=== PATIENT | female | born 1935 | race Caucasian/White ===

== ENCOUNTER → 2016-07-30 | Outpatient (CLI) | payer BC ==
[~2016-07-30] MED LIST: ASPI81TA21 PO; CHOL100027 PO; CHOLTAB12 PO; COEN100C15 PO; CYAN10005 PO; DYZ PO; FISHOIL PO; FURO-85 PO; GABA1CAP PO; GING1CAP2 PO; IMD/2 PO; LACT10CA3 PO; LACT3000 PO; MISCCAP80 PO; MULT-188 PO; OMEGCAP2 PO; PANT40TA PO; POTA1TAB97 PO; PRD/1 PO; PRED-301 PO; PROB1CAP93 PO; PSYL1POW PO; REDCAP2 PO; TURM500T PO; [UNRECOGNIZED DRUG - OTHER] PO
[2016-07-30 16:41] LABS: HEMATOCRIT 42.2 % (37-47); MEAN CELL VOLUME 91.5 fL (80-100); MEAN CORPUSCULAR HEMOGLOBIN 29.1 pg (25-34); MEAN CORPUSCULAR HGB CONC 31.8 g/dl (32-36); MEAN PLATELET VOLUME 11.1 fL (7.4-10.4); PLATELET COUNT 306 K/uL (130-400); RED BLOOD COUNT 4.61 M/uL (4.2-5.4); WHITE BLOOD COUNT 11.71 K/uL (4.8-10.8)
[2016-07-30 17:08] LABS: BLOOD UREA NITROGEN 24 mg/dl (7-18); BUN/CREATININE RATIO 18.3 (10-20); CALCIUM 9.1 mg/dl (8.5-10.1); CARBON DIOXIDE 32 mmol/L (21-32); CHLORIDE 106 mmol/L (98-107); GLUCOSE 91 mg/dl (70-99); PHOSPHORUS 3.1 mg/dl (2.5-4.9); POTASSIUM 3.7 mmol/L (3.5-5.1); SODIUM 145 mmol/L (136-145)
== END | disposition home or self-care (01) ==
LOC: C.LAB1850 15:15
PROVIDERS: ATTEND Internal Medicine Nephrology
DX: M31.6 Other giant cell arteritis (principal); N18.3 Chronic kidney disease, stage 3 (moderate)

== ENCOUNTER → 2016-09-15 | Outpatient (CLI) | payer BC | END | disposition home or self-care (01) | LOC: C.LAB1850 10:42 | PROVIDERS: ATTEND Internal Medicine Rheumatology | DX: M35.3 Polymyalgia rheumatica (principal); Z79.52 Long term (current) use of systemic steroids ==

== ENCOUNTER → 2016-09-22 | Outpatient (CLI) | payer BC ==
--- NOTE | 2016-09-22 13:15 | DIAGNOSTIC IMAGING REPORT ---
NECK ULTRASONOGRAPHY CLINICAL HISTORY: CERVICAL LYMPHADENOPATHY palpable mass COMPARISON STUDY: No previous studies for comparison. FINDINGS: Ultrasonographic evaluation of the neck was performed with attention to the palpable abnormality. The palpable abnormality within the left neck, corresponds to the left submandibular gland. No subacute gland masses are visualized. No pathologic adenopathy was demonstrated. IMPRESSION: The palpable abnormality described by the patient corresponds to the patient's left submandibular gland. No submandibular gland masses are visualized. Electronically signed by: Toni Islas M.D. 09/22/2016 1:13 PM Dictated Date/Time: 09/22/2016 1:11 PM
== END | disposition home or self-care (01) ==
LOC: C.ULTRBC 12:41
PROVIDERS: ATTEND Family Medicine
DX: R59.0 Localized enlarged lymph nodes (principal)

== ENCOUNTER → 2017-01-04 | Day surgery (SDC) | payer BC ==
[2016-12-24 13:42] VITALS: Ht 152.4 cm; Wt 59.5 kg
[~2017-01-04] VITALS: Ht 152.4 cm; Wt 59.5 kg
[~2017-01-04] MED LIST changes: -CHOL100027 PO; -DYZ PO; -LACT3000 PO; +LIDOCAINE HCL 2% 2 ML VIAL (20MG/ML) ONE; -MISCCAP80 PO; -MULT-188 PO; -PRED-301 PO; +PROPOFOL IV EMULSION 10 MG/ML 20 ML VIAL IV ONE; -REDCAP2 PO
--- NOTE | 2017-01-04 13:45 | Endo History and Physical ---
History & Physical Date of Service: Jan 04, 2017. Chief Complaint: history of polyps Referring Physician: Dr. Yessica Yan History of Present Illness For colonoscopy Past Surgical History Hx Cardiac Surgery: No Hx Internal Defibrillator: No Hx Pacemaker: No Hx Abdominal Surgery: Yes (APPY, D&C X3, YOU) Hx of Implantable Prosthesis: No Hx Post-Op Nausea and Vomiting: No Hx Cancer Surgery: Yes (BCC REMOVAL) Hx Thoracic Surgery: No Hx Orthopedic: No Hx Urinary Tract Surgery: No Family History None Social History Smoking Status: Former Smoker Hx Substance Use: No Hx Alcohol Use: Yes (1 GLASS WINE NIGHTLY) Allergies Coded Allergies: Latex1 -Allergic Contact Dermititis (Verified Allergy, Intermediate, HIVES AND ITCHING, 01/04/17) Methotrexate (Verified Allergy, Intermediate, SEVERE GI UPSET, 12/24/16) Statins (Verified Allergy, Intermediate, MUSCLE ACHES, 12/24/16) Lactose Intolerance (GI) (Verified Allergy, Unknown, GI UPSET, 12/24/16) Nickel (Verified Allergy, Unknown, RASH, 12/24/16) Sulfamethoxazole w/Trimethoprim (Verified Allergy, Unknown, HIVES, 12/24/16 ) Current Medications Reported Home Medications Medications Dose Route/Sig Max Daily Dose Days Date Category Imodium (Loperamide HCl) 2 Mg Cap 2 Mg PO QAM 12/24/16 Reported Metamucil Multihealth Fib (Psyllium) 58.12 % Pow 1 Tbs PO QAM 12/24/16 Reported Turmeric (Turmeric (Curcuma Longa)) 500 Mg Tab 1 Tab PO QPM 12/24/16 Reported Vitamin B-12 (Cyanocobalamin) 1,000 Mcg Tab 1,000 Mcg PO QPM 12/24/16 Reported Maren Root (Maren (Zingiber Officinalis)) 250 Mg Cap 1 Cap PO QPM 12/24/16 Reported Beverly Oil 1 Oil Oil 1 Cap PO QPM 12/24/16 Reported Culturelle (Lactobacillus-Inulin) 1 Cap Cap 1 Cap PO QAM 12/24/16 Reported Digestive Advantage (Probiotic Product) 1 Cap Cap 1 Cap PO QAM 12/24/16 Reported K-Tab (Potassium Chloride) 20 Meq Tab 1 Tab PO QAM 12/24/16 Reported Prednisone 1 Mg Tab 2 Mg PO QAM 12/24/16 Reported Protonix (Pantoprazole Sodium) 40 Mg Tab 40 Mg PO QAM 12/24/16 Reported Lasix (Furosemide) 20 Mg Tab 20 Mg PO QAM 12/24/16 Reported D-2000 Maximum Strength (Cholecalciferol) 2,000 Unit Tab 1 Tab PO QPM 12/24/16 Reported Co Q10 (Coenzyme Q10 (Ubidecarenone)) 100 Mg Cap 100 Mg PO QAM 05/24/12 Reported Neurontin (Gabapentin) 100 Mg Cap 100 Mg PO BID PRN 05/24/12 Reported [place]-3 (Fish Oil) Oil 1,000 Mg PO QAM 05/24/12 Reported Ecotrin Or Generic (Aspirin) 81 Mg Tab 81 Mg PO QPM 05/24/12 Reported Vital Signs Weight (Kilograms): 59.55 Height (Feet): 5 Height (Inches): 0 Date Time Temp Pulse Resp B/P (MAP) Pulse Ox O2 Delivery O2 Flow Rate FiO2 01/04/17 13:15 36.6 75 20 133/97 (109) 96 Room Air Physical Exam General Appearance: WD/WN Respiratory/Chest: Respiratory effort: no dyspnea Cardiovascular: Heart Auscultation: III/ LORA Abdomen: Inspection & Palpation: soft Assessment and Plan Hx of polyps for colonoscopy
--- NOTE | 2017-01-04 14:16 | Discharge Instructions ---
Endoscopy Patient Instructions Date / Procedure(s) Performed Jan 04, 2017. Colonoscopy Allergy Information Coded Allergies: Latex1 -Allergic Contact Dermititis (Verified Allergy, Intermediate, HIVES AND ITCHING, 01/04/17) Methotrexate (Verified Allergy, Intermediate, SEVERE GI UPSET, 12/24/16) Statins (Verified Allergy, Intermediate, MUSCLE ACHES, 12/24/16) Lactose Intolerance (GI) (Verified Allergy, Unknown, GI UPSET, 12/24/16) Nickel (Verified Allergy, Unknown, RASH, 12/24/16) Sulfamethoxazole w/Trimethoprim (Verified Allergy, Unknown, HIVES, 12/24/16 ) Discharge Date / Findings Jan 04, 2017. Diverticulosis, polyp Medication Instructions Stopped Medication(s): last dose ASA Wednesday Restart Stopped Medication(s): resume meds Reported Home Medications Medications Dose Route/Sig Max Daily Dose Days Date Category Imodium (Loperamide HCl) 2 Mg Cap 2 Mg PO QAM 12/24/16 Reported Metamucil Multihealth Fib (Psyllium) 58.12 % Pow 1 Tbs PO QAM 12/24/16 Reported Turmeric (Turmeric (Curcuma Longa)) 500 Mg Tab 1 Tab PO QPM 12/24/16 Reported Vitamin B-12 (Cyanocobalamin) 1,000 Mcg Tab 1,000 Mcg PO QPM 12/24/16 Reported Maren Root (Maren (Zingiber Officinalis)) 250 Mg Cap 1 Cap PO QPM 12/24/16 Reported Beverly Oil 1 Oil Oil 1 Cap PO QPM 12/24/16 Reported Culturelle (Lactobacillus-Inulin) 1 Cap Cap 1 Cap PO QAM 12/24/16 Reported Digestive Advantage (Probiotic Product) 1 Cap Cap 1 Cap PO QAM 12/24/16 Reported K-Tab (Potassium Chloride) 20 Meq Tab 1 Tab PO QAM 12/24/16 Reported Prednisone 1 Mg Tab 2 Mg PO QAM 12/24/16 Reported Protonix (Pantoprazole Sodium) 40 Mg Tab 40 Mg PO QAM 12/24/16 Reported Lasix (Furosemide) 20 Mg Tab 20 Mg PO QAM 12/24/16 Reported D-2000 Maximum Strength (Cholecalciferol) 2,000 Unit Tab 1 Tab PO QPM 12/24/16 Reported Co Q10 (Coenzyme Q10 (Ubidecarenone)) 100 Mg Cap 100 Mg PO QAM 05/24/12 Reported Neurontin (Gabapentin) 100 Mg Cap 100 Mg PO BID PRN 05/24/12 Reported [place]-3 (Fish Oil) Oil 1,000 Mg PO QAM 05/24/12 Reported Ecotrin Or Generic (Aspirin) 81 Mg Tab 81 Mg PO QPM 05/24/12 Reported Provider Instructions Activity Restrictions - No exercising or heavy lifting for 24 hours. - Do not drink alcohol the day of the procedure. - Do not drive a car or operate machinery until the day after the procedure. - Do not make any important decisions or sign important papers in 24 hours after the procedure. Following Day: - Return to full activity which may include returning to work/school. Diet Start your diet with liquids and light foods (jello, soup, juice, toast). Then eat your usual diet if not nauseated. Treatment For Common After Affects For mild abdominal pain, bloating, or excessive gas: - Rest - Eat lightly - Lie on right side Follow-Up Information Follow-up with Dr. Yessica Yan as scheduled Anesthesia Information What You Should Know You have had a procedure that required some medicine to reduce anxiety and discomfort. This treatment is called moderate sedation. After receiving the treatment, you may be sleepy, but you will be able to breathe on your own. The effects of the treatment may last for several hours. Follow these instructions along with Activity/Diet recommendations noted above: * Do NOT do anything where dizziness or clumsiness would be dangerous. * Rest quietly at home today, then you can be up and about tomorrow. * Have a responsible person stay with you the rest of today. * You may have had an I.V. today. If so, you may take the dressing off later today. Recommendations Call your doctor if: * Trouble breathing * Continuous vomiting for more than 24 hours * Temperature above 101 degrees * Severe abdominal pain or bloating * Pain not relieved by pain medicine ordered * There is increased drainage or redness from any incision * A large amount of rectal bleeding greater than 2-3 tablespoons. (If you had a polyp/s removed or have hemorrhoids, a small amount of blood - from the rectum is to be expected.) * You have any unanswered questions or concerns. IN THE EVENT OF A SERIOUS EMERGENCY, GO TO THE NEAREST EMERGENCY ROOM Your discharge instructions were prepared by provider Cole Bowden. Patient Instructions Signature Page Angy Thomas Patient (or Guardian) Signature/Date: I have read and understand the instructions given to me by my caregivers. Caregiver/RN/Doctor Signature/Date: The above-named patient and/or guardian has received patient instructions on this date. + Original Patient Signature Page (only) stays with chart. Please make copy for patient.
--- NOTE | 2017-01-04 14:18 | GI REPORT ---
Procedure Date: 01/04/2017 1:35 PM Procedure: Colonoscopy Indications: Personal history of colonic polyps Medicines: Propofol total dose 270 mg IV, Lidocaine 40 mg IV Complications: No immediate complications. Estimated Blood Loss: Estimated blood loss: none. Procedure: Pre-Anesthesia Assessment: - Prior to the procedure, a History and Physical was performed, and patient medications, allergies and sensitivities were reviewed. The patient's tolerance of previous anesthesia was reviewed. - The risks and benefits of the procedure and the sedation options and risks were discussed with the patient. All questions were answered and informed consent was obtained. After I obtained informed consent, the scope was passed under direct vision. Throughout the procedure, the patient's blood pressure, pulse, and oxygen saturations were monitored continuously. The Scope was introduced through the anus and advanced to the cecum, identified by appendiceal orifice and ileocecal valve. The colonoscopy was performed without difficulty. The patient tolerated the procedure well. The quality of the bowel preparation was good. Findings: A 5 mm polyp was found in the recto-sigmoid colon. The polyp was sessile. The polyp was removed with a hot snare. Resection and retrieval were complete. Estimated blood loss: none. A few diverticula were found in the sigmoid colon. Impression: - One 5 mm polyp at the recto-sigmoid colon, removed with a hot snare. Resected and retrieved. - Diverticulosis in the sigmoid colon. Recommendation: - Discharge patient to home (ambulatory). - Continue present medications. - Await pathology results. - Return to referring physician PRN. Cole Bowden M.D. Cole Bowden MD 01/04/2017 2:18:29 PM This report has been signed electronically. Note Initiated On: 01/04/2017 1:35 PM I attest to the content of the Intraoperative Record and orders documented therein, exceptions below
[2017-01-04 15:44] VITALS: BP 162/72; PULSE 62; O2SAT 99
--- NOTE | 2017-01-04 16:10 | Anesthesiology Progress Note ---
Anesthesia Post Op Note Date & Time Jan 04, 2017 at 16:01 Vital Signs Pain Intensity: 0 Vital Signs Past 12 Hours Date Time Temp Pulse Resp B/P (MAP) Pulse Ox O2 Delivery O2 Flow Rate FiO2 01/04/17 15:33 60 20 151/68 (95) 98 Room Air 01/04/17 15:17 55 20 190/82 (118) 98 Room Air 01/04/17 14:59 55 20 203/82 (122) 97 Room Air 01/04/17 14:41 56 20 202/101 (134) 96 Room Air 01/04/17 14:23 56 20 145/60 (88) 97 Room Air 01/04/17 13:15 36.6 75 20 133/97 (109) 96 Room Air Notes Mental Status: alert / awake / arousable, participated in evaluation Pt Amnestic to Procedure: Yes Nausea / Vomiting: adequately controlled Pain: adequately controlled Airway Patency, RR, SpO2: stable & adequate BP & HR: stable & adequate Hydration State: stable & adequate Anesthetic Complications: no major complications apparent The patient is a 81 y/o female with a h/o HTN, DLD, CAD, carotid stenosis and moderate s/p colonoscopy with Dr. Bowden. The patient's BP on arrival was 133/97 but solange to 180/80 when she reached the procedure room. She is only on Lasix for hypertension and she did take it this morning. Per the patient, her BP often fluctuates especially while at the doctor's office. During the procedure her BP improved to 140s/60s with propofol however it solange to 190s-200/80s-100 in recovery, HR 55. She was asymptomatic. The patient was given a total of Hydralazine 10mg IV which improved her BP to 150s-160s/60s prior to discharge. The patient was instructed to recheck her BP later today. She states that her daughter in law can recheck her BP at home. She was instructed to call her PCPs office if it is elevated. She was instructed to go to the ED if it is significantly elevated ( 190 or greater systolic and/or diastolic 100 or greater ). She was also instructed to go to the ED if she has any chest pain, shortness of breath, lightheaded or dizziness, severe headache, changes in vision or with any other concerns. She understands and agrees.
== END | disposition home or self-care (01) ==
LOC: C.GI 12:46
PROVIDERS: ATTEND Internal Medicine Gastroenterology
DX: Z12.11 Encounter for screening for malignant neoplasm of colon (principal); K62.1 Rectal polyp; K57.30 Diverticulosis of large intestine without perforation or abscess without bleeding; Z86.010 Personal history of colon polyps; Z90.89 Acquired absence of other organs; Z90.49 Acquired absence of other specified parts of digestive tract; Z85.820 Personal history of malignant melanoma of skin; Z87.891 Personal history of nicotine dependence; Z79.82 Long term (current) use of aspirin; I25.10 Atherosclerotic heart disease of native coronary artery without angina pectoris; N18.3 Chronic kidney disease, stage 3 (moderate); I12.9 Hypertensive chronic kidney disease with stage 1 through stage 4 chronic kidney disease, or unspecified chronic kidney disease; Z92.241 Personal history of systemic steroid therapy; R01.1 Cardiac murmur, unspecified; G47.33 Obstructive sleep apnea (adult) (pediatric)

== ENCOUNTER 2017-02-08 11:59 | Observation (INO) | payer BC ==
[~2017-02-08] VITALS: Ht 152.4 cm; Wt 61.1 kg
[~2017-02-08 11:59] MED LIST changes: -LIDOCAINE HCL 2% 2 ML VIAL (20MG/ML) ONE; -OMEGCAP2 PO; -PROPOFOL IV EMULSION 10 MG/ML 20 ML VIAL IV ONE
--- NOTE | 2017-02-08 12:26 | EMERGENCY ROOM VISIT NOTE ---
History Report prepared by Omari: Ana Laura Vasquez Under the Supervision of: Dr. Elmer Garcia M.D. First contact with patient: 12:09 Chief Complaint: CHEST PAIN Stated Complaint: CHEST PAIN History of Present Illness The patient is a 81 year old female who presents to the Emergency Room with complaints of intermittent central chest pain that began last night. She currently rates her discomfort as a 4/10 in severity. The patient states that last night when she went to bed she slightly noticed her chest discomfort, but additionally notes that she was tired. She states that this morning she woke and intermittently has experienced central chest pain that radiates to her right chest. The patient describes her pain as a dull, sore pain. She denies any recent fall or trauma, or any recent heavy lifting. The patient reports a history of pancreatitis five years ago, but denies her symptoms feeling similar to that. She denies any history of a previous [facility], but states that she follows with cardiology for her valve problems. The patient reports that she is scheduled for an echocardiogram on . She states that she took aspirin prior to arrival. The patient states that she has had previous stress tests, but denies any previous heart catheterization. She denies any recent fluid retention, noting that she is on Lasix. The patient states that she has been experiencing middle back pain. She states that she has been dizzy today. Source of History: patient Onset: last night Position: chest (central) Symptom Intensity: 4/10 Quality: dull, other (sore) Timing: intermittent Associated Symptoms: + back pain Note: Associated Symptoms: dizzy Review of Systems See HPI for pertinent positives & negatives. A total of 10 systems reviewed and were otherwise negative. Past Medical & Surgical Medical Problems: (1) Gall bladder disease (2) Heart disease (3) HTN (hypertension) (4) Kidney disease (5) Pneumonia (6) Shingles (7) Stomach problems Family History FH: HTN (hypertension) FH: cancer FH: gallbladder disease FH: heart disease Social History Smoking Status: Former Smoker Alcohol Use: occasionally Drug Use: none Marital Status: Housing Status: lives with significant other Occupation Status: retired Current/Historical Medications Scheduled Aspirin Enteric Coated (Ecotrin Or Generic), 81 MG PO QPM Cholecalciferol (D-2000 Maximum Strength), 1 TAB PO QPM Coenzyme Q10 (Ubidecarenone) (Co Q10), 100 MG PO QAM Cyanocobalamin (Vitamin B-12), 1,000 MCG PO QPM Furosemide (Lasix), 20 MG PO QAM Maren (Zingiber Officinalis) (Maren Root), 1 CAP PO QPM Lactobacillus-Inulin (Culturelle), 1 CAP PO QAM Loperamide Hcl (Imodium), 2 MG PO QAM [place]-3 Fatty Acids (Fish Oil), 1 CAP PO DAILY Pantoprazole (Protonix), 40 MG PO QAM Potassium Chloride (K-Tab), 1 TAB PO QAM Prednisone (Prednisone), 2 MG PO QAM Probiotic Product (Digestive Advantage), 1 CAP PO QAM Psyllium (Metamucil Multihealth Fib), 1 TBS PO QAM Beverly Oil (Beverly Oil), 1 CAP PO QPM Turmeric (Curcuma Longa) (Turmeric), 1 TAB PO QPM Scheduled PRN Gabapentin (Neurontin), 100 MG PO BID PRN for Pain Allergies Coded Allergies: Latex1 -Allergic Contact Dermititis (Verified Allergy, Intermediate, HIVES AND ITCHING, 02/08/17) Methotrexate (Verified Allergy, Intermediate, SEVERE GI UPSET, 02/08/17) Statins (Verified Allergy, Intermediate, MUSCLE ACHES, 02/08/17) Lactose Intolerance (GI) (Verified Allergy, Unknown, GI UPSET, 02/08/17) Nickel (Verified Allergy, Unknown, RASH, 02/08/17) Sulfamethoxazole w/Trimethoprim (Verified Allergy, Unknown, HIVES, 02/08/17) Physical Exam Vital Signs Date Time Temp Pulse Resp B/P (MAP) Pulse Ox O2 Delivery O2 Flow Rate FiO2 02/08/17 13:37 61 16 194/83 98 02/08/17 13:00 59 17 171/72 96 02/08/17 12:30 59 18 170/85 99 02/08/17 12:21 58 20 173/89 97 Room Air 02/08/17 12:20 97 Room Air 02/08/17 12:14 65 02/08/17 12:01 36.5 68 17 188/81 94 Room Air Physical Exam GENERAL: Patient is elderly appearing and in minimal distress. HEENT: No acute trauma, normocephalic atraumatic, mucous membranes moist, no nasal congestion, no scleral icterus. NECK: No stridor, no adenopathy, no meningismus, trachea is midline. LUNGS: No dyspnea. Clear to auscultation and equal bilaterally. No wheeze, no rhonchi. HEART: Systolic ejection murmur. Regular rate and rhythm. No rubs, gallops appreciated. ABDOMEN: Soft, nontender, bowel sounds positive, no masses appreciated, no peritonitis. BACK: No midline tenderness, no CVA tenderness EXTREMITIES: Normal motion all extremities, no cyanosis, no edema. NEUROLOGIC: Alert and oriented, no acute motor or sensory deficits, no focal weakness, cranial nerves grossly intact. SKIN: No rash, no jaundice, no diaphoresis. Medical Decision & Procedures ER Provider Diagnostic Interpretation: X ray results are stated below per my interpretation and the radiologist's interpretation. CHEST ONE VIEW PORTABLE HISTORY: 81 years-old Female Chest Pain acute atypical chest pain. Initial exam. COMPARISON: Chest radiograph 05/24/2012 TECHNIQUE: Portable upright AP view of the chest FINDINGS: Cardiomediastinal and hilar silhouettes are within normal limits. There is atherosclerosis of the aorta. No pneumothorax, pleural effusion or focal airspace consolidation. There is no overt pulmonary edema. The bones are grossly intact. IMPRESSION: No acute cardiopulmonary process. The above report was generated using voice recognition software. It may contain grammatical, syntax or spelling errors. Electronically signed by: Suhail Lambert M.D. 02/08/2017 1:21 PM Dictated Date/Time: 02/08/2017 1:18 PM Laboratory Results 02/08/17 12:21 Red Blood Count 4.68, Mean Corpuscular Volume 88.7, Mean Corpuscular Hemoglobin 28.4, Mean Corpuscular Hemoglobin Concent 32.0, Mean Platelet Volume 10.3, Neutrophils (%) (Auto) 68.9, Lymphocytes (%) (Auto) 19.5, Monocytes (%) (Auto) 8.6, Eosinophils (%) (Auto) 2.4, Basophils (%) (Auto) 0.2, Neutrophils # (Auto) 6.55, Lymphocytes # (Auto) 1.86, Monocytes # (Auto) 0.82, Eosinophils # (Auto) 0.23, Basophils # (Auto) 0.02 02/08/17 12:21 Test 02/08/17 12:21 White Blood Count 9.52 K/uL (4.8-10.8) Red Blood Count 4.68 M/uL (4.2-5.4) Hemoglobin 13.3 g/dL (12.0-16.0) Hematocrit 41.5 % (37-47) Mean Corpuscular Volume 88.7 fL (80-100) Mean Corpuscular Hemoglobin 28.4 pg (25-34) Mean Corpuscular Hemoglobin Concent 32.0 g/dl (32-36) Platelet Count 289 K/uL (130-400) Mean Platelet Volume 10.3 fL (7.4-10.4) Neutrophils (%) (Auto) 68.9 % Lymphocytes (%) (Auto) 19.5 % Monocytes (%) (Auto) 8.6 % Eosinophils (%) (Auto) 2.4 % Basophils (%) (Auto) 0.2 % Neutrophils # (Auto) 6.55 K/uL (1.4-6.5) Lymphocytes # (Auto) 1.86 K/uL (1.2-3.4) Monocytes # (Auto) 0.82 K/uL (0.11-0.59) Eosinophils # (Auto) 0.23 K/uL (0-0.5) Basophils # (Auto) 0.02 K/uL (0-0.2) RDW Standard Deviation 43.3 fL (36.4-46.3) RDW Coefficient of Variation 13.4 % (11.5-14.5) Immature Granulocyte % (Auto) 0.4 % Immature Granulocyte # (Auto) 0.04 K/uL (0.00-0.02) Anion Gap 5.0 mmol/L (3-11) Est Creatinine Clear Calc Drug Dose 37.6 ml/min Estimated GFR () 63.6 Estimated GFR (Non- 54.9 BUN/Creatinine Ratio 22.4 (10-20) Calcium Level 8.6 mg/dl (8.5-10.1) Total Bilirubin 0.4 mg/dl (0.2-1) Direct Bilirubin 0.1 mg/dl (0-0.2) Aspartate Amino Transf (AST/SGOT) 28 U/L (15-37) Alanine Aminotransferase (ALT/SGPT) 27 U/L (12-78) Alkaline Phosphatase 54 U/L (45-117) Total Creatine Kinase 120 U/L (26-192) Creatine Kinase MB 2.4 ng/ml (0.5-3.6) Creatine Kinase MB Ratio 2.0 (0-3.0) Troponin I < 0.015 ng/ml (0-0.045) Total Protein 7.6 gm/dl (6.4-8.2) Albumin 3.3 gm/dl (3.4-5.0) Lipase 294 U/L (73-393) Laboratory results as reviewed by me. ECG Indication: chest pain Rate (beats per minute): 62 Rhythm: normal sinus Findings: paced rhythm, no ectopy, other (flattened/slipped T waves laterally) Comparison ECG Date: 05/24/12 Change: When compared to EKG done on 05/24/12, the flipped/flattened T waves laterally are new. ED Course 1212: The patient was evaluated in room A3. A complete history and physical exam was performed. 1330: I reevaluated the patient she is resting comfortably. I discussed the exam findings with her and I discussed the treatment plan. She verbalized complete understanding and agreement. She will be evaluated for further treatment. 1340: I discussed the patients case with MIRNA Byrnes. He is going to evaluate the patient for further treatment. Medical Decision Differential: Cardiac Ischemia (STEMI, NSTEMI, Unstable Angina, etc), Aortic Dissection, Arrhythmia, Pulmonary Embolism, Pneumonia, Pneumothorax, MSK, Infectious, Pericarditis/Myocarditis, Esophageal Rupture, Gastrointestinal, amongst other pathologies entertained. 81 yr old female with several cardiac risk factors but denies previous CAD diagnosis arrives for evaluation of substernal chest pressure, resolved currently. Used ASA prior to arrival. EKG with flattened lateral t waves though no stemi. Trop initially negative. Systolic murmur known to patient. No evidence dissection nor PE by history/exam. She is stable and breathing comfortably. Given risks I felt that she will need cardiac rule out and thus hospitalist consulted. Medication Reconcilliation Current Medication List: was personally reviewed by me Blood Pressure Screening Patient's blood pressure: Elevated blood pressure The patient's blood pressure will be monitored by the hospitalist. Consults Time Called: 1332 Consulting Physician: MIRNA Byrnes Returned Call: 1330 I discussed the patients case with Dr. Gary [facility] [place]. He is going to evaluate the patient for further treatment. Impression Primary Impression: Substernal chest pain Additional Impressions: Hypertension Systolic murmur Scribe Attestation The scribe's documentation has been prepared under my direction and personally reviewed by me in its entirety. I confirm that the note above accurately reflects all work, treatment, procedures, and medical decision making performed by me. Departure Information Dispostion Being Evaluated By Hospitalist Referrals No Doctor, Assigned (PCP) Problem Qualifiers
[2017-02-08] MEDS ORDERED: OMEGCAP2 PO (12:35)
[2017-02-08 12:44] LABS: BASO % 0.2 %; BASO ABS # 0.02 K/uL (0-0.2); COMPLETE YES; EOS % 2.4 %; HEMATOCRIT 41.5 % (37-47); IG% 0.4 %; LYMPH % 19.5 %; LYMPH ABS # 1.86 K/uL (1.2-3.4); MEAN CELL VOLUME 88.7 fL (80-100); MEAN CORPUSCULAR HEMOGLOBIN 28.4 pg (25-34); MEAN PLATELET VOLUME 10.3 fL (7.4-10.4); MONO % 8.6 %; NEUT % 68.9 %; PLATELET COUNT 289 K/uL (130-400); RED BLOOD COUNT 4.68 M/uL (4.2-5.4); WHITE BLOOD COUNT 9.52 K/uL (4.8-10.8)
[2017-02-08 13:02] LABS: ALT/SGPT 27 U/L (12-78); AST/SGOT 28 U/L (15-37); BLOOD UREA NITROGEN 22 mg/dl (7-18); BUN/CREATININE RATIO 22.4 (10-20); CALCIUM 8.6 mg/dl (8.5-10.1); CARBON DIOXIDE 30 mmol/L (21-32); CHLORIDE 103 mmol/L (98-107); CREATININE 0.98 mg/dl (0.60-1.20); GLUCOSE 97 mg/dl (70-99); POTASSIUM 3.7 mmol/L (3.5-5.1); SODIUM 138 mmol/L (136-145)
[2017-02-08 13:08] LABS: ALKALINE PHOSPHATASE 54 U/L (45-117)
--- NOTE | 2017-02-08 13:22 | DIAGNOSTIC IMAGING REPORT ---
CHEST ONE VIEW PORTABLE HISTORY: 81 years-old Female Chest Pain acute atypical chest pain. Initial exam. COMPARISON: Chest radiograph 05/24/2012 TECHNIQUE: Portable upright AP view of the chest FINDINGS: Cardiomediastinal and hilar silhouettes are within normal limits. There is atherosclerosis of the aorta. No pneumothorax, pleural effusion or focal airspace consolidation. There is no overt pulmonary edema. The bones are grossly intact. IMPRESSION: No acute cardiopulmonary process. The above report was generated using voice recognition software. It may contain grammatical, syntax or spelling errors. Electronically signed by: Suhail Lambert M.D. 02/08/2017 1:21 PM Dictated Date/Time: 02/08/2017 1:18 PM
[2017-02-08 14:20] VITALS: O2SAT 98; Ht 152.4 cm; Wt 61.1 kg
[2017-02-08] MEDS ORDERED: NITROGLYCERIN 0.4 MG SL PER TAB CHARGE SL PRN (15:00)
[2017-02-08] MEDS ORDERED: ACETAMINOPHEN 325 MG TAB PO PRN (15:00)
[2017-02-08] MEDS ORDERED: ONDANSETRON INJ 2 MG/ML 2 ML VIAL IV PRN (15:00)
[2017-02-08] MEDS ORDERED: MAGNESIUM HYDROXIDE SUSP 30 ML UDC PO PRN (15:00)
[2017-02-08 15:29] LABS: PROTHROMBIN TIME (PATIENT) 10.4 SECONDS (9.0-12.0)
[2017-02-08] MEDS ORDERED: GABAPENTIN 100 MG CAP PO PRN (15:30)
[2017-02-08 16:00] LABS: MAGNESIUM 2.1 mg/dl (1.8-2.4); PHOSPHORUS 2.8 mg/dl (2.5-4.9)
[2017-02-08] MEDS ORDERED: IV FLUIDS COMPLETED PRN (16:00)
--- NOTE | 2017-02-08 16:05 | History and Physical ---
History & Physical Date & Time of Service: Feb 08, 2017 at 15:27 Chief Complaint: Chest Pain Primary Care Physician: Yessica Yan D.O. History of Present Illness Source: patient Patient is a 81 year old female with a past medical history of hypertension, hyperlipidemia, previous smoker, GERD, and moderate to severe as per echo in 07/24 that presents with intermittent chest pain since last night. The patient noticed that she was having some dull chest pain yesterday evening prior to sleeping, but that she attributed it to being fatigued and went to sleep. She woke up this morning with the pain once again that was 4/10, over the left side of the chest, dull, sore, and radiating to the jaw and back. The episodes appear to be intermittent and last approximately one minute, and occur every 15- 30 minutes. She has been evaluated before for vertigo like symptoms in the past , but she states that these episodes are different and more of a lightheadedness. She follows with [facility] Dr. Wan for Aortic stenosis and was last evaluated January 28, during which time she was complaining of heaviness in her thighs while walking uphill. Her last echo on July 2016 revealed moderate to severe aortic stenosis with a trileaflet valve, and mild to moderate aortic insufficiency. It also revealed a dilated aortic root measuring 4.4cm. She also recently has been followed by rheumatology for temporal arteritis for which she is currently on a daily dose of 2 mg prednisone. The patient states that she has unable to take statins due to her adverse history of muscle pain, and also unable to take austin inhibitors due to history of cough. For that reason in addition to her CKD she is currently on Lasix to treat her hypertension. The patient also has a history of cholecystectomy with some sequential pancreatitis but states that this pain is not similar to that previous history. The patient denies any history of NV. She does have a history of a stress test but no previous history of cardiac catheterization. The patient was scheduled to go for a cardiac echo this week. The patient currently exercises regularly and walks 2 miles every day, and states that she hasn't had increased pain with exercise. She denies any trauma or any inciting event that may have caused this chest pain. The patient also states that she has been having excessive amount of fatigue for the last few months, having to take daily naps and decreased exercise tolerance. She also states that she has lost 10-15 pounds over the last 3 months. Past Medical/Surgical History Medical Problems: (1) Gall bladder disease Status: Chronic (2) Heart disease Status: Chronic (3) HTN (hypertension) Status: Chronic (4) Kidney disease Status: Chronic (5) Pneumonia Status: Resolved (6) Shingles Status: Resolved (7) Stomach problems Status: Resolved Family History FH: HTN (hypertension) FH: cancer FH: gallbladder disease FH: heart disease Maternal grandfather NV, Mother COPD, Father lung cancer Social History Smoking Status: Former Smoker Smokeless Tobacco Use: No Drug Use: none Marital Status: Occupational Status: retired Immunizations History of Influenza Vaccine: Yes History of Tetanus Vaccine?: Unknown History of Pneumococcal: Yes History of Hepatitis B Vaccine: Unknown Multi-Drug Resistant Organisms History of MDRO: No Allergies Coded Allergies: Latex1 -Allergic Contact Dermititis (Verified Allergy, Intermediate, HIVES AND ITCHING, 02/08/17) Methotrexate (Verified Allergy, Intermediate, SEVERE GI UPSET, 02/08/17) Statins (Verified Allergy, Intermediate, MUSCLE ACHES, 02/08/17) Lactose Intolerance (GI) (Verified Allergy, Unknown, GI UPSET, 02/08/17) Nickel (Verified Allergy, Unknown, RASH, 02/08/17) Sulfamethoxazole w/Trimethoprim (Verified Allergy, Unknown, HIVES, 02/08/17) Home Medications Scheduled Aspirin Enteric Coated (Ecotrin Or Generic), 81 MG PO QPM Cholecalciferol (D-2000 Maximum Strength), 1 TAB PO QPM Coenzyme Q10 (Ubidecarenone) (Co Q10), 100 MG PO QAM Cyanocobalamin (Vitamin B-12), 1,000 MCG PO QPM Furosemide (Lasix), 20 MG PO QAM Maren (Zingiber Officinalis) (Maren Root), 1 CAP PO QPM Lactobacillus-Inulin (Culturelle), 1 CAP PO QAM Loperamide Hcl (Imodium), 2 MG PO QAM [place]-3 Fatty Acids (Fish Oil), 1 CAP PO DAILY Pantoprazole (Protonix), 40 MG PO QAM Potassium Chloride (K-Tab), 1 TAB PO QAM Prednisone (Prednisone), 2 MG PO QAM Probiotic Product (Digestive Advantage), 1 CAP PO QAM Psyllium (Metamucil Multihealth Fib), 1 TBS PO QAM Beverly Oil (Beverly Oil), 1 CAP PO QPM Turmeric (Curcuma Longa) (Turmeric), 1 TAB PO QPM Scheduled PRN Gabapentin (Neurontin), 100 MG PO BID PRN for Pain Review of Systems Constitutional: + fatigue, No fever, No chills, No weight loss Respiratory: No cough, No shortness of breath Cardiovascular: + chest pain, No edema, No palpitations Abdomen: + diarrhea, No pain, No nausea, No vomiting, No constipation Genitourinary - Female: No dysuria, No urinary frequency, No urinary urgency Physical Exam Vital Signs Date Time Temp Pulse Resp B/P (MAP) Pulse Ox O2 Delivery O2 Flow Rate FiO2 02/08/17 15:14 56 16 211/80 98 Room Air 180/100 02/08/17 14:20 98 Room Air 02/08/17 13:37 61 16 194/83 98 02/08/17 13:00 59 17 171/72 96 02/08/17 12:30 59 18 170/85 99 02/08/17 12:21 58 20 173/89 97 Room Air 02/08/17 12:20 97 Room Air 02/08/17 12:14 65 02/08/17 12:01 36.5 68 17 188/81 94 Room Air General Appearance: WD/WN, no apparent distress Head: normocephalic, atraumatic Eyes: normal inspection, sclerae normal Neck: supple, no carotid bruits Respiratory/Chest: chest non-tender, lungs clear, normal breath sounds, + pertinent finding (Tenderness to palpation over the left side of the chest) Cardiovascular: regular rate, rhythm, no gallop, + systolic murmur Abdomen/GI: normal bowel sounds, non tender, soft Extremities/Musculoskelatal: normal inspection, no calf tenderness, no pedal edema Neurologic/Psych: no motor/sensory deficits, alert, normal mood/affect, oriented x 3 Diagnostics Laboratory Results Results Past 24 Hours Test 02/08/17 12:21 Range/Units White Blood Count 9.52 4.8-10.8 K/uL Red Blood Count 4.68 4.2-5.4 M/uL Hemoglobin 13.3 12.0-16.0 g/dL Hematocrit 41.5 37-47 % Mean Corpuscular Volume 88.7 80-100 fL Mean Corpuscular Hemoglobin 28.4 25-34 pg Mean Corpuscular Hemoglobin Concent 32.0 32-36 g/dl Platelet Count 289 130-400 K/uL Mean Platelet Volume 10.3 7.4-10.4 fL Neutrophils (%) (Auto) 68.9 % Lymphocytes (%) (Auto) 19.5 % Monocytes (%) (Auto) 8.6 % Eosinophils (%) (Auto) 2.4 % Basophils (%) (Auto) 0.2 % Neutrophils # (Auto) 6.55 1.4-6.5 K/uL Lymphocytes # (Auto) 1.86 1.2-3.4 K/uL Monocytes # (Auto) 0.82 0.11-0.59 K/uL Eosinophils # (Auto) 0.23 0-0.5 K/uL Basophils # (Auto) 0.02 0-0.2 K/uL RDW Standard Deviation 43.3 36.4-46.3 fL RDW Coefficient of Variation 13.4 11.5-14.5 % Immature Granulocyte % (Auto) 0.4 % Immature Granulocyte # (Auto) 0.04 0.00-0.02 K/uL Sodium Level 138 136-145 mmol/L Potassium Level 3.7 3.5-5.1 mmol/L Chloride Level 103 98-107 mmol/L Carbon Dioxide Level 30 21-32 mmol/L Anion Gap 5.0 3-11 mmol/L Blood Urea Nitrogen 22 7-18 mg/dl Creatinine 0.98 0.60-1.20 mg/dl Est Creatinine Clear Calc Drug Dose 37.6 ml/min Estimated GFR () 63.6 Estimated GFR (Non- 54.9 BUN/Creatinine Ratio 22.4 10-20 Random Glucose 97 70-99 mg/dl Calcium Level 8.6 8.5-10.1 mg/dl Total Bilirubin 0.4 0.2-1 mg/dl Direct Bilirubin 0.1 0-0.2 mg/dl Aspartate Amino Transf (AST/SGOT) 28 15-37 U/L Alanine Aminotransferase (ALT/SGPT) 27 12-78 U/L Alkaline Phosphatase 54 45-117 U/L Total Creatine Kinase 120 26-192 U/L Creatine Kinase MB 2.4 0.5-3.6 ng/ml Creatine Kinase MB Ratio 2.0 0-3.0 Troponin I < 0.015 0-0.045 ng/ml Total Protein 7.6 6.4-8.2 gm/dl Albumin 3.3 3.4-5.0 gm/dl Lipase 294 73-393 U/L CXR normal Impression Assessment and Plan Patient is a 81 year old female with a past medical history of HTN, HLD, CKD, Aortic Stenosis, and previous smoker that presents with intermittent chest pain 1) Unstable Angina - Serial Cardiac Enzymes - Cardiac Rhythm Monitoring - Echocardiogram (Most recent ECHO on 07/24 - mod-severe , mild-mod Aortic Insufficiency) - Aspirin 81mg PO - Heparin Drip - 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 - Chest X-ray: No acute abnormalities - EKG: T was inversion in inferior leads (II, aVF) - DEISY score of 3: 5-13% = Intermediate Risk - Cardiology Consult - Fasting lipid for tomorrow AM labs - Magnesium - Phosphate - Coags 2) HTN - Continue home Lasix - Unable to take ACEi due to history of cough 3) GERD - Continue home Pantoprazole 40mg PO qAM 4) Temporal Arteritis - Continue Prednisone 2mg PO Daily 5) CKD Stage 3 - Creatinine 0.98 - Daily BMP - Limit renal toxic medications 6) DVT - Heparin 7) Code Status - Full Resuscitation Resident Physician Supervision Note: I interviewed and examined the patient. Discussed with Dr. Dsouza and agree with findings and plan as documented in the note. Any exceptions or clarifications are listed here: None Documented By: Joaquín Bouhcer upper chest pain radiating to back off and on all other ROS otherwise negative except for as above vitals noted nad breathing unlabored ribs tender to palp and inhaled on L although doesn't reproduce pain directly chest pain - likely rib related - but w risks and nonspecific EKG changes - r/o ACS. as above. aortic stenosis - nature of chest pain (nonexertional, no SOB, no syncope) makes it unlikely that relates. continue to follow. Level of Care Telemetry Advanced Directives Existing Living Will: Yes Existing Power of Ancillary Services Manager: Yes Resuscitation Status FULL RESUSCITATION VTE Prophylaxis VTE Risk Assessment Done? Y/N: Yes Risk Level: Moderate Given or contraindicated: Unfractionated heparin SQ Note Total Time: Critical Care 30 - 74 minutes Resident Tracking Resident Involvement: Resident Care Provided Care Provided: Adult [facility]
[2017-02-08] MEDS ORDERED: NITROGLYCERIN OINT 2% 1GM PACKET ONE (16:13)
[2017-02-08 16:45] VITALS: BP 198/76; PULSE 60; TEMP 36.4; O2SAT 96
[2017-02-08] MEDS: NITROGLYCERIN OINT 2% 1GM PACKET EXT SCH ×2 (17:56→23:54)
[2017-02-08 19:08] VITALS: BP 169/65; PULSE 60; TEMP 36.5; O2SAT 96
[2017-02-08 20:00] VITALS: O2SAT 96
[2017-02-08] MEDS ORDERED: ASPIRIN 81 MG ECTAB PO SCH (21:00)
[2017-02-08] MEDS ORDERED: CYANOCOBALAMIN 500 MCG TAB (VIT B-12) PO SCH (21:00)
[2017-02-08] MEDS: HEPARIN SOD 5000 UNIT/0.5 ML CARP SQ SCH (21:26)
[2017-02-08 21:57] LABS: CKMB/CK RATIO 1.6 (0-3.0)
[2017-02-08] MEDS ORDERED: HEPARIN SOD 5000 UNIT/0.5 ML CARP SQ SCH (22:00)
[2017-02-08 23:59] VITALS: O2SAT 96
[2017-02-09 00:15] VITALS: BP 185/76; PULSE 57; TEMP 36.8; O2SAT 95
[2017-02-09 04:00] VITALS: BP 181/69; PULSE 59; TEMP 36.7; O2SAT 96
[2017-02-09 04:02] VITALS: BP 160/80
[2017-02-09] MEDS ORDERED: NURSING VERBAL MED ORDER STA (04:17)
[2017-02-09] MEDS ORDERED: IBUPROFEN 600 MG TAB PO STA (04:20)
[2017-02-09] MEDS: NITROGLYCERIN OINT 2% 1GM PACKET EXT SCH ×2 (04:45→13:06)
[2017-02-09] MEDS: HEPARIN SOD 5000 UNIT/0.5 ML CARP SQ SCH (04:47)
[2017-02-09 05:24] LABS: CHOLESTEROL 195 mg/dl (0-200); CHOLESTEROL/HDL RATIO 5.1; CKMB/CK RATIO 1.4 (0-3.0); HDL CHOLESTEROL 38 mg/dl; LDL CHOLESTEROL CALCULATED 131 mg/dl; TRIGLYCERIDES 130 mg/dl (0-150); VERY LOW DENSITY LIPOPROT CALC 26 mg/dl
[2017-02-09 07:53] VITALS: BP 187/68; PULSE 72; TEMP 36.7; O2SAT 96
[2017-02-09] MEDS ORDERED: POTASSIUM CHLORIDE 20 MEQ TABCR PO SCH (09:00)
[2017-02-09] MEDS ORDERED: FUROSEMIDE 20 MG TAB PO SCH (09:00)
[2017-02-09] MEDS ORDERED: LOPERAMIDE HCL 2 MG CAP PO SCH (09:00)
[2017-02-09] MEDS ORDERED: PANTOprazole SOD 40 MG TAB PO SCH (09:00)
--- NOTE | 2017-02-09 09:37 | ECHOCARDIOGRAM REPORT ---
*NOTICE TO RECEIVING DEMOCRAT AGENCY This information is strictly Confidential and protected under [place] law. [place] law prohibits you from making any further disclosure of this information unless further disclosure is expressly permitted by the written consent of the person to whom it pertains or is authorized by law. A general authorization for the release of medical or other information is not sufficient for this purpose. Hospital accepts no responsibility if the information is made available to any other person, INCLUDING THE PATIENT. Interpretation Summary * Name: ARMANDO BOOGIE Study Date: 02/09/2017 07:35 AM BP: 160/80 mmHg * Patient Location: C.2T\S\S243\S\1 HR: 59 * : 1935 (M/d/yyyy) Gender: Female Height: 60 in * Age: 81 yrs Ethnicity: CA Weight: 131 lb * Ordering Physician: Tucker Dsouza * Referring Physician: UNKNOWN * Performed By: Amanda Fitzpatrick RCS * * Reason For Study: Chest Pain * BSA: 1.6 m2 * -- Conclusions -- * The left ventricle is normal in size. * There is mild concentric left ventricular hypertrophy. * Ejection Fraction = 55-60%. * Left ventricular systolic function is normal. * The left ventricular wall motion is normal. * The right ventricle is normal in size and function. * The right ventricular systolic function is normal as assessed by tricuspid annular plane systolic excursion (TAPSE) (normal >1.5 cm). * Moderate valvular aortic stenosis. * Mild to moderate aortic regurgitation. * Dimensionless Index 0.36; COLLIN 1.1 cm squared * There is moderate mitral annular calcification. * Right ventricular systolic pressure is normal. * Grade I diastolic dysfunction, (abnormal relaxation pattern). Procedure Details * A complete two-dimensional transthoracic echocardiogram was performed (2D, M-mode, Doppler and color flow Doppler). Left Ventricle * The left ventricle is normal in size. * There is mild concentric left ventricular hypertrophy. * Ejection Fraction = 55-60%. * Left ventricular systolic function is normal. * The left ventricular wall motion is normal. Right Ventricle * The right ventricle is normal in size and function. * The right ventricular systolic function is normal as assessed by tricuspid annular plane systolic excursion (TAPSE) (normal >1.5 cm). Atria * The left atrium is mildly dilated. * Right atrial size is normal. Mitral Valve * There is moderate mitral annular calcification. * There is mild mitral regurgitation. Tricuspid Valve * The tricuspid valve is not well visualized, but is grossly normal. * There is mild tricuspid regurgitation. * Right ventricular systolic pressure is normal. Aortic Valve * Moderate valvular aortic stenosis. * Dimensionless Index 0.36; COLLIN 1.1 cm squared * Mild to moderate aortic regurgitation. Pulmonic Valve * The pulmonic valve is not well seen, but is grossly normal. Great Vessels * The aortic root is normal size. Pericardium/Pleural * There is no pericardial effusion. Left Ventricular Diastolic Function * Grade I diastolic dysfunction, (abnormal relaxation pattern). MMode 2D Measurements and Calculations IVSd 1.1 cm IVSs 1.4 cm LVIDd 4.8 cm LVIDs 3.1 cm LVPWd 1.0 cm LVPWs 1.2 cm IVS/LVPW 1.1 FS 35.4 % EDV(Teich) 105.6 ml ESV(Teich) 37.3 ml EF(Teich) 64.7 % EDV(cubed) 108.1 ml ESV(cubed) 29.2 ml EF(cubed) 73.0 % % IVS thick 22.2 % % LVPW thick 17.2 % LV mass(C)d 188.9 grams LV mass(C)dI 121.2 grams/m\S\2 LV mass(C)s 129.4 grams LV mass(C)sI 83.0 grams/m\S\2 CO(Teich) 3.9 l/min CI(Teich) 2.5 l/min/m\S\2 SV(Teich) 68.3 ml SI(Teich) 43.8 ml/m\S\2 CO(cubed) 4.5 l/min CI(cubed) 2.9 l/min/m\S\2 SV(cubed) 78.9 ml SI(cubed) 50.6 ml/m\S\2 Ao root diam 3.1 cm Ao root area 7.4 cm\S\2 LA dimension 3.5 cm LA/Ao 1.1 LVOT diam 2.0 cm LVOT area 3.0 cm\S\2 LVAd ap4 35.7 cm\S\2 LVLd ap4 8.6 cm EDV(MOD-sp4) 121.0 ml LVAs ap4 21.7 cm\S\2 LVLs ap4 7.6 cm ESV(MOD-sp4) 51.0 ml EF(MOD-sp4) 57.9 % LVAd ap2 29.4 cm\S\2 LVLd ap2 7.9 cm EDV(MOD-sp2) 92.0 ml LVAs ap2 16.9 cm\S\2 LVLs ap2 6.6 cm ESV(MOD-sp2) 38.0 ml EF(MOD-sp2) 58.7 % CO(MOD-sp4) 4.0 l/min CI(MOD-sp4) 2.6 l/min/m\S\2 SV(MOD-sp4) 70.0 ml SI(MOD-sp4) 44.9 ml/m\S\2 CO(MOD-sp2) 3.1 l/min CI(MOD-sp2) 2.0 l/min/m\S\2 SV(MOD-sp2) 54.0 ml SI(MOD-sp2) 34.6 ml/m\S\2 Doppler Measurements and Calculations MV E max [place] 83.6 cm/sec MV A max [place] 111.1 cm/sec MV E/A 0.75 MV P1/2t max [place] 85.7 cm/sec MV P1/2t 156.1 msec MVA(P1/2t) 1.4 cm\S\2 MV dec slope 160.7 cm/sec\S\2 MV dec time 0.46 sec Ao V2 max 289.1 cm/sec Ao max PG 33.7 mmHg Ao max PG (full) 29.2 mmHg Ao V2 mean 210.9 cm/sec Ao mean PG 19.8 mmHg Ao mean PG (full) 17.5 mmHg Ao V2 VTI 74.4 cm COLLIN(I,A) 1.1 cm\S\2 COLLIN(I,D) 1.1 cm\S\2 COLLIN(V,A) 1.1 cm\S\2 COLLIN(V,D) 1.1 cm\S\2 AI end-d [place] 307.4 cm/sec AI max [place] 407.5 cm/sec AI max PG 66.5 mmHg AI dec slope 216.4 cm/sec\S\2 AI P1/2t 551.6 msec LV V1 max PG 4.5 mmHg LV V1 mean PG 2.3 mmHg LV V1 max 105.6 cm/sec LV V1 mean 71.3 cm/sec LV V1 VTI 28.1 cm SV(Ao) 554.5 ml SI(Ao) 355.6 ml/m\S\2 SV(LVOT) 84.4 ml SI(LVOT) 54.1 ml/m\S\2 PA V2 max 88.7 cm/sec PA max PG 3.1 mmHg PI max [place] 176.5 cm/sec PI max PG 12.5 mmHg PI dec slope 138.7 cm/sec\S\2 PI P1/2t 372.6 msec
[2017-02-09 12:27] VITALS: BP 173/74; PULSE 59; TEMP 36.7; O2SAT 96
--- NOTE | 2017-02-09 12:33 | Discharge Instructions ---
Discharge Instructions Date of Service Feb 09, 2017. Admission Reason for Admission: Chest Pain Discharge Discharge Diagnosis / Problem: Rib associated pain Discharge Goals Goal(s): Decrease discomfort, Therapeutic intervention Activity Recommendations Activity Limitations: per Instructions/Follow-up section Lifting Limitations: gradually increase as tolerated Exercise/Sports Limitations: gradually increase as tolerated Shower/Bathe: no limitations . Instructions / Follow-Up Instructions / Follow-Up You were seen in the hospital for chest pain. Your workup involved a Chest Xray , Heart Enzyme testing, Electrocardiogram (Heart Rhythm Monitor), Echocardiogram (Ultrasound of the heart), and basic lab work. There were no findings of a heart attack, and your ultrasound did not show acute worsening of your Aortic Stenosis. Your pain was most likely due to rib/muscle discomfort over your left side of your chest. Also during your visit your blood pressure was elevated so we would like you to have that followed up in one week Instructions - Resume your home medications - Our briefcase sewer is currently arranging a follow up visit with either Dr. Yan or Dr. Wan next week to follow up with your blood pressure. The office will contact you in the next 1-2 days but if you do not hear from them please call the office - Follow up with Dr. Esparza regarding your recent fatigue and Temporal Arteritis - Continue to perform chest exercises in addition to breathing exercises to help improve the pain in your chest - If you notice any concerning symptoms including lightheadedness, worsening chest pain, nausea, vomiting, back pain, pain radiating to your jaw or arm, or any other concerning symptoms please be evaluated by a physician or return to the emergency department for evaluation Current Hospital Diet Patient's current hospital diet: AHA Diet (Heart Healthy) Discharge Diet Recommended Diet: AHA Diet (Heart Healthy) Pending Studies Studies pending at discharge: no Laboratory Results Lipid Panel Test 02/09/17 04:40 Range/Units Triglycerides Level 130 0-150 mg/dl Cholesterol Level 195 0-200 mg/dl HDL Cholesterol 38 mg/dl Cholesterol/HDL Ratio 5.1 LDL Cholesterol, Calculated 131 mg/dl Medical Emergencies . Who to Call and When: Medical Emergencies: If at any time you feel your situation is an emergency, please call 911 immediately. . Non-Emergent Contact Non-Emergency issues call your: Primary Care Provider . . "Provider Documentation" section prepared by Tucker Dsouza. . VTE Core Measure Inpt VTE Proph given/why not?: Unfractionated heparin SQ
[2017-02-09 13:06] VITALS: BP 173/74; PULSE 59; TEMP 36.7; O2SAT 96
--- NOTE | 2017-02-09 16:15 | Discharge Summary ---
Discharge Summary Date of Service Feb 09, 2017. Discharge Summary Admission Date: Feb 08, 2017 at 15:03 Discharge Date: Feb 09, 2017 Discharge Disposition: Home Principal Diagnosis: rib related chest pain Immunizations: Have You Had Influenza Vaccine: Yes History of Tetanus Vaccine?: Unknown History of Pneumococcal: Yes History of Hepatitis B Vaccine: Unknown Procedures: Interpretation Summary * Name: ARMANDO BOOGIE Study Date: 02/09/2017 07:35 AM BP: 160/80 mmHg * Patient Location: [facility]\S\S243\S\1 HR: 59 * : 1935 (M/d/yyyy) Gender: Female Height: 60 in * Age: 81 yrs Ethnicity: [place] Weight: 131 lb * Ordering Physician: Tucker Dsouza * Referring Physician: UNKNOWN * Performed By: Amanda Fitzpatrick RCS * * Reason For Study: Chest Pain * BSA: 1.6 m2 * -- Conclusions -- * The left ventricle is normal in size. * There is mild concentric left ventricular hypertrophy. * Ejection Fraction = 55-60%. * Left ventricular systolic function is normal. * The left ventricular wall motion is normal. * The right ventricle is normal in size and function. * The right ventricular systolic function is normal as assessed by tricuspid annular plane systolic excursion (TAPSE) (normal >1.5 cm). * Moderate valvular aortic stenosis. * Mild to moderate aortic regurgitation. * Dimensionless Index 0.36; COLLIN 1.1 cm squared * There is moderate mitral annular calcification. * Right ventricular systolic pressure is normal. * Grade I diastolic dysfunction, (abnormal relaxation pattern). Procedure Details * A complete two-dimensional transthoracic echocardiogram was performed (2D, M-mode, Doppler and color flow Doppler). Left Ventricle * The left ventricle is normal in size. * There is mild concentric left ventricular hypertrophy. * Ejection Fraction = 55-60%. * Left ventricular systolic function is normal. * The left ventricular wall motion is normal. Right Ventricle * The right ventricle is normal in size and function. * The right ventricular systolic function is normal as assessed by tricuspid annular plane systolic excursion (TAPSE) (normal >1.5 cm). Atria * The left atrium is mildly dilated. * Right atrial size is normal. Mitral Valve * There is moderate mitral annular calcification. * There is mild mitral regurgitation. Tricuspid Valve * The tricuspid valve is not well visualized, but is grossly normal. * There is mild tricuspid regurgitation. * Right ventricular systolic pressure is normal. Aortic Valve * Moderate valvular aortic stenosis. * Dimensionless Index 0.36; COLLIN 1.1 cm squared * Mild to moderate aortic regurgitation. Pulmonic Valve * The pulmonic valve is not well seen, but is grossly normal. Great Vessels * The aortic root is normal size. Pericardium/Pleural * There is no pericardial effusion. Left Ventricular Diastolic Function * Grade I diastolic dysfunction, (abnormal relaxation pattern). Last 24 Hours Test 02/08/17 21:03 02/09/17 04:40 Total Creatine Kinase 95 U/L 92 U/L Creatine Kinase MB 1.5 ng/ml 1.3 ng/ml Creatine Kinase MB Ratio 1.6 1.4 Troponin I < 0.015 ng/ml < 0.015 ng/ml Triglycerides Level 130 mg/dl Cholesterol Level 195 mg/dl HDL Cholesterol 38 mg/dl LDL Cholesterol, Calculated 131 mg/dl VLDL Cholesterol, Calculated 26 mg/dl Cholesterol/HDL Ratio 5.1 Consultations: cardiology Medication Reconciliation Continued Medications: Aspirin Enteric Coated (Ecotrin Or Generic) 81 Mg Tab 81 MG PO QPM Cholecalciferol (D-2000 Maximum Strength) 2,000 Unit Tab 1 TAB PO QPM Coenzyme Q10 (Ubidecarenone) (Co Q10) 100 Mg Cap 100 MG PO QAM Cyanocobalamin (Vitamin B-12) 1,000 Mcg Tab 1000 MCG PO QPM Furosemide (Lasix) 20 Mg Tab 20 MG PO QAM Gabapentin (Neurontin) 100 Mg Cap 100 MG PO BID PRN for Pain Maren (Zingiber Officinalis) (Maren Root) 250 Mg Cap 1 CAP PO QPM Lactobacillus-Inulin (Culturelle) 1 Cap Cap 1 CAP PO QAM Loperamide Hcl (Imodium) 2 Mg Cap 2 MG PO QAM [place]-3 Fatty Acids (Fish Oil) 1 Cap Cap 1 CAP PO DAILY Pantoprazole (Protonix) 40 Mg Tab 40 MG PO QAM Potassium Chloride (K-Tab) 20 Meq Tab 1 TAB PO QAM Prednisone (Prednisone) 1 Mg Tab 2 MG PO QAM Probiotic Product (Digestive Advantage) 1 Cap Cap 1 CAP PO QAM Psyllium (Metamucil Multihealth Fib) 58.12 % Pow 1 TBS PO QAM Beverly Oil (Beverly Oil) 1 Oil Oil 1 CAP PO QPM Turmeric (Curcuma Longa) (Turmeric) 500 Mg Tab 1 TAB PO QPM Discharge Exam Physical Exam: General Appearance: no apparent distress Eyes: EOMI ENT: hearing grossly normal Neck: trachea midline Respiratory/Chest: no respiratory distress, no accessory muscle use Extremities: normal inspection Neurologic/Psychiatric: protocol manager II-XII nml as tested, alert, normal mood/affect Skin: normal color, warm/dry Hospital Course 1) chest pain - noncardiac - clinically appeared far more consistent w intercostal spasm. stretches taught, pain improved. stable for home - cardiac enzymes negative, echo unchanged, cardiology evaluation felt to be noncardiac as well 2) HTN - Continue home Lasix - Unable to take ACEi due to history of cough - BP much higher than as outpt per cardiology review of charts - all in agreement to have ongoing outpt f/u of BP (?white coat effect from being in hospital?) 3) GERD - Continue home Pantoprazole 40mg PO qAM 4) Temporal Arteritis - Continue Prednisone 2mg PO Daily for now, notes that she feels more fatigued now than she has before - and relates that to around when her prednisone dose was last lowered. outpt rheumatology and PCP f/u 5) CKD Stage 3 - stable. outpt f/u 6) DVT proph - Heparin utilized during her stay 7) Code Status - Full Resuscitation Total Time Spent: Less than 30 minutes This includes examination of the patient, discharge planning, medication reconciliation, and communication with other providers. Discharge Instructions Please refer to the electronic Patient Visit Report (Discharge Instructions) for additional information. Additional Copies To Yessica Yan D.O.; Yessenia Esparza MD
--- NOTE | 2017-02-09 17:31 | CARDIOLOGY CONSULTATION ---
DATE OF CONSULTATION: 02/09/2017 REQUESTING: Dr. Joaquín Chew. ATHLETIC EVENTS SCORER: Ramsey Wan DO of [facility]. REASON FOR CONSULTATION: Chest discomfort. Dear Joaquín: Thank you for requesting cardiology consultation on Angy with regards to her chest discomfort. As you know and it has been well documented in her history, the day before, she had been pushing the vacuum lint cleaner, she also noted that she lifted 2 laundry baskets that were somewhat heavy and after that she noticed some discomfort. It is over the left side of her chest and radiates towards her sternum. It is worse with palpation and is reproducible this morning. She notes she went to bed and felt okay and then she woke up in the morning and had the discomfort. It would last for a minute or so and was on and off every 15-30 minutes. This concerned her given her cardiovascular history and she came to the Emergency Room. She does have nonspecific ST-T changes in the inferolateral leads. Her troponins have been negative. Here examining her this morning, she notes that the chest discomfort has resolved unless she pushed on her chest. Then, she has reproducible chest discomfort along her sternum and along her ribs. It is slightly worse with a deep breath. There is no pressure or heaviness. She had no nausea or vomiting or diaphoresis associated with it. There was no associated shortness of breath and she notes she actually went up and down the stairs while having the discomfort and it did not change it in any meaningful way. She has been complaining of increasing fatigue, noting that she needs to sleep throughout the day, which is unusual for her. She does have temporal arteritis and has gotten down 2 mg of prednisone and wonders if the prednisone dose is too low. She denies any palpitations, fluttering, skips, or feeling her heart racing. Her appetite is stable. Her weight is stable. She denies any bleeding, bruising, dark stools or black stools. As noted, when I saw her on the 28 of January in the office, she does have some heaviness in her legs when she walks back from the [facility], where she normally works out. She notes she worked out through Wednesday and doing her normal activity and felt well. The rest of review of systems is otherwise negative. PAST MEDICAL HISTORY: 1. A 70%-79% right internal carotid artery stenosis with 50%-59% stenosis on the left. 2. History of chronic kidney disease, now with a normal creatinine. 3. Moderate aortic stenosis by echo today. 4. Hypertension. 5. Mild memory dysfunction. 6. Temporal arteritis, on chronic prednisone. 7. Irritable bowel. 8. History of cholecystectomy with subsequent pancreatitis secondary to sludge in her common bile duct. 9. GERD. MEDICATIONS: Reviewed in electronic medical record. ALLERGIES: BACTRIM, LATEX, METHOTREXATE AND STATINS INCLUDING INTOLERANCES TO ZETIA AND NIASPAN AND HIGHER DOSES OF RED YEAST RICE. FAMILY HISTORY: Maternal grandfather had heart attack. Mom at 72 of COPD. Dad at 74 of lung cancer. She has a brother from HIV. SOCIAL HISTORY: She stopped smoking nearly 30 years ago, having smoked a pack per day. She worked in office. She is . She occasionally drinks alcohol. PHYSICAL EXAMINATION: GENERAL: She is awake, alert, and oriented x3. She is in no acute distress. VITAL SIGNS: Her heart rate is 72, her blood pressure 187/68, her respirations are 20 and her sats 96%. HEENNT: She has a carotid bruit on the right, none on the left. I did not palpate her carotids given her known disease. Her jugular venous pressure appeared normal. Her hearing is normal. LUNGS: Clear to auscultation bilaterally. No rales, rhonchi or wheezing. HEART: Regular rate and rhythm. There is a crescendo-decrescendo murmur 2/6, which is late peaking. S2 is preserved. I could not appreciate a diastolic murmur. ABDOMEN: Soft, nontender, and nondistended. Positive bowel sounds. EXTREMITIES: No clubbing, cyanosis or edema. SKIN: No ecchymosis or bruising. PSYCHIATRIC: Affect appeared appropriate. LABORATORY STUDIES: Her troponins are negative x3. Her chest x-ray was negative for active disease. Her LDL is 131 and HDL 38. Her lipase was normal. Her sodium 138, potassium 3.7, BUN 22, and creatinine 0.98. Hemoglobin is 13.3 with a platelet count of 289. EKG sinus bradycardia with sinus arrhythmia, nonspecific ST-T changes, cannot exclude inferolateral ischemia. IMPRESSIONS: 1. Costochondritis with reproducible chest discomfort and negative troponins. 2. Moderate, if not moderate to severe aortic stenosis, which is stable. 3. Mild aortic insufficiency. 4. Preserved left ventricular systolic function. 5. History of dilated aortic root at 4.4 cm. 6. Hypertension. 7. A 70%-79% right internal carotid artery stenosis and a 50%-59% left internal carotid artery stenosis. From my standpoint, we discussed, we were all both in agreement that this sounds like musculoskeletal and likely costochondritis. From a chest pain standpoint, she can be discharged home. I do wonder if some of her fatigue is not related to worsening temporal arteritis and that she might need higher doses of prednisone. We discussed that I would have her discuss this further with Dr. Yanes. Her blood pressure is elevated here. Last week in the office, her blood pressure was very well controlled in the 120 systolic and she notes when she goes to the [facility], her blood pressures were usually in the 130s. It is unclear whether some of this is related to her pain or just being in the hospital. We will arrange for her to have a followup visit in the office in a week to reassess her blood pressure. If necessary, we may need to add something like amlodipine to lower her blood pressure. She notes on the way home from the [facility], she does have some heaviness in her legs. As discussed with her if that persists, we may need to do a lower extremity arterial Doppler. I will see her back in the office as previously scheduled. Thank you for allowing us to participate in her care. PILY
== END 2017-02-09 13:25 | disposition home or self-care (01) ==
LOC: C.EDB 12:01 → C.2T 15:03 → ENRESERV 15:22
PROVIDERS: ADMIT Student in an Organized Health Care Education/Training Program; ATTEND Family Medicine
DX: M94.0 Chondrocostal junction syndrome [Tietze] (principal); I35.0 Nonrheumatic aortic (valve) stenosis; I10 Essential (primary) hypertension; M31.6 Other giant cell arteritis; K58.9 Irritable bowel syndrome, unspecified; K21.9 Gastro-esophageal reflux disease without esophagitis; I65.21 Occlusion and stenosis of right carotid artery; I25.2 Old myocardial infarction; Z87.891 Personal history of nicotine dependence; Z90.49 Acquired absence of other specified parts of digestive tract; Z87.01 Personal history of pneumonia (recurrent); Z80.1 Family history of malignant neoplasm of trachea, bronchus and lung; Z82.49 Family history of ischemic heart disease and other diseases of the circulatory system

== ENCOUNTER → 2017-02-16 | Outpatient (CLI) | payer BC ==
[~2017-02-16] MED LIST changes: -FISHOIL PO; +OMEGCAP2 PO
[2017-02-16 09:50] LABS: URINE APPEARANCE CLEAR (CLEAR); URINE BILIRUBIN NEG (NEG); URINE COLOR YELLOW; URINE EPITHELIAL CELL AUTO 0-5 /lpf (0-5); URINE NITRITE NEG (NEG); URINE SPECIFIC GRAVITY 1.012 (1.000-1.030); UROBILINOGEN NEG (NEG)
[2017-02-16 09:53] LABS: MANUAL MICROSCOPIC REQUIRED? NO; REVIEW REQ? NO; ZZUR CULT IF INDIC CLEAN CATCH YES
[2017-02-16 10:11] LABS: CREATININE, URINE < 13.0 mg/dl; URINE TOTAL PROTEIN < 5.0 mg/dl (0-11.9)
[2017-02-16 10:12] LABS: HEMATOCRIT 44.9 % (37-47); MEAN CELL VOLUME 90.9 fL (80-100); MEAN CORPUSCULAR HEMOGLOBIN 28.5 pg (25-34); MEAN CORPUSCULAR HGB CONC 31.4 g/dl (32-36); MEAN PLATELET VOLUME 10.7 fL (7.4-10.4); PLATELET COUNT 334 K/uL (130-400); RED BLOOD COUNT 4.94 M/uL (4.2-5.4); WHITE BLOOD COUNT 10.75 K/uL (4.8-10.8)
[2017-02-16 10:27] LABS: BLOOD UREA NITROGEN 21 mg/dl (7-18); BUN/CREATININE RATIO 20.5 (10-20); CALCIUM 9.3 mg/dl (8.5-10.1); CARBON DIOXIDE 31 mmol/L (21-32); CHLORIDE 103 mmol/L (98-107); GLUCOSE 91 mg/dl (70-99); PHOSPHORUS 3.1 mg/dl (2.5-4.9); POTASSIUM 3.8 mmol/L (3.5-5.1); SODIUM 138 mmol/L (136-145)
== END | disposition home or self-care (01) ==
LOC: C.LAB1850 08:40
PROVIDERS: ATTEND Internal Medicine Nephrology
DX: I12.9 Hypertensive chronic kidney disease with stage 1 through stage 4 chronic kidney disease, or unspecified chronic kidney disease (principal); N18.3 Chronic kidney disease, stage 3 (moderate); R60.9 Edema, unspecified; E87.1 Hypo-osmolality and hyponatremia; E55.9 Vitamin D deficiency, unspecified; M31.6 Other giant cell arteritis; L40.9 Psoriasis, unspecified; M35.3 Polymyalgia rheumatica; Z79.52 Long term (current) use of systemic steroids; N39.0 Urinary tract infection, site not specified

== ENCOUNTER → 2017-03-09 | Outpatient (CLI) | payer BC | END | disposition home or self-care (01) | LOC: C.LAB1850 10:36 | PROVIDERS: ATTEND Internal Medicine Rheumatology | DX: M31.6 Other giant cell arteritis (principal) ==

== ENCOUNTER → 2017-05-19 | Outpatient (CLI) | payer BC | END | disposition home or self-care (01) | LOC: C.LAB1850 14:29 | PROVIDERS: ATTEND Internal Medicine Rheumatology | DX: Z51.81 Encounter for therapeutic drug level monitoring (principal); M31.6 Other giant cell arteritis; Z79.52 Long term (current) use of systemic steroids; M35.3 Polymyalgia rheumatica ==

== ENCOUNTER → 2017-08-02 | Outpatient (CLI) | payer BC ==
[~2017-08-02] MED LIST changes: +GABA100C13 PO; -GABA1CAP PO
== END | disposition home or self-care (01) ==
LOC: C.LAB1850 09:59
PROVIDERS: ATTEND Internal Medicine Nephrology
DX: M35.3 Polymyalgia rheumatica (principal)

== ENCOUNTER → 2017-08-03 | Outpatient (CLI) | payer BC ==
[2017-08-03 12:17] LABS: HEMATOCRIT 43.3 % (37-47); HEMOGLOBIN 13.5 g/dL (12.0-16.0); MEAN CELL VOLUME 88.7 fL (80-100); MEAN CORPUSCULAR HEMOGLOBIN 27.7 pg (25-34); MEAN CORPUSCULAR HGB CONC 31.2 g/dl (32-36); MEAN PLATELET VOLUME 10.8 fL (7.4-10.4); PLATELET COUNT 277 K/uL (130-400); RED CELL DISTRIBUTION WIDTH CV 14.2 % (11.5-14.5); RED CELL DISTRIBUTION WIDTH SD 45.7 fL (36.4-46.3); WHITE BLOOD COUNT 8.82 K/uL (4.8-10.8)
[2017-08-03 12:55] LABS: ALBUMIN 3.8 gm/dl (3.4-5.0); BLOOD UREA NITROGEN 19 mg/dl (7-18); CALCIUM 9.5 mg/dl (8.5-10.1); CARBON DIOXIDE 31 mmol/L (21-32); CREATININE 0.94 mg/dl (0.60-1.20); GLUCOSE 83 mg/dl (70-99); SODIUM 138 mmol/L (136-145)
[2017-08-03 12:56] LABS: PHOSPHORUS 3.3 mg/dl (2.5-4.9)
== END | disposition home or self-care (01) ==
LOC: C.LAB1850 11:21
PROVIDERS: ATTEND Internal Medicine Nephrology
DX: N18.3 Chronic kidney disease, stage 3 (moderate) (principal); I12.9 Hypertensive chronic kidney disease with stage 1 through stage 4 chronic kidney disease, or unspecified chronic kidney disease; E55.9 Vitamin D deficiency, unspecified; R60.9 Edema, unspecified

== ENCOUNTER → 2018-01-03 | Outpatient (CLI) | payer BC ==
[~2018-01-03] MED LIST changes: +ASPI-319 PO; -ASPI81TA21 PO; +GABA-1693 PO; -GABA100C13 PO
== END | disposition home or self-care (01) ==
LOC: C.MAMM 15:22
PROVIDERS: ATTEND Family Medicine
DX: M85.851 Other specified disorders of bone density and structure, right thigh (principal)

== ENCOUNTER → 2018-01-03 | Outpatient (CLI) | payer BC | END | disposition home or self-care (01) | LOC: C.LAB1850 15:51 | PROVIDERS: ATTEND Internal Medicine Rheumatology | DX: M51.34 Other intervertebral disc degeneration, thoracic region (principal); Z79.52 Long term (current) use of systemic steroids; M35.3 Polymyalgia rheumatica ==

== ENCOUNTER 2019-03-08 05:58 | Inpatient (IN) ==
--- NOTE | 2019-02-22 16:04 | PAT Medication Instructions ---
Medication Instructions Date of Service February 22, 2019 Home Medications gabapentin 1 tab PO BID prednisone 2 mg PO 2XWK acetaminophen 500 mg tablet 500 mg PO Q4H PRN amlodipine 5 mg tablet 5 mg PO QAM apixaban 2.5 mg tablet 2.5 mg PO BID betamethasone valerate 0.12 % topical foam 0.12 % TOPICAL UD PRN cholecalciferol (vitamin D3) 2,000 unit tablet 2,000 units PO DAILY coenzyme Q10 100 mg capsule 100 mg PO DAILY diclofenac 1 % topical gel 1 % TOPICAL UD PRN furosemide 20 mg tablet 20 mg PO 3XWK loratadine 10 mg tablet 10 mg PO DAILY PRN metoprolol tartrate 50 mg tablet 50 mg PO BID omega-3 fatty acids 1 cap PO DAILY pantoprazole 40 mg tablet,delayed release 40 mg PO QAM Bacillus coagulans [Digestive Advantage] 250 cell PO DAILY cyanocobalamin (vitamin B-12) 2,000 mcg PO DAILY cyclosporine [Restasis] 2 drp OPHTHALMIC (EYE) BID psyllium husk [Metamucil] 2 tbsp PO DAILY Continue as directed prednisone 2 mg PO 2XWK ASK your prescriber and surgeon apixaban 2.5 mg tablet 2.5 mg PO BID STOP taking 2 weeks before surgery (or as soon as possible if surgery is within 2 weeks) coenzyme Q10 100 mg capsule 100 mg PO DAILY omega-3 fatty acids 1 cap PO DAILY STOP taking 24 hours before surgery betamethasone valerate 0.12 % topical foam 0.12 % TOPICAL UD PRN diclofenac 1 % topical gel 1 % TOPICAL UD PRN DO NOT take the morning of surgery cholecalciferol (vitamin D3) 2,000 unit tablet 2,000 units PO DAILY furosemide 20 mg tablet 20 mg PO 3XWK loratadine 10 mg tablet 10 mg PO DAILY PRN Bacillus coagulans [Digestive Advantage] 250 cell PO DAILY cyanocobalamin (vitamin B-12) 2,000 mcg PO DAILY psyllium husk [Metamucil] 2 tbsp PO DAILY Take morning of surgery With a small sip of water, OTHERWISE NOTHING TO EAT OR DRINK AFTER MIDNIGHT: gabapentin 1 tab PO BID acetaminophen 500 mg tablet 500 mg PO Q4H PRN (okay to take up to 4 hours prior to surgery if needed) amlodipine 5 mg tablet 5 mg PO QAM metoprolol tartrate 50 mg tablet 50 mg PO BID pantoprazole 40 mg tablet,delayed release 40 mg PO QAM cyclosporine [Restasis] 2 drp OPHTHALMIC (EYE) BID Take evening before surgery gabapentin 1 tab PO BID acetaminophen 500 mg tablet 500 mg PO Q4H PRN (if needed) loratadine 10 mg tablet 10 mg PO DAILY PRN (if needed) metoprolol tartrate 50 mg tablet 50 mg PO BID cyclosporine [Restasis] 2 drp OPHTHALMIC (EYE) BID Other Notes If you have any questions please call us at [phone] or [phone] or [phone] or [phone]
--- NOTE | 2019-02-23 09:31 | Anesthesiology Consultation ---
Date of Service February 23, 2019 Assessment & Plan (1) Encounter for pre-operative examination: - Awaiting review preop testing (labs, CXR). - Awaiting most recent cardiology note (Dr. Wan) if more recent than 01/2019 office visit note already in [facility]. - Eliquis instructions: to hold 2 days prior to surgery per surgeon/prescriber - Possible difficult intubation: due to anatomy (available anesthesia records: D&C, hysteroscopy, cervical polypectomy: 02/19/11: LMA#4 at [facility]) - Cardiology: 01/12/19: Metoprolol dosing adjusted d/t bradycardia. "Stable" Chart Review Chart Review: Patient seen in Pre Admission Testing Teaching & Discussion Pre-Anesthesia Teaching/Discussion Notes: Instructed NPO after midnight before surgery,except medications with 15 cc of water. Medication instructions provided according to the PAT guidelines. History Surgery Operation Date: 03/08/19 07:15 Proposed Procedures p Right Carotid Endarterectomy with Patch - Brennen Sanchez MD Height/Weight Height: 4 ft 11.5 in Weight: 58.2 kg Allergies Allergy/AdvReac Type Severity Reaction Status Date / Time lactose Allergy Intermediate GI UPSET Verified 02/17/19 10:09 latex Allergy Intermediate HIVES AND Verified 02/17/19 10:09 ITCHING methotrexate Allergy Intermediate SEVERE GI Verified 02/17/19 10:09 UPSET [id number] Reductase Allergy Intermediate MUSCLE Verified 02/17/19 10:09 Inhibitor ACHES sulfamethoxazole Allergy Intermediate HIVES Verified 02/17/19 10:09 trimethoprim Allergy Intermediate HIVES Verified 02/17/19 10:09 nickel Allergy Mild RASH Verified 02/17/19 10:09 Bactrim Allergy Unknown HIVES Verified 02/08/17 12:35 Additional Notes: *OR made aware latex/nickel reactions* Medications Home Medications Medication Instructions Recorded Confirmed Last Taken gabapentin 1 tab PO BID 07/29/18 02/17/19 07/29/18 prednisone 2 mg PO 2XWK 07/29/18 02/17/19 Unknown acetaminophen 500 mg tablet 500 mg PO Q4H PRN tab 12/27/18 02/17/19 Unknown apixaban 2.5 mg tablet 2.5 mg PO BID tab 12/27/18 02/17/19 Unknown betamethasone valerate 0.12 % 0.12 % TOPICAL UD PRN gm 12/27/18 02/17/19 Unknown topical foam cholecalciferol (vitamin D3) 2,000 2,000 units PO DAILY tab 12/27/18 02/17/19 Unknown unit tablet coenzyme Q10 100 mg capsule 100 mg PO DAILY cap 12/27/18 02/17/19 Unknown diclofenac 1 % topical gel 1 % TOPICAL UD PRN gm 12/27/18 02/17/19 Unknown furosemide 20 mg tablet 20 mg PO 3XWK tab 12/27/18 02/17/19 Unknown loratadine 10 mg tablet 10 mg PO DAILY PRN tab 12/27/18 02/17/19 Unknown metoprolol tartrate 50 mg tablet 50 mg PO BID #180 tab 12/27/18 02/17/19 Unknown omega-3 fatty acids 1 cap PO DAILY 12/27/18 02/17/19 Unknown pantoprazole 40 mg tablet,delayed 40 mg PO QAM tab 12/27/18 02/17/19 Unknown release Bacillus coagulans [Digestive 250 cell PO DAILY 02/17/19 02/17/19 Unknown Advantage] cyanocobalamin (vitamin B-12) 2,000 mcg PO DAILY 02/17/19 02/17/19 Unknown cyclosporine [Restasis] 2 drp OPHTHALMIC (EYE) BID 02/17/19 02/17/19 Unknown psyllium husk [Metamucil] 2 tbsp PO DAILY 02/17/19 02/17/19 Unknown hydralazine 10 mg PO TID 02/23/19 02/23/19 Unknown Past Medical History Medical History HTN (hypertension) Acid reflux controlled Aortic stenosis Moderate per 07/2018 ECHO Atrial fibrillation on Eliquis Carotid stenosis Chronic kidney disease baseline creatinine 1.4-1.7 range per nephrology Colitis hx Dry eye syndrome Giant cell arteritis hx- on chronic prednisone 2mg twice weekly Hx of blood clots LLE 15 years ago- no issues since Hx of pancreatitis 5+ years ago Hyperlipidemia Low back pain Lung nodules small- under surveillance Varicose veins of both lower extremities Exercise / Class Metabolic Activity III < 4 Walking/Shop/Light housework Past Family History Family History Other No significant family history Past Surgical History Surgical History History of ERCP History of Mohs micrographic surgery for skin cancer BCC ([facility]) History of appendectomy History of bilateral tubal ligation History of cataract surgery RT/LEFT History of chest tube placement pneumothorax s/p mechanical fall at the gym- chest tube placed History of cholecystectomy History of colonoscopy History of tonsillectomy and adenoidectomy Past Anesthesia History No Hx of Anesthesia Complications History of PONV No Hx of PONV and Hx of Motion Sickness (occasional) Social History Smoking Status: Former smoker tobacco type: cigarettes Do You Dip or Chew Tobacco: No Smoking End Date: QUIT AGE 50 Hx Alcohol Use: Yes Alcohol type: wine alcohol intake frequency: 0-2 drinks per day (small glass wine/daily) Hx Substance Use: No substance use type: does not use Review of Systems Reflux controlled. Patient denies chest pain, shortness of breath, reflux, cough, wheezing, palpitations. Physical Exam Vital Signs VITALS BP 150/68 P 59 TEMP 97.8 SP02 95%RA RESP 18 PHYSICAL Full neck and c-spine range of motion. Full TMJ range of motion. TMD 2 finger breaths (small chin) Mallampati Score 3 Dentition: intact, crowns on sides Lungs: clear throughout to auscultation Cardiac: regular rate and rhythm, III/ systolic murmur Spine: normal Carotid arteries: + bruit b/l Extremities: no edema Testing Electrocardiogram Date: 08/01/18 NSR at 64bpm. Moderate voltage criteria for LVH, may be normal variant. Echocardiogram Date: 08/02/18 EF 60%. No RWMA. Moderate aortic stenosis (COLLIN 1.1-1.2cm2). Mild AR. Mild cLVH. No significant change compared to 02/02/18 study (per ECHO report). Other Testing Neck CTA: 01/27/19: High-grade/critical stenosis at the origin of the right internal carotid artery of greater than 90% due to the calcified plaque. Moderate calcified plaque within the left carotid bifurcation without significant stenosis. Focal stenosis of approximately 70% at the origin of the right subclavian artery. However, this is difficult to assess due to the streak artifact from the adjacent venous contrast. 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 There are 2, 5 mm groundglass nodules within the left upper lobe.
--- NOTE | 2019-02-23 10:25 | XRay Report ---
XR chest Pre-admission PA/Lat CLINICAL HISTORY: 84 years-old Female presenting with preoperative assessment. TECHNIQUE: PA and lateral views of the chest were obtained. COMPARISON: 07/29/2018. FINDINGS: Atherosclerosis of the aortic arch. Cardiac silhouette enlarged. Lungs and pleural spaces clear. Mult iple old upper lateral left rib fractures. Cholecystectomy clips noted. Pneumobilia noted. IMPRESSION: 1. Cardiomegaly. No other convincing evidence of acute cardiopulmonary disease. 2. Pneumobilia, which is chronic. Electronically signed by: Antwan Muhammad M.D. 02/23/2019 10:23 AM
[2019-02-23 11:05] LABS: Hematocrit (blood only) 39.7 % (37-47); Hemoglobin 12.5 g/dL (12.0-16.0); Mean Corpuscular Hgb Conc 31.5 g/dL (32-36); Mean Corpuscular Volume 92.1 fL (80-100); Platelet Count 233 K/uL (130-400); RDW Coefficient of Variation 13.9 % (11.5-14.5); RDW Standard Deviation 46.7 fL (36.4-46.3); Red Blood Count 4.31 M/uL (4.2-5.4)
[2019-02-23 11:06] LABS: Basophils # (auto) 0.03 K/uL (0-0.2); Basophils % (auto) 0.3 %; Eosinophils # (auto) 0.19 K/uL (0-0.5); Immature Granulocytes # (auto) 0.04 K/uL (0.00-0.02); Immature Granulocytes % (auto) 0.4 %; Lymphocytes # (auto) 1.56 K/uL (1.2-3.4); Lymphocytes % (auto) 16.6 %; Mean Platelet Volume 10.9 fL (7.4-10.4); Monocytes # (auto) 0.87 K/uL (0.11-0.59); Monocytes % (auto) 9.3 %; Neutrophils # (auto) 6.71 K/uL (1.4-6.5); Neutrophils % (auto) 71.4 %
[2019-02-23 11:11] LABS: BUN Creatinine Ratio 30.8 (10-20); Calcium 8.8 mg/dl (8.5-10.1); Creatinine Clr Calc Pharmacy 37.1 ml/min; Est GFR (African American) 67.2
[2019-02-23 11:22] LABS: INR 1.1 (0.9-1.1); Partial Thromboplastin Time 27.4 Seconds (21.0-31.0); Prothrombin Time 10.8 Seconds (9.0-12.0)
[2019-03-08] MEDS ORDERED: SODIUM CHLORIDE 0.9% 1000ML IV SCH (06:00)
[2019-03-08] MEDS ORDERED: CLINDAMYCIN 600 MG/54 ML BAG IV SCH (06:00)
[2019-03-08] MEDS ORDERED: LR 15ML/HR IV SCH (06:00)
--- NOTE | 2019-03-08 06:31 | History & Physical Report ---
Date of Service March 08, 2019 Assessment & Plan (1) Stenosis of right internal carotid artery: Patient is admitted for a right carotid endarterectomy. I have discussed the risks options and benefits of the procedure with the patient. The patient understands the risks options and benefits and agrees to the procedure. History of Present Illness Chief Complaint: Right internal carotid artery stenosis Primary Care Provider: Irene Guajardo Ms. Angy Thomas was seen in the vascular surgery office in followup for her bilateral real carotid artery disease. Since we last saw her 1 year ago, she indicates that she suffered a fall while she was at the [facility]. She sustained multiple injuries which include an injury to her left shoulder, multiple rib fractures and she says a puncture to her lung with bleeding into her chest. She is still taking time to recover from this. This occurred in July. She also was diagnosed with atrial fibrillation and since has been taking Eliquis. Otherwise, she denies any major changes in her health status. Specifically, she denies any strokes or TIAs. She denies episodes of vision loss. She does indicate that she has a history of giant cell arteritis, which sometimes gives her floaters in the vision. She has not had any episodes where she loses her vision or he feels like a shade is going across her vision. She denies any unilateral extremity numbness, tingling or weakness. She has no difficulty with speech or swallow. She has had no facial droop Allergies Allergy/AdvReac Type Severity Reaction Status Date / Time lactose Allergy Intermediate GI UPSET Verified 03/08/19 06:20 latex Allergy Intermediate HIVES AND Verified 03/08/19 06:20 ITCHING methotrexate Allergy Intermediate SEVERE GI Verified 03/08/19 06:20 UPSET Cnakeen-Jwx-Jas Reductase Allergy Intermediate MUSCLE Verified 03/08/19 06:20 Inhibitor ACHES sulfamethoxazole Allergy Intermediate HIVES Verified 03/08/19 06:20 trimethoprim Allergy Intermediate HIVES Verified 03/08/19 06:20 nickel Allergy Mild RASH Verified 03/08/19 06:20 Bactrim Allergy Unknown HIVES Verified 02/08/17 12:35 Home Medications Home Medications Medication Instructions Recorded Confirmed Type acetaminophen 500 mg tablet 500 mg PO Q4H PRN tab 12/27/18 03/08/19 History apixaban 2.5 mg tablet 2.5 mg PO BID tab 12/27/18 03/08/19 History betamethasone valerate 0.12 % 0.12 % TOPICAL UD PRN gm 12/27/18 03/08/19 History topical foam cholecalciferol (vitamin D3) 2,000 2,000 units PO DAILY tab 12/27/18 03/08/19 History unit tablet coenzyme Q10 100 mg capsule 100 mg PO DAILY cap 12/27/18 03/08/19 History diclofenac 1 % topical gel 1 % TOPICAL UD PRN gm 12/27/18 03/08/19 History loratadine 10 mg tablet 10 mg PO DAILY PRN tab 12/27/18 03/08/19 History metoprolol tartrate 50 mg tablet 50 mg PO BID #180 tab 12/27/18 03/08/19 History omega-3 fatty acids 1 cap PO DAILY 12/27/18 03/08/19 History pantoprazole 40 mg tablet,delayed 40 mg PO QAM tab 12/27/18 03/08/19 History release Bacillus coagulans [Digestive 250 cell PO DAILY 02/17/19 03/08/19 History Advantage] cyanocobalamin (vitamin B-12) 2,000 mcg PO DAILY 02/17/19 03/08/19 History cyclosporine [Restasis] 2 drp OPHTHALMIC (EYE) BID 02/17/19 03/08/19 History psyllium husk [Metamucil] 2 tbsp PO DAILY 02/17/19 03/08/19 History hydralazine 10 mg PO TID 02/23/19 03/08/19 History furosemide 20 mg tablet 20 mg PO DAILY tab 02/24/19 03/08/19 History gabapentin 100 mg capsule 100 mg PO Q12H cap 02/24/19 03/08/19 History prednisone 2 mg tablet,delayed 4 mg PO DAILY tab 02/24/19 03/08/19 History release Past Med/Surg History Medical History HTN (hypertension) Atrial fibrillation on Eliquis Carotid stenosis Chronic kidney disease baseline creatinine 1.4-1.7 range per nephrology Colitis hx Dry eye syndrome Hx of blood clots LLE 15 years ago- no issues since Hx of pancreatitis 5+ years ago Hyperlipidemia Low back pain Lung nodules small- under surveillance Varicose veins of both lower extremities Acid reflux controlled Aortic stenosis Moderate per 07/2018 ECHO Giant cell arteritis hx- on chronic prednisone 2mg twice weekly Surgical History History of ERCP History of Mohs micrographic surgery for skin cancer BCC ([facility]) History of appendectomy History of bilateral tubal ligation History of cataract surgery RT/LEFT History of cholecystectomy History of colonoscopy History of tonsillectomy and adenoidectomy History of chest tube placement pneumothorax s/p mechanical fall at the gym- chest tube placed Family History Other No significant family history Social History Preferred Language: [place] Communication Ability: Effective Hazardous Substances Engineer Required: No Beliefs That Will Affect Care: None Current Living Situation: Spouse Other Information That Helps Us Care for You: No Feels Safe at Home: Yes Safety Concerns: Feels Safe At This Time Smoking Status: Former smoker Tobacco Type: cigarettes ; Do You Dip or Chew Tobacco: No ; Smoking End Date: QUIT AGE 50 ; Second Hand Exposure: Yes (IN THE PAST) ; Tobacco Cessation Education Requested by Patient: No Hx Alcohol Use: Yes Alcohol type: wine Hx Substance Use: No Review of Systems All systems reviewed & are unremarkable except as noted in HPI & below Physical Exam Physical Exam: On physical examination, her vital signs are as follows: Blood pressure 170/54 on the left and 168/54 on the right. Her heart rate is 48. He r oxygen saturation is 95% on room air. Her respiratory rate is 16. She is well-nourished and in no acute distress. Her head is normocephalic and atraumatic. Her neck is supple. Her trachea is midline. She has no facial droop. Her extraocular movements are intact. She is able to activate all facial musculature symmetrically. Pupils are equal, round and reactive to light. Her tongue protrudes midline. Her palate elevates symmetrically. Her shoulder shrug is intact and equal bilaterally. She is breathing comfortably on room air. She has palpable radial pulses which are equal bilaterally. Her motor and sensory of the upper and lower extremities is intact. All four extremities are warm and well perfused. Heent is within normal limits. Her lungs are clear. Heart has a RRR. Abdominal exam is benign. On review of her noninvasive imaging from earlier today, her arterial duplex performed of the bilateral extracranial arteries was notable for a 70-79% stenosis in the right internal carotid artery. There is a 50-59% stenosis in the left internal carotid artery. There is normal antegrade flow in the bilateral vertebral arteries. There is normal flow in the innominate artery. 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 Of note, the subclavian artery distal to the aneurysm measures 0.85 cm. There is normal flow in the left subclavian artery. There is a greater than 50% stenosis of the right external carotid artery. Of note, based on the end-diastolic velocity criteria, the degree of stenosis in the right is still considered 70-79%, however the right ICA to CCA ratio has increased from 8.4 to 12.9.
[2019-03-08] MEDS ORDERED: fentaNYL citrate 100 MCG/2 ML VIAL ONE ×2 (06:44→08:24)
[2019-03-08] MEDS ORDERED: CEFAZOLIN 250 MG/ML 1 GM VIAL ONE (07:02)
[2019-03-08] MEDS ORDERED: HEPARIN (PORCINE) 1000 UNIT/ML 10 ML (CATH LAB USE ONLY) ONE (07:02)
[2019-03-08] MEDS ORDERED: LIDOCAINE HCL 1% 20 ML VIAL ONE (07:02)
[2019-03-08] MEDS ORDERED: BUPIVACAINE/EPINEPHRINE 0.5% MPF 1:200,000 30 ML VIAL ONE (07:02)
[2019-03-08] MEDS ORDERED: THROMBIN FOR SOLN 20000 UNIT KIT ONE (07:03)
[2019-03-08] MEDS ORDERED: GELATIN SPONGE SZ 100 ONE (07:03)
--- NOTE | 2019-03-08 07:33 | History & Physical Bridge Note ---
Date of Service March 08, 2019 History & Physical Bridge Note I have examined the patient, reviewed the History & Physical and in the interval since the performance of the History & Physical I have noted the following changes of clinical significance: no changes noted
[2019-03-08] MEDS ORDERED: ONDANSETRON INJ 2 MG/ML 2 ML VIAL IV PRN (07:57)
[2019-03-08] MEDS ORDERED: ATROPINE SULFATE 0.1 MG/ML 10ML SYR IV PRN (07:57)
[2019-03-08] MEDS ORDERED: ePHEDrine sulfate 50 MG/ML AMP IV PRN (07:57)
[2019-03-08] MEDS ORDERED: fentaNYL citrate 100 MCG/2 ML VIAL IV PRN (07:57)
[2019-03-08] MEDS ORDERED: PHENYLEPHRINE 100MCG/ML 5ML SYR IV PRN (07:57)
[2019-03-08] MEDS ORDERED: HEPARIN SOD (PORCINE) 1000 UNIT/ML 10 ML VIAL ONE (08:25)
[2019-03-08] MEDS ORDERED: PROPOFOL IV EMULSION 10 MG/ML 20 ML VIAL IV ONE (08:30)
[2019-03-08] MEDS ORDERED: DEXAMETHASONE SOD INJ 4 MG/ML VIAL ONE (08:30)
[2019-03-08] MEDS ORDERED: ROCURONIUM BROMIDE 10 MG/ML 5 ML VIAL ONE (08:30)
[2019-03-08] MEDS ORDERED: GLYCOPYRROLATE 0.2 MG/ML VIAL ONE (08:30)
[2019-03-08] MEDS ORDERED: LIDOCAINE HCL 2% 2 ML VIAL/AMP(20MG/ML) INFIL ONE (08:30)
[2019-03-08] MEDS ORDERED: NEOSTIGMINE METHYLSULFATE 5 MG/5 ML SYR ONE (08:30)
[2019-03-08] MEDS ORDERED: ePHEDrine sulfate 50 MG/ML SYR ONE (08:30)
[2019-03-08] MEDS ORDERED: ONDANSETRON INJ 2 MG/ML 2 ML VIAL ONE (08:34)
--- NOTE | 2019-03-08 09:32 | Post Operative Brief Note ---
Immediate Post Op Note v1 Date of Surgery March 08, 2019 Pre & Post Diagnosis Operation Date: 03/08/19 07:30 Pre-Op Diagnosis: Right Internal Carotid Artery Stenosis Post-Op Diagnosis: Right Internal Carotid Artery Stenosis Procedure Operation Date: 03/08/19 07:30 Actual Procedures p Right Carotid Endarterectomy with Patch(Right) - Brennen Sanchez MD Surgeon Brennen Sanchez MD Production Specialist MD Dannie Estimated Blood Loss 30 Findings Consistent with Post-Op Diagnosis Anesthesia Type General Complications none Disposition Accompanied Patient To Recovery: No Disposition: Recovery Room
--- NOTE | 2019-03-08 09:48 | Procedure Note ---
Procedure Note Date of Service March 08, 2019 The patient was brought to the operating room correctly identified and placed on the operating table in a supine position, where an arterial line was placed and general anesthesia was secured. The right neck was prepped and sterilely draped. An oblique incision was made along the anterior border of the right sternocleidomastoid muscle using a 10 blade. The platysma was divided and dissection was carried down to the carotid sheath using a combination of electrocautery and sharp dissection. The facial vein was doubly ligated and divided exposing the carotid bifurcation. The vagus nerve and XII nerve were identified and kept free from dissection and retraction. The internal, external, and common carotid arteries were dissected free proximally and distally. The superior thyroid artery was also dissected and controlled with a 2-0 silk tie. 5000 units of Heparin was given intravenously. The external carotid was encircled with vessel loops. Once the heparin was allowed to circulate for approximately 5 minutes, clamps were placed starting with the internal carotid and common carotid and external carotid. An anterior arteriotomy was made on the common carotid artery using an 11 blade. Mcdaniels scissors was used to extend the arteriotomy through the plaque on to the distal soft internal carotid artery. The plaque was heavily calcified, ulcerated, and nearly occlusive. A shunt was then inserted into the into the internal carotid artery and revealed good backbleeding. The proximal end of the shunt was then inserted into the common carotid artery and secured in place. The Doppler attached to the shunt was turned on and revealed good flow through the shunt. A [place] elevator was used to create an endarterectomy plane. The proximal endpoint was created using Mcdaniels scissors as well as a distal endpoint was created with the Mcdaniels scissors. The plaque was freed out of the external carotid artery.With downward retraction on the plaque, a smooth distal endpoint was created. All debris was meticulously debrided from the inside of the lumen and confirmed with instillation of heparinized saline. Once endarterectomy was completed, a bovine pericardial patch was then cut to the appropriate size and sewn into internal carotid artery using a 6-0 Prolene sutures starting at the internal carotid artery corner of the arteriotomy. Before the patch was completed, the shunt was pulled and all the arteries were backbleed extruding any air and debris. The patch was then completed. The external carotid clamp was removed first, followed by the common carotid artery clamp, and finally the internal carotid artery clamp, restoring blood flow to the brain. Thrombin soaked gel foam was placed over the patch and gentle pressure. This revealed a hemostatic patch with no further need for any repair sutures. Meticulous hemostasis was secured. The wound was then closed in multiple layers using 3-0 Vicryl suture then a 4-0 Vicryl subcutaneous layer closing the skin. Dermabond was applied over the incision. The patient tolerated the procedure well and was extubated on table. The patient was moving all four extremities to command prior to and upon transfer to the recovery room. Dr. Sanchez was present for the entirety of the case Coding
--- NOTE | 2019-03-08 09:53 | Operative Report ---
Post Operative Report Pre & Post Diagnosis Operation Date: 03/08/19 07:30 Pre-Op Diagnosis: Right Internal Carotid Artery Stenosis Post-Op Diagnosis: Right Internal Carotid Artery Stenosis Procedure Operation Date: 03/08/19 07:30 Actual Procedures p Right Carotid Endarterectomy with Patch(Right) - Brennen Sanchez MD Surgeon Dr. Brennen Sanchez. Osiel Reis MD Ios Programmer MD Dannie Estimated Blood Loss 30 Findings See Below The patient had an ulcerated severely calcified and nearly occlusive plaque at the right carotid bulb . Specimens Right carotid plaque Drains None Anesthesia Type General Complications none Disposition Accompanied Patient To Recovery: Yes Disposition: Recovery Room Indications 84-year-old female with significant asymptomatic right carotid artery stenosis. Description of Procedure The patient was brought to the operating room correctly identified and placed on the operating table in a supine position, where an arterial line was placed and general anesthesia was secured. The right neck was prepped and sterilely draped. An oblique incision was made along the anterior border of the right sternocleidomastoid muscle using a 10 blade. The platysma was divided and dissection was carried down to the carotid sheath using a combination of electrocautery and sharp dissection. The facial vein was doubly ligated and divided exposing the carotid bifurcation. The vagus nerve and XII nerve were identified and kept free from dissection and retraction. The internal, external, and common carotid arteries were dissected free proximally and distally. The superior thyroid artery was also dissected and controlled with a 2-0 silk tie. 5000 units of Heparin was given intravenously. The external carotid was encircled with vessel loops. Once the heparin was allowed to circulate for approximately 5 minutes, clamps were placed starting with the internal carotid and common carotid and external carotid. An anterior arteriotomy was made on the common carotid artery using an 11 blade. Mcdaniels scissors was used to extend the arteriotomy through the plaque on to the distal soft internal carotid artery. The plaque was heavily calcified, ulcerated, and nearly occlusive. A shunt was then inserted into the into the internal carotid artery and revealed good backbleeding. The proximal end of the shunt was then inserted into the common carotid artery and secured in place. The Doppler attached to the shunt was turned on and revealed good flow through the shunt. A [place] elevator was used to create an endarterectomy plane. The proximal endpoint was created using Mcdaniels scissors as well as a distal endpoint was created with the Mcdaniels scissors. The plaque was freed out of the external carotid artery.With downward retraction on the plaque, a smooth distal endpoint was created. All debris was meticulously debrided from the inside of the lumen and confirmed with instillation of hepari nized saline. Once endarterectomy was completed, a bovine pericardial patch was then cut to the appropriate size and sewn into internal carotid artery using a 6-0 Prolene sutures starting at the internal carotid artery corner of the arteriotomy. Before the patch was completed, the shunt was pulled and all the arteries were backbleed extruding any air and debris. The patch was then completed. The external carotid clamp was removed first, followed by the common carotid artery clamp, and finally the internal carotid artery clamp, restoring blood flow to the brain. Thrombin soaked gel foam was placed over the patch and gentle pressure. This revealed a hemostatic patch with no further need for any repair sutures. Meticulous hemostasis was secured. 15 cc of local anesthetic was injected the subcu tissue.The wound was then closed in multiple layers using 3-0 Vicryl suture then a 4-0 Vicryl subcutaneous layer closing the skin. Dermabond was applied over the incision. The patient tolerated the procedure well and was extubated on table. The patient was moving all four extremities to command prior to and upon transfer to the recovery room. Dr. Sanchez was present for the entirety of the case I attest to the content of the Intraoperative Record and any orders documented therein. Any exceptions are noted below.
[2019-03-08] MEDS ORDERED: HydrALAZINE HCL 20 MG/ML VIAL ONE (09:58)
[2019-03-08] MEDS ORDERED: HydrALAZINE HCL 20 MG/ML VIAL IV ONE ×2 (09:58→22:07)
--- NOTE | 2019-03-08 10:43 | Anesthesiology Progress Note ---
Date of Service March 08, 2019 Anesthesia Post Procedure Vital Signs Vital Signs: Temp Pulse Pulse Resp BP BP BP 03/08/19 10:20 54 L 18 155/48 H 155/46 H 03/08/19 10:10 55 L 17 171/63 H 174/52 H 03/08/19 10:00 55 L 16 200/73 H 199/92 H 03/08/19 09:50 36.6 C 59 L 18 196/139 H 03/08/19 06:32 36.9 C 53 L 18 191/70 H 194/77 H Pulse Ox 03/08/19 10:20 95 03/08/19 10:10 98 03/08/19 10:00 99 03/08/19 09:50 98 03/08/19 06:32 97 Transfer of Care Handoff Completed per policy Notes Mental Status: alert / awake / arousable Patient Amnestic to Procedure: Yes Nausea / Vomiting: adequately controlled Pain: adequately controlled Airway Patency, RR, SpO2: stable & adequate BP & HR: stable & adequate Hydration State: stable & adequate Anesthetic Complications: no major complications apparent and Pt Satisfied with anesthetic care Notes: The patient is doing well. She was given a dose of hydralazine in PACU and her SBP went from 200s to 150s. Other vital signs have remained stable. She is able to move her tongue from side to side and raises all four extremities on command. She has a small amount of pain near the incision site. Her neck as some bruising over the incision but does not appear more swollen than her baseline. Report was given to the ICU attending.
[2019-03-08] MEDS ORDERED: MoRPHine SULFATE 4 MG/ML 1 ML CARP\\VIAL IV PRN (11:19)
[2019-03-08] MEDS ORDERED: DICLOFENAC SOD 1% GEL 100 GM TUBE EXT PRN (11:19)
[2019-03-08] MEDS ORDERED: LORATADINE 10 MG TAB PO PRN (11:19)
[2019-03-08] MEDS ORDERED: OXYCODONE/ACETAMINOPHEN 5mg/325mg TAB PO PRN (11:19)
[2019-03-08] MEDS: D5W AND 1/2NSS 1,000 ML IV SCH (11:54)
[2019-03-08] MEDS: ACETAMINOPHEN 500 MG TAB PO PRN ×2 (11:55→20:18)
[2019-03-08] MEDS: GABAPENTIN 100 MG CAP PO SCH ×2 (13:02→20:18)
[2019-03-08] MEDS: HydrALAZINE 10 MG TAB PO SCH ×2 (13:07→20:18)
[2019-03-08] MEDS ORDERED: INFLUENZA ADMINISTRATION CHARGE ONE (14:15)
[2019-03-08] MEDS ORDERED: INFLUENZA VACCINE HIGH DOSE 65+ 0.5 ML SYR IM ONE (14:15)
[2019-03-08] MEDS: CEFAZOLIN 1000MG 1,000 MG/7.5 ML SYR IV SCH ×2 (16:11→22:31)
--- NOTE | 2019-03-08 18:24 | Critical Care Consultation ---
Date of Consultation March 08, 2019 Assessment & Plan (1) Stenosis of right internal carotid artery: Reason Critically Ill: 84 year old woman here for post op monitoring after right carotid endarterectomy Post op right carotid endarterectomy Day 0 post op for right carotid endarterectomy Currently bradycardic with rates in the fifties but has been since pre op Blood pressure reasonably controlled 148/92 Patient required one PRN dose of hydralazine post op Otherwise stable and may be discharged home tomorrow if continues to do well. Dispo: ICU for post op day zero hopefully discharged home tomorrow DVT Ppx: Received heparin during procedure none ordered today F/E/N: Regular diet Code Status: DNR/DNI (2) History of endarterectomy: Supervising Physician Co-Signing Physician Notes Dr. Bolivar was the resident-physician during care of patient. I separately evaluated patient for segundo portions of the history and the exam. I was present during the critical portion of medical decision making, and I discussed the case with the resident. I generally agree with the findings and plan except for any additions/exceptions noted. Patient seen and examined at bedside. Denies any shortness of breath. Comp lains of mild pain at the surgical site. No dizziness, no headache. Continue with neurological checks. Keep systolic blood pressure less than 160. Monitor for hematoma at the surgical site. Resume anti-coagulation for A. fib once cleared by surgery. I have personally spent 30 minutes of critical care time in the direct management of this patient. This is a life/limb threatening event. This i ncludes time spent evaluating patient, direct bedside care, chart review, placing orders, interpretation of diagnostic studies, discussion with consultants, patient, and/or family members regarding treatment decisions, as well as other required patient management activities. This time is exclusive of all separately billable procedures, and teaching time and separate from and in addition to any other critical care service time. History of Present Illness Reason for Consultation: Post Op from right carotid endarterectomy Requesting Physician: Brennen Sanchez MD Attending Physician: Brennen Sanchez MD History of Present Illness Angy Thomas is an 84-year-old woman with a past medical history of hypertension atrial fibrillation, on anticoagulation, CKD with baseline creatinine of 1.4 history of DVT 1 and left lower extremity 15 years ago, hyperlipidemia, GERD, and giant cell arteritis. She is here in the ICU because she is postop from right carotid endarterectomy. She is doing well, no concerns currently. She has some mild pain in her neck but she says that she has been having that for years prior to surgery. it located posteriorly along the right paraspinal muscles. She is requesting voltaren gel. Otherwise no complaints of weakness, headache, neck pain, fevers chills, chest pain or shortness of breath. No GI issues, no urinary issues. Hungry and wanting to eat. Allergies Allergy/AdvReac Type Severity Reaction Status Date / Time lactose Allergy Intermediate GI UPSET Verified 03/08/19 06:20 latex Allergy Intermediate HIVES AND Verified 03/08/19 06:20 ITCHING methotrexate Allergy Intermediate SEVERE GI Verified 03/08/19 06:20 UPSET Fgunsad-Yut-Coa Reductase Allergy Intermediate MUSCLE Verified 03/08/19 06:20 Inhibitor ACHES sulfamethoxazole Allergy Intermediate HIVES Verified 03/08/19 06:20 trimethoprim Allergy Intermediate HIVES Verified 03/08/19 06:20 nickel Allergy Mild RASH Verified 03/08/19 06:20 Bactrim Allergy Unknown HIVES Verified 02/08/17 12:35 Home Medications Home Medications Medication Instructions Recorded Confirmed Type acetaminophen 500 mg tablet 500 mg PO Q4H PRN tab 12/27/18 03/08/19 History apixaban 2.5 mg tablet 2.5 mg PO BID tab 12/27/18 03/08/19 History betamethasone valerate 0.12 % 0.12 % TOPICAL UD PRN gm 12/27/18 03/08/19 History topical foam cholecalciferol (vitamin D3) 2,000 2,000 units PO DAILY tab 12/27/18 03/08/19 History unit tablet coenzyme Q10 100 mg capsule 100 mg PO DAILY cap 12/27/18 03/08/19 History diclofenac 1 % topical gel 1 % TOPICAL UD PRN gm 12/27/18 03/08/19 History loratadine 10 mg tablet 10 mg PO DAILY PRN tab 12/27/18 03/08/19 History metoprolol tartrate 50 mg tablet 50 mg PO BID #180 tab 12/27/18 03/08/19 History omega-3 fatty acids 1 cap PO DAILY 12/27/18 03/08/19 History pantoprazole 40 mg tablet,delayed 40 mg PO QAM tab 12/27/18 03/08/19 History release Bacillus coagulans [Digestive 250 cell PO DAILY 02/17/19 03/08/19 History Advantage] cyanocobalamin (vitamin B-12) 2,000 mcg PO DAILY 02/17/19 03/08/19 History cyclosporine [Restasis] 2 drp OPHTHALMIC (EYE) BID 02/17/19 03/08/19 History psyllium husk [Metamucil] 2 tbsp PO DAILY 02/17/19 03/08/19 History hydralazine 10 mg PO TID 02/23/19 03/08/19 History furosemide 20 mg tablet 20 mg PO DAILY tab 02/24/19 03/08/19 History gabapentin 100 mg capsule 100 mg PO Q12H cap 02/24/19 03/08/19 History prednisone 2 mg tablet,delayed 4 mg PO DAILY tab 02/24/19 03/08/19 History release Patient History Medical History HTN (hypertension) Atrial fibrillation on Eliquis Carotid stenosis Chronic kidney disease baseline creatinine 1.4-1.7 range per nephrology Colitis hx Dry eye syndrome Hx of blood clots LLE 15 years ago- no issues since Hx of pancreatitis 5+ years ago Hyperlipidemia Low back pain Lung nodules small- under surveillance Varicose veins of both lower extremities Acid reflux controlled Aortic stenosis Moderate per 07/2018 ECHO Giant cell arteritis hx- on chronic prednisone 2mg twice weekly Surgical History History of ERCP History of Mohs micrographic surgery for skin cancer BCC ([facility]) History of appendectomy History of bilateral tubal ligation History of cataract surgery RT/LEFT History of cholecystectomy History of colonoscopy History of tonsillectomy and adenoidectomy History of chest tube placement pneumothorax s/p mechanical fall at the gym- chest tube placed Family History Other No significant family history Social History Preferred Language: Lao Communication Ability: Effective Cob Sawyer Required: No Beliefs That Will Affect Care: None Current Living Situation: Spouse Other Information That Helps Us Care for You: No Feels Safe at Home: Yes Safety Concerns: Feels Safe At This Time Smoking Status: Former smoker Tobacco Type: cigarettes ; Do You Dip or Chew Tobacco: No ; Smoking End Date: QUIT AGE 50 ; Second Hand Exposure: Yes (IN THE PAST) ; Tobacco Cessation Education Requested by Patient: No Hx Alcohol Use: Yes Alcohol type: wine Hx Substance Use: No Review of Systems Review of Systems: All systems reviewed & are unremarkable except as noted in HPI & below Physical Exam Physical Exam: Constitutional: 84 year old woman appearing stated age resting comfortably with one large bruise on right virgie-lateral neck. Patient in no apparent distress Eyes: EOMMI, PERRLA NECK: Large bruise overlying right virgie lateral neck, does not appear to be much of a hematoma, mild tenderness Respiratory: Chest Expansion symmetric, Breath sounds vesicular in all lung brito. Cardiovascular: No murmurs rubs skips or gallops, regular rate regular rhythm, peripheral pulses all intact in all four extremities GI: Abdomen soft non tender Neuro: Awake alert and oriented to person place and time, CN II-XII intact, no focal deficits Results & Data Vital Signs (Past 12 Hours) Vital Signs Temp Pulse Pulse Pulse Resp BP BP 03/08/19 14:20 54 L 13 03/08/19 14:10 51 L 17 03/08/19 14:00 52 L 17 123/42 L 03/08/19 13:20 53 L 19 03/08/19 13:00 53 L 20 120/32 L 03/08/19 12:50 55 L 15 03/08/19 12:31 51 L 16 135/61 03/08/19 12:01 36.8 C 54 L 19 146/49 H 03/08/19 11:46 53 L 18 136/62 03/08/19 11:19 36.8 C 03/08/19 11:14 51 L 13 121/59 L 03/08/19 10:50 53 L 16 123/60 03/08/19 10:40 37.4 C 53 L 16 136/57 L 03/08/19 10:30 52 L 18 142/46 H 03/08/19 10:20 54 L 18 155/48 H 03/08/19 10:10 55 L 17 171/63 H 03/08/19 10:00 55 L 16 200/73 H 03/08/19 09:50 36.6 C 59 L 18 03/08/19 06:32 36.9 C 53 L 18 191/70 H BP BP Pulse Ox 03/08/19 14:20 97 03/08/19 14:10 96 03/08/19 14:00 95 03/08/19 13:20 95 03/08/19 13:00 94 03/08/19 12:50 95 03/08/19 12:31 96 03/08/19 12:01 97 03/08/19 11:46 96 03/08/19 11:19 03/08/19 11:14 95 03/08/19 10:50 143/44 H 96 03/08/19 10:40 147/44 H 96 03/08/19 10:30 152/44 H 96 03/08/19 10:20 155/46 H 95 03/08/19 10:10 174/52 H 98 03/08/19 10:00 199/92 H 99 03/08/19 09:50 196/139 H 98 03/08/19 06:32 194/77 H 97 PG Care Time/CCT Total # of Minutes Spent Total Time Spent with Patient: Total time spent is greater than 50% in coordination of care (as documented) at patient's floor/unit and/or counseling patient: Resident Activity Tracking Resident Involvement: Resident Care Provided Care Provided: Adult Hospital Medicine
[2019-03-08] MEDS: METOPROLOL TARTRATE 50 MG TAB PO SCH (20:14)
[2019-03-09] MEDS ORDERED: HydrALAZINE HCL 20 MG/ML VIAL IV STA (01:21)
[2019-03-09 04:47] LABS: Basophils # (auto) 0.01 K/uL (0-0.2); Basophils % (auto) 0.1 %; Eosinophils # (auto) 0.01 K/uL (0-0.5); Eosinophils % (auto) 0.1 %; Hematocrit (blood only) 34.8 % (37-47); Hemoglobin 11.1 g/dL (12.0-16.0); Immature Granulocytes # (auto) 0.02 K/uL (0.00-0.02); Immature Granulocytes % (auto) 0.2 %; Lymphocytes # (auto) 1.21 K/uL (1.2-3.4); Lymphocytes % (auto) 10.7 %; Mean Corpuscular Hemoglobin 29.1 pg (25-34); Mean Corpuscular Hgb Conc 31.9 g/dL (32-36); Mean Corpuscular Volume 91.1 fL (80-100); Mean Platelet Volume 10.6 fL (7.4-10.4); Monocytes # (auto) 1.17 K/uL (0.11-0.59); Monocytes % (auto) 10.3 %; Neutrophils # (auto) 8.91 K/uL (1.4-6.5); Neutrophils % (auto) 78.6 %; Platelet Count 223 K/uL (130-400); RDW Coefficient of Variation 13.7 % (11.5-14.5); RDW Standard Deviation 45.5 fL (36.4-46.3); Red Blood Count 3.82 M/uL (4.2-5.4); White Blood Count 11.33 K/uL (4.8-10.8)
[2019-03-09 05:04] LABS: BUN Creatinine Ratio 22.2 (10-20); Calcium 8.7 mg/dl (8.5-10.1); Creatinine Clr Calc Pharmacy 47.5 ml/min; Est GFR (African American) 93.5; Est GFR (Non-African American) 80.7; Magnesium 2.4 mg/dl (1.8-2.4); Potassium 4.2 mmol/L (3.5-5.1)
[2019-03-09] MEDS: D5W AND 1/2NSS 1,000 ML IV SCH (07:15)
[2019-03-09] MEDS: HydrALAZINE 10 MG TAB PO SCH ×3 (07:52→20:41)
[2019-03-09] MEDS: FUROSEMIDE 20 MG TAB PO SCH ×2 (07:52→08:05)
[2019-03-09] MEDS: PSYLLIUM 58.6% POWDER PACKET PO SCH (07:53)
[2019-03-09] MEDS: METOPROLOL TARTRATE 50 MG TAB PO SCH ×3 (07:53→23:55)
[2019-03-09] MEDS: GABAPENTIN 100 MG CAP PO SCH ×2 (07:54→20:41)
[2019-03-09] MEDS: CYANOCOBALAMIN 500 MCG TABLET (VITAMIN B-12) PO SCH (07:54)
[2019-03-09] MEDS: OMEGA-3 (PURIFIED FISH OIL) 1 GM CAP PO SCH (07:54)
[2019-03-09] MEDS: PANTOprazole 40 MG TAB PO SCH (07:54)
[2019-03-09] MEDS: CHOLECALCIFEROL 1,000 UNITS TAB PO SCH (07:55)
--- NOTE | 2019-03-09 08:52 | Anesthesiology Progress Note ---
Date of Service March 09, 2019 Anesthesia Post Procedure Vital Signs Vital Signs: Temp Pulse Pulse Resp BP BP BP 03/09/19 06:30 54 L 19 139/45 L 03/09/19 06:20 53 L 14 03/09/19 06:10 61 18 03/09/19 06:00 51 L 14 140/43 L 03/09/19 05:50 58 L 12 03/09/19 05:40 56 L 15 03/09/19 05:30 54 L 14 137/44 L 03/09/19 05:01 57 L 18 152/48 H 03/09/19 05:00 56 L 18 03/09/19 04:31 63 22 88/65 L 03/09/19 04:30 70 23 03/09/19 04:00 36.6 C 56 L 15 147/57 H 03/09/19 03:31 60 15 145/55 H 03/09/19 03:30 52 L 15 03/09/19 03:00 56 L 15 121/43 L 03/09/19 02:30 63 14 130/58 L 03/09/19 02:01 60 13 132/49 L 03/09/19 02:00 58 L 17 03/09/19 01:30 54 L 22 166/78 H 03/09/19 01:01 67 20 03/09/19 01:00 61 17 171/58 H 03/09/19 00:30 52 L 13 153/60 H 03/09/19 00:00 36.6 C 58 L 20 155/77 H 03/08/19 23:30 60 24 148/66 H 03/08/19 23:09 54 L 17 152/51 H 03/08/19 23:01 55 L 14 03/08/19 23:00 51 L 14 192/60 H 03/08/19 22:30 62 15 03/08/19 22:01 54 L 15 03/08/19 22:00 49 L 15 164/97 H 03/08/19 21:30 54 L 14 03/08/19 21:00 53 L 14 170/71 H 03/08/19 20:30 49 L 17 03/08/19 20:01 49 L 19 161/71 H 03/08/19 20:00 36.6 C 45 L 17 03/08/19 19:30 53 L 24 03/08/19 19:00 49 L 16 127/66 03/08/19 18:00 53 L 23 03/08/19 17:01 54 L 20 148/92 H 03/08/19 16:29 51 L 16 160/55 H 03/08/19 16:00 52 L 19 137/56 L 03/08/19 15:00 56 L 15 135/49 L 03/08/19 14:20 54 L 13 03/08/19 14:10 51 L 17 03/08/19 14:00 52 L 17 123/42 L 03/08/19 13:20 53 L 19 03/08/19 13:00 53 L 20 120/32 L 03/08/19 12:50 55 L 15 03/08/19 12:31 51 L 16 135/61 03/08/19 12:01 36.8 C 54 L 19 146/49 H 03/08/19 11:46 53 L 18 136/62 03/08/19 11:19 36.8 C 03/08/19 11:14 51 L 13 121/59 L 03/08/19 10:50 53 L 16 123/60 03/08/19 10:40 37.4 C 53 L 16 136/57 L 03/08/19 10:30 52 L 18 142/46 H 03/08/19 10:20 54 L 18 155/48 H 03/08/19 10:10 55 L 17 171/63 H 03/08/19 10:00 55 L 16 200/73 H 03/08/19 09:50 36.6 C 59 L 18 196/139 H BP Pulse Ox 03/09/19 06:30 97 03/09/19 06:20 97 03/09/19 06:10 98 03/09/19 06:00 98 03/09/19 05:50 99 03/09/19 05:40 98 03/09/19 05:30 98 03/09/19 05:01 98 03/09/19 05:00 96 03/09/19 04:31 98 03/09/19 04:30 98 03/09/19 04:00 98 03/09/19 03:31 98 03/09/19 03:30 97 03/09/19 03:00 98 03/09/19 02:30 98 03/09/19 02:01 98 03/09/19 02:00 03/09/19 01:30 98 03/09/19 01:01 98 03/09/19 01:00 97 03/09/19 00:30 98 03/09/19 00:00 96 03/08/19 23:30 97 03/08/19 23:09 98 03/08/19 23:01 98 03/08/19 23:00 98 03/08/19 22:30 98 03/08/19 22:01 98 03/08/19 22:00 97 03/08/19 21:30 100 03/08/19 21:00 97 03/08/19 20:30 97 03/08/19 20:01 93 03/08/19 20:00 91 03/08/19 19:30 98 03/08/19 19:00 97 03/08/19 18:00 92 03/08/19 17:01 93 03/08/19 16:29 93 03/08/19 16:00 92 03/08/19 15:00 95 03/08/19 14:20 97 03/08/19 14:10 96 03/08/19 14:00 95 03/08/19 13:20 95 03/08/19 13:00 94 03/08/19 12:50 95 03/08/19 12:31 96 03/08/19 12:01 97 03/08/19 11:46 96 03/08/19 11:19 03/08/19 11:14 95 03/08/19 10:50 143/44 H 96 03/08/19 10:40 147/44 H 96 03/08/19 10:30 152/44 H 96 03/08/19 10:20 155/46 H 95 03/08/19 10:10 174/52 H 98 03/08/19 10:00 199/92 H 99 03/08/19 09:50 98 Notes Mental Status: alert / awake / arousable and participated in evaluation Patient Amnestic to Procedure: Yes Nausea / Vomiting: adequately controlled Pain: adequately controlled Airway Patency, RR, SpO2: stable & adequate BP & HR: stable & adequate Hydration State: stable & adequate Anesthetic Complications: no major complications apparent and Pt Satisfied with anesthetic care
--- NOTE | 2019-03-09 08:52 | Critical Care Progress Note ---
Date of Service March 09, 2019 Assessment & Plan (1) Stenosis of right internal carotid artery: Reason Critically Ill: 84 year old woman here for post op monitoring after right carotid endarterectomy Post op right carotid endarterectomy Day 1 post op for right carotid endarterectomy Currently bradycardic with rates in the fifties but has been since pre op Blood pressure reasonably controlled 139/45 Hydralazine 10 mg TID for hypertension Awaiting Dr. Sanchez for disposition Dispo: Awaiting visit from primary team will either be moved to floor or discharged to home DVT Ppx: Received heparin during procedure none ordered today F/E/N: Regular diet Code Status: DNR/DNI (2) History of endarterectomy: Supervising Physician Co-Signing Physician Notes Dr. Bolivar was the resident-physician during care of patient. I separately evaluated patient for segundo portions of the history and the exam. I was present during the critical portion of medical decision making, and I discussed the case with the resident. I generally agree with the findings and plan except for any additions/exceptions noted. Patient seen and examined at bedside. Feeling better. No chest pain, no dizziness, no weakness, no focal deficits. Patient hemodynamically stable to be downgraded. We will remove arterial line. Resume oral anticoagulation once cleared by surgery. Hold beta-blockers for the time being as patient heart rate goes to low 40s. I have personally spent 25 minutes of critical care time in the direct management of this patient. This is a life/limb threatening event. This includes time spent evaluating patient, direct bedside care, chart review, placing orders, interpretation of diagnostic studies, discussion with consultants, patient, and/or family members regarding treatment decisions, as well as other required patient management activities. This time is exclusive of all separately billable procedures, and teaching time and separate from and in addition to any other critical care service time. Subjective Angy Thomas resting comfortably this morning, required two doses of hydralazine yesterday to maintain systolic pressure <160 but doing well now. No dizziness, no weakness, no chest pain, no shortness of breath, no abdominal pain or GI issues. She does endorse some back of the neck pain which is chronic. No other complaints at this time and patient desires to return home. Review of Systems Review of Systems: All systems reviewed & are unremarkable except as noted in HPI & below Physical Exam Physical Exam: Constitutional: 84 year old woman appearing stated age resting comfortably with one large bruise on right virgie-lateral neck. Patient in no apparent distress Eyes: EOMMI, PERRLA NECK: Large bruise overlying right virgie lateral neck, does not appear to be much of a hematoma, mild tenderness Respiratory: Chest Expansion symmetric, Breath sounds vesicular in all lung brito. Cardiovascular: Loud systolic murmur radiating to carotids, regular rate regular rhythm, peripheral pulses all intact in all four extremities GI: Abdomen soft non tender Neuro: Awake alert and oriented to person place and time, CN II-XII intact, no focal deficits Results & Data Vital Signs (Past 12 Hours) Vital Signs Temp Pulse Resp BP Pulse Ox 03/09/19 06:30 54 L 19 139/45 L 97 03/09/19 06:20 53 L 14 97 03/09/19 06:10 61 18 98 03/09/19 06:00 51 L 14 140/43 L 98 03/09/19 05:50 58 L 12 99 03/09/19 05:40 56 L 15 98 03/09/19 05:30 54 L 14 137/44 L 98 03/09/19 05:01 57 L 18 152/48 H 98 03/09/19 05:00 56 L 18 96 03/09/19 04:31 63 22 88/65 L 98 03/09/19 04:30 70 23 98 03/09/19 04:00 36.6 C 56 L 15 147/57 H 98 03/09/19 03:31 60 15 145/55 H 98 03/09/19 03:30 52 L 15 97 03/09/19 03:00 56 L 15 121/43 L 98 03/09/19 02:30 63 14 130/58 L 98 03/09/19 02:01 60 13 132/49 L 98 03/09/19 02:00 58 L 17 03/09/19 01:30 54 L 22 166/78 H 98 03/09/19 01:01 67 20 98 03/09/19 01:00 61 17 171/58 H 97 03/09/19 00:30 52 L 13 153/60 H 98 03/09/19 00:00 36.6 C 58 L 20 155/77 H 96 03/08/19 23:30 60 24 148/66 H 97 03/08/19 23:09 54 L 17 152/51 H 98 03/08/19 23:01 55 L 14 98 03/08/19 23:00 51 L 14 192/60 H 98 03/08/19 22:30 62 15 98 03/08/19 22:01 54 L 15 98 03/08/19 22:00 49 L 15 164/97 H 97 03/08/19 21:30 54 L 14 100 03/08/19 21:00 53 L 14 170/71 H 97 PG Care Time/CCT Total # of Minutes Spent Total Time Spent with Patient: Total time spent is greater than 50% in coordination of care (as documented) at patient's floor/unit and/or counseling patient: Critical Care Time: Yes Total Critical Care Time: 25 Resident Activity Tracking Resident Involvement: Resident Care Provided Care Provided: Adult Hospital Medicine
[2019-03-09] MEDS ORDERED: predniSONE 1 MG TAB PO SCH (09:00)
[2019-03-09] MEDS ORDERED: [UNRECOGNIZED DRUG - OTHER] PO SCH (09:00)
[2019-03-09] MEDS ORDERED: NON-FORMULARY MEDICATION (Coenzyme Q10 100 MG) PO SCH (09:00)
--- NOTE | 2019-03-09 13:29 | Surgery Progress Note ---
Date of Service March 09, 2019 Assessment & Plan (1) History of endarterectomy: Patient POD #1 from right CEA. Will transfer to floor for one more day of observation due to headache and tiredness. Subjective Patient only complaint is a mild headache as well as being tired after in chair. No problems swallowing. No complaints of focal deficits. Physical Exam Constitutional: WD/WN, vitals as above ENMT: Mouth: no tongue abnormality Neck: trachea midline minimal edema Skin: + wound (incision dry and clean) Neurologic: normal touch/pain/proprioception, CN's II-XI intact bilaterally and moves all extremities; no focal motor deficits Psychiatric: Orientation: alert and oriented x 3 Results & Data Vital Signs (Past 12 Hours) Vital Signs Temp Pulse Resp BP Pulse Ox 03/09/19 12:30 55 L 21 03/09/19 12:20 57 L 25 H 94 03/09/19 12:14 60 17 94 03/09/19 12:00 55 L 24 159/54 H 93 03/09/19 11:50 63 27 H 92 03/09/19 11:40 55 L 25 H 03/09/19 11:30 61 25 H 182/108 H 94 03/09/19 11:20 51 L 17 94 03/09/19 11:10 53 L 14 96 03/09/19 11:01 49 L 17 160/62 H 93 03/09/19 11:00 47 L 20 90 03/09/19 10:50 50 L 17 93 03/09/19 10:40 47 L 19 93 03/09/19 10:31 50 L 23 137/61 94 03/09/19 10:30 47 L 16 03/09/19 10:20 47 L 16 93 03/09/19 10:10 47 L 16 94 03/09/19 10:00 46 L 16 94 03/09/19 09:50 46 L 15 93 03/09/19 09:40 48 L 20 94 03/09/19 09:30 50 L 18 144/49 H 96 03/09/19 09:20 51 L 13 95 03/09/19 09:10 50 L 21 93 03/09/19 09:00 50 L 17 157/59 H 95 03/09/19 08:50 53 L 13 97 03/09/19 08:40 61 17 95 03/09/19 08:31 63 22 143/80 H 95 03/09/19 08:30 66 14 03/09/19 08:20 67 15 96 03/09/19 08:10 73 24 94 03/09/19 08:00 36.6 C 67 25 H 172/53 H 95 03/09/19 07:50 77 18 95 03/09/19 07:40 62 18 94 03/09/19 07:31 63 21 150/66 H 98 03/09/19 07:30 60 17 96 03/09/19 07:20 56 L 20 98 03/09/19 07:10 59 L 19 98 03/09/19 07:01 59 L 17 98 03/09/19 07:00 60 15 150/50 H 97 03/09/19 06:50 56 L 14 98 03/09/19 06:40 53 L 16 98 03/09/19 06:30 54 L 19 139/45 L 97 03/09/19 06:20 53 L 14 97 03/09/19 06:10 61 18 98 03/09/19 06:00 51 L 14 140/43 L 98 03/09/19 05:50 58 L 12 99 03/09/19 05:40 56 L 15 98 03/09/19 05:30 54 L 14 137/44 L 98 03/09/19 05:01 57 L 18 152/48 H 98 03/09/19 05:00 56 L 18 96 03/09/19 04:31 63 22 88/65 L 98 03/09/19 04:30 70 23 98 03/09/19 04:00 36.6 C 56 L 15 147/57 H 98 03/09/19 03:31 60 15 145/55 H 98 03/09/19 03:30 52 L 15 97 03/09/19 03:00 56 L 15 121/43 L 98 03/09/19 02:30 63 14 130/58 L 98 03/09/19 02:01 60 13 132/49 L 98 03/09/19 02:00 58 L 17 03/09/19 01:30 54 L 22 166/78 H 98
[2019-03-09] MEDS ORDERED: BETAMETHASONE VAL 0.1% CR 15 GM TOP PRN (15:27)
[2019-03-09] MEDS: ACETAMINOPHEN 500 MG TAB PO PRN (18:18)
[2019-03-09 21:44] VITALS: TEMP 97.9
[2019-03-10] MEDS: ACETAMINOPHEN 500 MG TAB PO PRN (02:06)
[2019-03-10] MEDS: GABAPENTIN 100 MG CAP PO SCH (08:30)
[2019-03-10] MEDS: PANTOprazole 40 MG TAB PO SCH (08:31)
[2019-03-10] MEDS: FUROSEMIDE 20 MG TAB PO SCH (08:31)
[2019-03-10] MEDS: CHOLECALCIFEROL 1,000 UNITS TAB PO SCH (08:31)
[2019-03-10] MEDS: CYANOCOBALAMIN 500 MCG TABLET (VITAMIN B-12) PO SCH (08:31)
[2019-03-10] MEDS: HydrALAZINE 10 MG TAB PO SCH (08:31)
[2019-03-10] MEDS: PSYLLIUM 58.6% POWDER PACKET PO SCH (08:32)
[2019-03-10] MEDS: OMEGA-3 (PURIFIED FISH OIL) 1 GM CAP PO SCH (08:32)
[2019-03-10] MEDS: METOPROLOL TARTRATE 50 MG TAB PO SCH (08:33)
[2019-03-10 10:03] VITALS: O2SAT 96
--- NOTE | 2019-03-10 10:15 | Surgery Progress Note ---
Date of Service March 10, 2019 Assessment & Plan (1) History of endarterectomy: Patient POD # 2 from right CEA. She is doing well at this time and is eager to go home. She will be discharged to self-care at home. We will see her in the office in 2 weeks for follow-up. Subjective Patient only complaint is a mild headache. No problems swallowing. No complaints of focal deficits. Physical Exam Constitutional: WD/WN, vitals as above Skin: + wound (incision dry and clean) Neurologic: normal touch/pain/proprioception, CN's II-XI intact bilaterally and moves all extremities; no focal motor deficits Psychiatric: Orientation: alert and oriented x 3 Results & Data Vital Signs (Past 12 Hours) Vital Signs Temp Pulse Pulse Resp BP BP Pulse Ox 03/10/19 10:02 54 L 18 167/61 H 96 03/10/19 08:29 60 03/10/19 07:57 36.6 C 51 L 16 95 03/10/19 07:54 54 L 185/59 H 03/10/19 03:36 47 L 185/49 H 03/10/19 01:58 186/60 H 03/09/19 23:45 36.6 C 61 15 189/60 H 94
[2019-03-10 11:10] VITALS: BP 170/48; PULSE 60
--- NOTE | 2019-03-13 11:31 | Discharge Summary ---
Date of Service March 13, 2019 Admission HPI Per Admitting Provider Ms. Angy Thomas was seen in the vascular surgery office in followup for her bilateral real carotid artery disease. Since we last saw her 1 year ago, she indicates that she suffered a fall while she was at the [facility]. She sustained multiple injuries which include an injury to her left shoulder, multiple rib fractures and she says a puncture to her lung with bleeding into her chest. She is still taking time to recover from this. This occurred in July. She also was diagnosed with atrial fibrillation and since has been taking Eliquis. Otherwise, she denies any major changes in her health status. Specifically, she denies any strokes or TIAs. She denies episodes of vision loss. She does indicate that she has a history of giant cell arteritis, which sometimes gives her floaters in the vision. She has not had any episodes where she loses her vision or he feels like a shade is going across her vision. She denies any unilateral extremity numbness, tingling or weakness. She has no difficulty with speech or swallow. She has had no facial droop Admission Exam Per Admitting Provider On physical examination, her vital signs are as follows: Blood pressure 170/54 on the left and 168/54 on the right. Her heart rate is 48. Her oxygen saturation is 95% on room air. Her respiratory rate is 16. She is well- nourished and in no acute distress. Her head is normocephalic and atraumatic. Her neck is supple. Her trachea is midline. She has no facial droop. Her extraocular movements are intact. She is able to activate all facial musculature symmetrically. Pupils are equal, round and reactive to light. Her tongue protrudes midline. Her palate elevates symmetrically. Her shoulder shrug is intact and equal bilaterally. She is breathing comfortably on room air. She has palpable radial pulses which are equal bilaterally. Her motor and sensory of the upper and lower extremities is intact. All four extremities are warm and well perfused. Heent is within normal limits. Her lungs are clear. Heart has a RRR. Abdominal exam is benign. Principal Diagnosis 1. s/p Right Carotid endarterectomy 2. RICAS Discharge Exam Constitutional WD/WN, vitals as above ENMT Mouth: no tongue abnormality Neck trachea midline Skin + wound (incision dry and clean) Neurologic normal touch/pain/proprioception, CN's II-XI intact bilaterally and moves all extremities; no focal motor deficits Psychiatric Orientation: alert and oriented x 3 Discharge Data Allergies Allergy/AdvReac Type Severity Reaction Status Date / Time lactose Allergy Intermediate GI UPSET Verified 03/08/19 06:20 latex Allergy Intermediate HIVES AND Verified 03/08/19 06:20 ITCHING methotrexate Allergy Intermediate SEVERE GI Verified 03/08/19 06:20 UPSET Pmuslvh-[id number]-[id number] Reductase Allergy Intermediate MUSCLE Verified 03/08/19 06:20 Inhibitor ACHES sulfamethoxazole Allergy Intermediate HIVES Verified 03/08/19 06:20 trimethoprim Allergy Intermediate HIVES Verified 03/08/19 06:20 nickel Allergy Mild RASH Verified 03/08/19 06:20 Bactrim Allergy Unknown HIVES Verified 02/08/17 12:35 Procedures Performed Operation Date: 03/08/19 07:30 Actual Procedures p Right Carotid Endarterectomy with Patch(Right) - Brennen Sanchez MD Hospital Course (1) History of endarterectomy: Patient POD # 2 from right CEA. She is doing well at this time and is eager to go home. She will be discharged to self-care at home. We will see her in the office in 2 weeks for follow-up. Total Time Total Time Spent Total Time Spent (In Minutes): 15 minutes Total Time Includes: Examination of the Patient, Discharge Planning and Medication Reconciliation Discharge Plan Discharge Items Patient Disposition: Home - Self-Care Reason For Visit: Right Internal Carotid Artery Stenosis Discharge Diagnosis: Right internal carotid artery stenosis Activity: Per Instructions section Non-emergency contact: Surgeon Call non-emergency contact if: you have any medication questions, your symptoms worsen, your pain is not controlled, your pain is worsening, your pain is unusual for you, your pain is concerning for you, your temperature is above 101.5, your wound has increased redness, your wound has increased drainage and your wound pain has increased Follow-up/Referrals: Irene Guajardo [Primary Care Provider] - Diet: Heart Healthy Addtl Attending Provider Instructions: SPECIAL CARE INSTRUCTIONS: Medications: * Continue to take Aspirin as directed. Incision Care: * You may shower, but do not rub incision. You may let the warm soapy water run over it. Be sure to dry the incision well after bathing. * Do not shave directly over the incision until it is healed. * DO NOT IMMERSE THE INCISION IN A TUB/POOL/etc. UNTIL HEALED. Restrictions: * Do not drive for at least one week or if you are still taking any narcotic pain medication. * Do not lift anything heavier than a gallon of milk for one week after going home. Possible Complications: * Numbness - It is normal to have some numbness around the incision. Numbness can extend beyond the incision to areas of the neck, ear and face. The numbness is due to bruising of nerves during the surgery and will gradually improve over a period of months. * Hoarseness/Difficulty Speaking and Swallowing - The bruising of nerves in the neck can also cause a hoarse voice, difficulty speaking or swallowing. This may improve over time, HOWEVER, if it continues for more than a few days please contact our office ([phone]). * Excessive Swelling - There will be some swelling immediately after surgery which usually resolves within one week. If you notice that the swelling is getting worse, notify your surgeon ([phone]). * Drainage/Bleeding - If there is any drainage or bleeding, it should be a very small amount (less than a teaspoon per day). If you have excessive bleeding or drainage from the incision, call your surgeon ([phone]) right away. ACTIVATION OF EMERGENCY MEDICAL SYSTEM: Call 911, immediately, if you experience any of the following: Warning Signs and Symptoms of Stroke: * Sudden numbness or weakness of the face, arm or leg, especially on one side of the body * Sudden confusion, trouble speaking or understanding * Sudden trouble seeing in one or both eyes * Sudden trouble walking, dizziness, loss of balance or coordination * Sudden severe headache with no cause Do not delay calling 911 if you experience any warning signs or symptoms of a stroke. Delay in seeking medical attention may affect what treatments can be given to you. Risk Factors for Stroke: You can reduce your chances of stroke by working with your medical provider to adopt a healthy lifestyle. Some specific ways to lower your chance of stroke are: * If you are a smoker, now is the time to stop smoking cigarettes * If you are diabetic, improve the control of your blood sugars * Avoid excessive amounts of alcohol * Control high blood pressure * Lose weight if you are overweight * Be sure to lead an active lifestyle * Eat a healthy diet low in salt, cholesterol and fat You should know about other risk factors for stroke that you are unable to control. These include: * Age 55 years or older * Male gender * Certain racial groups: , or / * Family History of Stroke, Mini stroke or Heart Attack * Sickle Cell Disease You will be receiving a call from the Vascular Surgery Nurse after you are discharged. FOLLOW UP VISIT: It is important for you to keep your follow up appointments with your medical provider. Keep any scheduled doctor appointments. Call [phone] to schedule a follow up appointment if one not already scheduled. Pending Studies at Discharge: No Stand-Alone Forms: My [facility] Medications and DC Order Prescriptions: New hydrocodone-acetaminophen [Cass] 5-325 mg tablet 1 tab PO Q6H PRN (Reason: pain) Qty: 7 RF: 0 Continued cholecalciferol (vitamin D3) 2,000 unit tablet 2,000 units PO DAILY RF: 0 coenzyme Q10 100 mg capsule 100 mg PO DAILY RF: 0 omega-3 fatty acids 1 cap PO DAILY RF: 0 betamethasone valerate 0.12 % foam 0.12 % topical UD PRN (Reason: DRYNESS ON SCALP) RF: 0 apixaban 2.5 mg tablet 2.5 mg PO BID RF: 0 diclofenac sodium 1 % gel 1 % topical UD PRN (Reason: Pain) RF: 0 loratadine 10 mg tablet 10 mg PO DAILY PRN (Reason: ALLERGY RELIEF) RF: 0 metoprolol tartrate 50 mg tablet 50 mg PO BID Qty: 180 RF: 0 acetaminophen 500 mg tablet 500 mg PO Q4H PRN (Reason: Pain) RF: 0 pantoprazole 40 mg tablet,delayed release (DR/EC) 40 mg PO QAM RF: 0 gabapentin 100 mg capsule 100 mg PO Q12H RF: 0 furosemide 20 mg tablet 20 mg PO DAILY RF: 0 prednisone 2 mg tablet,delayed release (DR/EC) 4 mg PO DAILY RF: 0 cyanocobalamin (vitamin B-12) 1,000 mcg Tablet 2,000 mcg PO DAILY RF: 0 Digestive Advantage 250 million cell Tablet,Chewable 250 cell PO DAILY RF: 0 Restasis 0.05 % Dropperette 2 drp OPHTHALMIC (EYE) BID RF: 0 Metamucil 3.4 gram/5.4 gram Powder 2 tbsp PO DAILY RF: 0 hydralazine 10 mg Tablet 10 mg PO TID RF: 0 Discharge Orders: Discharge Order (Routine); Ordered 03/10/19 Ordered By: Brennen Sanchez Admission Data Admit Date/Time: 03/08/19 07:33 Attending Provider: Brennen Sanchez Admit Provider: Brennen Sanchez Primary Care Provider: Irene Guajardo Other Interventions: Discharge Summary Assessment (RN) Last Done: 03/10/19 11:08 DC Date/Time DO NOT enter until pt leaves facility: 03/10/19 11:29
== END 2019-03-10 11:29 | disposition home or self-care (01) | DRG 39 ==
LOC: ASU 05:58 → 1E 07:33 → 3N 03-09 14:25
DX: I65.21 Occlusion and stenosis of right carotid artery; Z79.899 Other long term (current) drug therapy; I35.0 Nonrheumatic aortic (valve) stenosis; N18.3 Chronic kidney disease, stage 3 (moderate); Z87.891 Personal history of nicotine dependence; Z66 Do not resuscitate; E78.5 Hyperlipidemia, unspecified; I12.9 Hypertensive chronic kidney disease with stage 1 through stage 4 chronic kidney disease, or unspecified chronic kidney disease; R53.83 Other fatigue; Z79.52 Long term (current) use of systemic steroids; R51 Headache; I48.0 Paroxysmal atrial fibrillation

== ENCOUNTER 2021-01-02 18:30 | Inpatient (IN) ==
--- NOTE | 2021-01-02 18:54 | Emergency Department Note ---
History of Present Illness General Chief complaint: Fever Stated complaint: CHILLS, WEAKNESS, FATIGUE Time Seen by Provider: 01/02/21 18:40 Source: patient and family Mode of arrival: EMS Limitations: altered mental status History of Present Illness Provider complaint: n/v/d Onset (ago): day(s) 1 Relieved By: + none Exacerbated By: + eating Associated symptoms: + fever/chills, + loss of appetite and + malaise Treatments prior to arrival: none This is an 85-year-old female who presents from home via EMS due to concern for multiple GI symptoms and shaking. Patient states she felt tremulous last night and thought perhaps it was something she ate at dinner. Patient states when she woke up this morning she felt nauseated and shaky. She states she tried to sip some fluids and have yogurt and bread today however still felt nauseated and vomited twice. She denies noting any blood in her emesis. Patient states she also had 2 episodes of diarrhea, denies noting any blood in this. Patient denies any recent change in medications or known sick contact. Patient has had both for coronavirus vaccinations. Daughter states when she came to the house she was concerned his mother. So shaky and had a fever of 100 degrees at home that she could not get her to safely stand to be able to put her in a car and bring her here herself. Patient does live at home with her . Daughter denies any other significant GI history. Pt seen during a time of high acuity and national emergency pandemic while wearing PPE. Home Medications Medication Instructions Recorded Confirmed Type acetaminophen 500 mg tablet 500 mg PO Q4H PRN tab 12/27/18 01/02/21 History apixaban 2.5 mg tablet 2.5 mg PO BID tab 12/27/18 01/02/21 History cholecalciferol (vitamin D3) 50 2,000 units PO DAILY tab 12/27/18 01/02/21 History mcg (2,000 unit) tablet metoprolol tartrate 50 mg tablet 50 mg PO BID #180 tab 12/27/18 01/02/21 History pantoprazole 40 mg tablet,delayed 40 mg PO QAM tab 12/27/18 01/02/21 History release Bacillus coagulans 250 million 250 cell PO DAILY 02/17/19 01/02/21 History cell chewable tablet (Digestive Advantage Probiotic Gummy) cyanocobalamin (vitamin B-12) 2,000 mcg PO DAILY 02/17/19 01/02/21 History 1,000 mcg tablet cyclosporine 0.05 % eye drops in a 2 drp OPHTHALMIC (EYE) BID PRN 02/17/19 01/02/21 History dropperette (Restasis) amlodipine 2.5 mg tablet 2.5 mg PO DAILY #30 tab 11/06/19 01/02/21 Rx hydralazine 100 mg tablet 100 mg PO TID #60 tab 11/06/19 01/02/21 Rx gabapentin 300 mg capsule 300 mg PO TID 03/05/20 01/02/21 History furosemide 20 mg tablet 20 mg PO DAILY tab 11/07/20 01/02/21 History donepezil 10 mg tablet 10 mg PO DAILY #90 tab 11/26/20 01/02/21 Rx prednisone 1 mg tablet 2 mg PO DAILY 01/02/21 01/02/21 History Allergies Allergy/AdvReac Type Severity Reaction Status Date / Time adhesive Allergy Intermediate BLISTER Verified 01/02/21 19:02 SKIN latex Allergy Intermediate HIVES AND Verified 01/02/21 19:02 ITCHING sulfamethoxazole Allergy Intermediate HIVES Verified 01/02/21 19:02 trimethoprim Allergy Intermediate HIVES Verified 01/02/21 19:02 nickel Allergy Mild RASH Verified 01/02/21 19:02 lactose AdvReac Intermediate GI UPSET Verified 01/03/21 03:11 methotrexate AdvReac Intermediate SEVERE GI Verified 01/03/21 03:11 UPSET Gyuzwle-Xpc-Thh Reductase AdvReac Intermediate MUSCLE Verified 01/03/21 03:11 Inhibitor ACHES Past Med/Surg History Medical History (Updated 01/04/21 @ 07:01 by Audrey Reagan DO) Acid reflux controlled Aortic stenosis Moderate per 07/2018 ECHO Atrial fibrillation on Eliquis Carotid stenosis Chronic kidney disease baseline creatinine 1.4-1.7 range per nephrology Colitis hx Degeneration, intervertebral disc, thoracic Diplopia Dry eye syndrome Giant cell arteritis hx- on chronic prednisone 2mg twice weekly History of DVT (deep vein thrombosis) HTN (hypertension) Hx of blood clots LLE 15 years ago- no issues since Hx of pancreatitis 5+ years ago Hyperlipidemia Low back pain Lung nodules small- under surveillance Myalgia and myositis Varicose veins of both lower extremities Surgical History History of appendectomy History of bilateral tubal ligation History of cataract surgery RT/LEFT History of chest tube placement pneumothorax s/p mechanical fall at the gym- chest tube placed History of cholecystectomy History of colonoscopy History of ERCP History of Mohs micrographic surgery for skin cancer BCC (EAR REGION) History of tonsillectomy and adenoidectomy Family History Other No significant family history Social History Smoking Status: Former smoker Second Hand Exposure: No; Do You Dip or Chew Tobacco: No; Hx Alcohol Use: Yes Alcohol type: wine Hx Substance Use: No Preferred Language: Beninese Communication Ability: Effective Visual Impairment: No Limitations Hearing Ability: Normal Retail Support Associate Required: No Beliefs That Will Affect Care: None Current Living Situation: Spouse Other Information That Helps Us Care for You: No Feels Safe at Home: Yes Safety Concerns: Feels Safe At This Time Assistive Devices: Glasses and Hearing Aid - Bilateral Review of Systems A total of 10 systems reviewed and were otherwise negative All systems reviewed & are unremarkable except as noted in HPI & below Physical Exam Vital Signs Vital Signs - 24 hr 01/02/21 18:48 01/02/21 19:24 01/02/21 20:43 Temperature 39.1 C H 36.7 C Temperature Source Oral Oral Pulse Rate 79 68 Pulse Rate [Apical] 74 144 H Pulse Rhythm Regular Pulse Strength Normal Respiratory Rate 18 24 28 H Respiratory Effort / Characteristics Non-Labored Spontaneous Spontaneous Respiratory Depth Normal Respiratory Pattern Regular Regular Blood Pressure 131/63 Blood Pressure [Left Arm] 114/42 L Blood Pressure Mean 85 Blood Pressure Mean [Left Arm] 66 Blood Pressure Position Lying Pulse Oximetry 98 99 Pulse Oximetry [Right Foot] 97 Oxygen Delivery Method Room Air Nasal Cannula Nasal Cannula Oxygen Flow Rate 2 1 Sepsis Recent Fever Within 48 Hours Yes Sepsis New/Unexplained Change in Mental Status Yes Sepsis Action Taken by Nursing Physician Notified 01/02/21 21:00 01/02/21 21:36 01/02/21 22:31 Temperature Temperature Source Pulse Rate Pulse Rate [Apical] 59 L 60 Pulse Rhythm Pulse Strength Respiratory Rate 20 18 Respiratory Effort / Characteristics Respiratory Depth Respiratory Pattern Blood Pressure Blood Pressure [Left Arm] 126/40 L 134/49 L Blood Pressure Mean Blood Pressure Mean [Left Arm] 68 77 Blood Pressure Position Pulse Oximetry 99 96 98 Pulse Oximetry [Right Foot] Oxygen Delivery Method Room Air Nasal Cannula Nasal Cannula Oxygen Flow Rate 2 2 Sepsis Recent Fever Within 48 Hours Sepsis New/Unexplained Change in Mental Status Sepsis Action Taken by Nursing GENERAL: alert, ill appearing, well nourished, no distress, non-toxic EYE EXAM: normal conjunctiva, PERRL and EOM's grossly intact OROPHARYNX: no exudate, no erythema, lips, buccal mucosa, and tongue normal and mucous membranes are dry NECK: supple, no nuchal rigidity, no adenopathy, non-tender LUNGS: Clear to auscultation. Normal chest wall mechanics, no w/r/r HEART: no murmurs, S1 normal and S2 normal ABDOMEN: abdomen soft, non-tender, normo-active bowel sounds, no masses, no rebound or guarding. BACK: Back is symmetrical on inspection and there is no deformity, no midline tenderness, no CVA tenderness. SKIN: no rashes and no bruising UPPER EXTREMITIES: upper extremities are grossly normal. FROM, nml pulses b/l. LOWER EXTREMITIES: No pitting edema. FROM, nml pulses b/l. NEURO EXAM: Normal sensorium, cranial nerves II-XII grossly intact, normal speec h, no gross weakness of arms, no gross weakness of legs. Gross sensation intact. Course Course 2015: Updated family at bedside. Still awaiting CT. 2224: Updated family at bedside. 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 They state patient typically goes to bed at 7 PM. Patient is arousable although very somnolent at this time. Still unable to tolerate p.o. or ambulate independently. She states nausea is improved however she has no appetite. Administered Medications Acetaminophen (Acetaminophen 325 Mg Tab) 650 mg PO Q4H PRN PRN Reason: Headache Stop: 02/02/21 17:50 Last Admin: 01/04/21 06:31 Dose: 650 mg Documented by: [id number] Admin: 01/03/21 17:57 Dose: 650 mg Documented by: [id number] Apixaban (Apixaban 2.5 Mg Tab) 2.5 mg PO BID ARLETTE Stop: 02/02/21 02:55 Last Admin: 01/03/21 20:49 Dose: 2.5 mg Documented by: [id number] Admin: 01/03/21 09:09 Dose: 2.5 mg Documented by: [id number] Admin: 01/03/21 04:12 Dose: 2.5 mg Documented by: [id number] Gabapentin (Gabapentin 300 Mg Cap) 300 mg PO TID ARLETTE Stop: 02/02/21 13:59 Last Admin: 01/03/21 20:48 Dose: 300 mg Documented by: [id number] Admin: 01/03/21 15:10 Dose: 300 mg Documented by: [id number] Ceftriaxone Sodium 1,000 mg/ (Dextrose) 50 mls @ 100 mls/hr IV Q24H ARLETTE; Protocol Stop: 01/13/21 03:59 Last Infusion: 01/04/21 06:28 Dose: 0 mls/hr Documented by: [id number] Admin: 01/04/21 04:22 Dose: 100 mls/hr Documented by: [id number] Infusion: 01/03/21 04:45 Dose: 0 mls/hr Documented by: [id number] Admin: 01/03/21 04:13 Dose: 100 mls/hr Documented by: [id number] Discontinued Medications Sodium Chloride (Nss 1000ml) 1,000 mls @ 999 mls/hr IV .Q1H1M ARLETTE Stop: 01/02/21 20:00 Last Infusion: 01/02/21 20:50 Dose: 0 mls/hr Documented by: [id number] Admin: 01/02/21 19:42 Dose: 999 mls/hr Documented by: [id number] Acetaminophen (Ofirmev) 1,000 mg in 100 mls @ 400 mls/hr IV NOW STA Stop: 01/02/21 19:49 Last Infusion: 01/02/21 20:32 Dose: 0 mls/hr Documented by: [id number] Admin: 01/02/21 19:42 Dose: 400 mls/hr Documented by: [id number] Cefepime HCl (Maxipime) 2,000 mg in 20 mls @ 5 mls/min IV NOW STA; Protocol Stop: 01/02/21 22:12 Last Admin: 01/02/21 22:30 Dose: 5 mls/min Documented by: [id number] Famotidine 20 mg/ Syringe 5 mls @ 2.5 mls/min IV Q12H ARLETTE Stop: 02/02/21 08:59 Last Admin: 01/03/21 09:08 Dose: 2.5 mls/min Documented by: [id number] Potassium Chloride/Sodium Chloride (Normal Saline W/20 Meq Kcl) 20 meq in 1,000 mls @ 100 mls/hr IV .Q10H ARLETTE Stop: 01/03/21 23:29 Last Infusion: 01/04/21 00:41 Dose: 0 mls/hr Documented by: [id number] Admin: 01/03/21 14:35 Dose: 100 mls/hr Documented by: [id number] Infusion: 01/03/21 14:35 Dose: 100 mls/hr Documented by: [id number] Infusion: 01/03/21 06:40 Dose: 100 mls/hr Documented by: [id number] Infusion: 01/03/21 04:45 Dose: 100 mls/hr Documented by: [id number] Infusion: 01/03/21 04:15 Dose: 0 mls/hr Documented by: [id number] Admin: 01/03/21 04:13 Dose: 100 mls/hr Documented by: [id number] Ioversol (Optiray 320 100ml) 90 ml IV ONCE ONE Stop: 01/02/21 21:08 Last Admin: 01/02/21 21:07 Dose: 90 ml Documented by: [id number] Ondansetron HCl (Ondansetron Inj 2 Mg/Ml 2 Ml Vial) 4 mg IV NOW STA Stop: 01/02/21 18:57 Last Admin: 01/02/21 19:42 Dose: 4 mg Documented by: [id number] Medical Decision Making Differential Diagnosis Differential: Gastroenteritis, Food Borne, Esophageal Perforation, , Electrolyte Abnormality, Dehydration, Intraabdominal Infection, UTI/Pyelonephritis, Bowel Obstruction, Biliary Pathology, amongst other pathology entertained. Medical Records Attestation: I reviewed the patient's medical records. Home Medications Current Medication List: was personally reviewed by me Laboratory Data Attestation: I reviewed the patient's lab results. Result diagrams: 01/04/21 06:03 01/03/21 08:48 Lab Results 01/02/21 01/02/21 01/02/21 Range/Units 19:31 19:31 19:31 WBC 16.88 H (4.8-10.8) K/uL RBC 4.28 (4.2-5.4) M/uL Hgb 12.7 (12.0-16.0) g/dL Hct 39.4 (37-47) % MCV 92.1 (80-100) fL MCH 29.7 (25-34) pg MCHC 32.2 (32-36) g/dL RDW Std Deviation 46.5 H (36.4-46.3) fL RDW Coeff of Eila 13.7 (11.5-14.5) % Plt Count 197 (130-400) K/uL MPV 10.6 H (7.4-10.4) fL Immature Gran % (Auto) 0.2 % Neut % (Auto) 90.3 % Lymph % (Auto) 4.2 % [place] % (Auto) 5.3 % Eos % (Auto) 0.0 % Baso % (Auto) 0.0 % Neut # (Auto) 15.23 H (1.4-6.5) K/uL Lymph # (Auto) 0.71 L (1.2-3.4) K/uL [place] # (Auto) 0.90 H (0.11-0.59) K/uL Eos # (Auto) 0.00 (0-0.5) K/uL Baso # (Auto) 0.00 (0-0.2) K/uL Immature Gran # (Auto) 0.04 H (0.00-0.02) K/uL Sodium 136 (136-145) mmol/L Potassium 3.4 L (3.5-5.1) mmol/L Chloride 103 (98-107) mmol/L Carbon Dioxide 27 (21-32) mmol/L Anion Gap 7.0 (3-11) BUN 20 H (7-18) mg/dl Creatinine 0.93 (0.6-1.2) mg/dl Est Cr Clr Drug Dosing 39.6 ml/min Est GFR ( Amer) 65.9 ml/min Est GFR (Non-Af Amer) 56.8 ml/min BUN/Creatinine Ratio 21.9 H (10-20) Glucose 108 H (70-99) mg/dl Lactate 1.0 (0.4-2.0) mmol/L Calcium 8.3 L (8.5-10.1) mg/dl Magnesium 1.9 (1.8-2.4) mg/dl Total Bilirubin 1.2 H (0.2-1) mg/dl AST 20 (15-37) U/L ALT 22 (12-78) U/L Alkaline Phosphatase 51 (45-117) U/L Troponin I < 0.015 (0-0.045) ng/ml Total Protein 7.0 (6.4-8.2) gm/dl Albumin 3.0 L (3.4-5.0) gm/dl Globulin 4.0 (2.5-4.0) gm/dl Albumin/Globulin Ratio 0.8 L (0.9-2) Procalcitonin (0-0.5) ng/ml Urine Color Urine Appearance (Clear) Urine pH (4.5-7.5) Ur Specific [place] (1.000-1.030) Urine Protein (Negative) Urine Glucose (UA) (Negative) Urine Ketones (Negative) Urine Blood (Negative) Urine Nitrite (Negative) Urine Bilirubin (Negative) Urine Urobilinogen (Negative) Ur Leukocyte Esterase (Negative) Urine WBC (Auto) (0-5) /hpf Urine RBC (Auto) (0-4) /hpf U Hyaline Cast (Auto) (0-5) /lpf U Epithel Cells (Auto) (0-5) /lpf Urine Bacteria (Auto) (Negative) COVID-19 Eval Order SARS-CoV-2 (PCR) (Negative) 01/02/21 01/02/21 01/02/21 Range/Units 19:31 22:30 22:30 WBC (4.8-10.8) K/uL RBC (4.2-5.4) M/uL Hgb (12.0-16.0) g/dL Hct (37-47) % MCV (80-100) fL MCH (25-34) pg MCHC (32-36) g/dL RDW Std Deviation (36.4-46.3) fL RDW Coeff of Elia (11.5-14.5) % Plt Count (130-400) K/uL MPV (7.4-10.4) fL Immature Gran % (Auto) % Neut % (Auto) % Lymph % (Auto) % [place] % (Auto) % Eos % (Auto) % Baso % (Auto) % Neut # (Auto) (1.4-6.5) K/uL Lymph # (Auto) (1.2-3.4) K/uL [place] # (Auto) (0.11-0.59) K/uL Eos # (Auto) (0-0.5) K/uL Baso # (Auto) (0-0.2) K/uL Immature Gran # (Auto) (0.00-0.02) K/uL Sodium (136-145) mmol/L Potassium (3.5-5.1) mmol/L Chloride (98-107) mmol/L Carbon Dioxide (21-32) mmol/L Anion Gap (3-11) BUN (7-18) mg/dl Creatinine (0.6-1.2) mg/dl Est Cr Clr Drug Dosing ml/min Est GFR ( Amer) ml/min Est GFR (Non-Af Amer) ml/min BUN/Creatinine Ratio (10-20) Glucose (70-99) mg/dl Lactate (0.4-2.0) mmol/L Calcium (8.5-10.1) mg/dl Magnesium (1.8-2.4) mg/dl Total Bilirubin (0.2-1) mg/dl AST (15-37) U/L ALT (12-78) U/L Alkaline Phosphatase (45-117) U/L Troponin I (0-0.045) ng/ml Total Protein (6.4-8.2) gm/dl Albumin (3.4-5.0) gm/dl Globulin (2.5-4.0) gm/dl Albumin/Globulin Ratio (0.9-2) Procalcitonin 0.92 H (0-0.5) ng/ml Urine Color Urine Appearance (Clear) Urine pH (4.5-7.5) Ur Specific [place] (1.000-1.030) Urine Protein (Negative) Urine Glucose (UA) (Negative) Urine Ketones (Negative) Urine Blood (Negative) Urine Nitrite (Negative) Urine Bilirubin (Negative) Urine Urobilinogen (Negative) Ur Leukocyte Esterase (Negative) Urine WBC (Auto) (0-5) /hpf Urine RBC (Auto) (0-4) /hpf U Hyaline Cast (Auto) (0-5) /lpf U Epithel Cells (Auto) (0-5) /lpf Urine Bacteria (Auto) (Negative) COVID-19 Eval Order Covid19 at [facility] SARS-CoV-2 (PCR) NEGATIVE (Negative) 01/02/21 Range/Units 22:45 WBC (4.8-10.8) K/uL RBC (4.2-5.4) M/uL Hgb (12.0-16.0) g/dL Hct (37-47) % MCV (80-100) fL MCH (25-34) pg MCHC (32-36) g/dL RDW Std Deviation (36.4-46.3) fL RDW Coeff of Elia (11.5-14.5) % Plt Count (130-400) K/uL MPV (7.4-10.4) fL Immature Gran % (Auto) % Neut % (Auto) % Lymph % (Auto) % [place] % (Auto) % Eos % (Auto) % Baso % (Auto) % Neut # (Auto) (1.4-6.5) K/uL Lymph # (Auto) (1.2-3.4) K/uL [place] # (Auto) (0.11-0.59) K/uL Eos # (Auto) (0-0.5) K/uL Baso # (Auto) (0-0.2) K/uL Immature Gran # (Auto) (0.00-0.02) K/uL Sodium (136-145) mmol/L Potassium (3.5-5.1) mmol/L Chloride (98-107) mmol/L Carbon Dioxide (21-32) mmol/L Anion Gap (3-11) BUN (7-18) mg/dl Creatinine (0.6-1.2) mg/dl Est Cr Clr Drug Dosing ml/min Est GFR ( Amer) ml/min Est GFR (Non-Af Amer) ml/min BUN/Creatinine Ratio (10-20) Glucose (70-99) mg/dl Lactate (0.4-2.0) mmol/L Calcium (8.5-10.1) mg/dl Magnesium (1.8-2.4) mg/dl Total Bilirubin (0.2-1) mg/dl AST (15-37) U/L ALT (12-78) U/L Alkaline Phosphatase (45-117) U/L Troponin I (0-0.045) ng/ml Total Protein (6.4-8.2) gm/dl Albumin (3.4-5.0) gm/dl Globulin (2.5-4.0) gm/dl Albumin/Globulin Ratio (0.9-2) Procalcitonin (0-0.5) ng/ml Urine Color Yellow Urine Appearance Clear (Clear) Urine pH 5.5 (4.5-7.5) Ur Specific [place] 1.045 H (1.000-1.030) Urine Protein Trace H (Negative) Urine Glucose (UA) Negative (Negative) Urine Ketones Trace H (Negative) Urine Blood Negative (Negative) Urine Nitrite Positive A (Negative) Urine Bilirubin Negative (Negative) Urine Urobilinogen Negative (Negative) Ur Leukocyte Esterase 1+ H (Negative) Urine WBC (Auto) 10-30 H (0-5) /hpf Urine RBC (Auto) 0-4 (0-4) /hpf U Hyaline Cast (Auto) 1-5 (0-5) /lpf U Epithel Cells (Auto) 10-20 H (0-5) /lpf Urine Bacteria (Auto) 4+ H (Negative) COVID-19 Eval Order SARS-CoV-2 (PCR) (Negative) Imaging Data Radiologist's Impression: Chest X-Ray 01/02/21 18:54 XR chest 1V portable CLINICAL HISTORY: SEPSIS COMPARISON STUDY: Chest radiograph February 23, 2019. Chest CT August 04, 2019. FINDINGS: Multiple upper fractures are incidentally noted. Cardiomegaly is uncha nged. There is no pneumothorax or pleural effusion. There is no consolidation. There is no evidence for pulmonary edema. IMPRESSION: No change in appearance of the chest. Cardiomegaly. No consolidation. ACT 112: Negative or not required by law. Electronically signed by: Dillon Beltran M.D. 01/02/2021 8:[address] abdomen and pelvis with contrast: Mild atelectasis at the left lung base. Elevated right hemidiaphragm. The he art is large. A sending aorta is partially seen measures up to 4.5 cm. Within the posterior segment of the right lobe of the liver irregular area of low- attenuation estimated to measure 9.5 mm in size. Gallbladder removed. Air in the biliary tree. Air in the pancreatic duct. Spleen and adrenals intact. Left kidney cyst. Kidney scarring. Right kidney intact. Bladder intact. Diverticulosis. Appendix not seen. No adenopathy, free fluid or free air. Atherosclerosis. DJD. Impression: Liver lesion incomplete characterized by this exam. Recommend follow-up. No acute findings. 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 Radiologist: Bg Hussein MD ECG Data Attestation: I personally reviewed and interpreted this ECG as follows: Indication: + weakness Rate (beats per minute): 71 Rhythm: + normal sinus ECG Intervals/blocks: + Normal QRS and + Normal QT ECG [place]: + Left axis deviation ECG ST segments: + Nonspecific ST abnormalities MDM Narrative This is an 85-year-old female who presents ill-appearing with complaints of nausea and weakness. No significant GI history, no obvious sick contact or dietary change. No change in meds. Labs reassuring with exception of leukocyto sis and elevated procalcitonin. Patient's abdomen soft and nontender on exam. Patient able to answer questions despite being ill-appearing and slightly somnolent. She would follow commands. Patient hydrated and given medication for nausea and did report feeling improved. Patient still profoundly weak and unsteady attempting to walk to the bathroom which she would typically do at home. Due to concern for persistent weakness and nausea, discussed with patient and family possible need for additional inpatient evaluation. Ultimately a cath UA was obtained which did show urinary tract infection. Patient had been empirically covered with cefepime due to concern for possible evolving sepsis. Prior urine cultures were reviewed. At this time I do not suspect bacteremia/sepsis. I did discuss with them some of her leukocytosis may be stress to margination from vomiting and diarrhea in addition. Patient was hemodynamically stable while in the emergency room, case discussed with hospita list for additional evaluation and management. An order was placed for continuous cardiac monitoring. The monitor shows a rate of _86_ with _normal sinus_ rhythm. Impression & Plan Generalized weakness, Acute UTI (urinary tract infection) Discharge Plan Visit Data Chief Complaint: Fever Stated Complaint: CHILLS, WEAKNESS, FATIGUE ED Provider: Audrey Reagan Discharge Problem: Generalized weakness, Acute UTI (urinary tract infection) Patient Disposition: Admitted As Inpatient Discharge Instructions Interventions: ED Discharge Assessment Last Done: 01/03/21 02:28
[2021-01-02] MEDS ORDERED: ONDANSETRON INJ 2 MG/ML 2 ML VIAL IV STA (18:56)
[2021-01-02] MEDS ORDERED: SODIUM CHLORIDE 0.9% 1000ML 1,000 ML IV SCH (19:00)
[2021-01-02] MEDS ORDERED: ACETAMINOPHEN 1,000 MG/100 ML VIAL IV STA (19:35)
[2021-01-02 19:46] LABS: Hematocrit (blood only) 39.4 % (37-47); Hemoglobin 12.7 g/dL (12.0-16.0); Immature Granulocytes # (auto) 0.04 K/uL (0.00-0.02); Immature Granulocytes % (auto) 0.2 %; Lymphocytes # (auto) 0.71 K/uL (1.2-3.4); Lymphocytes % (auto) 4.2 %; Mean Corpuscular Hemoglobin 29.7 pg (25-34); Mean Corpuscular Hgb Conc 32.2 g/dL (32-36); Mean Corpuscular Volume 92.1 fL (80-100); Mean Platelet Volume 10.6 fL (7.4-10.4); Monocytes % (auto) 5.3 %; Neutrophils # (auto) 15.23 K/uL (1.4-6.5); Neutrophils % (auto) 90.3 %; Platelet Count 197 K/uL (130-400); RDW Coefficient of Variation 13.7 % (11.5-14.5); RDW Standard Deviation 46.5 fL (36.4-46.3); Red Blood Count 4.28 M/uL (4.2-5.4); White Blood Count 16.88 K/uL (4.8-10.8)
[2021-01-02 20:33] LABS: Alanine Aminotransferase 22 U/L (12-78); Aspartate Aminotransferase 20 U/L (15-37); BUN Creatinine Ratio 21.9 (10-20); Blood Urea Nitrogen 20 mg/dl (7-18); Calcium 8.3 mg/dl (8.5-10.1); Carbon Dioxide 27 mmol/L (21-32); Chloride 103 mmol/L (98-107); Creatinine Clr Calc Pharmacy 39.6 ml/min; Est GFR (African American) 65.9 ml/min; Est GFR (Non-African American) 56.8 ml/min; Glucose 108 mg/dl (70-99); Magnesium 1.9 mg/dl (1.8-2.4); Potassium 3.4 mmol/L (3.5-5.1); Sodium 136 mmol/L (136-145)
[2021-01-02 20:38] LABS: Albumin Globulin Ratio 0.8 (0.9-2); Alkaline Phosphatase 51 U/L (45-117); Bilirubin,Total 1.2 mg/dl (0.2-1); Troponin I < 0.015 ng/ml (0-0.045)
--- NOTE | 2021-01-02 20:54 | XRay Report ---
XR chest 1V portable CLINICAL HISTORY: SEPSIS COMPARISON STUDY: Chest radiograph February 23, 2019. Chest CT August 04, 2019. FINDINGS: Multiple upper fractures are incidentally noted. Cardiomegaly is unchanged. There is no pne umothorax or pleural effusion. There is no consolidation. There is no evidence for pulmonary edema. IMPRESSION: No change in appearance of the chest. Cardiomegaly. No consolidation. ACT 112: Negative or not required by law. Electronically signed by: Dillon Beltran M.D. 01/02/2021 8:53 PM
[2021-01-02] MEDS ORDERED: OPTIRAY 320 100ml IV ONE (21:07)
[2021-01-02] MEDS ORDERED: CEFEPIME 2,000 MG/20 ML VIAL IV STA (22:09)
[2021-01-02 23:19] LABS: Appearance Urine Clear (Clear); Bacteria Urine Automated 4+ (Negative); Bilirubin Urine Negative (Negative); Blood Urine Negative (Negative); Color Urine Yellow; Glucose Urine UA Negative (Negative); Ketones Urine Trace (Negative); Leukocyte Esterase Urine 1+ (Negative); Nitrite Urine Positive (Negative); Protein Urine Trace (Negative); RBC Urine Automated 0-4 /hpf (0-4); Specific Gravity Urine 1.045 (1.000-1.030); Urobilinogen Urine Negative (Negative); pH Urine 5.5 (4.5-7.5)
--- NOTE | 2021-01-02 23:40 | History & Physical Report ---
Date of Service January 02, 2021 Assessment & Plan (1) Sepsis due to urinary tract infection: Plan: Follow urine culture and sensitivity Ceftriaxone 1 g IV daily NSS + KCl 20 mEq at 100 mils per hour Zofran 4 mg IV every 6 hours as needed Famotidine 20 mg IV every 12 hours (2) Memory loss or impairment: Plan: See above (3) Mild cognitive impairment: Plan: See above (4) Atrial fibrillation: Plan: Atrial fibrillation/hypertension- Hold metoprolol tartrate, amlodipine, hydralazine and furosemide due to low blood pressure, and dehydration Continue Eliquis (5) HTN (hypertension): Plan: See above (6) GERD without esophagitis: Plan: Hold omeprazole Placed on famotidine 20 mg IV every 12 hours (7) Depression with anxiety: Plan: Depression with anxiety/memory loss- Hold donepezil, gabapentin for now until taking p.o. (8) Dry eye syndrome: Plan: Continue Restasis History of Present Illness Chief Complaint: The patient presents to the emergency department with shaking chills, weakness, fatigue and vomiting as noted per family. Primary Care Provider: Irene Guajardo The patient is an 85-year-old female with a past medical history including SNHL bilaterally, depression with anxiety, GERD without esophagitis, memory loss, migraine, mild cognitive impairment, vitamin D deficiency, CKD, status post CEA, CAD and hypertension. She woke up in the morning with feeling nauseous and shaky which persisted throughout the day with vomiting x2. She also reports 2 episodes of loose stools she denies any recent travel or sick exposures she has had both coronavirus vaccinations she had a fever of 100 F at home, where she lives with her . When her daughter saw her this evening, she became concerned and had her brought to the ED for assessment by EMS Allergies Allergy/AdvReac Type Severity Reaction Status Date / Time adhesive Allergy Intermediate BLISTER Verified 01/02/21 19:02 SKIN latex Allergy Intermediate HIVES AND Verified 01/02/21 19:02 ITCHING sulfamethoxazole Allergy Intermediate HIVES Verified 01/02/21 19:02 trimethoprim Allergy Intermediate HIVES Verified 01/02/21 19:02 nickel Allergy Mild RASH Verified 01/02/21 19:02 lactose AdvReac Intermediate GI UPSET Verified 01/03/21 03:11 methotrexate AdvReac Intermediate SEVERE GI Verified 01/03/21 03:11 UPSET [facility] Reductase AdvReac Intermediate MUSCLE Verified 01/03/21 03:11 Inhibitor ACHES Home Medications Medication Instructions Recorded Confirmed Type acetaminophen 500 mg tablet 500 mg PO Q4H PRN tab 12/27/18 01/02/21 History apixaban 2.5 mg tablet 2.5 mg PO BID tab 12/27/18 01/02/21 History cholecalciferol (vitamin D3) 50 2,000 units PO DAILY tab 12/27/18 01/02/21 History mcg (2,000 unit) tablet metoprolol tartrate 50 mg tablet 50 mg PO BID #180 tab 12/27/18 01/02/21 History pantoprazole 40 mg tablet,delayed 40 mg PO QAM tab 12/27/18 01/02/21 History release Bacillus coagulans 250 million 250 cell PO DAILY 02/17/19 01/02/21 History cell chewable tablet (Digestive Advantage Probiotic Gummy) cyanocobalamin (vitamin B-12) 2,000 mcg PO DAILY 02/17/19 01/02/21 History 1,000 mcg tablet cyclosporine 0.05 % eye drops in a 2 drp OPHTHALMIC (EYE) BID PRN 02/17/19 01/02/21 History dropperette (Restasis) amlodipine 2.5 mg tablet 2.5 mg PO DAILY #30 tab 11/06/19 01/02/21 Rx hydralazine 100 mg tablet 100 mg PO TID #60 tab 11/06/19 01/02/21 Rx gabapentin 300 mg capsule 300 mg PO TID 03/05/20 01/02/21 History furosemide 20 mg tablet 20 mg PO DAILY tab 11/07/20 01/02/21 History donepezil 10 mg tablet 10 mg PO DAILY #90 tab 11/26/20 01/02/21 Rx prednisone 1 mg tablet 2 mg PO DAILY 01/02/21 01/02/21 History Past Med/Surg History Medical History (Updated 01/03/21 @ 04:27 by Wander Ramirez MD) Acid reflux controlled Aortic stenosis Moderate per 07/2018 ECHO Atrial fibrillation on Eliquis Carotid stenosis Chronic kidney disease baseline creatinine 1.4-1.7 range per nephrology Colitis hx Degeneration, intervertebral disc, thoracic Diplopia Dry eye syndrome Giant cell arteritis hx- on chronic prednisone 2mg twice weekly History of DVT (deep vein thrombosis) HTN (hypertension) Hx of blood clots LLE 15 years ago- no issues since Hx of pancreatitis 5+ years ago Hyperlipidemia Low back pain Lung nodules small- under surveillance Myalgia and myositis Varicose veins of both lower extremities Surgical History History of appendectomy History of bilateral tubal ligation History of cataract surgery RT/LEFT History of chest tube placement pneumothorax s/p mechanical fall at the gym- chest tube placed History of cholecystectomy History of colonoscopy History of ERCP History of Mohs micrographic surgery for skin cancer BCC ([facility]) History of tonsillectomy and adenoidectomy Family History Other No significant family history Social History Smoking Status: Never smoker Second Hand Exposure: Yes (IN THE PAST); Hx Alcohol Use: Yes Alcohol type: wine Hx Substance Use: No Preferred Language: [place] African Communication Ability: Effective Visual Impairment: No Limitations Hearing Ability: Normal 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 Beliefs That Will Affect Care: None Current Living Situation: Spouse Feels Safe at Home: Yes Assistive Devices: None Review of Systems Review of Systems: The patient denies chest pain, palpitations, shortness of breath, dyspnea on exertion, cough, lower extremity swelling, sore throat, constipation, abdominal pain, pelvic pain, blood in urine or stool, dysuria, urinary frequency or urgency, lightheadedness, dizziness, headache, loss of consciousness, rash, abnormal bruising or bleeding, focal weakness, numbness or tingling in arms or legs, generalized arthralgias or myalgias, back or neck pain, or night sweats. The review of systems is otherwise negative other than for that already noted above, and at least 10 systems have been reviewed. Physical Exam Physical Exam: The patient is awake, alert and oriented 2, normocephalic and atraumatic, lying in bed and in no acute distress. HEENT--PERRL, EOMI, mucous membranes and oropharynx dry. Neck--supple. No JVD. No bruits. Thyroid normal, trachea midline, no adenopathy. Heart--normal S1 and S2. No murmurs, rubs or gallops. Lungs--clear bilaterally, no respiratory distress, no accessory muscle use. Abdomen--normal bowel sounds and soft. Nontender. Nondistended. Extremities--no cyanosis or clubbing. No edema. Dermatologic--normal skin turgor, normal color, no abnormal lymph nodes, no rash. Neurologic--cranial nerves II through XII grossly intact. Rheumatologic-Limited exam due to fatigue Psychiatric--normal affect. Results & Data Results & Data ([facility]) Vital Signs (Past 12 Hours) Vital Signs Temp Pulse Pulse Resp BP BP Pulse Ox 01/02/21 22:31 60 18 134/49 L 98 01/02/21 21:36 96 01/02/21 21:00 59 L 20 126/40 L 99 01/02/21 20:43 144 H 28 H 01/02/21 19:24 98.1 F 68 74 24 114/42 L 99 01/02/21 18:48 102.4 F H 79 18 131/63 98 Pulse Ox 01/02/21 22:31 01/02/21 21:36 01/02/21 21:00 01/02/21 20:43 97 01/02/21 19:24 01/02/21 18:48 Laboratory Results Laboratory Results WBC 16.88 K/uL (4.8-10.8) H 01/02/21 19:31 RBC 4.28 M/uL (4.2-5.4) 01/02/21 19:31 Hgb 12.7 g/dL (12.0-16.0) 01/02/21 19:31 Hct 39.4 % (37-47) 01/02/21 19:31 MCV 92.1 fL (80-100) 01/02/21 19:31 MCH 29.7 pg (25-34) 01/02/21 19:31 MCHC 32.2 g/dL (32-36) 01/02/21 19:31 RDW Std Deviation 46.5 fL (36.4-46.3) H 01/02/21 19:31 RDW Coeff of Elia 13.7 % (11.5-14.5) 01/02/21 19:31 Plt Count 197 K/uL (130-400) 01/02/21 19:31 MPV 10.6 fL (7.4-10.4) H 01/02/21 19:31 Immature Gran % (Auto) 0.2 % 01/02/21 19:31 Neut % (Auto) 90.3 % 01/02/21 19:31 Lymph % (Auto) 4.2 % 01/02/21 19:31 Dawson % (Auto) 5.3 % 01/02/21 19:31 Eos % (Auto) 0.0 % 01/02/21 19:31 Baso % (Auto) 0.0 % 01/02/21 19:31 Neut # (Auto) 15.23 K/uL (1.4-6.5) H 01/02/21 19:31 Lymph # (Auto) 0.71 K/uL (1.2-3.4) L 01/02/21 19:31 Dawson # (Auto) 0.90 K/uL (0.11-0.59) H 01/02/21 19:31 Eos # (Auto) 0.00 K/uL (0-0.5) 01/02/21 19:31 Baso # (Auto) 0.00 K/uL (0-0.2) 01/02/21 19:31 Immature Gran # (Auto) 0.04 K/uL (0.00-0.02) H 01/02/21 19:31 Sodium 136 mmol/L (136-145) 01/02/21 19:31 Potassium 3.4 mmol/L (3.5-5.1) L 01/02/21 19:31 Chloride 103 mmol/L (98-107) 01/02/21 19:31 Carbon Dioxide 27 mmol/L (21-32) 01/02/21 19:31 Anion Gap 7.0 (3-11) 01/02/21 19:31 BUN 20 mg/dl (7-18) H 01/02/21 19:31 Creatinine 0.93 mg/dl (0.6-1.2) 01/02/21 19:31 Est Cr Clr Drug Dosing 39.6 ml/min 01/02/21 19:31 Est GFR ( Amer) 65.9 ml/min 01/02/21 19:31 Est GFR (Non-Af Amer) 56.8 ml/min 01/02/21 19:31 BUN/Creatinine Ratio 21.9 (10-20) H 01/02/21 19:31 Glucose 108 mg/dl (70-99) H 01/02/21 19:31 Lactate 1.0 mmol/L (0.4-2.0) 01/02/21 19:31 Calcium 8.3 mg/dl (8.5-10.1) L 01/02/21 19:31 Magnesium 1.9 mg/dl (1.8-2.4) 01/02/21 19:31 Total Bilirubin 1.2 mg/dl (0.2-1) H 01/02/21 19:31 AST 20 U/L (15-37) 01/02/21 19:31 ALT 22 U/L (12-78) 01/02/21 19:31 Alkaline Phosphatase 51 U/L (45-117) 01/02/21 19:31 Troponin I < 0.015 ng/ml (0-0.045) 01/02/21 19: Total Protein 7.0 gm/dl (6.4-8.2) 01/02/21 19:31 Albumin 3.0 gm/dl (3.4-5.0) L 01/02/21 19:31 Globulin 4.0 gm/dl (2.5-4.0) 01/02/21 19:31 Albumin/Globulin Ratio 0.8 (0.9-2) L 01/02/21 19:31 Procalcitonin 0.92 ng/ml (0-0.5) H 01/02/21 19:31 Urine Color Yellow 01/02/21 22:45 Urine Appearance Clear (Clear) 01/02/21 22:45 Urine pH 5.5 (4.5-7.5) 01/02/21 22:45 Ur Specific Tyler 1.045 (1.000-1.030) H 01/02/21 22:45 Urine Protein Trace (Negative) H 01/02/21 22:45 Urine Glucose (UA) Negative (Negative) 01/02/21 22:45 Urine Ketones Trace (Negative) H 01/02/21 22:45 Urine Blood Negative (Negative) 01/02/21 22:45 Urine Nitrite Positive (Negative) A 01/02/21 22:45 Urine Bilirubin Negative (Negative) 01/02/21 22:45 Urine Urobilinogen Negative (Negative) 01/02/21 22:45 Ur Leukocyte Esterase 1+ (Negative) H 01/02/21 22:45 Urine WBC (Auto) 10-30 /hpf (0-5) H 01/02/21 22:45 Urine RBC (Auto) 0-4 /hpf (0-4) 01/02/21 22:45 U Hyaline Cast (Auto) 1-5 /lpf (0-5) 01/02/21 22:45 U Epithel Cells (Auto) 10-20 /lpf (0-5) H 01/02/21 22:45 Urine Bacteria (Auto) 4+ (Negative) H 01/02/21 22:45 COVID-19 Eval Order Covid19 at [facility] 01/02/21 22:30 SARS-CoV-2 (PCR) NEGATIVE (Negative) 01/02/21 22:30 Impressions Chest X-Ray 01/02/21 18:54 XR chest 1V portable CLINICAL HISTORY: SEPSIS COMPARISON STUDY: Chest radiograph February 23, 2019. Chest CT August 04, 2019. FINDINGS: Multiple upper fractures are incidentally noted. Cardiomegaly is unchanged. There is no pneumothorax or pleural effusion. There is no consolidation. There is no evidence for pulmonary edema. IMPRESSION: No change in appearance of the chest. Cardiomegaly. No consolidation. ACT 112: Negative or not required by law. Electronically signed by: Dillon Beltran M.D. 01/02/2021 8:53 PM Code Status & VTE Plan Code Status Full code VTE Prophylaxis Plan VTE Prophylaxis will be ordered: Yes PG Care Time/CCT Total # of Minutes Spent Total Time Spent with Patient: Total time spent is greater than 50% in coordination of care (as documented) at patient's floor/unit and/or counseling patient: Coding Level of Care Code 55798 Initial Inpt Care Lvl 3 Diagnoses Depression with anxiety F41.8 GERD without esophagitis K21.9 Memory loss or impairment R41.3 Mild cognitive impairment G31.84 HTN (hypertension) I10 Atrial fibrillation I48.91 Dry eye syndrome H04.129 Sepsis due to urinary tract infection A41.9; N39.0
[2021-01-03] MEDS ORDERED: ONDANSETRON INJ 2 MG/ML 2 ML VIAL IV PRN (02:56)
[2021-01-03] MEDS: APIXABAN 2.5 MG TAB PO SCH ×3 (04:12→20:49)
[2021-01-03] MEDS: NSS + 20MEQ KCL 20 MEQ/1,000 ML BAG IV SCH ×2 (04:13→14:35)
[2021-01-03] MEDS: cefTRIAXone SODIUM 1,000 MG in DEXTROSE 5% 50 ML IV SCH (04:13)
--- NOTE | 2021-01-03 07:37 | CT Scan Report ---
CT abd pelvis IV con only CLINICAL HISTORY: n/v/d COMPARISON STUDY: April 11, 2014 TECHNIQUE: A dose lowering technique was utilized adhering to the principles of ALARA. CT DOSE: 262.49 mGy.cm FINDINGS: Lower chest: Small atelectasis and trace pleural effusion on the right is seen. Calcifications of the coronary arteries, aortic valve and mitral annulus are seen. Heart is normal in size. Trace pericard ial effusion.. Liver: Is normal in size. Chronic pneumobilia is again seen. Focal dilatation of the intrahepatic brenda iary ducts within segment 7 (2/35) are new since prior study. Gallbladder: Is surgically absent. Spleen: Normal in size and attenuation. Pancreas: Is atrophic. Adrenal glands: Unremarkable. Kidneys: There is symmetric renal cortical enhancement. The kidneys are normal in size without hydron ephrosis.Prominent left extrarenal pelvis is seen. Small bilateral renal cysts are seen largest is me asuring 8 mm in size and seen on the left. No definite renal cyst were seen on prior study which was limited due to lack of IV contrast. Pelvic viscera: Urinary bladder is adequately filled with urine. Uterus has normal CT appearance for patient's age group. Small cystic appearance of the right adnexa which measures 1.3 cm in size (2/61) Bowel: Bowel loops are nondilated. Appendix is not well seen. Diverticulosis of cecum is seen. No nancy dence of diverticulitis. Peritoneum: There is no intraperitoneal free air or abdominal ascites. Vasculature: Abdominal aorta is tortuous. Ascending aorta is ectatic measuring 4.7 cm in diameter. Di stal thoracic aorta is ectatic measuring 3.1 cm in diameter. No dilatation of abdominal aorta is seen . Heavy calcifications of aortic wall are demonstrated. Adenopathy: None. Skeletal structures: Osteopenia. Lumbar dextroscoliosis is seen and associated with severe degenerati ve changes of the spine. These findings are significantly progressed since prior study in 2013. Sever e degenerative changes of pubis symphysis are stable since 2014. IMPRESSION: 1. Status post cholecystectomy and chronic pneumobilia was also seen during 2014 exam. Focal promine nce of intrahepatic biliary ducts within segment 7 was not definitely seen during prior study and carroll ht be sign of neoplastic process. Further evaluation with liver ultrasound is recommended. 2. Bowel loops are nondilated. No significant inflammatory process is seen within abdomen. Mild dive rticulosis of the cecum without evidence of diverticulitis. 3. Interval development of lumbar dextroscoliosis with severe degenerative changes of the spine. 4. Ectasia of thoracic aorta, incompletely evaluated on this nondedicated exam. Further evaluation w ith CT angiography of thoracic aorta nonemergency basis might be considered if clinically indicated 5. Atherosclerosis. ACT 112: Negative or not required by law. The above report was generated using voice recognition software. It may contain grammatical, syntax o r spelling errors. Electronically signed by: Eneida Quiñonez DO 01/03/2021 7:36 AM
[2021-01-03] MEDS ORDERED: FAMOTIDINE 20 MG in SYRINGE 3 ML IV SCH (09:00)
[2021-01-03 09:19] LABS: Basophils # (auto) 0.02 K/uL (0-0.2); Basophils % (auto) 0.2 %; Eosinophils # (auto) 0.07 K/uL (0-0.5); Eosinophils % (auto) 0.6 %; Hematocrit (blood only) 38.4 % (37-47); Immature Granulocytes # (auto) 0.02 K/uL (0.00-0.02); Immature Granulocytes % (auto) 0.2 %; Lymphocytes # (auto) 0.96 K/uL (1.2-3.4); Lymphocytes % (auto) 7.7 %; Mean Corpuscular Hemoglobin 29.4 pg (25-34); Mean Corpuscular Hgb Conc 31.3 g/dL (32-36); Mean Corpuscular Volume 94.1 fL (80-100); Mean Platelet Volume 10.7 fL (7.4-10.4); Monocytes # (auto) 1.37 K/uL (0.11-0.59); Neutrophils # (auto) 10.05 K/uL (1.4-6.5); Neutrophils % (auto) 80.3 %; Platelet Count 185 K/uL (130-400); RDW Coefficient of Variation 13.8 % (11.5-14.5); RDW Standard Deviation 47.4 fL (36.4-46.3); Red Blood Count 4.08 M/uL (4.2-5.4); White Blood Count 12.49 K/uL (4.8-10.8)
--- NOTE | 2021-01-03 09:39 | Electrocardiogram Report ---
Test Reason : Blood Pressure : / mmHG Vent. Rate : 071 BPM Atrial Rate : 071 BPM P-R Int : 126 ms QRS Dur : 084 ms QT Int : 376 ms P-R-T Axes : 028 -29 037 degrees QTc Int : 408 ms Normal sinus rhythm Minimal voltage criteria for LVH, may be normal variant Diffuse Nonspecific T wave abnormality Abnormal ECG When compared with ECG of 09-FEB-2017 07:25, QRS axis Shifted left T wave inversion no longer evident in Inferior leads Confirmed by Isaiah Keyes ([id number]) on 01/03/2021 9:38:42 AM Referred By: REFERRED SELF Confirmed By:Isaiah Keyes
[2021-01-03 09:59] LABS: Albumin Globulin Ratio 0.7 (0.9-2); Albumin Level 2.7 gm/dl (3.4-5.0); BUN Creatinine Ratio 23.3 (10-20); Bilirubin,Total 0.5 mg/dl (0.2-1); Calcium 8.1 mg/dl (8.5-10.1); Creatinine Clr Calc Pharmacy 49.8 ml/min; Est GFR (African American) 89.8 ml/min; Est GFR (Non-African American) 77.4 ml/min; Globulin 3.9 gm/dl (2.5-4.0); Total Protein 6.6 gm/dl (6.4-8.2)
--- NOTE | 2021-01-03 12:15 | Hospitalist Progress Note ---
Date of Service January 03, 2021 Assessment & Plan (1) Sepsis due to urinary tract infection: Plan: Angy Thomas is an 85 yo female with PMHx significant for a fib (on Eliquis and Metoprolol), HTN, CAD, s/p CEA, and GERD who was admitted to [facility] on 01/02 for sepsis due to UTI. Sepsis due to Urinary Tract Infection, with Gram-negative Bacteremia Several days increased urinary frequency, WBC 16.9/Procalcitonin 0.92, UA positive for nitrites/LE/bacteria/WBCs, blood cx positive for GNB. - urine cx pending, blood cx speciation/sensitivites pending - continue Ceftriaxone 1 g IV daily - NSS + KCl 20 mEq at 100cc/hr - Zofran 4 mg IV Q6H PRN Chronic Atrial Fibrillation/HTN/CAD A-fib is rate-controlled. 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 GERD - continue home Protonix 40mg PO QAM Depression/Anxiety; Memory Impairment - re-started home donepezil 10mg PO QAM and gabapentin 300mg PO TID Dry Eye Syndrome - continue Restasis FEN/GI: heart-healthy diet, NSS + 20mEq KCl @ 100cc/hr DVT Prophylaxis: home Eliquis Code Status: full code Disposition: med/surg (2) Memory loss or impairment: (3) Mild cognitive impairment: (4) Atrial fibrillation: (5) HTN (hypertension): (6) GERD without esophagitis: (7) Depression with anxiety: (8) Dry eye syndrome: Admission and Anticipated Discharge Date Admission Date: January 02, 2021 Supervising Physician Co-Signing Physician Notes Resident Physician Supervision Note: I independently interviewed and examined the patient and verified the segundo history and physical, reviewed labs and image studies and agree with resident Dr. Corrales findings and care plan. Subjective No acute events overnight. VS improved; afebrile since admission. Patient denies previous NH but does have atrial fibrillation. Reports increased urinary frequency for several days before admission, without other urinary symptoms. Feeling better since she presented to the ED. Denies fever/chills, chest pain, SOB, N/V, abdominal pain, rash. Review of Systems Review of Systems: All systems reviewed & are unremarkable except as noted in Subjective Physical Exam Physical Exam: General: A&Ox3. NAD. Cooperative. HEENT: Atraumatic, normocephalic. Pulm: CTAB A&P. -wheezes, -rales, -rhonchi. Symmetrical chest rise. No increase work of breathing. No respiratory distress. Cardiac: RRR, 2/6 systolic murmur best auscultated at right upper sternal border. Radial pulses intact and symmetrical. Abdominal: soft, non-tender, non-distended, BS x 4 Skin: warm, dry, no rash Results & Data Results & Data ([facility]) Vital Signs (Past 12 Hours) Vital Signs Temp Pulse Pulse Pulse Pulse Resp BP 01/03/21 08:00 01/03/21 07:40 36.5 C 57 L 18 01/03/21 03:00 36.4 C L 55 L 16 01/03/21 02:28 51 L 20 133/57 L 01/03/21 00:35 52 L 20 BP BP Pulse Ox Pulse Ox 01/03/21 08:00 96 01/03/21 07:40 154/72 H 96 01/03/21 03:00 154/72 H 96 01/03/21 02:28 100 01/03/21 00:35 122/49 L 97 Resident Activity Tracking Resident Involvement: Resident Care Provided Care Provided: Adult Hospital Medicine
[2021-01-03] MEDS: GABAPENTIN 300 MG CAP PO SCH ×2 (15:10→20:48)
[2021-01-03] MEDS: ACETAMINOPHEN 325 MG TAB PO PRN (17:57)
[2021-01-04] MEDS: cefTRIAXone SODIUM 1,000 MG in DEXTROSE 5% 50 ML IV SCH (04:22)
[2021-01-04] MEDS: ACETAMINOPHEN 325 MG TAB PO PRN (06:31)
--- NOTE | 2021-01-04 06:31 | Hospitalist Progress Note ---
Date of Service January 04, 2021 Assessment & Plan (1) Sepsis due to urinary tract infection: Plan: Angy Thomas is an 85 yo female with PMHx significant for a fib (on Eliquis and Metoprolol), HTN, CAD, s/p CEA, and GERD who was admitted to [facility] on 01/02 for sepsis due to UTI. Sepsis due to Urinary Tract Infection, with Gram-negative Bacteremia - Clinically reporting several days increased urinary frequency - On admission found to have leukocytosis with left shift, UA positive for nitrites/LE/bacteria/WBCs - Blood cultures demonstrating two types of GNBs (x4) await speciation, sensitivities - Await UCX --> UCX from 11/27 via [facility] demonstrating fluoroquinolone-resistant (levo/cipro) E. coli - Continue Ceftriaxone 1 g IV daily can de-escalate pending results - Repeat BCX ordered Intrahepatic Biliary Dilitation - Appreciated on CT-A/P - s/p cholecystectomy - RUQ US ordered Chronic Atrial Fibrillation/HTN/CAD - A-fib is rate-controlled - continue home Eliquis low-dose regimen - Continue to hold metoprolol, hydralazine --> can consider readding metoprolol today pending BPs, rates - Euvolemic. Continue to hold Lasix. 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 GERD - continue home Protonix 40mg PO QAM Depression/Anxiety; Memory Impairment - Continue donepezil 10mg PO QAM and gabapentin 300mg PO TID Dry Eye Syndrome - continue Restasis FEN/GI: heart-healthy diet DVT Prophylaxis: home Eliquis (low-dose) Code Status: full code Disposition: med/surg (2) Memory loss or impairment: (3) Mild cognitive impairment: (4) Atrial fibrillation: (5) HTN (hypertension): (6) GERD without esophagitis: (7) Depression with anxiety: (8) Dry eye syndrome: Admission and Anticipated Discharge Date Admission Date: January 02, 2021 Supervising Physician Co-Signing Physician Notes Attending Attestation - Pt seen/examined, chart reviewed, care plan d/w resident Dr Joaquín Shanks. I agree w/ the segundo components of his documentation. Pt c/o weakness, fatigue - but improving appetite. No fever. No urinary symptoms. No GI symptoms. VSS, afebrile gen - NAD mouth - MMM neck - no JVD heart - RRR, s1 s2 lungs - CTA b/l abd - soft NT ND BS+ ext - trace edema, pulses 2+ b/l blood cx's from admission - GNR x 2 species outpatient urine cx with e.coli - quinolone resistant wbc 11.5 A/P: septicemia 2nd to e.coli UTI - clinically improving. repeat blood cx's today to ensure test of cure. cont IV antibiotics. may be able to transition to PO abx tomorrow depending on final ID/sensitivities and her clinical status. PT eval to ensure safe for home. Jeanmarie Freitas MD Subjective NAEO. Feeling much better this AM. Energy is better. Appetite is better. Still v oiding frequently. Says this picked up before admission and does endorse +dysuria. Review of Systems Review of Systems: As per HPI Physical Exam Physical Exam: General: Frail appearing 85-year-old female is lying back in her hospital chair, relaxed upon arrival. She just missed breakfast. No acute distress. HEENT: NCAT. Eyes - Sclera are white, anicteric, and without injection. MMM. Cardiac: In normal rate with irregular rhythm; grade 1 out of 6 systolic ejection murmur best heard over the right upper sternal border, no rubs or gallops otherwise. Trace peripheral edema in the LEs. Pulmonary: Good respiratory effort with symmetric expansion of the chest. No use of accessory muscles. Lungs were clear to auscultation bilaterally with no crackles or wheezes. Abdominal: Normoactive bowel sounds. Abdomen was soft, nondistended, and non- tender to palpation. No suprapubic tenderness, no CVA tenderness. Extremities: Upper and lower extremities are warm and well perfused. Capillary refill assessed in UE was < 3 sec. Psych: Well-developed, well-nourished, appropriately dressed for occasion. Behavior is cooperative and appropriate. Affect is WNL. Insight is appropriate. Results & Data Results & Data ([facility]) Vital Signs (Past 12 Hours) Vital Signs Temp Pulse Resp BP Pulse Ox 01/03/21 23:00 36.9 C 72 20 126/62 93 Resident Activity Tracking Resident Involvement: Resident Care Provided Care Provided: Adult [facility]
[2021-01-04 06:49] LABS: Basophils # (auto) 0.02 K/uL (0-0.2); Basophils % (auto) 0.2 %; Eosinophils # (auto) 0.07 K/uL (0-0.5); Eosinophils % (auto) 0.6 %; Hematocrit (blood only) 37.5 % (37-47); Hemoglobin 11.6 g/dL (12.0-16.0); Immature Granulocytes # (auto) 0.03 K/uL (0.00-0.02); Immature Granulocytes % (auto) 0.3 %; Lymphocytes # (auto) 0.91 K/uL (1.2-3.4); Lymphocytes % (auto) 7.9 %; Mean Corpuscular Hgb Conc 30.9 g/dL (32-36); Mean Corpuscular Volume 93.8 fL (80-100); Mean Platelet Volume 10.9 fL (7.4-10.4); Monocytes # (auto) 1.27 K/uL (0.11-0.59); Neutrophils # (auto) 9.22 K/uL (1.4-6.5); Platelet Count 176 K/uL (130-400); RDW Coefficient of Variation 13.8 % (11.5-14.5); RDW Standard Deviation 47.6 fL (36.4-46.3); White Blood Count 11.52 K/uL (4.8-10.8)
[2021-01-04 07:36] LABS: Albumin Globulin Ratio 0.7 (0.9-2); Albumin Level 2.5 gm/dl (3.4-5.0); BUN Creatinine Ratio 18.4 (10-20); Bilirubin,Total 0.4 mg/dl (0.2-1); Calcium 7.9 mg/dl (8.5-10.1); Creatinine Clr Calc Pharmacy 67.7 ml/min; Est GFR (African American) 101.8 ml/min; Est GFR (Non-African American) 87.8 ml/min; Globulin 3.7 gm/dl (2.5-4.0); Potassium 4.3 mmol/L (3.5-5.1); Total Protein 6.2 gm/dl (6.4-8.2)
[2021-01-04] MEDS: GABAPENTIN 300 MG CAP PO SCH ×3 (08:06→21:01)
[2021-01-04] MEDS: amLODIPine BESYLATE 5 MG TAB PO SCH (08:07)
[2021-01-04] MEDS: PANTOprazole 40 MG TAB PO SCH (08:07)
[2021-01-04] MEDS: APIXABAN 2.5 MG TAB PO SCH ×2 (08:07→21:01)
[2021-01-04] MEDS: DONEPEZIL HCL 10 MG TAB PO SCH (08:08)
--- NOTE | 2021-01-04 14:18 | Ultrasound Report ---
ULTRASOUND RIGHT UPPER QUADRANT ABDOMEN CLINICAL HISTORY: Biliary ductal dilatation. COMPARISON STUDY: Abdominal CT dated 01/02/2021 TECHNIQUE: Real-time, grayscale, and color flow sonography of the right upper quadrant of the abdomen was performed. Images are reviewed in the transverse and longitudinal planes. FINDINGS: Liver: The liver is normal in size and echotexture. Linear echogenic reflectors throughout the liver consistent with pneumobilia. This was also seen by CT. There is mild intrahepatic biliary ductal dila tation. The main portal vein is patent. Gallbladder: The gallbladder is surgically absent. The common bile duct measures up to 0.4 cm in diam eter using the pancreas. The majority of the common bile duct is not well visualized, possibly due to pneumobilia seen by CT. Pancreas: Visualized portions of the pancreatic head and body are normal in appearance. There is mild prominence of the pancreatic duct which measures up to 3 mm. Right kidney: Survey images of the right kidney demonstrate mild cortical atrophy. Echotexture is nor mal. There is no hydronephrosis. Ascites: None. IMPRESSION: 1. Status post cholecystectomy. 2. Mild intrahepatic biliary ductal dilatation and pneumobilia are nonspecific findings, and likely s econdary to previous cholecystectomy and sphincterotomy. ACT 112: Negative or not required by law. Electronically signed by: Dany Loaiza M.D. 01/04/2021 2:16 PM
[2021-01-04] MEDS ORDERED: METOPROLOL TARTRATE 25 MG TAB PO STA (23:06)
[2021-01-05] MEDS: cefTRIAXone SODIUM 1,000 MG in DEXTROSE 5% 50 ML IV SCH (03:13)
[2021-01-05 06:27] LABS: Basophils # (auto) 0.01 K/uL (0-0.2); Basophils % (auto) 0.1 %; Hematocrit (blood only) 34.7 % (37-47); Immature Granulocytes # (auto) 0.01 K/uL (0.00-0.02); Immature Granulocytes % (auto) 0.1 %; Lymphocytes # (auto) 1.23 K/uL (1.2-3.4); Lymphocytes % (auto) 18.3 %; Mean Corpuscular Hgb Conc 31.7 g/dL (32-36); Mean Corpuscular Volume 91.6 fL (80-100); Mean Platelet Volume 10.2 fL (7.4-10.4); Monocytes # (auto) 0.68 K/uL (0.11-0.59); Monocytes % (auto) 10.1 %; Neutrophils # (auto) 4.59 K/uL (1.4-6.5); Neutrophils % (auto) 68.4 %; Platelet Count 196 K/uL (130-400); RDW Coefficient of Variation 13.4 % (11.5-14.5); RDW Standard Deviation 44.6 fL (36.4-46.3); Red Blood Count 3.79 M/uL (4.2-5.4); White Blood Count 6.72 K/uL (4.8-10.8)
[2021-01-05 07:01] LABS: Albumin Level 2.5 gm/dl (3.4-5.0); BUN Creatinine Ratio 12.1 (10-20); Calcium 8.3 mg/dl (8.5-10.1); Creatinine Clr Calc Pharmacy 79.7 ml/min; Est GFR (African American) 107.4 ml/min; Est GFR (Non-African American) 92.7 ml/min; Magnesium 2.2 mg/dl (1.8-2.4); Potassium 3.6 mmol/L (3.5-5.1)
[2021-01-05 07:07] LABS: Albumin Globulin Ratio 0.7 (0.9-2); Bilirubin,Total 0.5 mg/dl (0.2-1); Globulin 3.6 gm/dl (2.5-4.0); Phosphorus 1.8 mg/dl (2.5-4.9); Total Protein 6.1 gm/dl (6.4-8.2)
[2021-01-05] MEDS ORDERED: POTASSIUM PHOS 3 MMOL/1 ML INFUSION IV STA (07:20)
[2021-01-05] MEDS: GABAPENTIN 300 MG CAP PO SCH ×3 (07:55→23:28)
[2021-01-05] MEDS: APIXABAN 2.5 MG TAB PO SCH ×2 (07:55→23:28)
[2021-01-05] MEDS: amLODIPine BESYLATE 5 MG TAB PO SCH (07:56)
[2021-01-05] MEDS: DONEPEZIL HCL 10 MG TAB PO SCH (07:56)
[2021-01-05] MEDS: PANTOprazole 40 MG TAB PO SCH (07:57)
[2021-01-05] MEDS ORDERED: POTASSIUM PHOSPHATE 9 MMOL in SODIUM CHLORIDE 0.9% 250 ML IV ONE (08:00)
[2021-01-05] MEDS: FUROSEMIDE 20 MG TAB PO SCH (08:01)
[2021-01-05] MEDS: METOPROLOL TARTRATE 50 MG TAB PO SCH ×2 (08:01→23:29)
--- NOTE | 2021-01-05 14:35 | Hospitalist Progress Note ---
Date of Service January 05, 2021 Assessment & Plan (1) Sepsis due to urinary tract infection: Plan: Angy Thomas is an 85 yo female with PMHx significant for a fib (on Eliquis and Metoprolol), HTN, CAD, s/p CEA, and GERD who was admitted to [facility] on 01/02 for sepsis due to UTI. Sepsis due to Urinary Tract Infection, with Gram-negative Bacteremia Several days of urinary frequency, febrile on presentation to ED with elevated WBC and dirty urine. Urine culture grew several organisms and blood culture grew both E. coli (resistant to fluoroquinolones) and Klebsiella (resistant to fluoroquinolones and Ancef). - repeat blood cx (01/04) no growth after 24 hours - Continue Ceftriaxone 1 g IV daily for now (day 08/18) - Spoke with Shanna RICHTER, given presence of E. 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 GERD - continue home Protonix 40mg PO QAM Depression/Anxiety; Memory Impairment - Continue donepezil 10mg PO QAM and gabapentin 300mg PO TID Dry Eye Syndrome - continue Restasis FEN/GI: heart-healthy diet DVT Prophylaxis: home Eliquis (low-dose) Code Status: full code Disposition: med/surg, OT recommends home with home health, PT pending (2) Memory loss or impairment: (3) Mild cognitive impairment: (4) Atrial fibrillation: (5) HTN (hypertension): (6) GERD without esophagitis: (7) Depression with anxiety: (8) Dry eye syndrome: Admission and Anticipated Discharge Date Admission Date: January 02, 2021 Supervising Physician Co-Signing Physician Notes Attending Attestation - Pt seen/examined, chart reviewed, care plan d/w resident Dr Elmer Corrales. I agree w/ the segundo components of his documentation. Pt sitting in chair during the visit. She again states she is weak but does feel better than yesterday. Eating is improved. c/o irritated hemorrhoid; seeing minor amount of blood with wiping. She also mentions several weeks of fecal incontinence?? was at bedside. VSS, afebrile gen - NAD mouth - MMM neck - no JVD heart - RRR, s1 s2, 2/6 systolic murmur RUSB lungs - CTA b/l abd - soft NT ND BS+ ext - pulses 2+ b/l blood cx's from admission - e.coli, klebsiella outpatient urine cx with e.coli - quinolone resistant wbc now normal today A/P: septicemia 2nd to e.coli & klebsiella. presumed source - urine (UTI). urine cx here negative/contaminated, but outpatient urine cx w/ e.coli (same sensitivity pattern as the e.coli in the blood). she does not have a gall bladder thus the biliary tree unlikely source. doubt colonic source (CT a/p without colitis, etc). repeat blood cx's thus far negative. cont IV antibiotics today; transition to PO abx tomorrow (augmentin). treat for 14 days from date of first negative culture. (Dr Corrales spoke with [employer] by phone today for recs). Hemorrhoid - anusol cream qid. fecal incontinence?? need to keep eye on this if this persists and would deserve w/u. ?abnormal intra-hepatic biliary ducts on CT -- RUQ u/s also with such but likely due to post-cholecystectomy state. LFTs wnl. PT eval to ensure safe for home - pending. possible d/c tomorrow if cleared by PT. Jeanmarie Freitas MD Subjective No acute events overnight. Patient reports feeling well overall today although still a little weak. Denies fever/chills, chest pain, palpitations, SOB, cough, N/V, abdominal pain, dysuria, rash. Review of Systems Review of Systems: All systems reviewed & are unremarkable except as noted in Subjective Physical Exam Physical Exam: General: A&Ox3. NAD. Cooperative. HEENT: Atraumatic, normocephalic. Pulm: CTAB A&P. -wheezes, -rales, -rhonchi. Symmetrical chest rise. No increase work of breathing. No respiratory distress. Cardiac: RRR, 2/6 systolic murmur best auscultated at right upper sternal border. Radial pulses intact and symmetrical. Abdominal: soft, non-tender, non-distended, BS x 4 Skin: warm, dry, no rash Results & Data Results & Data ([facility]) Vital Signs (Past 12 Hours) Vital Signs Temp Pulse Resp Pulse Ox 01/05/21 07:30 36.5 C 74 14 94 Resident Activity Tracking Resident Involvement: Resident Care Provided Care Provided: Adult Hospital Medicine
--- NOTE | 2021-01-05 20:24 | Billing Data ---
Date of Service January 05, 2021 Coding Level of Care Code 46231 Subseq Hosp Care Lvl 3
[2021-01-05] MEDS: HYDROCORTISONE HC 2.5% CRM 30GM TUBE EXT SCH (23:34)
[2021-01-06] MEDS: cefTRIAXone SODIUM 1,000 MG in DEXTROSE 5% 50 ML IV SCH (04:18)
[2021-01-06 06:39] LABS: Basophils # (auto) 0.02 K/uL (0-0.2); Basophils % (auto) 0.3 %; Eosinophils # (auto) 0.23 K/uL (0-0.5); Hematocrit (blood only) 36.3 % (37-47); Hemoglobin 11.5 g/dL (12.0-16.0); Immature Granulocytes # (auto) 0.01 K/uL (0.00-0.02); Immature Granulocytes % (auto) 0.2 %; Lymphocytes # (auto) 1.09 K/uL (1.2-3.4); Mean Corpuscular Hemoglobin 29.1 pg (25-34); Mean Corpuscular Hgb Conc 31.7 g/dL (32-36); Mean Corpuscular Volume 91.9 fL (80-100); Mean Platelet Volume 10.1 fL (7.4-10.4); Monocytes # (auto) 0.74 K/uL (0.11-0.59); Monocytes % (auto) 12.9 %; Neutrophils # (auto) 3.66 K/uL (1.4-6.5); Neutrophils % (auto) 63.6 %; Platelet Count 234 K/uL (130-400); RDW Coefficient of Variation 13.2 % (11.5-14.5); RDW Standard Deviation 44.9 fL (36.4-46.3); Red Blood Count 3.95 M/uL (4.2-5.4); White Blood Count 5.75 K/uL (4.8-10.8)
[2021-01-06 07:16] LABS: BUN Creatinine Ratio 15.1 (10-20); Calcium 8.4 mg/dl (8.5-10.1); Est GFR (African American) 106.6 ml/min; Magnesium 2.2 mg/dl (1.8-2.4); Phosphorus 2.3 mg/dl (2.5-4.9); Potassium 3.4 mmol/L (3.5-5.1)
[2021-01-06] MEDS ORDERED: POTASSIUM CHLORIDE CRTAB 20 MEQ TABCR PO STA (07:41)
[2021-01-06] MEDS: APIXABAN 2.5 MG TAB PO SCH (08:14)
[2021-01-06] MEDS: PANTOprazole 40 MG TAB PO SCH (08:14)
[2021-01-06] MEDS: FUROSEMIDE 20 MG TAB PO SCH (08:14)
[2021-01-06] MEDS: DONEPEZIL HCL 10 MG TAB PO SCH (08:14)
[2021-01-06] MEDS: amLODIPine BESYLATE 5 MG TAB PO SCH (08:15)
[2021-01-06] MEDS: METOPROLOL TARTRATE 50 MG TAB PO SCH (08:15)
[2021-01-06] MEDS: GABAPENTIN 300 MG CAP PO SCH (08:15)
[2021-01-06] MEDS: HYDROCORTISONE HC 2.5% CRM 30GM TUBE EXT SCH (08:16)
[2021-01-06] MEDS ORDERED: hydrALAZINE TAB 50 MG TAB PO SCH (09:00)
--- NOTE | 2021-01-06 12:15 | Discharge Summary ---
Date of Service January 06, 2021 Admission HPI Per Admitting Provider The patient is an 85-year-old female with a past medical history including SNHL bilaterally, depression with anxiety, GERD without esophagitis, memory loss, migraine, mild cognitive impairment, vitamin D deficiency, CKD, status post CEA, CAD and hypertension. She woke up in the morning with feeling nauseous and shaky which persisted throughout the day with vomiting x2. She also reports 2 episodes of loose stools she denies any recent travel or sick exposures she has had both coronavirus vaccinations she had a fever of 100 F at home, where she lives with her . When her daughter saw her this evening, she became concerned and had her brought to the ED for assessment by EMS Admission Exam Per Admitting Provider The patient is awake, alert and oriented 2, normocephalic and atraumatic, lying in bed and in no acute distress. HEENT--PERRL, EOMI, mucous membranes and oropharynx dry. Neck--supple. No JVD. No bruits. Thyroid normal, trachea midline, no adenopathy. Heart--normal S1 and S2. No murmurs, rubs or gallops. Lungs--clear bilaterally, no respiratory distress, no accessory muscle use. Abdomen--normal bowel sounds and soft. Nontender. Nondistended. Extremities--no cyanosis or clubbing. No edema. Dermatologic--normal skin turgor, normal color, no abnormal lymph nodes, no rash. Neurologic--cranial nerves II through XII grossly intact. Rheumatologic-Limited exam due to fatigue Psychiatric--normal affect. Principal Diagnosis Sepsis due to UTI, with Bacteremia Discharge Exam General: A&Ox3. NAD. Cooperative. HEENT: Atraumatic, normocephalic. Pulm: CTAB A&P. -wheezes, -rales, -rhonchi. Symmetrical chest rise. No increase work of breathing. No respiratory distress. Cardiac: RRR, 2/6 systolic murmur best auscultated at right upper sternal border. Radial pulses intact and symmetrical. Abdominal: soft, non-tender, non-distended, BS x 4 Skin: warm, dry, no rash Discharge Data Allergies Allergy/AdvReac Type Severity Reaction Status Date / Time adhesive Allergy Intermediate BLISTER Verified 01/02/21 19:02 SKIN latex Allergy Intermediate HIVES AND Verified 01/02/21 19:02 ITCHING sulfamethoxazole Allergy Intermediate HIVES Verified 01/02/21 19:02 trimethoprim Allergy Intermediate HIVES Verified 01/02/21 19:02 nickel Allergy Mild RASH Verified 01/02/21 19:02 lactose AdvReac Intermediate GI UPSET Verified 01/03/21 03:11 methotrexate AdvReac Intermediate SEVERE GI Verified 01/03/21 03:11 UPSET Hprbqfi-[id number]-Vtm Reductase AdvReac Intermediate MUSCLE Verified 01/03/21 03:11 Inhibitor ACHES Consultations 01/02/21 23:46 ED Decision to Admit Stat Ordered Studies 01/02/21 21:00 CT abd pelvis IV con only Urgent 01/04/21 12:37 US liver Routine Hospital Course (1) Sepsis due to urinary tract infection: Angy Thomas is an 85 yo female with PMHx significant for a fib (on Eliquis and Metoprolol), HTN, CAD, s/p CEA, and GERD who was admitted to [facility] on 01/02 for sepsis due to UTI. Sepsis due to Urinary Tract Infection with Gram-negative Bacteremia, Sepsis resolved Several days of urinary frequency, febrile on presentation to ED with elevated WBC and dirty urine. Urine culture grew several organisms and blood culture grew both E. coli (resistant to fluoroquinolones) and Klebsiella (resistant to fluoroquinolones and Ancef). - repeat blood cx (01/04) no growth after 48 hours - started on Ceftriaxone 1g IV Q24H on 01/03 - Spoke with [employer], given presence of E. 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 - Stable on labs GERD - continue home Protonix 40mg PO QAM Depression/Anxiety; Memory Impairment - Continue donepezil 10mg PO QAM and gabapentin 300mg PO TID Dry Eye Syndrome - continue Restasis (2) Memory loss or impairment: (3) Mild cognitive impairment: (4) Atrial fibrillation: (5) HTN (hypertension): (6) GERD without esophagitis: (7) Depression with anxiety: (8) Dry eye syndrome: Total Time Total Time Spent Total Time Spent (In Minutes): <30 minutes Discharge Plan Discharge Items Patient Disposition: Home - Home Health Services Reason For Visit: SEPSIS DUE TO UTI Discharge Diagnosis: Sepsis due to UTI Activity: Per Instructions section Non-emergency contact: Primary Care Provider Call non-emergency contact if: you have any medication questions, your symptoms worsen and you have a fever Follow-up/Referrals: Irene Guajardo [Primary Care Provider] - 01/08/21 1:10 pm (Appointment will be with ) Diet: Regular Addtl Attending Provider Instructions: You were admitted to [facility] from 01/02 - 01/04 for a severe urinary tract infection. You were started on IV antibiotics as well as IV fluids, and you quickly improved. Your blood pressure and heart rate normalized, and you remained without fevers for the last 4 days. You will be discharged in improved, stable condition on 01/06. You will continue taking Augmentin twice per day for 10 days after discharge, which will help to resolve your urinary tract infection. 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 You should continue to take your home medications as scheduled. You should follow up with your PCP within 1 week of discharge to ensure that you are doing well. Pending Studies at Discharge: No Stand-Alone Forms: My [facility], Smoking Cessation Medications and DC Order Prescriptions: New amoxicillin-pot clavulanate [Augmentin] 875-125 mg tablet 1 tab PO BID 10 Days Qty: 20 RF: 0 Continued gabapentin 300 mg capsule 300 mg PO TID RF: 0 furosemide 20 mg tablet 20 mg PO DAILY RF: 0 cholecalciferol (vitamin D3) 2,000 unit tablet 2,000 units PO DAILY RF: 0 apixaban 2.5 mg tablet 2.5 mg PO BID RF: 0 metoprolol tartrate 50 mg tablet 50 mg PO BID Qty: 180 RF: 0 acetaminophen 500 mg tablet 500 mg PO Q4H PRN (Reason: Pain) RF: 0 hydralazine 100 mg tablet 100 mg PO TID Qty: 60 RF: 2 amlodipine 2.5 mg tablet 2.5 mg PO DAILY Qty: 30 RF: 2 donepezil 10 mg tablet 10 mg PO DAILY Qty: 90 RF: 3 pantoprazole 40 mg tablet,delayed release (DR/EC) 40 mg PO QAM RF: 0 cyanocobalamin (vitamin B-12) 1,000 mcg Tablet 2,000 mcg PO DAILY RF: 0 Digestive Advantage Prob Gummy 250 million cell Tablet,Chewable 250 cell PO DAILY RF: 0 Restasis 0.05 % Dropperette 2 drp OPHTHALMIC (EYE) BID PRN (Reason: Dry Eyes) RF: 0 prednisone 1 mg tablet 2 mg PO DAILY RF: 0 Discharge Orders: Discharge Order (Routine); Ordered 01/06/21 Ordered By: Elmer Guadarrama/Other Patient Handouts: Understanding Urinary Tract ... Admission Data Admit Date/Time: 01/02/21 23:40 Attending Provider: Joaquín Chew Admit Provider: Wander Ramirez Primary Care Provider: Irene Guajardo Other Providers: Wander Ramirez ; Francine,[facility] ; Jeanmarie Freitas Other Interventions: Discharge Summary Assessment (RN) Last Done: 01/06/21 12:56 Supervising Physician Co-Signing Physician Notes I personally examined the patient and verified all segundo points of history and exam, discussed case, and agree with decision making with Dr Corrales Feeling better and very much wants to go home. No new complaints. Answered all questions to the best my ability. Vitals noted, in general she is awake and alert pleasant no distress. HEENT normocephalic atraumatic mucous membranes moist. Breathing unlabored no accessory muscle use good effort. Skin shows no rashes no pallor or icterus. A/P: septicemia 2nd to e.coli & klebsiella. presumed source - urine (UTI). urine cx here negative/contaminated, but outpatient urine cx w/ e.coli (same sensitivity pattern as the e.coli in the blood). she does not have a gall bladder thus the biliary tree unlikely source. doubt colonic source (CT a/p without colitis, etc). repeat blood cx's thus far negative. Finish out course of antibiotics with Augmentin Hemorrhoid - anusol cream qid. fecal incontinence?? need to keep eye on this if this persists and would deserve w/u. This can be deferred to outpatient ?abnormal intra-hepatic biliary ducts on CT -- RUQ u/s also with such but likely due to post-cholecystectomy state. LFTs wnl. Outpatient follow-up Stable for home, otherwise as above. Resident Activity Tracking Resident Involvement: Resident Care Provided Care Provided: Adult Hospital Medicine
[2021-01-06] MEDS ORDERED: AMOXICILLIN/CLAVULANATE 875 MG TAB PO SCH (17:00)
--- NOTE | 2021-01-06 19:51 | Billing Data ---
Date of Service January 06, 2021 Coding Level of Care Code D/C DAY MANAGEMENT <30 MINS
== END 2021-01-06 13:25 | disposition home health service (06) | DRG 872 ==
LOC: ED 18:30 → SUATTDRO 23:40 → 3W 23:40

== ENCOUNTER 2021-10-01 23:45 | Observation (INO) ==
--- NOTE | 2021-10-01 23:54 | Emergency Department Note ---
Impression & Plan Emphysematous cystitis ADMIT ED Provider Note HPI: The patient is an 86-year-old female with history of atrial fibrillation, on oral anticoagulation with apixaban, who presents the emergency department with a chief complaint of urinary tract infection. Patient states that she believes she has urinary tract infection because for the past several days she has had suprapubic pain and dysuria. She denies any fever/chills, denies any nausea or vomiting. On arrival to the ED the patient is hemodynamically stable, she is alert, she overall is nontoxic-appearing on my initial assessment. States she has had similar symptoms in the past associated with urinary tract infections and this was her concern tonight when she came by EMS. ROS: -: Suprapubic pain/pressure, dysuria *10 point review systems was conducted and is otherwise negative unless stated above *Outpatient medications and allergy history reviewed PE: General: Alert, NAD HEENT: Normocephalic, atraumatic Eyes: Extraocular eye movement is intact, no scleral erythema Pulmonary: Clear to auscultation bilaterally, no wheezing Cardio: Regular rate and rhythm GI: Abdomen is soft, nontender : Mild suprapubic tenderness palpation MSK: No evidence of trauma or malformation of the extremities, no edema Skin: No evidence of rash Neuro: Alert, no focal deficits Psychiatric: Cooperative phototypesetting equipment monitor: - An order was placed for continuous cardiac monitoring - Patient was noted to be in sinus rhythm with rate of 58 Medical Decision Making: Patient presented to the emergency department with a chief complaint of suprapubic pain, she has had some urinary frequency and dysuria. She has not had any nausea or vomiting, on arrival here to the ED she is slightly hypertensive and otherwise nontoxic-appearing on my initial assessment. IV was established, lab work obtained, urinalysis was obtained that does appear to be contaminated but shows evidence of leukocyte esterase and blood, CT imaging of the abdomen pelvis was ordered without contrast that does not show any evidence of kidney stones although does show evidence of what appears to be air within the wall of the bladder consistent with emphysematous cystitis. Given this, blood cultures were drawn, patient was given a dose of IV ceftriaxone, she was given IV fluid bolus, lactic acid ordered. Patient does not have any significant leukocytosis, slight left shift, no evidence of acute kidney injury. Slight hypokalemia 3.3 which will be repleted orally. On my reassessment the patient appears well and is resting comfortably in bed. She is in agreement for admission and she was admitted in stable condition, [facility] Hospitalist service was consulted for admission. Diagnosis: 1. Suprapubic pain/pressure 2. Dysuria / urinary tract infection 3. 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 Disposition: Admission Iban Friend DO Emergency Medicine Past Med/Surg History Medical History Acid reflux Aortic stenosis Atrial fibrillation Carotid stenosis Chronic kidney disease Colitis Degeneration, intervertebral disc, thoracic Diplopia Dry eye syndrome Giant cell arteritis History of DVT (deep vein thrombosis) HTN (hypertension) Hx of blood clots Hx of pancreatitis Hyperlipidemia Low back pain Lung nodules Myalgia and myositis Varicose veins of both lower extremities Surgical History History of appendectomy History of bilateral tubal ligation History of cataract surgery History of chest tube placement History of cholecystectomy History of colonoscopy History of ERCP History of Mohs micrographic surgery for skin cancer History of tonsillectomy and adenoidectomy Family History Daughter Breast cancer Denies family history of Ovarian cancer Colorectal cancer Social History Smoking Status: Former smoker Tobacco Type: Cigarettes Second Hand Exposure: No; Hx Alcohol Use: Yes Alcohol type: wine Hx Substance Use: No Preferred Language: Welsh Communication Ability: Effective Visual Impairment: No Limitations Hearing Ability: Normal Senior Mechanical Designer Required: No Beliefs That Will Affect Care: None Current Living Situation: Spouse Feels Safe at Home: Yes Assistive Devices: Oxygen - Continuous and Walker Allergies Allergies Allergy/AdvReac Type Severity Reaction Status Date / Time adhesive Allergy Intermediate BLISTER Verified 10/02/21 00:22 SKIN latex Allergy Intermediate HIVES AND Verified 10/02/21 00:22 ITCHING sulfamethoxazole Allergy Intermediate HIVES Verified 10/02/21 00:22 trimethoprim Allergy Intermediate HIVES Verified 10/02/21 00:22 nickel Allergy Mild RASH Verified 10/02/21 00:22 lactose AdvReac Intermediate GI UPSET Verified 10/02/21 00:22 methotrexate AdvReac Intermediate SEVERE GI Verified 10/02/21 00:22 UPSET Hhgvbmr-KKK-CmS Reductase AdvReac Intermediate MUSCLE Verified 10/02/21 00:22 Inhibitor ACHES [Siwuynn-Qba-Cwt Reductase Inhibitor] Home Meds Home Medications Medication Instructions Recorded Confirmed apixaban 2.5 mg tablet 2.5 mg PO BID tab 12/27/18 10/02/21 cholecalciferol (vitamin D3) 50 2,000 units PO DAILY tab 12/27/18 10/02/21 mcg (2,000 unit) tablet metoprolol tartrate 50 mg tablet 50 mg PO BID #180 tab 12/27/18 10/02/21 Bacillus coagulans 250 million 250 cell PO DAILY 02/17/19 10/02/21 cell chewable tablet (Digestive Advantage Probiotic Gummy) cyanocobalamin (vitamin B-12) 2,000 mcg PO DAILY 02/17/19 10/02/21 1,000 mcg tablet cyclosporine 0.05 % eye drops in a 2 drp OPHTHALMIC (EYE) BID PRN 02/17/19 10/02/21 dropperette (Restasis) gabapentin 300 mg capsule 300 mg PO TID 03/05/20 10/02/21 furosemide 20 mg tablet 20 mg PO DAILY tab 11/07/20 10/02/21 prednisone 1 mg tablet 2 mg PO DAILY 01/02/21 10/02/21 amlodipine 5 mg tablet 5 mg PO DAILY 10/02/21 10/02/21 memantine 5 mg tablet 5 mg PO BID 10/02/21 10/02/21 omeprazole 20 mg capsule,delayed 20 mg PO QAM 10/02/21 10/02/21 release Previous Rx's Medication Instructions Recorded hydralazine 100 mg tablet 100 mg PO TID #60 tab 11/06/19 donepezil 10 mg tablet 10 mg PO DAILY #90 tab 11/26/20 estradiol (Estrace) 1 g VAGINAL .COMPLEX #42.5 g 04/28/21 Results & Data (ED) Vital Signs Vital Signs - 24 hr 10/02/21 00:01 10/02/21 01:12 Temperature 36.6 C Temperature Source Oral Pulse Rate 49 L Pulse Rate [Apical] 52 L Respiratory Rate 16 18 Respiratory Depth Normal Blood Pressure 173/91 H Blood Pressure [Right Arm] 200/85 H Blood Pressure Mean 118 Blood Pressure Mean [Right Arm] 123 Blood Pressure Position Sitting Pulse Oximetry 97 96 Oxygen Delivery Method Room Air Room Air Sepsis Recent Fever Within 48 Hours No Sepsis New/Unexplained Change in Mental Status No Sepsis Action Taken by Nursing No Action Required Laboratory Data Result diagrams: 10/02/21 00:15 10/02/21 00:15 Lab Results 10/01/21 10/02/21 10/02/21 Range/Units 23:00 00:15 00:15 WBC 8.10 (4.8-10.8) K/uL RBC 4.67 (4.2-5.4) M/uL Hgb 14.1 (12.0-16.0) g/dL Hct 43.8 (37-47) % MCV 93.8 (80-100) fL MCH 30.2 (25-34) pg MCHC 32.2 (32-36) g/dL RDW Std Deviation 44.2 (36.4-46.3) fL RDW Coeff of Elia 13.0 (11.5-14.5) % Plt Count 239 (130-400) K/uL MPV 10.6 H (7.4-10.4) fL Immature Gran % (Auto) 0.4 % Neut % (Auto) 61.9 % Lymph % (Auto) 24.4 % [place] % (Auto) 10.6 % Eos % (Auto) 2.6 % Baso % (Auto) 0.1 % Neut # (Auto) 5.01 (1.4-6.5) K/uL Lymph # (Auto) 1.98 (1.2-3.4) K/uL [place] # (Auto) 0.86 H (0.11-0.59) K/uL Eos # (Auto) 0.21 (0-0.5) K/uL Baso # (Auto) 0.01 (0-0.2) K/uL Immature Gran # (Auto) 0.03 H (0.00-0.02) K/uL Sodium 141 (136-145) mmol/L Potassium 3.3 L (3.5-5.1) mmol/L Chloride 101 (98-107) mmol/L Carbon Dioxide 33 H (21-32) mmol/L Anion Gap 7 (3-11) BUN 25 H (6-23) mg/dl Creatinine 0.93 (0.6-1.2) mg/dl Est Cr Clr Drug Dosing 33.5 ml/min Est GFR ( Amer) 65.4 ml/min Est GFR (Non-Af Amer) 56.4 ml/min BUN/Creatinine Ratio 26.9 H (10-20) Glucose 88 (70-99(Fasting)) mg/dl Lactate (0.4-2.0) mmol/L Calcium 9.5 (8.5-10.1) mg/dl Total Bilirubin 0.5 (0.2-1.0) mg/dl AST 18 (13-39) U/L ALT 14 (7-52) U/L Alkaline Phosphatase 37 (34-104) U/L Total Protein 6.6 (6.0-8.3) gm/dl Albumin 3.7 (3.4-5.0) gm/dl Globulin 2.9 (2.5-4.0) gm/dl Albumin/Globulin Ratio 1.3 (0.9-2) Lipase 122 H (11-82) U/L Urine Color Red Urine Appearance Turbid A (Clear) Urine pH 5.5 (4.5-7.5) Ur Specific [place] 1.019 (1.000-1.030) Urine Protein 2+ H (Negative) Urine Glucose (UA) Negative (Negative) Urine Ketones Negative (Negative) Urine Blood 3+ H (Negative) Urine Nitrite Negative (Negative) Urine Bilirubin 1+ H (Negative) Urine Urobilinogen Negative (Negative) Ur Leukocyte Esterase 2+ H (Negative) Urine WBC (Auto) >30 H (0-5) /hpf Urine RBC (Auto) >30 H (0-4) /hpf U Hyaline Cast (Auto) 1-5 (0-5) /lpf U Epithel Cells (Auto) 10-20 H (0-5) /lpf Urine Bacteria (Auto) 4+ H (Negative) SARS-CoV-2, RNA, NAAT (NEGATIVE) 10/02/21 10/02/21 Range/Units 02:47 02:47 WBC (4.8-10.8) K/uL RBC (4.2-5.4) M/uL Hgb (12.0-16.0) g/dL Hct (37-47) % MCV (80-100) fL MCH (25-34) pg MCHC (32-36) g/dL RDW Std Deviation (36.4-46.3) fL RDW Coeff of Elia (11.5-14.5) % Plt Count (130-400) K/uL MPV (7.4-10.4) fL Immature Gran % (Auto) % Neut % (Auto) % Lymph % (Auto) % [place] % (Auto) % Eos % (Auto) % Baso % (Auto) % Neut # (Auto) (1.4-6.5) K/uL Lymph # (Auto) (1.2-3.4) K/uL [place] # (Auto) (0.11-0.59) K/uL Eos # (Auto) (0-0.5) K/uL Baso # (Auto) (0-0.2) K/uL Immature Gran # (Auto) (0.00-0.02) K/uL Sodium (136-145) mmol/L Potassium (3.5-5.1) mmol/L Chloride (98-107) mmol/L Carbon Dioxide (21-32) mmol/L Anion Gap (3-11) BUN (6-23) mg/dl Creatinine (0.6-1.2) mg/dl Est Cr Clr Drug Dosing ml/min Est GFR ( Amer) ml/min Est GFR (Non-Af Amer) ml/min BUN/Creatinine Ratio (10-20) Glucose (70-99(Fasting)) mg/dl Lactate 0.6 (0.4-2.0) mmol/L Calcium (8.5-10.1) mg/dl Total Bilirubin (0.2-1.0) mg/dl AST (13-39) U/L ALT (7-52) U/L Alkaline Phosphatase (34-104) U/L Total Protein (6.0-8.3) gm/dl Albumin (3.4-5.0) gm/dl Globulin (2.5-4.0) gm/dl Albumin/Globulin Ratio (0.9-2) Lipase (11-82) U/L Urine Color Urine Appearance (Clear) Urine pH (4.5-7.5) Ur Specific [place] (1.000-1.030) Urine Protein (Negative) Urine Glucose (UA) (Negative) Urine Ketones (Negative) Urine Blood (Negative) Urine Nitrite (Negative) Urine Bilirubin (Negative) Urine Urobilinogen (Negative) Ur Leukocyte Esterase (Negative) Urine WBC (Auto) (0-5) /hpf Urine RBC (Auto) (0-4) /hpf U Hyaline Cast (Auto) (0-5) /lpf U Epithel Cells (Auto) (0-5) /lpf Urine Bacteria (Auto) (Negative) SARS-CoV-2, RNA, NAAT NEGATIVE (NEGATIVE) Administered Medications Sodium Chloride (Nss 1000ml) 1,000 mls @ 999 mls/hr IV .Q1H1M ONE Stop: 10/02/21 04:00 Last Admin: 10/02/21 03:26 Dose: Not Given Documented by: [id number] Discontinued Medications Ceftriaxone Sodium (Ceftriaxone Sodium 1000mg/50ml D5w) Confirm Administered Dose 1,000 mg IV .STK-MED ONE Stop: 10/02/21 02:56 Last Admin: 10/02/21 03:26 Dose: Not Given Documented by: [id number] Ceftriaxone Sodium (Rocephin) 1,000 mg in 50 mls @ 100 mls/hr IV NOW STA Stop: 10/02/21 03:32 Last Admin: 10/02/21 03:25 Dose: Not Given Documented by: [id number] Discharge Plan Visit Data Chief Complaint: Urinary Symptoms Stated Complaint: POSSIBLE UTI ED Provider: Iban Friend Discharge Problem: Emphysematous cystitis Forms Stand Alone Forms: [facility] Prescriptions Prescriptions: No Action estradiol [Estrace] 0.01 % (0.1 mg/gram) cream 1 g vaginal .COMPLEX Qty: 42.5 RF: 2 gabapentin 300 mg capsule 300 mg PO TID RF: 0 furosemide 20 mg tablet 20 mg PO DAILY RF: 0 cholecalciferol (vitamin D3) 2,000 unit tablet 2,000 units PO DAILY RF: 0 apixaban 2.5 mg tablet 2.5 mg PO BID RF: 0 metoprolol tartrate 50 mg tablet 50 mg PO BID Qty: 180 RF: 0 hydralazine 100 mg tablet 100 mg PO TID Qty: 60 RF: 2 donepezil 10 mg tablet 10 mg PO DAILY Qty: 90 RF: 3 cyanocobalamin (vitamin B-12) 1,000 mcg Tablet 2,000 mcg PO DAILY RF: 0 Digestive Advantage Prob Gummy 250 million cell Tablet,Chewable 250 cell PO DAILY RF: 0 cyclosporine [Restasis] 0.05 % Dropperette 2 drp OPHTHALMIC (EYE) BID PRN (Reason: Dry Eyes) RF: 0 prednisone 1 mg tablet 2 mg PO DAILY RF: 0 omeprazole 20 mg capsule,delayed release(DR/EC) 20 mg PO QAM RF: 0 amlodipine 5 mg tablet 5 mg PO DAILY RF: 0 memantine 5 mg tablet 5 mg PO BID RF: 0 Referrals Referrals: Irene Guajardo [Primary Care Provider] -
[2021-10-02 00:31] LABS: Appearance Urine Turbid (Clear); Bacteria Urine Automated 4+ (Negative); Blood Urine 3+ (Negative); Color Urine Red; Glucose Urine UA Negative (Negative); Ketones Urine Negative (Negative); Leukocyte Esterase Urine 2+ (Negative); Nitrite Urine Negative (Negative); Protein Urine 2+ (Negative); RBC Urine Automated >30 /hpf (0-4); Specific Gravity Urine 1.019 (1.000-1.030); Urobilinogen Urine Negative (Negative); WBC Urine Automated >30 /hpf (0-5); pH Urine 5.5 (4.5-7.5)
[2021-10-02 00:34] LABS: Bilirubin Urine 1+ (Negative)
[2021-10-02 00:44] LABS: Basophils # (auto) 0.01 K/uL (0-0.2); Basophils % (auto) 0.1 %; Eosinophils # (auto) 0.21 K/uL (0-0.5); Eosinophils % (auto) 2.6 %; Hematocrit (blood only) 43.8 % (37-47); Hemoglobin 14.1 g/dL (12.0-16.0); Immature Granulocytes # (auto) 0.03 K/uL (0.00-0.02); Immature Granulocytes % (auto) 0.4 %; Lymphocytes # (auto) 1.98 K/uL (1.2-3.4); Lymphocytes % (auto) 24.4 %; Mean Corpuscular Hemoglobin 30.2 pg (25-34); Mean Corpuscular Hgb Conc 32.2 g/dL (32-36); Mean Corpuscular Volume 93.8 fL (80-100); Mean Platelet Volume 10.6 fL (7.4-10.4); Monocytes # (auto) 0.86 K/uL (0.11-0.59); Monocytes % (auto) 10.6 %; Neutrophils # (auto) 5.01 K/uL (1.4-6.5); Neutrophils % (auto) 61.9 %; Platelet Count 239 K/uL (130-400); RDW Standard Deviation 44.2 fL (36.4-46.3); Red Blood Count 4.67 M/uL (4.2-5.4)
[2021-10-02 00:53] LABS: Albumin Globulin Ratio 1.3 (0.9-2); Albumin Level 3.7 gm/dl (3.4-5.0); BUN Creatinine Ratio 26.9 (10-20); Bilirubin,Total 0.5 mg/dl (0.2-1.0); Calcium 9.5 mg/dl (8.5-10.1); Creatinine Clr Calc Pharmacy 33.5 ml/min; Est GFR (African American) 65.4 ml/min; Est GFR (Non-African American) 56.4 ml/min; Globulin 2.9 gm/dl (2.5-4.0); Potassium 3.3 mmol/L (3.5-5.1); Total Protein 6.6 gm/dl (6.0-8.3)
[2021-10-02] MEDS ORDERED: cefTRIAXone SODIUM 1000MG/50ML D5W IV ONE (02:55)
[2021-10-02] MEDS ORDERED: SODIUM CHLORIDE 0.9% 1000ML 1,000 ML IV ONE (03:00)
[2021-10-02] MEDS ORDERED: cefTRIAXone SODIUM 1,000 MG/50 ML BAG IV STA (03:03)
[2021-10-02] MEDS ORDERED: ACETAMINOPHEN 325 MG TAB PO PRN (03:11)
--- NOTE | 2021-10-02 03:11 | History & Physical Report ---
Date of Service October 02, 2021 Assessment & Plan (1) Emphysematous cystitis: Plan: Angy is a very pleasant 86-year-old woman with a notable history of atrial fibrillation on Eliquis, hypertension, carotid stenosis status post endarterectomy, giant cell arteritis, CKD, GERD, depression, anxiety, hearing loss, previous MDR-UTIs with E. coli resistant to levofloxacin and ciprofloxacin, previous E. coli/Klebsiella bacteremia in 01/2021 who presented to [facility] for urinary symptoms and suprapubic pain, subsequently found to have urologic and radiologic findings concerning for emphysematous cystitis. Emphysematous Cystitis Patient reporting approximately 4 to 5 days of urinary symptoms and suprapubic pain without constitutional symptoms CT of the abdomen pelvis, stat rad read, revealing emphysematous changes within the wall of the urinary bladder (UA c/w such); not noted to have free air within the abdomen or in the ascending urinary tract Patient with known history of multidrug-resistant organisms, most notably E. coli and Klebsiella that have demonstrated resistance to levofloxacin, ciprofloxacin, and Ancef since 2020 Thankfully, at present, no evidence of systemic involvement or a sending infection Treat with Zosyn for broad-spectrum coverage, including gas-forming and anaerobic organisms -- narrow based on culture results Continue IV hydration Pain control: Scheduled Tylenol, tramadol every 6, Dilaudid for breakthrough Await urine culture Monitor urine output; if there are concerns about large passage of clots or decreasing urine output/retention, could consider urology consultation for irrigation, etc. Hematuria noted. At this time, no evidence of hemorrhage. Will continue Eliquis at this time with low threshold to stop. (2) Atrial fibrillation: Plan: Patient with known history of atrial fibrillation with slow ventricular response -- noted during previous visits Well compensated. No issues with blood pressures. Asymptomatic. Continue Eliquis, metoprolol --can consider reducing metoprolol dosage pending further monitoring on telemetry while here Maintain K > 4, Mg > 2 (3) Dry eye syndrome: Plan: History noted, continue (4) History of DVT (deep vein thrombosis): Plan: History noted, continue Eliquis (5) Depression with anxiety: Plan: Noted. Monitor mood during inpatient setting. Continue memantine and donezepil for dementia. (6) GERD without esophagitis: Plan: No acute needs at present. Continue omeprazole (7) Chronic kidney disease: Plan: Baseline creatinine previously reported at 1.41.7 in problem list, however, on admission, noted to have BUN 25/creatinine 0.93 -- recent BMPs in system appear similar At present, patient is not demonstrating any laboratory findings consistent with renal insufficiency. We will continue to monitor BMP. (8) HTN (hypertension): Plan: Noted to be hypertensive on arrival in the setting of appreciable suprapubic pain Continue home regimen: Amlodipine 5, hydralazine 100 mg 3 times daily, metoprolol 50 mg twice daily, furosemide 20 mg daily (9) Giant cell arteritis: Plan: - History noted. Well controlled. Continue prednisone. Plan: Code: Conditional: YES to CPR, NO to intubation/MV Dispo: MS/Tele PPX: Continue home eliquis Diet: Regular History of Present Illness Primary Care Provider: Irene Guajardo Angy is a very pleasant 86-year-old woman with a notable history of atrial fibrillation on Eliquis, hypertension, carotid stenosis status post endarterectomy, giant cell arteritis, CKD, GERD, depression, anxiety, hearing loss, previous MDR-UTIs with E. coli resistant to levofloxacin and ciprofloxacin, previous E. coli/Klebsiella bacteremia in 01/2021 who presents to [facility] for evaluation of pubic pain. Patient says that over the last 4 to 5 days, she has been having her typical urinary symptomsurinary frequency, urgency, dysuria. However, unlike her previous infections, she has had a lot more pubic pain associated with this episode. She denies any vaginal discharge or irritation. She denies any significant back pain that is different from her baseline back pain. She denies any fevers, chills, sweats. She denies any nausea or vomiting. She denies any cough, shortness of breath, chest pain, loss of appetite. Given the severity of her pain, she wanted to come to the ER to be evaluated On arrival, blood pressure noted to be 170/90, pulse 49. Temp 36.6. Saturating fine on room air. Labs notable for normal white count. Chemistry notable for potassium 3.3, bicarb 33, BUN 25/creatinine 0.93, normal LFTs, lipase 122. Urinalysis demonstrating turbid appearing urine with 2+ protein, 3+ blood, 1+ bilirubin, 2+ leuk esterase, over 30 WBCs, over 30 RBCs, 4+ urine bacteria in the setting of 10-[address] stat rad abdomen and pelvis: " Status postcholecystectomy. Pneumobilia with biliary distention. Calcification of the distal aspect of the pancreatic duct with air within the pancreatic duct. Otherwise normal pancreas. Small hemorrhagic cyst within the left kidney measuring normal left upper peripelvic cyst measuring 2.4 cm the stomach is decompressed with nonspecific thickening of the wall, cannot exclude gastritis. Mild distention of the proximal small bowel loops with mild thickening of the wall which may indicate mild enterocolitis... Air within the urinary bladder wall consistent with emphysematous cystitis. Right posterior hip lipoma measuring 4.8 X 2.6 cm in axial dimension." She received a dose of CFTX Allergies Allergy/AdvReac Type Severity Reaction Status Date / Time adhesive Allergy Intermediate BLISTER Verified 10/02/21 00:22 SKIN latex Allergy Intermediate HIVES AND Verified 10/02/21 00:22 ITCHING sulfamethoxazole Allergy Intermediate HIVES Verified 10/02/21 00:22 trimethoprim Allergy Intermediate HIVES Verified 10/02/21 00:22 nickel Allergy Mild RASH Verified 10/02/21 00:22 lactose AdvReac Intermediate GI UPSET Verified 10/02/21 00:22 methotrexate AdvReac Intermediate SEVERE GI Verified 10/02/21 00:22 UPSET [id number]-[id number]-LvZ Reductase AdvReac Intermediate MUSCLE Verified 10/02/21 00:22 Inhibitor ACHES [Fjixoaz-Zlm-Msf Reductase Inhibitor] Home Medications Medication Instructions Recorded Confirmed Type apixaban 2.5 mg tablet 2.5 mg PO BID tab 12/27/18 10/02/21 History cholecalciferol (vitamin D3) 50 2,000 units PO DAILY tab 12/27/18 10/02/21 History mcg (2,000 unit) tablet metoprolol tartrate 50 mg tablet 50 mg PO BID #180 tab 12/27/18 10/02/21 History Bacillus coagulans 250 million 250 cell PO DAILY 02/17/19 10/02/21 History cell chewable tablet (Digestive Advantage Probiotic Gummy) cyanocobalamin (vitamin B-12) 2,000 mcg PO DAILY 02/17/19 10/02/21 History 1,000 mcg tablet cyclosporine 0.05 % eye drops in a 2 drp OPHTHALMIC (EYE) BID PRN 02/17/19 10/02/21 History dropperette (Restasis) hydralazine 100 mg tablet 100 mg PO TID #60 tab 11/06/19 10/02/21 Rx gabapentin 300 mg capsule 300 mg PO TID 03/05/20 10/02/21 History furosemide 20 mg tablet 20 mg PO DAILY tab 11/07/20 10/02/21 History donepezil 10 mg tablet 10 mg PO DAILY #90 tab 11/26/20 10/02/21 Rx prednisone 1 mg tablet 2 mg PO DAILY 01/02/21 10/02/21 History estradiol (Estrace) 1 g VAGINAL .COMPLEX #42.5 g 04/28/21 10/02/21 Rx amlodipine 5 mg tablet 5 mg PO DAILY 10/02/21 10/02/21 History memantine 5 mg tablet 5 mg PO BID 10/02/21 10/02/21 History omeprazole 20 mg capsule,delayed 20 mg PO QAM 10/02/21 10/02/21 History release Past Med/Surg History Medical History Acid reflux Aortic stenosis Atrial fibrillation Carotid stenosis Chronic kidney disease Colitis Degeneration, intervertebral disc, thoracic Diplopia Dry eye syndrome Giant cell arteritis History of DVT (deep vein thrombosis) HTN (hypertension) Hx of blood clots Hx of pancreatitis Hyperlipidemia Low back pain Lung nodules Myalgia and myositis Varicose veins of both lower extremities Surgical History History of appendectomy History of bilateral tubal ligation History of cataract surgery History of chest tube placement History of cholecystectomy History of colonoscopy History of ERCP History of Mohs micrographic surgery for skin cancer History of tonsillectomy and adenoidectomy Family History Daughter Breast cancer Denies family history of Ovarian cancer Colorectal cancer Social History Smoking Status: Former smoker Tobacco Type: Cigarettes Second Hand Exposure: No; Do You Dip or Chew Tobacco: No; Hx Alcohol Use: Yes Alcohol type: beer and wine Hx Substance Use: No Preferred Language: Moroccan Communication Ability: Effective Visual Impairment: No Limitations Hearing Ability: Normal Flow Manager Required: No Beliefs That Will Affect Care: None marital status: Current Living Situation: Spouse How many Children do You have: 5 Other Information That Helps Us Care for You: No Feels Safe at Home: Yes Safety Concerns: Feels Safe At This Time Assistive Devices: Cane Review of Systems Review of Systems: as per HPI Physical Exam Physical Exam: General: Tired but otherwise well-appearing 86-year-old female who is in no acute distress HEENT: NCAT. - Eyes - Sclera are white, anicteric, and without injection. PERRL. - Mouth - MMM with no tonsillar edema or exudates. - Neck - no JVD Cardiac: Bradycardic with regular sounding rhythm; S1 and S2 present with grade 2/6 systolic murmur best heard along the sternal border radiating towards the apex Pulmonary: Good respiratory effort with symmetric expansion of the chest. No use of accessory muscles. Lungs were clear to auscultation bilaterally with no crackles or wheezes. Abdominal: Normoactive bowel sounds. Abdomen was soft, nondistended. She does have notable +TTP in the suprapubic area. No CVA tenderness. No rashes on abdomen. Extremities: Upper and lower extremities are warm and well perfused. Trace peripheral edema. Results & Data Results & Data ([facility]) Vital Signs (Past 12 Hours) Vital Signs Temp Pulse Pulse Resp BP BP Pulse Ox 10/02/21 01:12 52 L 18 200/85 H 96 10/02/21 00:01 36.6 C 49 L 16 173/91 H 97 Supervising Physician Co-Signing Physician Notes Attending addendum: I have physically seen this patient, have supervised the medical residents activities, and agree with the H&P unless as otherwise noted. Assessment and Plan: Emphysematous cystitis- As noted on CT of abdomen and pelvis History of multidrug-resistant organisms including E. coli and Klebsiella Zosyn 4.5 g IV every 8 hours Follow urine culture and sensitivity Follow blood culture and sensitivity Continue IV fluids Pain control as noted Atrial fibrillation/hypertension- Continue Eliquis and metoprolol If reported hematuria does not improve or worsens, will need to stop Eliquis Remaining orders and notations as noted Resident Activity Tracking Resident Involvement: Resident Care Provided Care Provided: Adult [facility] Medicine
[2021-10-02] MEDS ORDERED: POTASSIUM CHLORIDE CRTAB 20 MEQ TABCR PO STA (03:38)
[2021-10-02] MEDS ORDERED: MoRPHine SULFATE 2 MG/ML CARP IV PRN (03:41)
[2021-10-02] MEDS ORDERED: KETOROLAC TROMETHAMINE 15 MG/ML VIAL IV PRN (03:41)
[2021-10-02] MEDS: ACETAMINOPHEN 500 MG TAB PO SCH ×3 (03:50→20:09)
[2021-10-02] MEDS ORDERED: traMADol HCL 50 MG TABLET PO PRN (05:12)
[2021-10-02] MEDS ORDERED: PIPERACILL/TAZOBAC CONSULT ACTIVE PRN (05:12)
[2021-10-02] MEDS ORDERED: HYDROmorphone INJ 0.5 MG/0.5 ML SYR IV PRN (05:12)
[2021-10-02] MEDS ORDERED: PIPERACILLIN/TAZOBACTAM 3.375 GM in DEXTROSE 5% 100 ML IV ONE (06:00)
--- NOTE | 2021-10-02 08:20 | CT Scan Report ---
CT SCAN OF THE ABDOMEN AND PELVIS WITHOUT IV CONTRAST CLINICAL HISTORY: Lower abdominal pain. Dysuria/hematuria. COMPARISON STUDY: Abdominal CT dated 01/02/2021. TECHNIQUE: CT scan of the abdomen and pelvis is performed from the lung bases to the proximal femora. Images are reviewed in the axial, sagittal, and coronal planes. IV contrast was not administered for this examination. A dose lowering technique was utilized adhering to the principles of ALARA. CT DOSE: 320.14 mGy.cm FINDINGS: Lung bases: The heart is enlarged and without pericardial effusion. The lung bases are clear noting b ibasilar scarring/atelectasis. Liver: The unenhanced liver is normal in size, contour, and attenuation. There is no intrahepatic brenda iary ductal dilatation. Pneumobilia is again noted. Gallbladder: Surgically absent noting clips in the gallbladder fossa. Spleen: Normal in size and attenuation. Pancreas: There is a 5 mm calculus within the pancreatic duct at the ampulla seen on image #136. Ther e is mild upstream dilatation of the pancreatic duct as well as gas within the pancreatic duct. The u nenhanced pancreas is otherwise grossly unremarkable. Adrenal glands: Thickening of the adrenal glands is similar to previous. Kidneys: The unenhanced kidneys demonstrate mild cortical atrophy and are without hydronephrosis. Foc i of cortical scarring are noted in the left kidney. There is a punctate nonobstructing left renal ca lculus. No right renal calculi are identified. There is no gas within the renal collecting systems. A 10 mm complex/hyperdense cyst is noted in the left kidney. There is also 2.2 cm renal sinus cyst on the left. Abdominal vasculature: There is advanced atherosclerotic calcification and mild ectasia of the abdomi nal aorta. Bowel: There is moderate colonic diverticulosis without CT evidence of acute diverticulitis. No bowel obstruction is identified. Mild fecal retention is seen throughout the colon. The appendix is not v isualized. Peritoneum: There is no intraperitoneal free air or abdominal ascites. Lymphadenopathy: None. Pelvic viscera: The bladder is mildly distended. The bladder wall is thickened with surrounding infla mmation. There is gas within the bladder wall and within the bladder lumen indicating emphysematous c ystitis. The uterus and adnexa are normal as visualized. A 5.4 cm lipoma is noted in the right glutea l musculature. Skeletal structures: The skeletal structures are heterogeneously osteopenic. There is moderate to adv anced lumbosacral spondylosis and scoliosis. No lytic or blastic lesions are seen. There are healed l eft-sided rib fractures. IMPRESSION: 1. Emphysematous cystitis. 2. Cardiomegaly 3. There is a 5 mm calculus within the pancreatic duct near the ampulla. This causes only mild upstre am dilatation of the pancreatic duct. 4. Pneumobilia and gas within the pancreatic duct is similar to previous. 5. Colonic diverticulosis without CT evidence of acute diverticulitis. 6. Punctate nonobstructing left renal calculus. 7. Additional findings as above. ACT 112: Negative or not required by law. Electronically signed by: Dany Loaiza M.D. 10/02/2021 8:19 AM
[2021-10-02] MEDS ORDERED: METOPROLOL TARTRATE 50 MG TAB PO SCH (09:00)
[2021-10-02] MEDS: FUROSEMIDE 20 MG TAB PO SCH (09:39)
[2021-10-02] MEDS: APIXABAN 2.5 MG TAB PO SCH ×2 (09:43→20:10)
[2021-10-02] MEDS: DONEPEZIL HCL 10 MG TAB PO SCH (09:43)
[2021-10-02] MEDS: predniSONE 1 MG TAB PO SCH (09:43)
[2021-10-02] MEDS: CHOLECALCIFEROL 1,000 UNITS 25 MCG TAB PO SCH (09:44)
[2021-10-02] MEDS: PANTOprazole 40 MG TAB PO SCH (09:44)
[2021-10-02] MEDS: CYANOCOBALAMIN (B-12) 500 MCG TABLET PO SCH (09:44)
[2021-10-02] MEDS: MEMANTINE HCL 5 MG TAB PO SCH ×2 (09:45→20:10)
[2021-10-02] MEDS: GABAPENTIN 300 MG CAP PO SCH ×3 (09:45→20:12)
[2021-10-02] MEDS: amLODIPine BESYLATE 5 MG TAB PO SCH (09:45)
[2021-10-02] MEDS: hydrALAZINE TAB 50 MG TAB PO SCH ×3 (09:46→20:11)
[2021-10-02] MEDS ORDERED: hydrALAZINE HCL 20 MG/ML VIAL IV PRN (09:52)
--- NOTE | 2021-10-02 10:01 | Hospitalist Progress Note ---
Date of Service October 02, 2021 Assessment & Plan (1) Emphysematous cystitis: Plan: 86yo female with a history of MDR-UTI's (E. coli resistant to levo/cipro), E. coli/Klebsiella bacteremia (01/2021), AF with slow ventricular response (on eliquis), HTN, history of DVT, carotid stenosis (s/p carotid endarterectomy), giant cell arteritis, CKD, GERD, dementia, depression, and anxiety presents with a five-day history of dysuria and suprapubic pain, subsequently found with urologic and radiologic findings concerning for emphysematous cystitis. Emphysematous cystitis Patient presents with about five days of urinary symptoms and suprapubic pain without constitutional symptoms CT abdomen/pelvis showing emphysematous cystitis as well as a punctate nonobstructing left renal calculus; no free air noted in abdomen or ascending urinary tract Patient's history of MDR UTI (2020) noted on admission (E. coli resistant to levo/cipro/ancef) No evidence at this time of systemic involvement or ascending infection Urine and blood cultures pending Blood noted on UA, though Hgb stable; will continue eliquis Urology consulted - recommendations are as follows: Continue zosyn, narrow based on culture results; no indication at this time for escalation Will place arndt catheter for a few days for maximal bladder decompression Urology will coordinate outpatient discussion of recurrent UTI, consideration of low-dose prophylactic antibiotics Continue IVF Monitor urine output, trend daily CBC and BMP Pneumobilia, gas within pancreatic duct Noted on CT abdomen/pelvis performed on admission, though noted to be similar to prior imaging Likely noncontributory to current clinical picture Recommend PCP follow-up Atrial fibrillation with slow ventricular response Patient's history of AF with slow ventricular response noted on admission Patient noted with HR in the 50s, low of 49, no associated symptoms; EKG ordered Given this bradycardia and patient's episode of hypotension, will reduce metoprolol dose from 50mg bid to 25mg bid Continue eliquis, replete electrolytes as indicated HTN Home regimen: amlodipine (5mg qd), metoprolol (50mg bid), hydralazine (100mg tid), furosemide (20mg qd) Patient hypertensive on arrival (max of 200/85) in the setting of significant suprapubic pain; patient without symptoms concerning for hypertensive urgency 10/02: shortly after patient's home antihypertension regimen was administered, pressures fell to 96/50 without associated symptoms Due to this lability in pressures, and patient's intermittent bradycardia, will reduce metoprolol from 50mg bid to 25mg bid Hydralazine IV 5mg q4h prn SBP>180 or DBP>110 History of DVT Continue home eliquis Mild hypokalemia Patient with a potassium of 3.3 on admission in the setting of daily lasix use KCl 20mEq x1 given in ED, standing 20mEq qd ordered Trend daily BMP, replete as indicated Giant cell arteritis Continue home prednisone (2mg daily) Dementia, depression, anxiety Contintinue home memantine and donepezil GERD Continue home omeprazole CKD Baseline creatinine previously reported as 1.4; however, only 0.93 on admission No other lab findings consistent with renal insufficiency Trend daily BMP Dry eye syndrome Patient's home restasis swapped for artificial tears due to hospital formulary FEN: regular diet Code status: DNI (chest compressions OK, defibrillation OK, standard ACLS meds/procedures OK) DVT ppx: eliquis Consults: urology PT/OT: ordered Dispo: med/surg telemetry (2) Atrial fibrillation: (3) Dry eye syndrome: (4) History of DVT (deep vein thrombosis): (5) Depression with anxiety: (6) GERD without esophagitis: (7) Chronic kidney disease: (8) HTN (hypertension): (9) Giant cell arteritis: Admission and Anticipated Discharge Date Admission Date: October 02, 2021 Supervising Physician Co-Signing Physician Notes I personally examined the patient and verified all segundo points of history and exam, discussed case, and agree with decision making with Dr Desai Generally feeling okay. Pelvic pressure less than before. Vitals noted, in general she is awake and alert pleasant no distress. HEENT normocephalic atraumatic mucous membranes moist. Breathing unlabored no accessory muscle use good effort. Skin shows no rashes no pallor or icterus. Neuro without focal deficits. Emphysematous cystitis Zosyn, appreciate urology input chronic afib - rate controlled/anticoagulated otherwise as above Subjective Patient seen and evaluated at bedside this morning. Patient feels much better this morning compared to when she came to the ED. Continues to have urinary frequency, urgency, and pain with urination, though these have improved. Has had two episodes of urinary incontinence, though this is not abnormal for her. Lower pelvic pain has improved and is now just a mild discomfort. Has a good appetite this AM. Denies CP, SOB, headache, vision changes, nausea, vomiting, or other symptoms. Physical Exam Physical Exam: Constitutional: well-appearing, no acute distress, sitting up in bedside chair HEENT: MMM CV: irregularly irregular rhythm, no murmur appreciated, extremities well- perfused, no LE edema Resp: CTABL, no wheezes/rales/rhonchi appreciated, no increased work of breathing GI: soft, nondistended, mild suprapubic tenderness, nontender elsewhere, BS normoactive MSK: no gross deformities appreciated Skin: warm, dry, no rash appreciated Neuro: alert, oriented, no focal neurologic deficit appreciated Results & Data Results & Data ([facility]) Vital Signs (Past 12 Hours) Vital Signs Temp Pulse Pulse Resp BP BP Pulse Ox 10/02/21 08:02 36.4 C L 58 L 20 186/50 H 96 10/02/21 04:55 36.5 C 52 L 16 192/65 H 99 10/02/21 03:42 57 L 18 184/106 H 97 10/02/21 01:12 52 L 18 200/85 H 96 10/02/21 00:01 36.6 C 49 L 16 173/91 H 97 Resident Activity Tracking Resident Involvement: Resident Care Provided Care Provided: Adult Hospital Medicine
[2021-10-02] MEDS: POTASSIUM CHLORIDE CRTAB 20 MEQ TABCR PO SCH (11:20)
[2021-10-02] MEDS: PIPERACILLIN/TAZOBACTAM 3.375 GM in DEXTROSE 5% 100 ML IV SCH ×2 (11:24→20:10)
[2021-10-02] MEDS ORDERED: ARTIFICIAL TEARS OP PRN (14:00)
--- NOTE | 2021-10-02 16:03 | Urology Consultation ---
Date of Consultation October 02, 2021 Assessment & Plan (1) Emphysematous cystitis: Imaging findings indicate emphysematous cystitis. We reviewed with the patient that this represents a bad infection of the bladder, however should not require any intervention further than antibiotics and adequate drainage. At this point, I would recommend No catheter placement for couple days to allow maximal drainage of the urinary tract. I agree with continuing antibiotics, and hopefully these can be narrowed as culture data becomes available. Depending on culture data, she may need an infectious disease consultation, although for now I think Zosyn is a good choice. (2) Acute UTI (urinary tract infection): (3) Recurrent UTI: We briefly discussed her recurrent UTIs. I recommended that she continue with the topical estrogen cream. I think there are other modifications we can make to help prevent UTIs going forward, such as cranberry supplements or d- mannose. She could consider low-dose prophylactic antibiotics, however this can be further discussed as an outpatient. Recommendations: Agree with blood and urine cultures Agree with Zosyn, tailor as cultures become available Would recommend No catheter placement to maximally decompress bladder Urology will follow along and we can also coordinate outpatient discussion of recurrent UTIs. History of Present Illness Reason for Consultation: Emphysematous cystitis Attending Physician: Joaquín Chew, History of Present Illness This is an 86-year-old female with history of recurrent UTIs. She reports that over the past couple days she has had increasing discomfort with urination and bladder pressure/pain.These are her typical urinary tract infection symptoms, however they were bad enough today that she came into the hospital for evaluation. She has not been having fevers or chills, or other infectious symptoms. Work-up in the emergency department was notable for WBC of 8.1, hemoglobin 14.1. Electrolytes were notable for mild hypokalemia (3.3) mildly elevated BUN (25) and normal creatinine (0.93). A urinalysis from 10/01 was reviewed and demonstrated 3+ blood, 2+ leukocyte esterase, negative nitrites and 4+ bacteria. Blood and urine cultures are pending. A CT scan was performed which I independently reviewed. She has 2 kidneys. There is a punctate stone in the left kidney. There is a 10 mm hyperdense lesion on the lateral aspect of the left kidney. There is no hydronephrosis bilaterally. The bladder is notable for significant air within the wall of the bladder. There is also some air within the lumen of the bladder, overall consistent with emphysematous cystitis. Urology was consulted for further evaluation given the emphysematous cystitis. She reports that she has seen a urologist in the past (Dr. Lara), and reports that she is on an estrogen cream for urinary tract infection prevention, although has not been taking it regularly. She denies any prior surgeries on her kidneys or bladder, although has a history of cholecystectomy, appendectomy and tubal ligation. She reports having tried cranberry juice to help prevent UTIs and is very cognizant of her hygiene. She feels like she has done well with showering in the past, when she has issues with loose stools. She reports that since she has been on the antibiotics, her urinary symptoms are starting to subside. She generally feels like she empties her bladder well, although over the past couple days has had trouble with bladder emptying as it has been painful. Family history is noncontributory to this encounter. Allergies Allergy/AdvReac Type Severity Reaction Status Date / Time adhesive Allergy Intermediate BLISTER Verified 10/02/21 00:22 SKIN latex Allergy Intermediate HIVES AND Verified 10/02/21 00:22 ITCHING sulfamethoxazole Allergy Intermediate HIVES Verified 10/02/21 00:22 trimethoprim Allergy Intermediate HIVES Verified 10/02/21 00:22 nickel Allergy Mild RASH Verified 10/02/21 00:22 lactose AdvReac Intermediate GI UPSET Verified 10/02/21 00:22 methotrexate AdvReac Intermediate SEVERE GI Verified 10/02/21 00:22 UPSET [id number] Reductase AdvReac Intermediate MUSCLE Verified 10/02/21 00:22 Inhibitor ACHES [[id number] Reductase Inhibitor] Home Medications Medication Instructions Recorded Confirmed Type apixaban 2.5 mg tablet 2.5 mg PO BID tab 12/27/18 10/02/21 History cholecalciferol (vitamin D3) 50 2,000 units PO DAILY tab 12/27/18 10/02/21 Hi story mcg (2,000 unit) tablet metoprolol tartrate 50 mg tablet 50 mg PO BID #180 tab 12/27/18 10/02/21 History Bacillus coagulans 250 million 250 cell PO DAILY 02/17/19 10/02/21 History cell chewable tablet (Digestive Advantage Probiotic Gummy) cyanocobalamin (vitamin B-12) 2,000 mcg PO DAILY 02/17/19 10/02/21 History 1,000 mcg tablet cyclosporine 0.05 % eye drops in a 2 drp OPHTHALMIC (EYE) BID PRN 02/17/19 10/02/21 History dropperette (Restasis) hydralazine 100 mg tablet 100 mg PO TID #60 tab 11/06/19 10/02/21 Rx gabapentin 300 mg capsule 300 mg PO TID 03/05/20 10/02/21 History furosemide 20 mg tablet 20 mg PO DAILY tab 11/07/20 10/02/21 History donepezil 10 mg tablet 10 mg PO DAILY #90 tab 11/26/20 10/02/21 Rx prednisone 1 mg tablet 2 mg PO DAILY 01/02/21 10/02/21 History estradiol (Estrace) 1 g VAGINAL .COMPLEX #42.5 g 04/28/21 10/02/21 Rx amlodipine 5 mg tablet 5 mg PO DAILY 10/02/21 10/02/21 History memantine 5 mg tablet 5 mg PO BID 10/02/21 10/02/21 History omeprazole 20 mg capsule,delayed 20 mg PO QAM 10/02/21 10/02/21 History release Patient History Medical History Acid reflux Aortic stenosis Atrial fibrillation Carotid stenosis Chronic kidney disease Colitis Degeneration, intervertebral disc, thoracic Diplopia Dry eye syndrome Giant cell arteritis History of DVT (deep vein thrombosis) HTN (hypertension) Hx of blood clots Hx of pancreatitis Hyperlipidemia Low back pain Lung nodules Myalgia and myositis Varicose veins of both lower extremities Surgical History History of appendectomy History of bilateral tubal ligation History of cataract surgery History of chest tube placement History of cholecystectomy History of colonoscopy History of ERCP History of Mohs micrographic surgery for skin cancer History of tonsillectomy and adenoidectomy Family History Daughter Breast cancer Denies family history of Ovarian cancer Colorectal cancer Social History Smoking Status: Former smoker Tobacco Type: Cigarettes Second Hand Exposure: No; Do You Dip or Chew Tobacco: No; Hx Alcohol Use: Yes Alcohol type: beer and wine Hx Substance Use: No Preferred Language: Macanese Communication Ability: Effective Visual Impairment: No Limitations Hearing Ability: Normal Leaf Size Picker Required: No Beliefs That Will Affect Care: None marital status: Current Living Situation: Spouse How many Children do You have: 5 Other Information That Helps Us Care for You: No Feels Safe at Home: Yes Safety Concerns: Feels Safe At This Time Assistive Devices: Cane Review of Systems Review of Systems: 14 point review of systems negative except for otherwise indicated. Gastrointestinal: Occasional loose stools Genitourinary: Reports burning and dysuria, lower abdominal pain Physical Exam Constitutional: well developed and + frail appearing; no acute distress Eyes: + anicteric sclerae; pupils not irregular Respiratory: normal respiratory effort; no respiratory distress, does not use accessory muscles and no cough Cardiovascular: Normal rate, regular rhythm Gastrointestinal (Abdomen): Inspection/Auscultation: abdomen not distended Reports some tenderness to lower abdominal palpation Musculoskeletal: Extremities: extremities normal to inspection Skin: normal turgor; no rashes and no lesions Neurologic: moves all extremities and awake Psychiatric: Orientation: alert and oriented x 3 Results & Data ([facility]) Vital Signs (Past 12 Hours) Vital Signs Temp Pulse Resp BP Pulse Ox 10/02/21 15:42 36.3 C L 57 L 20 96/50 L 96 10/02/21 11:50 36.6 C 63 22 123/63 96 10/02/21 08:02 36.4 C L 58 L 20 186/50 H 96 10/02/21 04:55 36.5 C 52 L 16 192/65 H 99 PG Care Time/CCT Total # of Minutes Spent Total Time Spent with Patient: Total time spent is greater than 50% in coordination of care (as documented) at patient's floor/unit and/or counseling patient: Coding Level of Care Code 79881 Initial Inpt Care Lvl 2 Diagnoses Emphysematous cystitis N30.80 Acute UTI (urinary tract infection) N39.0 Recurrent UTI N39.0
--- NOTE | 2021-10-02 19:24 | Billing Data ---
Date of Service October 02, 2021 Coding Level of Care Code 23636 Subseq Hosp Care Lvl 3
[2021-10-02] MEDS: METOPROLOL TARTRATE 25 MG TAB PO SCH (20:11)
--- NOTE | 2021-10-03 01:46 | Billing Data ---
Date of Service October 03, 2021 Coding Level of Care Code 57394 Initial Inpt Care Lvl 2
[2021-10-03] MEDS: PIPERACILLIN/TAZOBACTAM 3.375 GM in DEXTROSE 5% 100 ML IV SCH ×3 (03:35→20:44)
[2021-10-03] MEDS: ACETAMINOPHEN 500 MG TAB PO SCH ×3 (03:37→20:43)
[2021-10-03 06:05] LABS: Basophils # (auto) 0.01 K/uL (0-0.2); Basophils % (auto) 0.1 %; Eosinophils # (auto) 0.37 K/uL (0-0.5); Eosinophils % (auto) 4.9 %; Hematocrit (blood only) 39.2 % (37-47); Hemoglobin 12.1 g/dL (12.0-16.0); Immature Granulocytes # (auto) 0.01 K/uL (0.00-0.02); Immature Granulocytes % (auto) 0.1 %; Lymphocytes # (auto) 1.74 K/uL (1.2-3.4); Lymphocytes % (auto) 23.2 %; Mean Corpuscular Hemoglobin 29.6 pg (25-34); Mean Corpuscular Hgb Conc 30.9 g/dL (32-36); Mean Corpuscular Volume 95.8 fL (80-100); Mean Platelet Volume 10.8 fL (7.4-10.4); Monocytes # (auto) 0.65 K/uL (0.11-0.59); Monocytes % (auto) 8.7 %; Neutrophils # (auto) 4.73 K/uL (1.4-6.5); Platelet Count 227 K/uL (130-400); RDW Coefficient of Variation 12.9 % (11.5-14.5); RDW Standard Deviation 44.9 fL (36.4-46.3); Red Blood Count 4.09 M/uL (4.2-5.4); White Blood Count 7.51 K/uL (4.8-10.8)
[2021-10-03 06:29] LABS: BUN Creatinine Ratio 25.7 (10-20); Calcium 8.2 mg/dl (8.5-10.1); Creatinine Clr Calc Pharmacy 40.8 ml/min; Est GFR (African American) 92.2 ml/min; Est GFR (Non-African American) 79.6 ml/min; Potassium 3.7 mmol/L (3.5-5.1)
[2021-10-03] MEDS: GABAPENTIN 300 MG CAP PO SCH ×3 (08:19→20:45)
[2021-10-03] MEDS: hydrALAZINE TAB 50 MG TAB PO SCH ×3 (08:19→20:45)
[2021-10-03] MEDS: APIXABAN 2.5 MG TAB PO SCH ×2 (08:19→20:44)
[2021-10-03] MEDS: MEMANTINE HCL 5 MG TAB PO SCH ×2 (08:19→20:45)
[2021-10-03] MEDS: POTASSIUM CHLORIDE CRTAB 20 MEQ TABCR PO SCH (08:20)
[2021-10-03] MEDS: DONEPEZIL HCL 10 MG TAB PO SCH (08:20)
[2021-10-03] MEDS: PANTOprazole 40 MG TAB PO SCH (08:20)
[2021-10-03] MEDS: amLODIPine BESYLATE 5 MG TAB PO SCH (08:20)
[2021-10-03] MEDS: CYANOCOBALAMIN (B-12) 500 MCG TABLET PO SCH (08:20)
[2021-10-03] MEDS: FUROSEMIDE 20 MG TAB PO SCH (08:21)
[2021-10-03] MEDS: CHOLECALCIFEROL 1,000 UNITS 25 MCG TAB PO SCH (08:21)
[2021-10-03] MEDS: predniSONE 1 MG TAB PO SCH (08:21)
[2021-10-03] MEDS: METOPROLOL TARTRATE 25 MG TAB PO SCH ×2 (08:22→20:46)
--- NOTE | 2021-10-03 09:47 | Hospitalist Progress Note ---
Date of Service October 03, 2021 Assessment & Plan (1) Emphysematous cystitis: Plan: 86yo female with a history of MDR-UTI's (E. coli resistant to levo/cipro), E. coli/Klebsiella bacteremia (01/2021), AF with slow ventricular response (on eliquis), HTN, history of DVT, carotid stenosis (s/p carotid endarterectomy), giant cell arteritis, CKD, GERD, dementia, depression, and anxiety presents with a five-day history of dysuria and suprapubic pain, subsequently found with urologic and radiologic findings concerning for emphysematous cystitis. Emphysematous cystitis: - Patient presents with about five days of urinary symptoms and suprapubic pain without constitutional symptoms - CT abdomen/pelvis showing emphysematous cystitis as well as a punctate nonobstructing left renal calculus; no free air noted in abdomen or ascending urinary tract - Patient's history of MDR UTI (2020) noted on admission (E. coli resistant to levo/cipro/ancef) - Urine and blood cultures with no growth to date - Blood noted on UA - Urology consulted: recommended continue zosyn, narrow based on culture results; no indication at this time for escalation - Monitor urine output, trend daily CBC and BMP - if Urine cultures with no growth at 48hr, consider repeat urine culture before transition to Cefdinir 300mg BID Atrial fibrillation with slow ventricular response: - Patient's history of AF with slow ventricular response noted on admission - Patient noted with HR in the 50s, low of 49, no associated symptoms; EKG ordered - Given bradycardia and patient's episode of hypotension, will home metoprolol reduced from 50mg bid to 25mg bid - Continue eliquis, replete electrolytes as indicated Hypertension: - Home regimen: amlodipine (5mg qd), metoprolol (50mg bid), hydralazine (100mg tid), furosemide (20mg qd) - Patient hypertensive on arrival (max of 200/85) in the setting of significant suprapubic pain; patient without symptoms concerning for hypertensive urgency - continue metoprolol at 25mg bid (decrease from home regimen of 50mg) - Hydralazine IV 5mg q4h prn SBP>180 or DBP>110 Mild hypokalemia: - Patient with a potassium of 3.3 on admission in the setting of daily lasix use - Trend daily BMP, replete as indicated Giant cell arteritis - Continue home prednisone (2mg daily) Dementia, depression, anxiety - Contintinue home memantine and donepezil GERD - Continue home omeprazole Pneumobilia, gas within pancreatic duct: - Noted on CT abdomen/pelvis performed on admission, though noted to be similar to prior imaging - Likely noncontributory to current clinical picture - follow-up as outpatient CKD - Baseline creatinine previously reported as 1.4; however, only 0.93 on admission Diet: regular diet Code status: DNI (chest compressions OK, defibrillation OK, standard ACLS meds/procedures OK) DVT ppx: eliquis (2) Atrial fibrillation: (3) Dry eye syndrome: (4) History of DVT (deep vein thrombosis): (5) Depression with anxiety: (6) GERD without esophagitis: (7) Chronic kidney disease: (8) HTN (hypertension): (9) Giant cell arteritis: Admission and Anticipated Discharge Date Admission Date: October 02, 2021 Supervising Physician Co-Signing Physician Notes I personally examined the patient and verified all segundo points of history and exam, discussed case, and agree with decision making with Dr Christie Generally feeling okay. no new complaints. Vitals noted, in general she is awake and alert pleasant no distress. HEENT normocephalic atraumatic mucous membranes moist. Breathing unlabored no ac cessory muscle use good effort. Skin shows no rashes no pallor or icterus. Neuro without focal deficits. Emphysematous cystitis Zosyn, await cultures, appreciate urology input chronic afib - rate adequately controlled/anticoagulated otherwise as above Subjective Feeling well this morning, struggling with the idea that she could be so sick that she would need to be in the hospital but also feel so much better. Desires to get up and walk around the unit. Review of Systems Review of Systems: All systems reviewed & are unremarkable except as noted in Subjective Physical Exam Constitutional: WD/WN, vitals as above Eyes: PERRL, conjunctivae normal, anicteric sclerae Respiratory: normal respiratory effort, lungs clear to auscultation Cardiovascular: Rate/Rhythm: regular rate and regular rhythm Heart Sounds: no gallop, no murmur and no cardiac rub Vessels: normal peripheral pulses; no JVD Extremities: no edema Gastrointestinal (Abdomen): Inspection/Auscultation: normal bowel sounds; abdomen not distended Percussion/Palpation: abdomen soft; abdomen nontender and no guarding Neurologic: moves all extremities Psychiatric: Orientation: alert and oriented x 3 Results & Data Results & Data ([facility]) Vital Signs (Past 12 Hours) Vital Signs Temp Pulse Pulse Resp BP Pulse Ox 10/03/21 07:54 52 L 10/03/21 07:06 36.6 C 54 L 20 157/66 H 95 10/03/21 03:49 36.3 C L 54 L 18 134/67 95 10/02/21 23:23 48 L 10/02/21 22:45 36.4 C L 48 L 18 126/67 94 Laboratory Results 10/03/21 10/03/21 Range/Units 05:22 05:22 WBC 7.51 (4.8-10.8) K/uL RBC 4.09 L (4.2-5.4) M/uL Hgb 12.1 (12.0-16.0) g/dL Hct 39.2 (37-47) % MCV 95.8 (80-100) fL MCH 29.6 (25-34) pg MCHC 30.9 L (32-36) g/dL RDW Std Deviation 44.9 (36.4-46.3) fL RDW Coeff of Elia 12.9 (11.5-14.5) % Plt Count 227 (130-400) K/uL MPV 10.8 H (7.4-10.4) fL Immature Gran % (Auto) 0.1 % Neut % (Auto) 63.0 % Lymph % (Auto) 23.2 % [place] % (Auto) 8.7 % Eos % (Auto) 4.9 % Baso % (Auto) 0.1 % Neut # (Auto) 4.73 (1.4-6.5) K/uL Lymph # (Auto) 1.74 (1.2-3.4) K/uL [place] # (Auto) 0.65 H (0.11-0.59) K/uL Eos # (Auto) 0.37 (0-0.5) K/uL Baso # (Auto) 0.01 (0-0.2) K/uL Immature Gran # (Auto) 0.01 (0.00-0.02) K/uL Sodium 139 (136-145) mmol/L Potassium 3.7 (3.5-5.1) mmol/L Chloride 105 (98-107) mmol/L Carbon Dioxide 30 (21-32) mmol/L Anion Gap 4 (3-11) BUN 18 (6-23) mg/dl Creatinine 0.70 (0.6-1.2) mg/dl Est Cr Clr Drug Dosing 40.8 ml/min Est GFR ( Amer) 92.2 ml/min Est GFR (Non-Af Amer) 79.6 ml/min BUN/Creatinine Ratio 25.7 H (10-20) Glucose 83 (70-99(Fasting)) mg/dl Calcium 8.2 L (8.5-10.1) mg/dl Medications Administered Current Inpatient Medications Acetaminophen (Acetaminophen 500 Mg Tab) 1,000 mg PO Q8H ARLETTE Stop: 11/01/21 03:44 Last Admin: 10/03/21 11:55 Dose: 1,000 mg Documented by: Amlodipine Besylate (Amlodipine Besylate 5 Mg Tab) 5 mg PO DAILY ARLETTE Stop: 11/01/21 08:59 Last Admin: 10/03/21 08:20 Dose: 5 mg Documented by: Apixaban (Apixaban 2.5 Mg Tab) 2.5 mg PO BID ARLETTE Stop: 11/01/21 08:59 Last Admin: 10/03/21 08:19 Dose: 2.5 mg Documented by: Artificial Tears (Artificial Tears) 1 drops OP Q2H PRN PRN Reason: dry eyes Stop: 11/01/21 13:59 Last Admin: 10/02/21 15:27 Dose: 1 drops Documented by: Cyanocobalamin (Cyanocobalamin (B-12) 500 Mcg Tablet) 2,000 mcg PO DAILY ARLETTE Stop: 11/01/21 08:59 Last Admin: 10/03/21 08:20 Dose: 2,000 mcg Documented by: Donepezil HCl (Donepezil Hcl 10 Mg Tab) 10 mg PO DAILY ARLETTE Stop: 11/01/21 08:59 Last Admin: 10/03/21 08:20 Dose: 10 mg Documented by: Furosemide (Furosemide 20 Mg Tab) 20 mg PO DAILY ARLETTE Stop: 11/01/21 08:59 Last Admin: 10/03/21 08:21 Dose: 20 mg Documented by: Gabapentin (Gabapentin 300 Mg Cap) 300 mg PO TID [facility] Stop: 11/01/21 08:59 Last Admin: 10/03/21 14:49 Dose: 300 mg Documented by: Hydralazine HCl (Hydralazine Tab 50 Mg Tab) 100 mg PO TID [facility] Stop: 11/01/21 08:59 Last Admin: 10/03/21 14:49 Dose: 100 mg Documented by: Hydralazine HCl (Hydralazine Hcl 20 Mg/Ml Vial) 5 mg IV Q4H PRN PRN Reason: Hypertension Stop: 11/01/21 09:51 Hydromorphone HCl (Hydromorphone Inj 0.5 Mg/0.5 Ml Syr) 0.25 mg IV Q6H PRN PRN Reason: Pain - Breakthrough Stop: 10/16/21 05:11 Piperacillin Sod/Tazobactam (Sod 3.375 gm/ Dextrose) 115 mls @ 28.75 mls/hr IV Q8H [facility]; Protocol Stop: 10/12/21 11:59 Last Admin: 10/03/21 11:59 Dose: 28.8 mls/hr Documented by: Memantine (Memantine Hcl 5 Mg Tab) 5 mg PO BID [facility] Stop: 11/01/21 08:59 Last Admin: 10/03/21 08:19 Dose: 5 mg Documented by: Metoprolol Tartrate (Metoprolol Tartrate 25 Mg Tab) 25 mg PO BID [facility] Stop: 11/01/21 20:59 Last Admin: 10/03/21 08:22 Dose: 25 mg Documented by: Miscellaneous (Estradiol 0.01 % Cream - Order Awaiting Action) 1 ea N/A QS [facility] Stop: 11/01/21 07:59 Last Admin: 10/03/21 08:23 Dose: Not Given Documented by: Miscellaneous Information (Piperacill/Tazobac Consult Active) 1 ea N/A UD PRN PRN Reason: Consult Stop: 11/01/21 05:11 Pantoprazole Sodium (Pantoprazole 40 Mg Tab) 40 mg PO QAM [facility] Stop: 11/01/21 08:59 Last Admin: 10/03/21 08:20 Dose: 40 mg Documented by: Potassium Chloride (Potassium Chloride Crtab 20 Meq Tabcr) 20 meq PO QAM [facility] Stop: 11/01/21 10:14 Last Admin: 10/03/21 08:20 Dose: 20 meq Documented by: Prednisone (Prednisone 1 Mg Tab) 2 mg PO DAILY [facility] Stop: 11/01/21 08:59 Last Admin: 10/03/21 08:21 Dose: 2 mg Documented by: Tramadol HCl (Tramadol Hcl 50 Mg Tablet) 50 mg PO Q4H PRN PRN Reason: Pain Stop: 11/01/21 05:11 Vitamin D (Cholecalciferol 1,000 Units 25 Mcg Tab) 2,000 units PO DAILY ARLETTE Stop: 11/01/21 08:59 Last Admin: 10/03/21 08:21 Dose: 2,000 units Documented by: Resident Activity Tracking Resident Involvement: Resident Care Provided Care Provided: Adult Hospital Medicine
--- NOTE | 2021-10-03 09:58 | Urology Progress Note ---
Date of Service October 03, 2021 Assessment & Plan (1) Emphysematous cystitis: (2) Acute UTI (urinary tract infection): (3) Recurrent UTI: Plan: 86yo F with a history of MDR-UTI'sadmitted with emphysematous cystitis. - Subjectively feeling well this morning. - Afebrile, labs reviewed - Wbc 7.51, Creatinine 0.70. - Urine culture preliminary gram negative bacilli; Blood cultures prelim no growth x 24 hours. - Continues on IV Zosyn. - No catheter placed yesterday for maximal drainage of the urinary tract. Plan- - Maintain No catheter for a couple days to maximally decompress bladder. - Continue antibiotics and tailor as cultures become available. - Will arrange outpatient follow-up with urology for continued care and furtherdiscussion of recurrent UTIs. - Thank you for allowing us to participate in the acute care of Mrs. Thomas. Please reconsult us with additional questions, concerns or changes in patient status. Admission and Anticipated Discharge Date Admission Date: October 02, 2021 Subjective Pt examined at bedside this AM. Awake, sitting in bedside chair on arrival. Subjectively feeling well. No fevers. Denies abdominal, flank, and suprapubic pain. No catheter intact, draining dark omega/pink tinged urine. Review of Systems Constitutional: as per Subjective / HPI Genitourinary: as per Subjective / HPI Physical Exam Constitutional: no acute distress Respiratory: no respiratory distress and no labored breathing Gastrointestinal (Abdomen): Percussion/Palpation: abdomen soft; abdomen nontender Skin: No visible rashes or lesions to exposed skin areas Neurologic: moves all extremities and awake Psychiatric: Orientation: alert, oriented x 3 and cooperative Genitourinary: No catheter intact Results & Data ([facility]) Vital Signs (Past 12 Hours) Vital Signs Temp Pulse Pulse Resp BP Pulse Ox 10/03/21 07:54 52 L 10/03/21 07:06 36.6 C 54 L 20 157/66 H 95 10/03/21 03:49 36.3 C L 54 L 18 134/67 95 10/02/21 23:23 48 L 10/02/21 22:45 36.4 C L 48 L 18 126/67 94 PG Care Time/CCT Total # of Minutes Spent Total Time Spent with Patient: Total time spent is greater than 50% in coordination of care (as documented) at patient's floor/unit and/or counseling patient: Coding Level of Care Code 64458 Subseq Hosp Care Lvl 2 Diagnoses Emphysematous cystitis N30.80 Recurrent UTI N39.0 Acute UTI (urinary tract infection) N39.0
--- NOTE | 2021-10-03 17:16 | Billing Data ---
Date of Service October 03, 2021 Coding Level of Care Code 01339 Subseq Hosp Care Lvl 3
[2021-10-04] MEDS: ACETAMINOPHEN 500 MG TAB PO SCH ×2 (03:55→11:18)
[2021-10-04] MEDS: PIPERACILLIN/TAZOBACTAM 3.375 GM in DEXTROSE 5% 100 ML IV SCH (03:55)
[2021-10-04 07:33] LABS: Basophils # (auto) 0.01 K/uL (0-0.2); Basophils % (auto) 0.1 %; Eosinophils # (auto) 0.27 K/uL (0-0.5); Eosinophils % (auto) 3.9 %; Hematocrit (blood only) 39.6 % (37-47); Hemoglobin 12.4 g/dL (12.0-16.0); Immature Granulocytes # (auto) 0.01 K/uL (0.00-0.02); Immature Granulocytes % (auto) 0.1 %; Lymphocytes # (auto) 1.86 K/uL (1.2-3.4); Mean Corpuscular Hemoglobin 29.5 pg (25-34); Mean Corpuscular Hgb Conc 31.3 g/dL (32-36); Mean Corpuscular Volume 94.3 fL (80-100); Mean Platelet Volume 10.3 fL (7.4-10.4); Monocytes # (auto) 0.83 K/uL (0.11-0.59); Neutrophils # (auto) 3.91 K/uL (1.4-6.5); Neutrophils % (auto) 56.9 %; Platelet Count 226 K/uL (130-400); RDW Standard Deviation 44.9 fL (36.4-46.3); White Blood Count 6.89 K/uL (4.8-10.8)
[2021-10-04] MEDS: CYANOCOBALAMIN (B-12) 500 MCG TABLET PO SCH (07:49)
[2021-10-04] MEDS: amLODIPine BESYLATE 5 MG TAB PO SCH (07:50)
[2021-10-04] MEDS: APIXABAN 2.5 MG TAB PO SCH (07:51)
[2021-10-04] MEDS: CHOLECALCIFEROL 1,000 UNITS 25 MCG TAB PO SCH (07:51)
[2021-10-04] MEDS: DONEPEZIL HCL 10 MG TAB PO SCH (07:52)
[2021-10-04] MEDS: FUROSEMIDE 20 MG TAB PO SCH (07:53)
[2021-10-04] MEDS: GABAPENTIN 300 MG CAP PO SCH ×2 (07:53→13:47)
[2021-10-04] MEDS: hydrALAZINE TAB 50 MG TAB PO SCH ×2 (07:54→13:48)
[2021-10-04] MEDS: MEMANTINE HCL 5 MG TAB PO SCH (07:56)
[2021-10-04] MEDS: PANTOprazole 40 MG TAB PO SCH (07:56)
[2021-10-04] MEDS: predniSONE 1 MG TAB PO SCH (07:57)
[2021-10-04] MEDS: METOPROLOL TARTRATE 25 MG TAB PO SCH (07:57)
[2021-10-04] MEDS: POTASSIUM CHLORIDE CRTAB 20 MEQ TABCR PO SCH (07:58)
[2021-10-04 08:08] LABS: BUN Creatinine Ratio 20.9 (10-20); Calcium 8.4 mg/dl (8.5-10.1); Creatinine Clr Calc Pharmacy 31.4 ml/min; Est GFR (African American) 67.1 ml/min; Est GFR (Non-African American) 57.9 ml/min; Potassium 3.7 mmol/L (3.5-5.1)
[2021-10-04] MEDS ORDERED: cefTRIAXone SODIUM 1,000 MG in DEXTROSE 5% 50 ML IV SCH (10:00)
[2021-10-04 16:11] LABS: Cdiff Antigen Positive; Cdiff Toxin A+B Negative Cdiff Toxin (Negative)
--- NOTE | 2021-10-04 17:37 | Discharge Summary ---
Date of Service October 04, 2021 Admission HPI Per Admitting Provider Angy is a very pleasant 86-year-old woman with a notable history of atrial fibrillation on Eliquis, hypertension, carotid stenosis status post endarterectomy, giant cell arteritis, CKD, GERD, depression, anxiety, hearing loss, previous MDR-UTIs with E. coli resistant to levofloxacin and ciprofloxacin, previous E. coli/Klebsiella bacteremia in 01/2021 who presents to [facility] for evaluation of pubic pain. Patient says that over the last 4 to 5 days, she has been having her typical urinary symptomsurinary frequency, urgency, dysuria. However, unlike her previous infections, she has had a lot more pubic pain associated with this episode. She denies any vaginal discharge or irritation. She denies any significant back pain that is different from her baseline back pain. She denies any fevers, chills, sweats. She denies any nausea or vomiting. She denies any cough, shortness of breath, chest pain, loss of appetite. Given the severity of her pain, she wanted to come to the ER to be evaluated On arrival, blood pressure noted to be 170/90, pulse 49. Temp 36.6. Saturating fine on room air. Labs notable for normal white count. Chemistry notable for potassium 3.3, bicarb 33, BUN 25/creatinine 0.93, normal LFTs, lipase 122. Urinalysis demonstrating turbid appearing urine with 2+ protein, 3+ blood, 1+ bilirubin, 2+ leuk esterase, over 30 WBCs, over 30 RBCs, 4+ urine bacteria in the setting of 10-[address] stat rad abdomen and pelvis: " Status postcholecystectomy. Pneumobilia with biliary distention. Calcification of the distal aspect of the pancreatic duct with air within the pancreatic duct. Otherwise normal pancreas. Small hemorrhagic cyst within the left kidney measuring normal left upper peripelvic cyst measuring 2.4 cm the stomach is decompressed with nonspecific thickening of the wall, cannot exclude gastritis. Mild distention of the proximal small bowel loops with mild thickening of the wall which may indicate mild enterocolitis... Air within the urinary bladder wall consistent with emphysematous cystitis. 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 - Eyes - Sclera are white, anicteric, and without injection. PERRL. - Mouth - MMM with no tonsillar edema or exudates. - Neck - no JVD Cardiac: Bradycardic with regular sounding rhythm; S1 and S2 present with grade 2/6 systolic murmur best heard along the sternal border radiating towards the apex Pulmonary: Good respiratory effort with symmetric expansion of the chest. No use of accessory muscles. Lungs were clear to auscultation bilaterally with no crackles or wheezes. Abdominal: Normoactive bowel sounds. Abdomen was soft, nondistended. She does have notable +TTP in the suprapubic area. No CVA tenderness. No rashes on abdomen. Extremities: Upper and lower extremities are warm and well perfused. Trace peripheral edema. Principal Diagnosis Emphysematous Cystitis Discharge Exam Constitutional WD/WN, vitals as above cooperative and comfortable; no acute distress Eyes + anicteric sclerae ENMT external ear and nose normal, oropharynx normal Neck normal visual inspection and trachea midline Respiratory normal respiratory effort, lungs clear to auscultation Cardiovascular Rate/Rhythm: regular rate and regular rhythm Heart Sounds: normal S1 and normal S2 Gastrointestinal (Abdomen) Inspection/Auscultation: normal bowel sounds; abdomen not distended Percussion/Palpation: + abdomen tender (suprapubic area) and abdomen soft Musculoskeletal Head/Neck/Chest: normocephalic and head atraumatic Skin no rashes, warm and dry Psychiatric A+Ox3, euthymic affect Discharge Data Allergies Allergy/AdvReac Type Severity Reaction Status Date / Time adhesive Allergy Intermediate BLISTER Verified 10/02/21 00:22 SKIN latex Allergy Intermediate HIVES AND Verified 10/02/21 00:22 ITCHING sulfamethoxazole Allergy Intermediate HIVES Verified 10/02/21 00:22 trimethoprim Allergy Intermediate HIVES Verified 10/02/21 00:22 nickel Allergy Mild RASH Verified 10/02/21 00:22 lactose AdvReac Intermediate GI UPSET Verified 10/02/21 00:22 methotrexate AdvReac Intermediate SEVERE GI Verified 10/02/21 00:22 UPSET Wmzkosp-[id number]-[id number] Reductase AdvReac Intermediate MUSCLE Verified 10/02/21 00:22 Inhibitor ACHES [Thmxwol-Oix-Wcg Reductase Inhibitor] Consultations 04/28/22 03:04 ED Decision to Admit Stat 10/02/21 15:28 Consult Urology Routine Ordered Studies 10/02/21 00:43 CT abd pelvis wo con Urgent Hospital Course (1) Emphysematous cystitis: 86yo female with a history of MDR-UTI's (E. coli resistant to levo/cipro), E. coli/Klebsiella bacteremia (01/2021), AF with slow ventricular response (on eliquis), HTN, history of DVT, carotid stenosis (s/p carotid endarterectomy), giant cell arteritis, CKD, GERD, dementia, depression, and anxiety presents with a five-day history of dysuria and suprapubic pain, subsequently found with urologic and radiologic findings concerning for emphysematous cystitis. Emphysematous cystitis: - CT abdomen/pelvis showing emphysematous cystitis as well as a punctate nonobstructing left renal calculus; no free air noted in abdomen or ascending urinary tract - Urine culture grew coleman-sensitive Klebsiella. Blood cultures with no growth through 48hrs. - She was initially treated with IV zosyn (due to hx of MDR UTIs) however abx deescalated to cefdinir. She will complete 10 additional days of cefidinir 300mg BID (total of 13 day abx course). - Urology consulted: a arndt catheter was placed for bladder decompression- it was removed by the time of discharge, as patient was able to spontaneously void. Outpatient follow up with urology is being arranged. Atrial fibrillation with slow ventricular response: - Patient's history of AF with slow ventricular response noted on admission - Patient noted with HR in the 50s, low of 49 but asymptomatic - Given bradycardia will reduce home metoprolol dose from 50mg bid to 25mg bid - Continue eliquis for stroke risk reduction Hypertension: - Home regimen: amlodipine (5mg qd), metoprolol (50mg bid), hydralazine (100mg tid), furosemide (20mg qd) - continue metoprolol at 25mg bid (decrease from home regimen of 50mg) due to concurrent bradycardia as above Mild hypokalemia: - Patient with a potassium of 3.3 on admission in the setting of daily lasix use - normalized by the time of discharge Giant cell arteritis - Continue home prednisone (2mg daily) Dementia, depression, anxiety - Continue home memantine and donepezil GERD - Continue home omeprazole Pneumobilia, gas within pancreatic duct: - Noted on CT abdomen/pelvis performed on admission, though noted to be similar to prior imaging - Likely noncontributory to current clinical picture - follow-up as outpatient CKD - Baseline creatinine previously reported as 1.4; however, only 0.93 on admission - eGFR was only mildly low at 57 (2) Atrial fibrillation: (3) Dry eye syndrome: (4) History of DVT (deep vein thrombosis): (5) Depression with anxiety: (6) GERD without esophagitis: (7) Chronic kidney disease: (8) HTN (hypertension): (9) Giant cell arteritis: Total Time Total Time Spent Total Time Spent (In Minutes): <30 Discharge Plan Discharge Items Patient Disposition: Home - Self-Care Reason For Visit: EMPHYSEMATOUS CYSTITIS Discharge Diagnosis: Emphysematous Cystitis Activity: Resume your previous activity Non-emergency contact: Primary Care Provider and Urologist Call non-emergency contact if: your symptoms worsen Follow-up/Referrals: Irene Guajardo [Primary Care Provider] - Diet: Heart Healthy Addtl Attending Provider Instructions: You were hospitalized at [facility] for evaluation of pelvic discomfort. You were found to have a bladder infection. The bacteria causing the infection produce gas, which should up on cat scan imaging. This condition is known as emphysematous cystitis. You were treated with IV antibiotics during your hospital stay. We want you to continue to take cefdinir, 300mg twice daily for the next 10 days. A script was sent to your pharmacy- please begin evening of discharge 10/04/21. Urology was consulted, who recommend a urinary catheter be placed. This catheter was removed prior to your discharge. Please follow-up with [facility] after your hospital discharge - an appointment is being arranged for you. Pending Studies at Discharge: No Stand-Alone Forms: My [facility], Smoking Cessation Medications and DC Order Prescriptions: New cefdinir 300 mg capsule 300 mg PO BID 10 Days Qty: 20 RF: 0 Continued estradiol [Estrace] 0.01 % (0.1 mg/gram) cream 1 g vaginal .COMPLEX Qty: 42.5 RF: 2 gabapentin 300 mg capsule 300 mg PO TID RF: 0 furosemide 20 mg tablet 20 mg PO DAILY RF: 0 cholecalciferol (vitamin D3) 2,000 unit tablet 2,000 units PO DAILY RF: 0 apixaban 2.5 mg tablet 2.5 mg PO BID RF: 0 metoprolol tartrate 50 mg tablet 50 mg PO BID Qty: 180 RF: 0 hydralazine 100 mg tablet 100 mg PO TID Qty: 60 RF: 2 donepezil 10 mg tablet 10 mg PO DAILY Qty: 90 RF: 3 cyanocobalamin (vitamin B-12) 1,000 mcg Tablet 2,000 mcg PO DAILY RF: 0 Digestive Advantage Prob Gummy 250 million cell Tablet,Chewable 250 cell PO DAILY RF: 0 cyclosporine [Restasis] 0.05 % Dropperette 2 drp OPHTHALMIC (EYE) BID PRN (Reason: Dry Eyes) RF: 0 prednisone 1 mg tablet 2 mg PO DAILY RF: 0 omeprazole 20 mg capsule,delayed release(DR/EC) 20 mg PO QAM RF: 0 amlodipine 5 mg tablet 5 mg PO DAILY RF: 0 memantine 5 mg tablet 5 mg PO BID RF: 0 Discharge Orders: Discharge Order (Routine); Ordered 10/04/21 Ordered By: Martha Guadarrama/Other Patient Handouts: ED Urinary Retention, Female Admission Data Admit Date/Time: 10/02/21 03:12 Attending Provider: Joaquín Chew Admit Provider: Joaquín Shanks Primary Care Provider: Irene Guajardo Other Providers: Wander Ramirez ; Patrick Browning ; Tony Dukes ; Jesse Arambula ; Leigh Santos ; Roderick Loera ; Hanny Cortés Melissa A. ; Sade Woodson ; Elmer Aldridge ; Paco Kyle ; Charlotte Herrera ; Zaynab Woodson ; Deepak Gilbert Other Interventions: Discharge Summary Assessment (RN) Last Done: 10/04/21 18:29 Supervising Physician Co-Signing Physician Notes I personally examined the patient and verified all segundo points of history and exam, discussed case, and agree with decision making with Dr Stephens Had some loose stool. Had C. difficile in the pastnotes that she does not really feel like thatnoted actually her last stool was even formed. Later revisited after Arndt discontinuedvoided with absolutely no dysuria. Vitals noted, in general she is awake and alert pleasant no distress. HEENT normocephalic atraumatic mucous membranes moist. Breathing unlabored no accessory muscle use good effort. Skin shows no rashes no pallor or icterus. Neuro without focal deficits. Emphysematous cystitis Almost pansensitive Klebsiellasafe for home on p.o. antibiotics, Arndt discontinued, voiding well, pain controlled -Outpatient urology follow-up chronic afib - rate adequately controlled/anticoagulated Loose stoolsstrongly suspect Zosyn side effect. C. difficile testing suggest carrier statewhich is quite consistent with her history of having had C. d ifficile in the past. While benefit is a little bit nebulous, discussed that given this finding, a probiotic would be quite reasonable otherwise as above
== END 2021-10-04 18:45 | disposition home or self-care (01) | DRG 690 ==
LOC: ED 23:45 → 2S 10-02 03:12 → INTOOBSV 10-02 03:12 → SUATTDRO 10-02 03:12 → 2S 10-02 04:43 → 3W 10-04 15:03

== ENCOUNTER 2022-04-03 18:07 | Inpatient (IN) ==
[2022-04-03] MEDS ORDERED: ACETAMINOPHEN 1,000 MG/100 ML VIAL IV STA (18:27)
[2022-04-03] MEDS ORDERED: ONDANSETRON INJ 2 MG/ML 2 ML VIAL IV STA (18:27)
[2022-04-03] MEDS ORDERED: SODIUM CHLORIDE 0.9% 1000ML 1,000 ML IV SCH (18:30)
[2022-04-03 19:20] LABS: Hematocrit (blood only) 34.2 % (34.1-44.9); Hemoglobin 11.3 g/dl (12.0-16.0); Mean Corpuscular Hemoglobin 30.2 pg (25.0-34.0); Mean Corpuscular Volume 91.4 fL (80.0-100.0); Mean Platelet Volume 10.8 fL (9.4-12.3); Platelet Count 201 K/uL (130-400); RDW Coefficient of Variation 13.5 % (11.5-14.5); RDW Standard Deviation 45.4 fL (36.4-46.3); Red Blood Count 3.74 M/uL (3.93-5.22); White Blood Count 13.84 K/ul (4.8-10.8)
--- NOTE | 2022-04-03 19:37 | XRay Report ---
XR chest 1V portable CLINICAL HISTORY: weakness TECHNIQUE: Single frontal radiograph of the chest was obtained. Comparison: None available at the time of this dictation. FINDINGS: No lines and tubes are seen. Calcified aortic knob is seen. The lungs are clear. No evidence of pleur al effusion or pneumothorax. IMPRESSION: No acute chest disease. ACT 112: Negative or not required by law. Electronically signed by: Dayday Donaldson M.D. 04/03/2022 7:36 PM
[2022-04-03 19:40] LABS: Basophils # (auto) 0.02 K/uL (0-0.2); Basophils % (auto) 0.1 %; Immature Granulocytes # (auto) 0.08 K/uL (0.00-0.02); Immature Granulocytes % (auto) 0.6 %; Lymphocytes # (auto) 0.29 K/uL (1.2-3.4); Lymphocytes % (auto) 2.1 %; Monocytes # (auto) 0.23 K/uL (0.24-0.82); Monocytes % (auto) 1.7 %; Neutrophils # (auto) 13.22 K/uL (1.4-6.5); Neutrophils % (auto) 95.5 %
[2022-04-03 19:42] LABS: Alanine Aminotransferase 13 U/L (7-52); Albumin Globulin Ratio 1.3 (0.9-2); Albumin Level 3.6 gm/dl (3.4-5.0); Alkaline Phosphatase 33 U/L (34-104); Anion Gap 7 (3-11); Aspartate Aminotransferase 17 U/L (13-39); Bilirubin,Total 1.4 mg/dl (0.2-1.0); Blood Urea Nitrogen 23 mg/dl (6-23); Carbon Dioxide 30 mmol/L (21-32); Chloride 97 mmol/L (98-107); Est GFR (African American) 47.2 ml/min; Est GFR (Non-African American) 40.8 ml/min; Globulin 2.7 gm/dl (2.5-4.0); Glucose 94 mg/dl (70-99(Fasting)); Magnesium 1.5 mg/dl (1.7-2.4); Potassium 2.7 mmol/L (3.5-5.1); Sodium 134 mmol/L (136-145); Total Protein 6.3 gm/dl (6.0-8.3)
[2022-04-03 19:45] LABS: Troponin I High Sensitivity 32.1 pg/ml (0-14)
[2022-04-03] MEDS ORDERED: MAGNESIUM SULFATE / D5W 1 GM/100 ML BAG IV STA (19:49)
--- NOTE | 2022-04-03 20:01 | CT Scan Report ---
CT abd pelvis wo con CLINICAL HISTORY: vomiting, abd pain TECHNIQUE: Helical axial images of the abdomen and pelvis were obtained. Automated dose lowering tech niques and/or adjustment according to patient size were utilized for this exam. This exam was perfor med without intravenous contrast. CT DOSE: 351.97 mGy.cm COMPARISON: None available at the time of this dictation. FINDINGS: Lower chest: No acute abnormality Liver: Unremarkable. No focal lesions are seen. Gallbladder and biliary tree: Patient is status post cholecystectomy. Pneumobilia is seen. Physiologi c prominence of the common bile duct is noted. Pancreas: Unremarkable, no focal lesions. Spleen: Unremarkable. Adrenals: Nodularity is seen bilaterally. Kidneys and ureters: A few hyperdensities are seen bilaterally compatible with proteinaceous/hemorrha gic cyst, these measure up to 9 mm. Bladder: Unremarkable. Reproductive organs: Unremarkable. Bowel: Diverticulosis is seen without evidence of diverticulitis. Lymph nodes Retroperitoneal: Unremarkable. Pelvic: Unremarkable. Mesenteric: Subcentimeter lymph nodes are noted. Peritoneum: Normal. Vessels: Atherosclerotic calcifications are seen. Abdominal wall: Unremarkable. Bones: Degenerative changes in the visualized spine. IMPRESSION: 1. No acute abnormality is seen. 2. Pneumobilia may be secondary to incompetent sphincter of Jhonatan. 3. Hyperdensities in the bilateral kidneys likely represent proteinaceous or hemorrhagic cysts. If n ot previously evaluated, ultrasound can be performed. 4. Diverticulosis without diverticulitis. ACT 112: Negative or not required by law. Electronically signed by: Dayday Donaldson M.D. 04/03/2022 7:58 PM
[2022-04-03 20:11] LABS: Appearance Urine Clear (Clear); Bacteria Urine Automated 2+ (Negative); Bilirubin Urine Negative (Negative); Blood Urine Negative (Negative); Color Urine Yellow; Glucose Urine UA Negative (Negative); Ketones Urine Negative (Negative); Leukocyte Esterase Urine Trace (Negative); Nitrite Urine Negative (Negative); Protein Urine Trace (Negative); RBC Urine Automated 0-4 /hpf (0-4); Specific Gravity Urine 1.012 (1.000-1.030); Urobilinogen Urine Negative (Negative)
[2022-04-03] MEDS: POTASSIUM CHLORIDE / WTR 10 MEQ/100 ML PLCT IV SCH ×2 (20:13→22:03)
[2022-04-03] MEDS ORDERED: cefTRIAXone SODIUM 2,000 MG/70 ML BAG IV STA (20:24)
--- NOTE | 2022-04-03 20:43 | Emergency Department Note ---
Impression & Plan Vomiting, Acute upper abdominal pain, Hypomagnesemia, Acute hypokalemia, Acute UTI (urinary tract infection), Elevated troponin ED Provider Note INFORMANT: Patient ED PROVIDER(S): Yoel Parish MD CHIEF COMPLAINT: Generalized illness and nausea PLAN: Disposition: Admitted Condition: Good Outpatient prescription management: none Referral: None MEDICAL DECISION MAKING: patient presented with the complaints as noted below. She was hydrated. She was treated with IV Zofran. She had a leukocytosis on CBC. Chemistry panel revealed hypomagnesemia and hypokalemia. The patient also has a mildly elevated troponin. Urinalysis does raise some concern. She was given IV Rocephin and additional saline hydration. Further management in the hospital will be necessary. Consultation was made with Dr. Wander Ramirez of the [facility] service. Patient was evaluated in the ER for further management. Triage Nursing notes reviewed and agree them. Vital Signs: reviewed and remarkable for no significant abnormalities Differential diagnosis: Infection, dehydration, metabolic abnormality, hypo/hyperglycemia, electrolyte disturbance, anemia, hypoxia, cardiac sources, intracerebral event, toxicologic, neurologic, as well as other pathologies. Diagnostics interpreted by me: ECG: Twelve-lead ECG reveals sinus rhythm with premature supraventricular contractions and premature ventricular contractions at 82 bpm left axis deviation. Nonspecific ST abnormality present. No ST elevation. Cardiac Monitoring: Cardiac monitoring ordered by me: The patient was placed on continuous cardiac monitoring and observed. It revealed a normal sinus rhythm at 74 bpm. Imaging studies: Chest x-ray. Findings: A chest x-ray was performed and revealed no pneumothorax, effusion, infiltrate, pulmonary edema, free air under the diaphragm, or wide mediastinum. Impression: No acute disease. CT imaging of the abdomen pelvis revealed chronic findings but no evidence of acute pathology per radiology. I refer you to the EMR for further details. HPI: The patient is a 87 year old female who presents to the Emergency Room with complaints of illness. This started over the last week or so and is worsening. Noted patient was recently treated for UTI and had confusion. The patient also notes the following associated symptoms, upper abdominal pain, nausea, vomiting, difficulty urinating, generalized weakness. The patient has found no relieving factors. Current pain is rated as 6/10. Pt denies LOC, headache, fevers, chills, diaphoresis, visual changes, neck pain, chest pain, breathing difficulties, back pain, melena, hematochezia, numbness, lymphadenopathy, rash, or other complaints. ROS: See above HPI for pertinent positives & negatives. A total of 10 systems reviewed and were otherwise negative. PAST MEDICAL HISTORY:See Below , hypertension, anticoagulated, PAST SURGICAL HISTORY:See Below, cholecystectomy FAMILY HISTORY:See Below SOCIAL HISTORY:See Below, lives with family HOME MEDICATIONS:See Below ALLERGIES:See Below VITALS:See Below PHYSICAL EXAMINATION: GENERAL: Awake, alert, uncomfortable-appearing, in no distress HENT: Normocephalic, atraumatic. Oropharynx unremarkable. EYES: Normal conjunctiva. Sclera non-icteric. NECK: Inspection normal. Non-tender. Supple. No nuchal rigidity. FROM. No masses. RESPIRATORY: Clear to auscultation. No wheezes. No rales. Normal respiratory effort. CARDIAC: Normal rate. Normal rhythm. No murmurs. No rubs. Extremities warm and well perfused. Pulses equal. No JVD. GI: Soft, non-distended. Upper tenderness to palpation. No rebound or guarding. No masses. RECTAL: Deferred. MUSCULOSKELETAL: Atraumatic. Chest examination reveals no tenderness. The back is symmetrical on inspection without obvious abnormality. No joint edema. LOWER EXTREMITIES: Calves are equal size bilaterally and non-tender. 1+ bilateral edema. No discoloration. NEURO: Normal sensorium. Generally weak but no focal sensory or motor deficits noted. SKIN: No rash or jaundice noted. Yoel Parish MD Past Med/Surg History Medical History (Updated 04/03/22 @ 21:29 by Lory Meneses PA-C) Dementia GERD (gastroesophageal reflux disease) Hypertension Neuropathy Paroxysmal A-fib Social History Smoking Status: Former smoker Second Hand Exposure: No; Hx Alcohol Use: No Hx Substance Use: No Preferred Language: Iraqi Communication Ability: Effective Caponizer Required: No Beliefs That Will Affect Care: None Current Living Situation: Spouse Current Living Situation Comment: Lives with Other Information That Helps Us Care for You: No Feels Safe at Home: No Is there a partner from a previous relationship who is making you feel unsafe now?: No Any Concerns about Your Family Situation: Yes (Pt. states is verbally abusive) Would You Like to Speak to Someone About Your Situation: No Safety Concerns: Afraid for Others in Home Assistive Devices: Glasses and Walker Allergies Allergies Allergy/AdvReac Type Severity Reaction Status Date / Time nitrofurantoin Allergy Unknown Unverified 04/03/22 21:53 [From Macrobid] amoxicillin [From Augmentin] AdvReac Mild Diarrhea Unverified 04/03/22 21:53 clavulanic acid AdvReac Mild Diarrhea Unverified 04/03/22 21:53 [From Augmentin] sulfamethoxazole AdvReac Unknown Hives Unverified 04/03/22 21:53 [From Bactrim] trimethoprim [From Bactrim] AdvReac Unknown Hives Unverified 04/03/22 21:53 Home Meds Home Medications Medication Instructions Recorded Confirmed amlodipine 5 mg tablet 5 mg PO QAM 04/03/22 04/03/22 apixaban 2.5 mg tablet (Eliquis) 2.5 mg PO BID 04/03/22 04/03/22 donepezil 10 mg tablet 10 mg PO HS 04/03/22 04/03/22 furosemide 20 mg tablet 20 mg PO QAM 04/03/22 04/03/22 gabapentin 300 mg capsule 600 mg PO HS 04/03/22 04/03/22 hydralazine 100 mg tablet 100 mg PO TID 04/03/22 04/03/22 metoprolol tartrate 50 mg tablet 50 mg PO BID 04/03/22 04/03/22 omeprazole 20 mg capsule,delayed 20 mg PO QAM 04/03/22 04/03/22 release ondansetron HCl 4 mg tablet 4 mg PO Q8 PRN Nausea and nausea 04/03/22 04/03/22 prednisone 1 mg tablet 2 mg PO QAM 04/03/22 04/03/22 Results & Data (ED) Vital Signs Vital Signs - 24 hr 04/03/22 18:15 04/03/22 19:07 04/03/22 19:10 Temperature 36.8 C Temperature Source Oral Pulse Rate 85 78 Pulse Rate [Apical] 77 Pulse Rhythm [Apical] Regular Pulse Strength [Apical] Normal Respiratory Rate 18 20 20 Respiratory Effort / Characteristics Non-Labored Respiratory Depth Normal Respiratory Pattern Regular Blood Pressure 106/55 L Blood Pressure [Left Arm] 106/55 L Blood Pressure Mean 72 Blood Pressure Mean [Left Arm] 72 Blood Pressure Position [Left Arm] Lying Pulse Oximetry 95 98 97 Oxygen Delivery Method Room Air Room Air Room Air Sepsis Recent Fever Within 48 Hours No Sepsis New/Unexplained Change in Mental Status No Sepsis Action Taken by Nursing No Action Required Laboratory Data Result diagrams: 04/03/22 18:56 04/03/22 18:56 Lab Results 04/03/22 04/03/22 04/03/22 Range/Units 18:16 18:56 18:56 WBC 13.84 H (4.8-10.8) K/ul RBC 3.74 L (3.93-5.22) M/uL Hgb 11.3 L (12.0-16.0) g/dl Hct 34.2 (34.1-44.9) % MCV 91.4 (80.0-100.0) fL MCH 30.2 (25.0-34.0) pg MCHC 33.0 (32.0-36.0) g/dL RDW Std Deviation 45.4 (36.4-46.3) fL RDW Coeff of Elia 13.5 (11.5-14.5) % Plt Count 201 (130-400) K/uL MPV 10.8 (9.4-12.3) fL Immature Gran % (Auto) 0.6 % Neut % (Auto) 95.5 % Lymph % (Auto) 2.1 % [place] % (Auto) 1.7 % Eos % (Auto) 0.0 % Baso % (Auto) 0.1 % Neut # (Auto) 13.22 H (1.4-6.5) K/uL Lymph # (Auto) 0.29 L (1.2-3.4) K/uL [place] # (Auto) 0.23 L (0.24-0.82) K/uL Eos # (Auto) 0.00 (0-0.50) K/uL Baso # (Auto) 0.02 (0-0.2) K/uL Immature Gran # (Auto) 0.08 H (0.00-0.02) K/uL Sodium 134 L (136-145) mmol/L Potassium 2.7 L (3.5-5.1) mmol/L Chloride 97 L (98-107) mmol/L Carbon Dioxide 30 (21-32) mmol/L Anion Gap 7 (3-11) BUN 23 (6-23) mg/dl Creatinine 1.21 H (0.6-1.2) mg/dl Est Cr Clr Drug Dosing Not Reportable Est GFR ( Amer) 47.2 ml/min Est GFR (Non-Af Amer) 40.8 ml/min BUN/Creatinine Ratio 19.0 (10-20) Glucose 94 (70-99(Fasting)) mg/dl Calcium 9.0 (8.5-10.1) mg/dl Magnesium 1.5 L (1.7-2.4) mg/dl Total Bilirubin 1.4 H (0.2-1.0) mg/dl AST 17 (13-39) U/L ALT 13 (7-52) U/L Alkaline Phosphatase 33 L (34-104) U/L Troponin I High Sens 32.1 H (0-14) pg/ml Total Protein 6.3 (6.0-8.3) gm/dl Albumin 3.6 (3.4-5.0) gm/dl Globulin 2.7 (2.5-4.0) gm/dl Albumin/Globulin Ratio 1.3 (0.9-2) TSH (0.300-4.500) uIu/ml Urine Color Urine Appearance (Clear) Urine pH (4.5-7.5) Ur Specific [place] (1.000-1.030) Urine Protein (Negative) Urine Glucose (UA) (Negative) Urine Ketones (Negative) Urine Blood (Negative) Urine Nitrite (Negative) Urine Bilirubin (Negative) Urine Urobilinogen (Negative) Ur Leukocyte Esterase (Negative) Urine WBC (Auto) (0-5) /hpf Urine RBC (Auto) (0-4) /hpf U Hyaline Cast (Auto) (0-5) /lpf U Epithel Cells (Auto) (0-5) /lpf Urine Bacteria (Auto) (Negative) SARS-CoV-2 (PCR) NEGATIVE (Negative) 04/03/22 04/03/22 Range/Units 18:56 19:50 WBC (4.8-10.8) K/ul RBC (3.93-5.22) M/uL Hgb (12.0-16.0) g/dl Hct (34.1-44.9) % MCV (80.0-100.0) fL MCH (25.0-34.0) pg MCHC (32.0-36.0) g/dL RDW Std Deviation (36.4-46.3) fL RDW Coeff of Elia (11.5-14.5) % Plt Count (130-400) K/uL MPV (9.4-12.3) fL Immature Gran % (Auto) % Neut % (Auto) % Lymph % (Auto) % [place] % (Auto) % Eos % (Auto) % Baso % (Auto) % Neut # (Auto) (1.4-6.5) K/uL Lymph # (Auto) (1.2-3.4) K/uL [place] # (Auto) (0.24-0.82) K/uL Eos # (Auto) (0-0.50) K/uL Baso # (Auto) (0-0.2) K/uL Immature Gran # (Auto) (0.00-0.02) K/uL Sodium (136-145) mmol/L Potassium (3.5-5.1) mmol/L Chloride (98-107) mmol/L Carbon Dioxide (21-32) mmol/L Anion Gap (3-11) BUN (6-23) mg/dl Creatinine (0.6-1.2) mg/dl Est Cr Clr Drug Dosing Est GFR ( Amer) ml/min Est GFR (Non-Af Amer) ml/min BUN/Creatinine Ratio (10-20) Glucose (70-99(Fasting)) mg/dl Calcium (8.5-10.1) mg/dl Magnesium (1.7-2.4) mg/dl Total Bilirubin (0.2-1.0) mg/dl AST (13-39) U/L ALT (7-52) U/L Alkaline Phosphatase (34-104) U/L Troponin I High Sens (0-14) pg/ml Total Protein (6.0-8.3) gm/dl Albumin (3.4-5.0) gm/dl Globulin (2.5-4.0) gm/dl Albumin/Globulin Ratio (0.9-2) TSH 2.607 (0.300-4.500) uIu/ml Urine Color Yellow Urine Appearance Clear (Clear) Urine pH 5.0 (4.5-7.5) Ur Specific [place] 1.012 (1.000-1.030) Urine Protein Trace H (Negative) Urine Glucose (UA) Negative (Negative) Urine Ketones Negative (Negative) Urine Blood Negative (Negative) Urine Nitrite Negative (Negative) Urine Bilirubin Negative (Negative) Urine Urobilinogen Negative (Negative) Ur Leukocyte Esterase Trace H (Negative) Urine WBC (Auto) 5-10 H (0-5) /hpf Urine RBC (Auto) 0-4 (0-4) /hpf U Hyaline Cast (Auto) 1-5 (0-5) /lpf U Epithel Cells (Auto) 5-10 H (0-5) /lpf Urine Bacteria (Auto) 2+ H (Negative) SARS-CoV-2 (PCR) (Negative) Administered Medications Sodium Chloride (Nss 1000ml) 1,000 mls @ 125 mls/hr IV .Q8H ARLETTE Stop: 04/04/22 02:29 Last Admin: 04/03/22 19:11 Dose: 125 mls/hr Documented By: JENNIFER Discontinued Medications Acetaminophen (Ofirmev) 1,000 mg in 100 mls @ 400 mls/hr IV NOW STA Stop: 04/03/22 18:41 Last Infusion: 04/03/22 20:30 Dose: 0 mls/hr Documented By: Admin: 04/03/22 20:12 Dose: 400 mls/hr Documented By: JENNIFER Magnesium Sulfate/Dextrose (Magnesium Sulfate / D5w) 1 gm in 100 mls @ 100 mls/hr IV NOW STA Stop: 04/03/22 20:48 Last Infusion: 04/03/22 21:31 Dose: 0 mls/hr Documented By: RSCitlaly Admin: 04/03/22 20:12 Dose: 100 mls/hr Documented By: RSCitlaly Potassium Chloride (K Kuldip / Wtr) 10 meq in 100 mls @ 100 mls/hr IV Q1H ARLETTE; Protocol Stop: 04/03/22 21:59 Last Infusion: 04/03/22 23:25 Dose: 0 mls/hr Documented By: Admin: 04/03/22 22:03 Dose: 100 mls/hr Documented By: RSCitlaly Infusion: 04/03/22 21:17 Dose: 0 mls/hr Documented By: RSCitlaly Admin: 04/03/22 20:13 Dose: 100 mls/hr Documented By: JENNIFER Ceftriaxone Sodium (Rocephin) 2,000 mg in 70 mls @ 140 mls/hr IV NOW STA Stop: 04/03/22 20:53 Last Infusion: 04/03/22 21:45 Dose: 0 mls/hr Documented By: Admin: 04/03/22 21:17 Dose: 140 mls/hr Documented By: JENNIFER Miscellaneous Information (Patient's Allergy Info Needs Entered) 1 each N/A NOW STA Stop: 04/03/22 21:28 Last Admin: 04/03/22 23:23 Dose: 1 each Documented By: MART Ondansetron HCl (Ondansetron Inj 2 Mg/Ml 2 Ml Vial) 4 mg IV NOW STA Stop: 04/03/22 18:28 Last Admin: 04/03/22 20:11 Dose: 4 mg Documented By: JENNIFER Imaging Data Radiologist's Impression: Abdomen/Pelvis CT 04/03/22 18:27 CT abd pelvis wo con CLINICAL HISTORY: vomiting, abd pain TECHNIQUE: Helical axial images of the abdomen and pelvis were obtained. Automated dose lowering techniques and/or adjustment according to patient size were utilized for this exam. This exam was performed without intravenous contrast. CT DOSE: 351.97 mGy.cm COMPARISON: None available at the time of this dictation. FINDINGS: Lower chest: No acute abnormality Liver: Unremarkable. No focal lesions are seen. Gallbladder and biliary tree: Patient is status post cholecystectomy. Pneumobilia is seen. Physiologic prominence of the common bile duct is noted. Pancreas: Unremarkable, no focal lesions. Spleen: Unremarkable. Adrenals: Nodularity is seen bilaterally. Kidneys and ureters: A few hyperdensities are seen bilaterally compatible with proteinaceous/hemorrhagic cyst, these measure up to 9 mm. Bladder: Unremarkable. Reproductive organs: Unremarkable. Bowel: Diverticulosis is seen without evidence of diverticulitis. Lymph nodes Retroperitoneal: Unremarkable. Pelvic: Unremarkable. Mesenteric: Subcentimeter lymph nodes are noted. Peritoneum: Normal. Vessels: Atherosclerotic calcifications are seen. Abdominal wall: Unremarkable. Bones: Degenerative changes in the visualized spine. IMPRESSION: 1. No acute abnormality is seen. 2. Pneumobilia may be secondary to incompetent sphincter of Jhonatan. 3. Hyperdensities in the bilateral kidneys likely represent proteinaceous or hemorrhagic cysts. If not previously evaluated, ultrasound can be performed. 4. Diverticulosis without diverticulitis. ACT 112: Negative or not required by law. Electronically signed by: Dayday Donaldson M.D. 04/03/2022 7:58 PM Chest X-Ray 04/03/22 18:28 XR chest 1V portable CLINICAL HISTORY: weakness TECHNIQUE: Single frontal radiograph of the chest was obtained. Comparison: None available at the time of this dictation. FINDINGS: No lines and tubes are seen. Calcified aortic knob is seen. The lungs are clear. No evidence of pleural effusion or pneumothorax. IMPRESSION: No acute chest disease. ACT 112: Negative or not required by law. Electronically signed by: Dayday Donaldson M.D. 04/03/2022 7:36 PM Discharge Plan Visit Data Chief Complaint: Illness ED Provider: Yoel Parish Discharge Problem: Vomiting, Acute upper abdominal pain, Hypomagnesemia, Acute hypokalemia, Acute UTI (urinary tract infection), Elevated troponin Patient Disposition: Admitted As Inpatient Discharge Instructions Interventions: ED Discharge Assessment Last Done: 04/03/22 23:20
--- NOTE | 2022-04-03 20:49 | History & Physical Report ---
Date of Service April 03, 2022 Assessment & Plan (1) UTI (urinary tract infection): Plan: - Patient is complaining of abdominal pain, nausea, vomiting and UA with some evidence of infection. - She was treated 1.5 months ago for UTI as outpatient with nitrofurantoin. Reportedly symptoms improved but were not resolved so course was extended. - She has a history of recurrent UTIs. Limited access to prior urine cultures as she sees a [facility] PCP and has not been admitted to our facility previously. - Will start on Rocephin, urine culture. - Will provide maintenance IVF for possible FEI, however patient has reported history of CKD, unsure what her baseline creatinine is. -CT A/P: Hyperdensities in the bilateral kidneys likely represent proteinaceous or hemorrhagic cysts. If not previously evaluated, ultrasound can be performed. - We will order renal ultrasound to follow-up on cysts noted on CT A/P. (2) Elevated troponin: Plan: - Troponin minimally elevated to 32, patient without any complaints of chest pain, shortness of breath, palpitations. - EKG: NSR with PVCs, LVH, nospecific ST, T wave abnormalities. - Trend troponin, obtain echo in AM. - Suspect likely demand/chronically elevated in setting of CKD, paroxysmal A. fib. (3) Acute hypokalemia: Plan: - 2.7 on admit, replete and recheck with a.m. labs. (4) Hypomagnesemia: Plan: - 1.5, replete and recheck on a.m. labs. (5) Paroxysmal A-fib: Plan: - NSR with PVCs on admit. - Continue metoprolol 50 mg twice daily. - Continue Eliquis 2.5 mg twice daily. (6) Neuropathy: Plan: - Continue gabapentin 300 mg 3 times daily. (7) GERD (gastroesophageal reflux disease): Plan: - Continue PPI. - Complaints of epigastric/abdominal pain, however no dark tarry stools or BRBPR. Plan - Admit to med telemetry. - SCDs, continue Eliquis for VTE PPx. - Full code. History of Present Illness Chief Complaint: Abdominal pain and vomiting at home Primary Care Provider: Irene Thomas 87-year-old female with past medical history significant for hypertension, hyperlipidemia, paroxysmal A. fib, aortic stenosis, CKD3, neuropathy, recurrent UTIs, dementia, GERD who is presenting today from home with complaints of nausea, vomiting, and abdominal pain. She states for a week she has been nauseous, has vomited once today, and has low abdominal pain and burning with urination. She denies noticing any fever or chills, blood in her urine, or that she is peeing more than usual. She states she often gets UTIs and thought this might be the case. She does not have any other complaints, specifically denies chest pain, shortness of breath, or palpitations. On arrival to the ED, she is low normotensive 106/55, otherwise vital signs are within normal limits, stable. Labs significant for elevated WBC 13.84 with left shift. Potassium low at 2.7, magnesium low at 1.5. Creatinine is 1.21, no baseline labs for reference but does have known CKD stage III. Her bilirubin is 1.4, again no baseline labs for reference. AST, ALT, alk phos all within normal limits. Her troponin is mildly elevated at 32.1. UA does appear somewhat infected with 510 WBCs, trace leukoesterase, 2+ bacteria. CT A/P shows hypodensities in the bilateral kidneys, likely representing pro teinaceous or hemorrhagic cyst. There is pneumobilia, thought to be secondary to incompetent sphincter of Oddi. Diverticulosis without diverticulitis. No other acute abnormalities are seen. CXR without any acute chest process. Allergies Allergy/AdvReac Type Severity Reaction Status Date / Time nitrofurantoin Allergy Unknown Unverified 04/03/22 21:53 [From Macrobid] amoxicillin [From Augmentin] AdvReac Mild Diarrhea Unverified 04/03/22 21:53 clavulanic acid AdvReac Mild Diarrhea Unverified 04/03/22 21:53 [From Augmentin] sulfamethoxazole AdvReac Unknown Hives Unverified 04/03/22 21:53 [From Bactrim] trimethoprim [From Bactrim] AdvReac Unknown Hives Unverified 04/03/22 21:53 Home Medications Medication Instructions Recorded Confirmed Type amlodipine 5 mg tablet 5 mg PO QAM 04/03/22 04/03/22 History apixaban 2.5 mg tablet (Eliquis) 2.5 mg PO BID 04/03/22 04/03/22 History donepezil 10 mg tablet 10 mg PO HS 04/03/22 04/03/22 History furosemide 20 mg tablet 20 mg PO QAM 04/03/22 04/03/22 History gabapentin 300 mg capsule 600 mg PO HS 04/03/22 04/03/22 History hydralazine 100 mg tablet 100 mg PO TID 04/03/22 04/03/22 History metoprolol tartrate 50 mg tablet 50 mg PO BID 04/03/22 04/03/22 History omeprazole 20 mg capsule,delayed 20 mg PO QAM 04/03/22 04/03/22 History release ondansetron HCl 4 mg tablet 4 mg PO Q8 PRN Nausea and nausea 04/03/22 04/03/22 History prednisone 1 mg tablet 2 mg PO QAM 04/03/22 04/03/22 History Past Med/Surg History Medical History (Updated 04/03/22 @ 21:29 by Lory Meneses PA-C) Dementia GERD (gastroesophageal reflux disease) Hypertension Neuropathy Paroxysmal A-fib Social History Smoking Status: Former smoker Second Hand Exposure: No; Hx Alcohol Use: No Hx Substance Use: No Preferred Language: Cypriot Communication Ability: Effective Veterinary Assistant Required: No Beliefs That Will Affect Care: None marital status: Current Living Situation: Spouse Current Living Situation Comment: Lives with Other Information That Helps Us Care for You: No Feels Safe at Home: No Is there a partner from a previous relationship who is making you feel unsafe now?: No Any Concerns about Your Family Situation: Yes (Pt. states is verbally abusive) Would You Like to Speak to Someone About Your Situation: No Safety Concerns: Afraid for Others in Home Assistive Devices: Cane and Wheelchair Review of Systems Review of Systems: Constitutional: No fever/chills, weakness, fatigue, myalgias, anorexia, night sweats Eyes: No diplopia, no worsening or blurred vision ENT: normal hearing, no trouble swallowing Respiratory: No cough, sputum, dyspnea at rest or on exertion Cardiovascular: No chest pain, tightness or palpitations Abdomen: Abdominal pain, nausea, 1 episode of vomiting today; no diarrhea, constipation, melena, hematochezia : Denies dysuria, hematuria, increased urgency/frequency, urinary retention Musculoskeletal: No joint pain, calf pain, swelling Neurologic: No weakness, numbness/tingling, or balance problems Psychiatric: No anxiety or depression Skin: No rash or itch Physical Exam Physical Exam: General: awake, alert, no apparent distress Head: Normocephalic, atraumatic ENT: PERRL, EOMI, no pharyngeal exudate, mucous membranes moist Chest: Clear to auscultation, on room air, no adventitious breath sounds Cardiac: Regular rate and rhythm, systolic murmur consistent with aortic stenosis; no JVD, normal peripheral pulses, good capillary refill Abdominal: NABS x 4 quadrants, soft, nontender to palpation, no rebound, guarding or tenderness Extremities: 2+ bilateral peripheral edema; otherwise normal inspection, calfs nontender to palpation Psych: Normal mood and affect Neuro: AAO x 3, strength intact bilaterally and rated 5/5, no motor deficits, speech is clear, no peripheral sensory deficits Skin: no rash or erythema Results & Data Results & Data ([facility]) Vital Signs (Past 12 Hours) Vital Signs Temp Pulse Pulse Resp BP BP Pulse Ox 04/03/22 19:10 77 20 106/55 L 97 04/03/22 19:07 78 20 98 04/03/22 18:15 36.8 C 85 18 106/55 L 95 O2 Del Method 04/03/22 19:10 Room Air 04/03/22 19:07 Room Air 04/03/22 18:15 Room Air Laboratory Results Abnormal lab results 04/03/22 04/03/22 04/03/22 Range/Units 18:56 18:56 19:50 WBC 13.84 H (4.8-10.8) K/ul RBC 3.74 L (3.93-5.22) M/uL Hgb 11.3 L (12.0-16.0) g/dl Neut # (Auto) 13.22 H (1.4-6.5) K/uL Lymph # (Auto) 0.29 L (1.2-3.4) K/uL Beauregard # (Auto) 0.23 L (0.24-0.82) K/uL Immature Gran # (Auto) 0.08 H (0.00-0.02) K/uL Sodium 134 L (136-145) mmol/L Potassium 2.7 L (3.5-5.1) mmol/L Chloride 97 L (98-107) mmol/L Creatinine 1.21 H (0.6-1.2) mg/dl Magnesium 1.5 L (1.7-2.4) mg/dl Total Bilirubin 1.4 H (0.2-1.0) mg/dl Alkaline Phosphatase 33 L (34-104) U/L Troponin I High Sens 32.1 H (0-14) pg/ml Urine Protein Trace H (Negative) Ur Leukocyte Esterase Trace H (Negative) Urine WBC (Auto) 5-10 H (0-5) /hpf U Epithel Cells (Auto) 5-10 H (0-5) /lpf Urine Bacteria (Auto) 2+ H (Negative) Diagnostic Findings Abdomen/Pelvis CT 04/03/22 18:27 CT abd pelvis wo con CLINICAL HISTORY: vomiting, abd pain TECHNIQUE: Helical axial images of the abdomen and pelvis were obtained. Automated dose lowering techniques and/or adjustment according to patient size were utilized for this exam. This exam was performed without intravenous contrast. CT DOSE: 351.97 mGy.cm COMPARISON: None available at the time of this dictation. FINDINGS: Lower chest: No acute abnormality Liver: Unremarkable. No focal lesions are seen. Gallbladder and biliary tree: Patient is status post cholecystectomy. Pneumobilia is seen. Physiologic prominence of the common bile duct is noted. Pancreas: Unremarkable, no focal lesions. Spleen: Unremarkable. Adrenals: Nodularity is seen bilaterally. Kidneys and ureters: A few hyperdensities are seen bilaterally compatible with proteinaceous/hemorrhagic cyst, these measure up to 9 mm. Bladder: Unremarkable. Reproductive organs: Unremarkable. Bowel: Diverticulosis is seen without evidence of diverticulitis. Lymph nodes Retroperitoneal: Unremarkable. Pelvic: Unremarkable. Mesenteric: Subcentimeter lymph nodes are noted. Peritoneum: Normal. Vessels: Atherosclerotic calcifications are seen. Abdominal wall: Unremarkable. Bones: Degenerative changes in the visualized spine. IMPRESSION: 1. No acute abnormality is seen. 2. Pneumobilia may be secondary to incompetent sphincter of Jhonatan. 3. Hyperdensities in the bilateral kidneys likely represent proteinaceous or hemorrhagic cysts. If not previously evaluated, ultrasound can be performed. 4. Diverticulosis without diverticulitis. ACT 112: Negative or not required by law. Electronically signed by: Dayday Donaldson M.D. 04/03/2022 7:58 PM Chest X-Ray 04/03/22 18:28 XR chest 1V portable CLINICAL HISTORY: weakness TECHNIQUE: Single frontal radiograph of the chest was obtained. Comparison: None available at the time of this dictation. FINDINGS: No lines and tubes are seen. Calcified aortic knob is seen. The lungs are clear. No evidence of pleural effusion or pneumothorax. IMPRESSION: No acute chest disease. ACT 112: Negative or not required by law. Electronically signed by: Dayday Donaldson M.D. 04/03/2022 7:36 PM ECG Additional Comments: Sinus rhythm with Premature supraventricular complexes and Premature ventricular complexes or Fusion complexes Left axis deviation Minimal voltage criteria for LVH, may be normal variant Nonspecific ST and T wave abnormality Abnormal ECG No previous ECGs available. Code Status & VTE Plan Code Status Full Code. Supervising Physician Co-Signing Physician Notes Attending addendum: I have physically seen this patient, have supervised the RAFA's activities, and agree with the H&P unless as otherwise noted. Assessment and Plan: Urinary tract infection- Follow urine culture and sensitivity previous UTI 1 and half months ago treated with extended course of nitrofurantoin Empiric ceftriaxone Continue IV fluids CT with bilateral proteinaceous or hemorrhagic cyst in the kidneys Order renal ultrasound for follow-up Elevated troponin/paroxysmal atrial fibrillation/hypertension- Troponin 32 on admission The patient will be admitted to telemetry for serial cardiac enzymes, serial EKG's, cardiac rhythm monitoring and a 2-D echocardiogram with Dopplers. Continue metoprolol and Eliquis Likely type II demand issue Hypokalemia- 2.7 on admission Replete and recheck laboratories in a.m. Hypomagnesemia- Magnesium 1.5 on admission Replete and recheck in a.m. Remaining orders and notations as noted PG Care Time/CCT Total # of Minutes Spent Total Time Spent with Patient: Total time spent is greater than 50% in coordination of care (as documented) at patient's floor/unit and/or counseling patient: Coding Level of Care Code 99096 Initial Inpt Care Lvl 3 Diagnoses UTI (urinary tract infection) N39.0 Elevated troponin R77.8 Acute hypokalemia E87.6 Hypomagnesemia E83.42 Paroxysmal A-fib I48.0 Neuropathy G62.9 GERD (gastroesophageal reflux disease) K21.9
[2022-04-03] MEDS ORDERED: Patient's ALLERGY Info needs ENTERED STA (21:27)
[2022-04-03] MEDS ORDERED: MAGNESIUM SULFATE / D5W 1 GM/100 ML BAG IV SCH (21:30)
[2022-04-03] MEDS ORDERED: POTASSIUM CHLORIDE CRTAB 20 MEQ TABCR PO STA (21:31)
[2022-04-03] MEDS ORDERED: ALUMINUM/MAGNESIUM SUSP 30 ML UDC PO PRN (23:21)
[2022-04-03] MEDS ORDERED: ONDANSETRON INJ 2 MG/ML 2 ML VIAL IV PRN (23:21)
[2022-04-03] MEDS ORDERED: GABAPENTIN 300 MG CAP PO SCH (23:21)
[2022-04-03] MEDS ORDERED: POLYETHYLENE (MIRALAX) 17 GM PACK PO PRN (23:21)
[2022-04-04] MEDS: MAGNESIUM SULFATE / D5W 1 GM/100 ML BAG IV SCH ×2 (00:50→03:18)
[2022-04-04] MEDS: LACTATED RINGER'S 1,000 ML IV SCH ×3 (00:51→16:08)
[2022-04-04] MEDS: ACETAMINOPHEN 325 MG TAB PO PRN ×2 (01:19→09:32)
[2022-04-04] MEDS: GABAPENTIN 600 MG TAB PO SCH ×2 (01:19→20:18)
[2022-04-04 03:29] LABS: Hematocrit (blood only) 28.8 % (34.1-44.9); Hemoglobin 9.6 g/dl (12.0-16.0); Mean Corpuscular Hemoglobin 30.9 pg (25.0-34.0); Mean Corpuscular Hgb Conc 33.3 g/dL (32.0-36.0); Mean Corpuscular Volume 92.6 fL (80.0-100.0); Mean Platelet Volume 10.4 fL (9.4-12.3); Platelet Count 151 K/uL (130-400); RDW Coefficient of Variation 13.6 % (11.5-14.5); RDW Standard Deviation 46.3 fL (36.4-46.3); Red Blood Count 3.11 M/uL (3.93-5.22); White Blood Count 15.95 K/ul (4.8-10.8)
[2022-04-04 03:48] LABS: Basophils # (auto) 0.03 K/uL (0-0.2); Basophils % (auto) 0.2 %; Eosinophils # (auto) 0.01 K/uL (0-0.50); Eosinophils % (auto) 0.1 %; Immature Granulocytes # (auto) 0.05 K/uL (0.00-0.02); Immature Granulocytes % (auto) 0.3 %; Lymphocytes % (auto) 2.5 %; Monocytes # (auto) 0.93 K/uL (0.24-0.82); Monocytes % (auto) 5.8 %; Neutrophils # (auto) 14.53 K/uL (1.4-6.5); Neutrophils % (auto) 91.1 %
[2022-04-04 03:53] LABS: Calcium 7.7 mg/dl (8.5-10.1); Creatinine Clr Calc Pharmacy 26.9 ml/min; Est GFR (Non-African American) 45.7 ml/min; Magnesium 2.5 mg/dl (1.7-2.4)
--- NOTE | 2022-04-04 07:57 | Hospitalist Progress Note ---
Date of Service April 04, 2022 Assessment & Plan (1) UTI (urinary tract infection): Plan: Pt is a 87 yo female with PMH of CKD, GERD, Afib, and neuropathy admitted to the hospital for nausea and vomiting x1 week. Acute UTI w/ hx of recurrent UTI - UA showed 2+ bacteria, trace leuk esterase - urine culture showed probable enterococcus- awaiting sensitivities - originally given dose of ceftriaxone in ER with plan to continue this at admi ssion - urine culture from February showed E. coli and enterococcus susceptible to nitrofurantoin and ampicillin - nitrofurantoin x10 days tried outpatient, switched ceftriaxone to ampicillin 1000 mg q12hr Elevated troponin - first troponin was 32.1 which jumped to 95.9, but then stabilized at 97.8 - pt denying chest pain, EKG showed NSR - echo showed EF 60-65% with no wall motion abnormalities with moderate aortic stenosis - most likely d/t demand ischemia from probable infectious process Hypokalemia - upon admission, 2.7, repleted - AM labs today showed 3.0 - repleted with 10 meq x4 bags - recheck w/ AM labs Hypomagnesium - admission labs showed 1.5, repleted - AM labs showed 2.5 - stable, recheck with AM labs HTN - pt currently on metoprolol 50 mg BID, hydralazine 100 mg TID, amlodipine 5 mg qAM, and lasix 20 mg daily - BP running soft 90s/50s, assume d/t dehydration from infection - hold lasix Dementia - per family, pt seems more confused than baseline - however, family does endorse a steady decline over the past few months (2) Elevated troponin: (3) Hypertension: (4) Dementia: (5) Acute hypokalemia: (6) Hypomagnesemia: Plan FEN: 40 meq K, heart healthy diet, LR at 125 mL/hr Code: full DVT: SCDs Dispo: med/surg Admission and Anticipated Discharge Date Admission Date: April 03, 2022 Supervising Physician Co-Signing Physician Notes I personally examined the patient and verified all segundo points of history and exam, discussed case, and agree with decision making with Dr Daugherty No meaningful HPI review of systems whenever I see hersound asleep. Case discussed with resident physician in depth Vitals noted, resting comfortably no apparent distress. Breathing unlabored no accessory muscle use good effort. Skin shows no rashes no pallor or icterus. Neuro without focal deficits at rest no lateralizing signs UTI with sepsis present on admissionapparently multidrug-resistant Enterococcus per outpatient culture resultswas treated with Macrobid, and is hard to tell with her age whether or not it might of not been effectivewas on Rocephin here, but given that it was a multidrug-resistant Enterococcus, and likely failed outpatient treatment, for now have switched to ampicillin to cover based on her prior culture results and will follow current cultures. Continue supportive care Elevated troponindemand ischemia. Echo reassuring Hypertensionsomewhat hypotensivealthough I suspect given her overall clinical presentation is probably more from dehydration than any type of severe sepsis septic shockparticularly given that she is not tachycardic, and her creatinine is not markedly elevated. Continue gentle hydration (can bolus if necessary but no clear need at this time), and hold some of her antihypertensives DVT prophylaxisanticoagulated on apixaban otherwise as above Subjective 04/03/2022: Pt alert and conversational when I saw her at bedside. Her son, , and [id number] were also in the room. HPI is vague and somewhat unreliable d/t pt's dementia. She endorses that she has been not feeling well for "some time" but did not give me a specific time frame. She has vomited some recently. She does endorse urinary frequency and burning with urination but unsure of those are current symptoms or symptoms from the past as pt has had multiple previous UTIs (last being middle of February). Pt denies chest pain and SOB. She does endorse some back pain but says this is chronic for her. Pt's explains that she fell a few years ago and crushed some of her ribs and that has left this residual pain. The family also endorses that her dementia has been "progressively declining over the last few months." Physical Exam Constitutional: NAD. Vitals WNL. Eyes: no conjunctival abnormality Respiratory: CTA bilaterally. No rhonchi, wheezing, or crackles. Non labored breathing. Cardiovascular: RRR. No murmur noted. No LL edema. Gastrointestinal (Abdomen): Nontender, +BS. No masses noted. Skin: no rashes, warm and dry Psychiatric: Alert. Mood and affect congruent. Results & Data Results & Data ([facility]) Vital Signs (Past 12 Hours) Vital Signs Temp Pulse Pulse Pulse Resp BP Pulse Ox 04/04/22 07:00 64 04/04/22 07:00 36.5 C 65 20 101/62 98 04/04/22 05:03 82 20 92/53 L 97 04/04/22 02:50 37.2 C 92 H 16 85/45 L 96 04/04/22 00:31 71 04/03/22 23:06 36.8 C 74 20 136/67 97 04/03/22 23:40 36.8 C 74 18 136/67 97 04/03/22 22:00 68 18 142/48 H 99 O2 Del Method O2 Flow Rate 04/04/22 07:00 04/04/22 07:00 Nasal Cannula 2 04/04/22 05:03 Nasal Cannula 2 04/04/22 02:50 Nasal Cannula 2 04/04/22 00:31 04/03/22 23:06 2 04/03/22 23:40 Nasal Cannula 2 04/03/22 22:00 Nasal Cannula 2 Resident Activity Tracking Resident Involvement: Resident Care Provided Care Provided: Adult Hospital Medicine
[2022-04-04] MEDS: POTASSIUM CHLORIDE / WTR 10 MEQ/100 ML PLCT IV SCH ×4 (08:42→12:51)
[2022-04-04] MEDS ORDERED: cefTRIAXone SODIUM 1,000 MG in DEXTROSE 5% 50 ML IV SCH (09:00)
[2022-04-04] MEDS: amLODIPine BESYLATE 5 MG TAB PO SCH (09:25)
[2022-04-04] MEDS: hydrALAZINE TAB 50 MG TAB PO SCH ×2 (09:25→13:53)
[2022-04-04] MEDS: FUROSEMIDE 20 MG TAB PO SCH (09:26)
[2022-04-04] MEDS: PANTOprazole 40 MG TAB PO SCH (09:27)
[2022-04-04] MEDS: predniSONE 1 MG TAB PO SCH (09:27)
[2022-04-04] MEDS: APIXABAN 2.5 MG TAB PO SCH ×2 (09:27→20:17)
[2022-04-04] MEDS: METOPROLOL TARTRATE 50 MG TAB PO SCH ×2 (09:27→20:18)
--- NOTE | 2022-04-04 09:47 | Ultrasound Report ---
US renal/blad retro comp HISTORY: 87 years-old Female follow up renal cysts on CT follow-up study in a patient with renal cys ts COMPARISON: CT abdomen and pelvis 04/03/2022 TECHNIQUE: Multiple real-time sonographic images of the kidneys and urinary bladder were obtained ass essing grayscale appearance and color flow FINDINGS: The right kidney measures 8.8 cm in length and demonstrates no renal calculi or hydronephrosis. Corti paris medullary differentiation preserved. 8 mm hypoechoic focus of the superior pole right kidney sugg estive of a probable cyst. No solid renal mass lesions identified. The left kidney measures 8.9 cm in length and demonstrates no renal calculi or hydronephrosis. No gabo id renal mass lesions are identified. Renal sinus cysts of the left kidney measure up to 1.6 cm. 7 mm mildly complex cyst of the interpolar left kidney. IMPRESSION: 1. No renal calculi or hydronephrosis. 2. Mildly atrophic kidneys. 3. Mildly complex cysts of the kidneys. No solid renal mass lesions identified. ACT 112: Negative or not required by law. The above report was generated using voice recognition software. It may contain grammatical, syntax o r spelling errors. Electronically signed by: Tucker Lambert M.D. 04/04/2022 9:46 AM
--- NOTE | 2022-04-04 11:49 | XCELERA ---
[id number]
[2022-04-04] MEDS ORDERED: AMPICILLIN SOD 1 GM VIAL IV SCH (14:30)
[2022-04-04] MEDS: AMPICILLIN 1,000 MG in SODIUM CHLORIDE 0.9% 50 ML IV SCH (15:45)
[2022-04-04] MEDS ORDERED: AMPICILLIN 2,000 MG in SODIUM CHLOR 0.9% AD-VAN 50 ML IV SCH (16:00)
--- NOTE | 2022-04-04 18:04 | Billing Data ---
Date of Service April 04, 2022 Coding Level of Care Code 50583 Initial Inpt Care Lvl 3
[2022-04-05] MEDS: LACTATED RINGER'S 1,000 ML IV SCH ×3 (00:04→15:44)
[2022-04-05] MEDS: AMPICILLIN 1,000 MG in SODIUM CHLORIDE 0.9% 50 ML IV SCH ×3 (03:50→21:23)
--- NOTE | 2022-04-05 06:29 | Electrocardiogram Report ---
Test Reason : Blood Pressure : / mmHG Vent. Rate : 082 BPM Atrial Rate : 082 BPM P-R Int : 130 ms QRS Dur : 084 ms QT Int : 448 ms P-R-T Axes : 000 -39 -05 degrees QTc Int : 523 ms Sinus rhythm with Premature supraventricular complexes and Premature ventricular complexes or Fusion complexes Left axis deviation Minimal voltage criteria for LVH, may be normal variant Nonspecific ST and T wave abnormality Prolonged QT Abnormal ECG No previous ECGs available Confirmed by Devin Zamora ([id number]) on 04/05/2022 6:29:35 AM Referred By: REFERRED SELF Confirmed By:Devin Zamora
--- NOTE | 2022-04-05 06:57 | Hospitalist Progress Note ---
Date of Service April 05, 2022 Assessment & Plan (1) UTI (urinary tract infection): Plan: Pt is a 87 yo female with PMH of CKD, GERD, Afib, and neuropathy admitted to the hospital for nausea and vomiting x1 week. Acute UTI w/ hx of recurrent UTI - UA showed 2+ bacteria, trace leuk esterase - urine culture showed probable enterococcus- awaiting sensitivities - originally given dose of ceftriaxone in ER with plan to continue this at admi ssion - urine culture from February showed E. coli and enterococcus susceptible to nitrofurantoin and ampicillin - nitrofurantoin x10 days tried outpatient, switched ceftriaxone to ampicillin 1000 mg q8hr - pt endorses upset stomach and has some diarrhea in the past with penicillins- given probiotic - plan to d/c home on amoxicillin 500 mg BID pending sensitivities for a total ABX course of 7 days Renal cysts - seen on CTAP 04/03 as hyperdensities in bilateral kidneys (most likely proteinaceous or hemorrhagic cysts) - renal US showed complex cysts of the kidneys, no solid lesions - benign cysts vs. remnants of pyelo vs. ? - recommend f/u US in 2-3 months Elevated troponin - first troponin was 32.1 which jumped to 95.9, but then stabilized at 97.8 - pt denying chest pain, EKG showed NSR - echo showed EF 60-65% with no wall motion abnormalities with moderate aortic stenosis - most likely d/t demand ischemia from probable infectious process Hypokalemia - upon admission, 2.7, repleted - AM labs 04/04 showed 3.0, repleted with 10 meq x4 bags - K 3.9 this AM Hypomagnesium - admission labs showed 1.5, repleted - AM labs showed 2.5 04/04 - stable HTN - pt currently on metoprolol 50 mg BID, holding hydralazine 100 mg TID, amlodipine 5 mg qAM, and lasix 20 mg daily - BP running soft 90s/50s on 04/04, assume d/t dehydration from infection - BP improved 04/05 Dementia - per family, pt seems more confused than baseline - however, family does endorse a steady decline over the past few months (2) Elevated troponin: (3) Hypertension: (4) Dementia: (5) Acute hypokalemia: (6) Hypomagnesemia: (7) Renal cyst: Plan FEN: heart healthy diet, LR at 125 mL/hr Code: full DVT: SCDs Dispo: med/surg today, plan to d/c home tomorrow pending sensitivities. Pt's family has well-coordinated care schedule for her including family help and home health nurses Admission and Anticipated Discharge Date Admission Date: April 03, 2022 Supervising Physician Co-Signing Physician Notes I personally examined the patient and verified all segundo points of history and exam, discussed case, and agree with decision making with Dr Daugherty confused but seems to be at baseline, family presentextensive discussions. Updated the best my ability and to their satisfaction. Vitals noted, pleasantly confusedseems to be her baseline. HEENT normocephalic atraumatic mucous membranes moist. Breathing unlabored no accessory muscle use good effort. Skin shows no rashes no pallor or icterus. Neuro without focal deficits. UTI with sepsis present on admissionapparently multidrug-resistant Enterococcus per outpatient culture resultswas treated with Macrobid, and is hard to tell with her age whether or not it might of not been effectivewas on Rocephin here, but given that it was a multidrug-resistant Enterococcus, and likely failed outpatient treatment, continue ampicillin until current sensitivities are back. Then likely p.o. antibiotics at home Elevated troponindemand ischemia. Echo reassuring Hypertensionimproved off of her antihypertensives DVT prophylaxisanticoagulated on apixaban otherwise as above Dispositionfamily cares for her and has a good caregiving system set upthey feel comfortable taking her home in her current conditionsimply awaiting sensitivities to be able to reliably transition to p.o. antibiotics. Subjective Pt is a 87 yo female with PMH of CKD, GERD, Afib, and neuropathy admitted to the hospital for nausea and vomiting x1 week. Pt had just finished eating breakfast when I saw her this AM. She is feeling well overall. She does describe episodes of incontinence and frequency. There is no pain or burning with urination. Otherwise, pt feels well. Physical Exam Constitutional: NAD. Vitals WNL. Eyes: no conjunctival abnormality Respiratory: CTA bilaterally. No rhonchi, wheezing, or crackles. Non labored breathing. Cardiovascular: RRR. No murmur noted. Slight, non pitting LE edema. Gastrointestinal (Abdomen): Nontender, +BS. No masses noted. Skin: no rashes, warm and dry Psychiatric: Alert. Mood and affect congruent. Results & Data Results & Data ([facility]) Vital Signs (Past 12 Hours) Vital Signs Temp Pulse Pulse Resp BP Pulse Ox O2 Del Method 04/05/22 06:40 36.8 C 68 18 136/62 98 Room Air 04/05/22 04:19 36.8 C 69 18 148/65 H 92 Room Air 04/04/22 22:15 68 04/04/22 23:34 36.6 C 66 20 128/58 L 94 Room Air 04/04/22 19:30 36.7 C 64 18 122/69 95 Room Air Resident Activity Tracking Resident Involvement: Resident Care Provided Care Provided: Adult Hospital Medicine
[2022-04-05 07:43] LABS: Basophils # (auto) 0.01 K/uL (0-0.2); Basophils % (auto) 0.1 %; Eosinophils # (auto) 0.11 K/uL (0-0.50); Eosinophils % (auto) 1.1 %; Hematocrit (blood only) 29.1 % (34.1-44.9); Hemoglobin 9.4 g/dl (12.0-16.0); Immature Granulocytes # (auto) 0.04 K/uL (0.00-0.02); Immature Granulocytes % (auto) 0.4 %; Lymphocytes # (auto) 1.26 K/uL (1.2-3.4); Lymphocytes % (auto) 13.1 %; Mean Corpuscular Hemoglobin 30.2 pg (25.0-34.0); Mean Corpuscular Hgb Conc 32.3 g/dL (32.0-36.0); Mean Corpuscular Volume 93.6 fL (80.0-100.0); Mean Platelet Volume 11.7 fL (9.4-12.3); Monocytes # (auto) 1.14 K/uL (0.24-0.82); Monocytes % (auto) 11.9 %; Neutrophils # (auto) 7.04 K/uL (1.4-6.5); Neutrophils % (auto) 73.4 %; Platelet Count 130 K/uL (130-400); Platelet Estimate Normal (Normal); RDW Coefficient of Variation 13.9 % (11.5-14.5); RDW Standard Deviation 47.5 fL (36.4-46.3); Red Blood Count 3.11 M/uL (3.93-5.22)
[2022-04-05 07:48] LABS: BUN Creatinine Ratio 17.5 (10-20); Calcium 7.6 mg/dl (8.5-10.1); Creatinine Clr Calc Pharmacy 36.9 ml/min; Est GFR (African American) 77.9 ml/min; Est GFR (Non-African American) 67.2 ml/min; Potassium 3.9 mmol/L (3.5-5.1)
[2022-04-05] MEDS: APIXABAN 2.5 MG TAB PO SCH ×2 (08:30→21:08)
[2022-04-05] MEDS: METOPROLOL TARTRATE 50 MG TAB PO SCH ×2 (08:32→21:07)
[2022-04-05] MEDS: PANTOprazole 40 MG TAB PO SCH (08:32)
[2022-04-05] MEDS: predniSONE 1 MG TAB PO SCH (08:33)
[2022-04-05] MEDS: ADVANCED PROBIOTIC 1250 MG CAPSULE PO SCH (14:40)
--- NOTE | 2022-04-05 18:54 | Billing Data ---
Date of Service April 05, 2022 Coding Level of Care Code 69597 Subseq Hosp Care Lvl 3
--- NOTE | 2022-04-05 20:36 | Electrocardiogram Report ---
Test Reason : Blood Pressure : / mmHG Vent. Rate : 075 BPM Atrial Rate : 075 BPM P-R Int : 128 ms QRS Dur : 084 ms QT Int : 434 ms P-R-T Axes : 025 -29 011 degrees QTc Int : 484 ms Sinus rhythm with Premature atrial complexes Prolonged QT When compared with ECG of 03-APR-2022 18:36, Premature ventricular complexes are no longer Present Nonspecific T wave abnormality, improved in Inferior leads Nonspecific T wave abnormality no longer evident in Anterolateral leads Confirmed by Devin Zamora ([id number]) on 04/05/2022 8:36:08 PM Referred By: REFERRED SELF Confirmed By:Devin Zamora
[2022-04-05] MEDS: GABAPENTIN 600 MG TAB PO SCH (21:07)
[2022-04-06] MEDS: AMPICILLIN 1,000 MG in SODIUM CHLORIDE 0.9% 50 ML IV SCH ×3 (04:20→20:22)
[2022-04-06 07:04] LABS: Hematocrit (blood only) 33.5 % (34.1-44.9); Hemoglobin 10.6 g/dl (12.0-16.0); Mean Corpuscular Hemoglobin 29.9 pg (25.0-34.0); Mean Corpuscular Hgb Conc 31.6 g/dL (32.0-36.0); Mean Corpuscular Volume 94.4 fL (80.0-100.0); Platelet Count 160 K/uL (130-400); RDW Coefficient of Variation 13.6 % (11.5-14.5); RDW Standard Deviation 47.1 fL (36.4-46.3); Red Blood Count 3.55 M/uL (3.93-5.22); White Blood Count 9.82 K/ul (4.8-10.8)
[2022-04-06 07:52] LABS: BUN Creatinine Ratio 13.8 (10-20); Calcium 7.9 mg/dl (8.5-10.1); Creatinine Clr Calc Pharmacy 50.9 ml/min; Est GFR (African American) 97.4 ml/min; Potassium 3.8 mmol/L (3.5-5.1)
--- NOTE | 2022-04-06 07:57 | Hospitalist Progress Note ---
Date of Service April 06, 2022 Assessment & Plan (1) UTI (urinary tract infection): (2) Hypertension: (3) Dementia: (4) Hypomagnesemia: (5) Acute hypokalemia: (6) Elevated troponin: (7) Renal cyst: Plan Pt is a 87 yo female with PMH of CKD, GERD, Afib, and neuropathy admitted to the hospital for nausea and vomiting x1 week. She was found to have a urinary tract infection and was started on IV antibiotics. Acute UTI w/ hx of recurrent UTI - UA showed 2+ bacteria, trace leuk esterase - Urine Cx: Positive for enterococcus faceum, not sensitive to Cephalosporins, will continue IV Ampicillin inpatient per sensitivities ---Pharmacy recommending continued IV Ampicillin w/ transition to PO Amoxicillin 500 mg PO Q8h at discharge - Originally given dose of ceftriaxone in ER with plan to continue this at admission - Urine culture from February showed E. coli and enterococcus susceptible to nitrofurantoin and ampicillin - Nitrofurantoin x 10 days failed outpatient, switched ceftriaxone to ampicillin 1000 mg q8hr on admission - Pt. given probiotic d/t hx of diarrhea w/ penicillin use - No nausea, emesis, or diarrhea at present, ongoing lower abdominal discomfort - Pt given antibiotic d/t hx of nausea and diarrhea with penicillins - Plan to d/c home on amoxicillin 500 mg BID total ABX course of 7 days --- PT recommending SNF placement, CM contacted, known desire from family to take her home --- Family noted patient to be 'off' today and requested repeat PT evaluation tomorrow Renal cysts - seen on CTAP 04/03 as hyperdensities in bilateral kidneys (most likely proteinaceous or hemorrhagic cysts) - renal US showed complex cysts of the kidneys, no solid lesions - benign cysts vs. remnants of pyelo vs. ? --- recommend f/u US in 2-3 months as outpatient Elevated troponin - First troponin was 32.1 which jumped to 95.9 --> 97.8 --> 73.2 - Pt denying chest pain, EKG showed NSR - Echo showed EF 60-65% with no wall motion abnormalities with moderate aortic stenosis - Most likely d/t demand ischemia from infectious process Hypokalemia - upon admission, 2.7, repleted - K 3.8 this AM 04/06 Hypomagnesium - admission labs showed 1.5, repleted - AM labs showed 2.5 04/04 HTN - pt currently on metoprolol 50 mg BID - holding hydralazine 100 mg TID, amlodipine 5 mg qAM, and lasix 20 mg daily on admission - BP running soft 90s/50s on 04/04, assume d/t dehydration from infection - BP improved 04/05 - BP elevated 04/06, restart Amlodipine 50 mg qAM w/ now dose @ 1200 - will reassess for addition of additional BP medications in AM Dementia - per family, pt seems more confused than baseline - however, family does endorse a steady decline over the past few months FEN: heart healthy diet, LR at 125 mL/hr Code: Full DVT: SCDs Dispo: med/surg today, plan was to d/c home, PT/OT recommending SNF, plan re- evaluation 04/07 Pt's family has well-coordinated care schedule for her including family help and home health nurses Admission and Anticipated Discharge Date Admission Date: April 03, 2022 Supervising Physician Co-Signing Physician Notes I also saw the patient confirmed segundo portions of the history and physical examination. I agree with the impression plan as noted the resident documentation. EXAM Alert and oriented. Interactive. Respirations nonlabored. Lungs clear. Heart regular rate and rhythm. 2/6 systolic ejection murmur heard best at the right upper sternal border and left upper sternal border. Abdomen soft and nontender DATA Hemoglobin 10.6, platelet count 160, WBC 9.82 BMP unremarkable Renal ultrasound dated 04/03/2022 shows no renal calculi or hydronephrosis, mildly atrophic kidneys, complex cyst, no solid renal masses appreciated. Urine culture shows Enterococcus faecium IMPRESSION & PLAN UTI with sepsis Elevated troponin, likely demand ischemia Continue current antibiotics Anticipate discharge tomorrow if she continues to improve Additional per resident documentation Subjective Pt is a 87 yo female with PMH of CKD, GERD, Afib, and neuropathy admitted to the hospital for nausea and vomiting x1 week. She was found to have a urinary tract infection and was started on antibiotics. 04/06: Patient noted that she was overall feeling well but was continuing to have abdominal pain, primarily in her lower abdomen. She notes that 'she believes she has a bladder infection'. She is otherwise not having any chest pain, dyspnea, or headaches. Review of Systems Review of Systems: As per HPI Physical Exam Physical Exam: Gen: NAD, AOx2, interactive Resp:Non-labored, no wheezing/rhonchi/rales, CTAB CV:RRR, normal S1/S2, 2/6 systolic murmur at RUSB and LUSB Abd: Soft, non-distended, diffuse TTP, no rebound or guarding, normoactive bowels, no masses Extr: 2+ dp bilaterally, no edema Skin: No rashes lesions or erythema Results & Data Results & Data ([facility]) Vital Signs (Past 12 Hours) Vital Signs Temp Pulse Pulse Resp BP BP Pulse Ox 04/05/22 20:00 72 04/05/22 20:00 04/06/22 02:29 37.6 C H 77 20 172/80 H 92 04/05/22 22:42 36.8 C 80 20 161/82 H 95 O2 Del Method 04/05/22 20:00 04/05/22 20:00 Room Air 04/06/22 02:29 Room Air 04/05/22 22:42 Room Air Diagnostic Findings Laboratory Results WBC 9.82 K/ul (4.8-10.8) 04/06/22 06:35 RBC 3.55 M/uL (3.93-5.22) L 04/06/22 06:35 Hgb 10.6 g/dl (12.0-16.0) L 04/06/22 06:35 Hct 33.5 % (34.1-44.9) L 04/06/22 06:35 MCV 94.4 fL (80.0-100.0) 04/06/22 06:35 MCH 29.9 pg (25.0-34.0) 04/06/22 06:35 MCHC 31.6 g/dL (32.0-36.0) L 04/06/22 06:35 RDW Std Deviation 47.1 fL (36.4-46.3) H 04/06/22 06:35 RDW Coeff of Elia 13.6 % (11.5-14.5) 04/06/22 06:35 Plt Count 160 K/uL (130-400) 04/06/22 06:35 MPV 11.0 fL (9.4-12.3) 04/06/22 06:35 Immature Gran % (Auto) 0.4 % 04/05/22 06:02 Neut % (Auto) 73.4 % 04/05/22 06:02 Lymph % (Auto) 13.1 % 04/05/22 06:02 [place] % (Auto) 11.9 % 04/05/22 06:02 Eos % (Auto) 1.1 % 04/05/22 06:02 Baso % (Auto) 0.1 % 04/05/22 06:02 Neut # (Auto) 7.04 K/uL (1.4-6.5) H 04/05/22 06:02 Lymph # (Auto) 1.26 K/uL (1.2-3.4) 04/05/22 06:02 [place] # (Auto) 1.14 K/uL (0.24-0.82) H 04/05/22 06:02 Eos # (Auto) 0.11 K/uL (0-0.50) 04/05/22 06:02 Baso # (Auto) 0.01 K/uL (0-0.2) 04/05/22 06:02 Immature Gran # (Auto) 0.04 K/uL (0.00-0.02) H 04/05/22 06:02 Platelet Estimate Normal (Normal) 04/05/22 06:02 Sodium 140 mmol/L (136-145) 04/06/22 06:35 Potassium 3.8 mmol/L (3.5-5.1) 04/06/22 06:35 Chloride 105 mmol/L (98-107) 04/06/22 06:35 Carbon Dioxide 31 mmol/L (21-32) 04/06/22 06:35 Anion Gap 4 (3-11) 04/06/22 06:35 BUN 8 mg/dl (6-23) 04/06/22 06:35 Creatinine 0.58 mg/dl (0.6-1.2) L 04/06/22 06:35 Est Cr Clr Drug Dosing 50.9 ml/min 04/06/22 06:35 Est GFR ( Amer) 97.4 ml/min 04/06/22 06:35 Est GFR (Non-Af Amer) 84.0 ml/min 04/06/22 06:35 BUN/Creatinine Ratio 13.8 (10-20) 04/06/22 06:35 Glucose 88 mg/dl (70-99(Fasting)) 04/06/22 06:35 Calcium 7.9 mg/dl (8.5-10.1) L 04/06/22 06:35 Magnesium 2.5 mg/dl (1.7-2.4) H 04/04/22 03:23 Total Bilirubin 1.4 mg/dl (0.2-1.0) H 04/03/22 18:56 AST 17 U/L (13-39) 04/03/22 18:56 ALT 13 U/L (7-52) 04/03/22 18:56 Alkaline Phosphatase 33 U/L (34-104) L 04/03/22 18:56 Troponin I High Sens 73.2 pg/ml (0-14) H* D 04/04/22 15:27 Total Protein 6.3 gm/dl (6.0-8.3) 04/03/22 18:56 Albumin 3.6 gm/dl (3.4-5.0) 04/03/22 18:56 Globulin 2.7 gm/dl (2.5-4.0) 04/03/22 18:56 Albumin/Globulin Ratio 1.3 (0.9-2) 04/03/22 18:56 TSH 2.607 uIu/ml (0.300-4.500) 04/03/22 18:56 Urine Color Yellow 04/03/22 19:50 Urine Appearance Clear (Clear) 04/03/22 19:50 Urine pH 5.0 (4.5-7.5) 04/03/22 19:50 Ur Specific Pound 1.012 (1.000-1.030) 04/03/22 19:50 Urine Protein Trace (Negative) H 04/03/22 19:50 Urine Glucose (UA) Negative (Negative) 04/03/22 19:50 Urine Ketones Negative (Negative) 04/03/22 19:50 Urine Blood Negative (Negative) 04/03/22 19:50 Urine Nitrite Negative (Negative) 04/03/22 19:50 Urine Bilirubin Negative (Negative) 04/03/22 19:50 Urine Urobilinogen Negative (Negative) 04/03/22 19:50 Ur Leukocyte Esterase Trace (Negative) H 04/03/22 19:50 Urine WBC (Auto) 5-10 /hpf (0-5) H 04/03/22 19:50 Urine RBC (Auto) 0-4 /hpf (0-4) 04/03/22 19:50 U Hyaline Cast (Auto) 1-5 /lpf (0-5) 04/03/22 19:50 U Epithel Cells (Auto) 5-10 /lpf (0-5) H 04/03/22 19:50 Urine Bacteria (Auto) 2+ (Negative) H 04/03/22 19:50 SARS-CoV-2 (PCR) NEGATIVE (Negative) 04/03/22 18:16 Abdomen/Pelvis CT 04/03/22 18:27 IMPRESSION: 1. No acute abnormality is seen. 2. Pneumobilia may be secondary to incompetent sphincter of Jhonatan. 3. Hyperdensities in the bilateral kidneys likely represent proteinaceous or hemorrhagic cysts. If not previously evaluated, ultrasound can be performed. 4. Diverticulosis without diverticulitis. Chest X-Ray 04/03/22 18:28 IMPRESSION: No acute chest disease. Renal Ultrasound 04/04/22 00:00 IMPRESSION: 1. No renal calculi or hydronephrosis. 2. Mildly atrophic kidneys. 3. Mildly complex cysts of the kidneys. No solid renal mass lesions identified. Resident Activity Tracking Resident Involvement: Resident Care Provided Care Provided: Adult [facility] Medicine
[2022-04-06] MEDS: LACTATED RINGER'S 1,000 ML IV SCH ×3 (08:01→16:23)
[2022-04-06] MEDS: PANTOprazole 40 MG TAB PO SCH (08:33)
[2022-04-06] MEDS: METOPROLOL TARTRATE 50 MG TAB PO SCH ×2 (08:33→20:23)
[2022-04-06] MEDS: predniSONE 1 MG TAB PO SCH (08:34)
[2022-04-06] MEDS: ADVANCED PROBIOTIC 1250 MG CAPSULE PO SCH (08:34)
[2022-04-06] MEDS: APIXABAN 2.5 MG TAB PO SCH ×2 (08:35→20:23)
[2022-04-06] MEDS ORDERED: amLODIPine BESYLATE 5 MG TAB PO ONE (12:30)
[2022-04-06] MEDS: GABAPENTIN 600 MG TAB PO SCH (20:23)
[2022-04-06] MEDS ORDERED: FUROSEMIDE 40 MG/4 ML VIAL IV ONE (23:56)
--- NOTE | 2022-04-07 | Communication Note ---
Date of Service: April 06, 2022 Messaged about desaturation to 84 on room air, now 91% on 2L. Faint inspiratory crackles at base. + subjective dyspnea. No accessory use. Appears frail. Ordering melatonin for sleep. Giving extra pillow. Discontinued LR 125mL/hr. Lasix 40mg IV x1 (home lasix had been held and net 9L pos. BP 171/75). Deferred K repletion; follow during day. Cr is normal. Ordering portable cxr. result: pulm vascular congestion new from 04/03 cxr per my read. Possible mild pulm edema on R.
[2022-04-07] MEDS: AMPICILLIN 1,000 MG in SODIUM CHLORIDE 0.9% 50 ML IV SCH (04:13)
[2022-04-07] MEDS: METOPROLOL TARTRATE 50 MG TAB PO SCH ×2 (07:37→19:55)
[2022-04-07] MEDS: ADVANCED PROBIOTIC 1250 MG CAPSULE PO SCH (07:37)
[2022-04-07] MEDS: APIXABAN 2.5 MG TAB PO SCH ×2 (07:37→19:55)
[2022-04-07] MEDS: PANTOprazole 40 MG TAB PO SCH (07:38)
[2022-04-07] MEDS: predniSONE 1 MG TAB PO SCH (07:38)
[2022-04-07] MEDS: amLODIPine BESYLATE 5 MG TAB PO SCH (07:39)
--- NOTE | 2022-04-07 07:48 | XRay Report ---
XR chest 1V portable CLINICAL HISTORY: check for pulm edema COMPARISON STUDY: Chest CT March 27, 2021. Chest radiograph April 03, 2022. FINDINGS: Old left scapular and rib fractures are incidentally noted. There is no pneumothorax. Small bilateral pleural effusions with associated bibasilar opacities are noted. Cardiomegaly is noted. Mi ld pulmonary edema has developed. Patient is rotated. IMPRESSION: Mild interstitial pulmonary edema with small bilateral pleural effusions and bibasilar opacities. ACT 112: Negative or not required by law. Electronically signed by: Dillon Beltran M.D. 04/07/2022 7:47 AM
[2022-04-07 09:28] LABS: Hematocrit (blood only) 31.2 % (34.1-44.9); Hemoglobin 10.1 g/dl (12.0-16.0); Mean Corpuscular Hemoglobin 29.9 pg (25.0-34.0); Mean Corpuscular Hgb Conc 32.4 g/dL (32.0-36.0); Mean Corpuscular Volume 92.3 fL (80.0-100.0); Mean Platelet Volume 10.2 fL (9.4-12.3); Platelet Count 176 K/uL (130-400); RDW Coefficient of Variation 13.2 % (11.5-14.5); RDW Standard Deviation 44.7 fL (36.4-46.3); Red Blood Count 3.38 M/uL (3.93-5.22); White Blood Count 7.96 K/ul (4.8-10.8)
[2022-04-07 09:33] LABS: BUN Creatinine Ratio 14.5 (10-20); Calcium 8.4 mg/dl (8.5-10.1); Creatinine Clr Calc Pharmacy 53.7 ml/min; Est GFR (African American) 99.1 ml/min; Est GFR (Non-African American) 85.5 ml/min; Potassium 3.9 mmol/L (3.5-5.1)
[2022-04-07] MEDS: AMOXICILLIN 500 MG CAP PO SCH ×3 (09:51→19:54)
[2022-04-07] MEDS: POTASSIUM CHLORIDE CRTAB 20 MEQ TABCR PO SCH ×2 (09:51→19:54)
[2022-04-07] MEDS: FUROSEMIDE 20 MG TAB PO SCH (10:45)
[2022-04-07] MEDS: ACETAMINOPHEN 325 MG TAB PO PRN (17:17)
--- NOTE | 2022-04-07 17:18 | Hospitalist Progress Note ---
Date of Service April 07, 2022 Assessment & Plan (1) UTI (urinary tract infection): (2) Hypertension: (3) Dementia: (4) Hypomagnesemia: (5) Acute hypokalemia: (6) Renal cyst: (7) Elevated troponin: Plan Pt is a 87 yo female with PMH of CKD, GERD, Afib, and neuropathy admitted to the hospital for nausea and vomiting x1 week. She was found to have a urinary tract infection and was started on IV antibiotics. Acute UTI w/ hx of recurrent UTI - UA showed 2+ bacteria, trace leuk esterase - Urine Cx: Positive for enterococcus faceum, not sensitive to Cephalosporins, will continue IV Ampicillin inpatient per sensitivities ---Pharmacy recommending continued IV Ampicillin w/transition to PO Amoxicillin 500 mg PO Q8h at discharge - Originally given dose of ceftriaxone in ER with plan to continue this at admission - Urine culture from February showed E. coli and enterococcus susceptible to nitrofurantoin and ampicillin - Nitrofurantoin x 10 days failed outpatient, switched ceftriaxone to ampicillin 1000 mg q8hr on admission - Pt. given probiotic d/t hx of diarrhea w/ penicillin use - No nausea, emesis, or diarrhea at present, ongoing lower abdominal discomfort - Pt given antibiotic d/t hx of nausea and diarrhea with penicillins - Plan tod/c home on amoxicillin 500 mg BID total ABX course of 7 days --- PT recommending SNF placement, CM contacted, known desire from family to take her home --- Transitioned to PO Amoxicillin 04/07 Renal cysts - seen on CTAP 04/03 as hyperdensities in bilateral kidneys (most likely proteinaceous or hemorrhagic cysts) - renal US showed complex cysts of the kidneys, no solid lesions - benign cysts vs. remnants of pyelo vs. ? --- Recommend f/u US in 2-3 months as outpatient Elevated troponin - First troponin was 32.1 which jumped to 95.9 --> 97.8 --> 73.2 - Pt denying chest pain, EKG showed NSR - Echo showed EF 60-65% with no wall motion abnormalities with moderate aortic stenosis - Most likely d/t demand ischemia from infectious process Hypokalemia - upon admission, 2.7, repleted - K 3.9 this AM 04/07 Hypomagnesium - admission labs showed 1.5, repleted - AM labs showed 2.5 04/04 HTN - pt currently on metoprolol 50 mg BID - holding hydralazine 100 mg TID, amlodipine 5 mg qAM, and lasix 20 mg daily on admission - BP running soft 90s/50s on 04/04, assume d/t dehydration from infection - BP improved 04/05 - BP elevated 04/06, restart Amlodipine 50 mg qAM w/ now dose @ 1200 --- BP elevated 04/07, restarted Lasix 40 mg --- Continued Hydralazine hold Dementia - per family, pt seems more confused than baseline - however, family does endorse a steady decline over the past few months --- Multiple attempts to call patients family unsuccessful, CM notes attentive and supportive and daughter FEN:heart healthy diet, LR at 125 mL/hr Code: Full DVT:SCDs Dispo:med/surg, PT recommending SNF, pending placement Admission and Anticipated Discharge Date Admission Date: April 03, 2022 Supervising Physician Co-Signing Physician Notes I also saw the patient confirmed segundo portions of the history and physical examination. I agree with the impression plan as noted the resident documentation. She is somewhat sleepy this afternoon when I see her. She has no complaints. EXAM Respirations nonlabored. Lungs clear. Heart regular rate and rhythm. 2/6 systolic ejection murmur heard best at the right upper sternal border and left upper sternal border. Abdomen soft and nontender DATA Hemoglobin 10.1, platelet count 176, WBC 7.96 BMP unremarkable Renal ultrasound dated 04/03/2022 shows no renal calculi or hydronephrosis, mildly atrophic kidneys, complex cyst, no solid renal masses appreciated. Urine culture shows Enterococcus faecium, resistant to ciprofloxacin, intermediate levofloxacin nitrofurantoin, sensitive to all others. IMPRESSION & PLAN UTI with sepsis, resolved Elevated troponin, likely demand ischemia Continue current antibiotics PT evaluation appreciated, recommend SNF Case management is involved and assisting with placement possibilities Additional per resident documentation Subjective Pt is a 87 yo female with PMH of CKD, GERD, Afib, and neuropathy admitted to the hospital for nausea and vomiting x1 week. She was found to have a urinary tract infection and was started on antibiotics. 04/07: Patient notes that she is 'feeling better than yesterday' but it still feeling overall very weak. Patient comfortable on room air on arrival. Patient denies chest pain, dyspnea, pleuritic pain, dysuria, or headaches at visit today. Notes ongoing suprapubic pain without flank or back pain. PT present at end of visit. 1630 & 1715: Attempted to call patient's family w/o answer. 04/06: Patient noted that she was overall feeling well but was continuing to have abdominal pain, primarily in her lower abdomen. She notes that 'she believes she has a bladder infection'. She is otherwise not having any chest pain, dyspnea, or headaches. Review of Systems Review of Systems: As per HPI Physical Exam Physical Exam: Gen: NAD, AOx2, interactive Resp:Non-labored, no wheezing/rhonchi/rales, CTAB CV:RRR, normal S1/S2, 4/6 systolic murmur at RUSB and LUSB Abd: Soft, non-distended, suprapubic TTP, no rebound or guarding, normoactive bowels, no masses Extr: 2+ dp bilaterally, no edema Skin: No rashes lesions or erythema Results & Data Results & Data ([facility]) Vital Signs (Past 12 Hours) Vital Signs Temp Pulse Pulse Resp BP Pulse Ox O2 Del Method 04/07/22 16:59 72 04/07/22 12:02 37.4 C 77 20 156/69 H 93 Room Air 04/07/22 07:31 67 04/07/22 07:30 36.6 C 83 20 177/80 H 95 Nasal Cannula 04/07/22 07:15 Nasal Cannula O2 Flow Rate 04/07/22 16:59 04/07/22 12:02 04/07/22 07:31 04/07/22 07:30 1 04/07/22 07:15 2 Resident Activity Tracking Resident Involvement: Resident Care Provided Care Provided: Adult Hospital Medicine
[2022-04-07] MEDS: MELATONIN 3 MG TAB PO PRN (19:54)
[2022-04-07] MEDS: GABAPENTIN 600 MG TAB PO SCH (19:54)
[2022-04-08] MEDS: AMOXICILLIN 500 MG CAP PO SCH ×3 (06:07→20:15)
[2022-04-08 07:08] LABS: Hematocrit (blood only) 31.8 % (34.1-44.9); Hemoglobin 10.4 g/dl (12.0-16.0); Mean Corpuscular Hemoglobin 30.3 pg (25.0-34.0); Mean Corpuscular Hgb Conc 32.7 g/dL (32.0-36.0); Mean Corpuscular Volume 92.7 fL (80.0-100.0); Mean Platelet Volume 10.4 fL (9.4-12.3); Platelet Count 201 K/uL (130-400); RDW Coefficient of Variation 13.3 % (11.5-14.5); RDW Standard Deviation 45.1 fL (36.4-46.3); Red Blood Count 3.43 M/uL (3.93-5.22); White Blood Count 6.09 K/ul (4.8-10.8)
[2022-04-08 07:28] LABS: BUN Creatinine Ratio 13.3 (10-20); Calcium 8.1 mg/dl (8.5-10.1); Creatinine Clr Calc Pharmacy 49.2 ml/min; Est GFR (African American) 96.3 ml/min; Est GFR (Non-African American) 83.1 ml/min; Potassium 3.9 mmol/L (3.5-5.1)
[2022-04-08] MEDS: ADVANCED PROBIOTIC 1250 MG CAPSULE PO SCH (07:54)
[2022-04-08] MEDS: POTASSIUM CHLORIDE CRTAB 20 MEQ TABCR PO SCH ×2 (07:54→20:16)
[2022-04-08] MEDS: APIXABAN 2.5 MG TAB PO SCH ×2 (07:54→20:16)
[2022-04-08] MEDS: METOPROLOL TARTRATE 50 MG TAB PO SCH ×2 (07:54→20:14)
[2022-04-08] MEDS: FUROSEMIDE 20 MG TAB PO SCH (07:54)
[2022-04-08] MEDS: predniSONE 1 MG TAB PO SCH (07:54)
[2022-04-08] MEDS: PANTOprazole 40 MG TAB PO SCH (07:55)
[2022-04-08] MEDS: amLODIPine BESYLATE 5 MG TAB PO SCH (07:55)
[2022-04-08] MEDS: hydrALAZINE TAB 50 MG TAB PO SCH ×3 (09:21→20:13)
--- NOTE | 2022-04-08 17:54 | Communication Note ---
Date of Service: April 08, 2022 I also saw the patient confirmed segundo portions of the history and physical examination. I agree with the impression plan as noted the resident documentat natty. She is awake and alert upon our exam - moreso than when I saw her yesterday. She is working with physical therapy. EXAM Respirations nonlabored. Lungs clear. Heart regular rate and rhythm. DATA Hemoglobin 10.4 BMP unremarkable Renal ultrasound dated 04/03/2022 shows no renal calculi or hydronephrosis, mildly atrophic kidneys, complex cyst, no solid renal masses appreciated. Urine culture shows Enterococcus faecium, resistant to ciprofloxacin, intermediate levofloxacin nitrofurantoin, sensitive to all others. IMPRESSION & PLAN UTI with sepsis, resolved Ambulatory dysfunction Continue current antibiotics PT evaluation appreciated, recommend SNF Case management is involved and assisting with placement possibilities Additional per resident documentation
--- NOTE | 2022-04-08 18:46 | Hospitalist Consultation ---
Date of Consultation April 06, 2022 Assessment & Plan (1) UTI (urinary tract infection): (2) Hypertension: (3) Dementia: (4) Hypomagnesemia: (5) Acute hypokalemia: (6) Elevated troponin: (7) Renal cyst: Plan Pt is a 87 yo female with PMH of CKD, GERD, Afib, and neuropathy admitted to the hospital for nausea and vomiting x1 week. She was found to have a urinary tract infection and was started on IV antibiotics. Acute UTI w/ hx of recurrent UTI - UA showed 2+ bacteria, trace leuk esterase - Urine Cx: Positive for enterococcus faceum, not sensitive to Cephalosporins, will continue IV Ampicillin inpatient per sensitivities ---Pharmacy recommending continued IV Ampicillin w/transition to PO Amoxicillin 500 mg PO Q8h at discharge - Originally given dose of ceftriaxone in ER with plan to continue this at admission - Urine culture from February showed E. coli and enterococcus susceptible to nitrofurantoin and ampicillin - Nitrofurantoin x 10 days failed outpatient, switched ceftriaxone to ampicillin 1000 mg q8hr on admission - Pt. given probiotic d/t hx of diarrhea w/ penicillin use - No nausea, emesis, or diarrhea at present, ongoing lower abdominal discomfort - Pt given antibiotic d/t hx of nausea and diarrhea with penicillins - Plan tod/c home on amoxicillin 500 mg BID total ABX course of 7 days --- PT recommending SNF placement, CM contacted, pending --- Transitioned to PO Amoxicillin 04/07 Renal cysts - seen on CTAP 04/03 as hyperdensities in bilateral kidneys (most likely proteinaceous or hemorrhagic cysts) - renal US showed complex cysts of the kidneys, no solid lesions - benign cysts vs. remnants of pyelo vs. ? --- Recommend f/u US in 2-3 months as outpatient Elevated troponin - First troponin was 32.1 which jumped to 95.9 --> 97.8 --> 73.2 - Pt denying chest pain, EKG showed NSR - Echo showed EF 60-65% with no wall motion abnormalities with moderate aortic stenosis - Most likely d/t demand ischemia from infectious process Hypokalemia - Repleted, stable, following Hypomagnesium - Repleted, stable HTN - pt currently on metoprolol 50 mg BID - holding hydralazine 100 mg TID, amlodipine 5 mg qAM, and lasix 20 mg daily on admission - BP running soft 90s/50s on 04/04, assume d/t dehydration from infection - BP improved 04/05 - BP elevated 04/06, restart Amlodipine 50 mg qAM w/ now dose @ 1200 - BP elevated 04/07, restarted Lasix 40 mg --- BP elevated 04/08, restart home Hydralazine TID Dementia - per family, pt seems more confused than baseline - however, family does endorse a steady decline over the past few months --- Multiple attempts to call patients family unsuccessful, CM notes attentive and supportive and daughter --- 04/08 Will attempt again in AM FEN:heart healthy diet, LR at 125 mL/hr Code: Full DVT:SCDs Dispo:med/surg, PT recommending SNF, pending placement Supervising Physician Co-Signing Physician Notes I also saw the patient confirmed segundo portions of the history and physical examination. I agree with the impression plan as noted the resident documentation. She is awake and alert upon our exam - moreso than when I saw her yesterday. She is working with physical therapy. EXAM Respirations nonlabored. Lungs clear. Heart regular rate and rhythm. DATA Hemoglobin 10.4 BMP unremarkable Renal ultrasound dated 04/03/2022 shows no renal calculi or hydronephrosis, mildly atrophic kidneys, complex cyst, no solid renal masses appreciated. Urine culture shows Enterococcus faecium, resistant to ciprofloxacin, intermediate levofloxacin nitrofurantoin, sensitive to all others. IMPRESSION & PLAN UTI with sepsis, resolved Ambulatory dysfunction Continue current antibiotics PT evaluation appreciated, recommend SNF Case management is involved and assisting with placement possibilities Additional per resident documentation History of Present Illness Attending Physician: Abiodun Devi DO Allergies Allergy/AdvReac Type Severity Reaction Status Date / Time adhesive Allergy Intermediate BLISTER Verified 04/06/22 07:43 SKIN latex Allergy Intermediate HIVES AND Verified 04/06/22 07:43 ITCHING sulfamethoxazole Allergy Intermediate HIVES Verified 04/06/22 07:43 trimethoprim Allergy Intermediate HIVES Verified 04/06/22 07:43 nickel Allergy Mild RASH Verified 04/06/22 07:43 nitrofurantoin Allergy Unknown Unverified 04/06/22 07:43 [From Macrobid] lactose AdvReac Intermediate GI UPSET Verified 04/06/22 07:43 methotrexate AdvReac Intermediate SEVERE GI Verified 04/06/22 07:43 UPSET [id number] Reductase AdvReac Intermediate MUSCLE Verified 04/06/22 07:43 Inhibitor ACHES [Yypchxz-[id number] Reductase Inhibitor] amoxicillin [From Augmentin] AdvReac Mild Diarrhea Unverified 04/06/22 07:43 clavulanic acid AdvReac Mild Diarrhea Unverified 04/06/22 07:43 [From Augmentin] Home Medications Medication Instructions Recorded Confirmed Type apixaban 2.5 mg tablet 2.5 mg PO BID 12/27/18 03/16/22 History cholecalciferol (vitamin D3) 50 2,000 units PO DAILY 12/27/18 03/16/22 History mcg (2,000 unit) tablet metoprolol tartrate 50 mg tablet 50 mg PO BID #180 tabs 12/27/18 03/16/22 History Bacillus coagulans 250 million 250 cell PO DAILY 02/17/19 03/16/22 History cell chewable tablet (Digestive Advantage Probiotic Gummy) cyanocobalamin (vitamin B-12) 2,000 mcg PO DAILY 02/17/19 03/16/22 History 1,000 mcg tablet cyclosporine 0.05 % eye drops in a 2 drp ophthalmic (eye) BID PRN Dry 02/17/19 03/16/22 History dropperette (Restasis) Eyes hydralazine 100 mg tablet 100 mg PO TID #60 tabs 11/06/19 03/16/22 Rx furosemide 20 mg tablet 20 mg PO DAILY 11/07/20 03/16/22 History prednisone 1 mg tablet 2 mg PO DAILY 01/02/21 03/16/22 History amlodipine 5 mg tablet 5 mg PO DAILY 10/02/21 03/16/22 History memantine 5 mg tablet 5 mg PO BID 10/02/21 03/16/22 History omeprazole 20 mg capsule,delayed 20 mg PO QAM 10/02/21 03/16/22 History release donepezil 10 mg tablet 10 mg PO DAILY #90 tabs 10/15/21 03/16/22 Rx conjugated estrogens 0.625 mg/gram 0.625 mg vaginal DAILY #30 grams 01/14/22 03/16/22 Rx vaginal cream ondansetron HCl 4 mg tablet 4 mg PO Q8H PRN nausea and 01/22/22 03/16/22 Rx vomiting #15 tabs gabapentin 300 mg capsule 300 mg PO BID #60 caps 03/16/22 03/16/22 Rx amlodipine 5 mg tablet 5 mg PO QAM 04/03/22 04/03/22 History apixaban 2.5 mg tablet (Eliquis) 2.5 mg PO BID 04/03/22 04/03/22 History donepezil 10 mg tablet 10 mg PO HS 04/03/22 04/03/22 History furosemide 20 mg tablet 20 mg PO QAM 04/03/22 04/03/22 History gabapentin 300 mg capsule 600 mg PO HS 04/03/22 04/03/22 History hydralazine 100 mg tablet 100 mg PO TID 04/03/22 04/03/22 History metoprolol tartrate 50 mg tablet 50 mg PO BID 04/03/22 04/03/22 History omeprazole 20 mg capsule,delayed 20 mg PO QAM 04/03/22 04/03/22 History release ondansetron HCl 4 mg tablet 4 mg PO Q8 PRN Nausea and nausea 04/03/22 04/03/22 History prednisone 1 mg tablet 2 mg PO QAM 04/03/22 04/03/22 History Patient History Medical History Acid reflux controlled Aortic stenosis Moderate per 07/2018 ECHO Atrial fibrillation on Eliquis Carotid stenosis Chronic kidney disease baseline creatinine 1.4-1.7 range per nephrology Colitis hx Degeneration, intervertebral disc, thoracic Diplopia Dry eye syndrome Giant cell arteritis hx- on chronic prednisone 2mg twice weekly History of DVT (deep vein thrombosis) HTN (hypertension) Hx of blood clots LLE 15 years ago- no issues since Hx of pancreatitis 5+ years ago Hyperlipidemia Low back pain Lung nodules small- under surveillance Myalgia and myositis Varicose veins of both lower extremities Surgical History History of appendectomy History of bilateral tubal ligation History of cataract surgery RT/LEFT History of chest tube placement pneumothorax s/p mechanical fall at the gym- chest tube placed History of cholecystectomy History of colonoscopy History of ERCP History of Mohs micrographic surgery for skin cancer BCC ([facility]) History of tonsillectomy and adenoidectomy Family History Daughter Breast cancer Denies family history of Ovarian cancer Colorectal cancer Social History (System 04/06/22 @ 07:43 by Bernie Hopkins) Smoking Status: Former smoker Tobacco Type: Cigarettes Second Hand Exposure: No; Hx Alcohol Use: No Hx Substance Use: No Preferred Language: Persian Communication Ability: Effective Visual Impairment: No Limitations Hearing Ability: Normal Gasoline Tester Required: No Beliefs That Will Affect Care: None marital status: Current Living Situation: Spouse Current Living Situation Comment: Lives with How many Children do You have: 5 Feels Safe at Home: No Is there a partner from a previous relationship who is making you feel unsafe now?: No Assistive Devices: Cane and Wheelchair Review of Systems Review of Systems: As per HPI Physical Exam Physical Exam: Gen: NAD, AOx2, interactive Resp:Non-labored, no wheezing/rhonchi/rales, CTAB CV:RRR, normal S1/S2, 4/6 systolic murmur at RUSB and LUSB Abd: Soft, non-distended, suprapubic TTP, no rebound or guarding, normoactive bowels, no masses Extr: 2+ dp bilaterally, no edema Skin: No rashes lesions or erythema Results & Data Results & Data ([facility]) Vital Signs (Past 12 Hours) Vital Signs Temp Pulse Pulse Resp BP BP Pulse Ox 04/06/22 15:56 73 04/06/22 14:41 37.2 C 75 20 157/87 H 90 04/06/22 11:38 36.8 C 70 20 191/70 H 91 04/06/22 07:22 36.2 C L 81 20 160/78 H 90 04/06/22 07:57 88 O2 Del Method 04/06/22 15:56 04/06/22 14:41 Room Air 04/06/22 11:38 Room Air 04/06/22 07:22 Room Air 04/06/22 07:57 Resident Activity Tracking Resident Involvement: Resident Care Provided Care Provided: Adult Hospital Medicine
[2022-04-08] MEDS: DONEPEZIL HCL 10 MG TAB PO SCH (20:13)
[2022-04-08] MEDS: GABAPENTIN 600 MG TAB PO SCH (20:15)
[2022-04-09] MEDS: AMOXICILLIN 500 MG CAP PO SCH ×3 (06:10→22:06)
[2022-04-09 06:59] LABS: Hematocrit (blood only) 32.6 % (34.1-44.9); Hemoglobin 10.6 g/dl (12.0-16.0); Mean Corpuscular Hemoglobin 30.2 pg (25.0-34.0); Mean Corpuscular Hgb Conc 32.5 g/dL (32.0-36.0); Mean Corpuscular Volume 92.9 fL (80.0-100.0); Mean Platelet Volume 10.2 fL (9.4-12.3); Platelet Count 259 K/uL (130-400); RDW Coefficient of Variation 13.6 % (11.5-14.5); RDW Standard Deviation 46.1 fL (36.4-46.3); Red Blood Count 3.51 M/uL (3.93-5.22); White Blood Count 7.08 K/ul (4.8-10.8)
--- NOTE | 2022-04-09 07:12 | Hospitalist Progress Note ---
Date of Service April 09, 2022 Assessment & Plan (1) UTI (urinary tract infection): (2) Hypertension: (3) Dementia: (4) Hypomagnesemia: (5) Acute hypokalemia: (6) Elevated troponin: (7) Renal cyst: Plan Pt is a 87 yo female with PMH of CKD, GERD, Afib, and neuropathy admitted to the hospital for nausea and vomiting x1 week. She was found to have a urinary tract infection and was started on IV antibiotics. Acute UTI w/ hx of recurrent UTI - UA showed 2+ bacteria, trace leuk esterase - Urine Cx: Positive for enterococcus faceum, not sensitive to Cephalosporins, will continue IV Ampicillin inpatient per sensitivities ---Pharmacy recommending continued IV Ampicillin w/transition to PO Amoxicillin 500 mg PO Q8h at discharge - Originally given dose of ceftriaxone in ER with plan to continue this at admission - Urine culture from February showed E. coli and enterococcus susceptible to nitrofurantoin and ampicillin - Nitrofurantoin x 10 days failed outpatient, switched ceftriaxone to ampicillin 1000 mg q8hr on admission - Pt. given probiotic d/t hx of diarrhea w/ penicillin use - No nausea, emesis, or diarrhea at present, ongoing lower abdominal discomfort - Pt given antibiotic d/t hx of nausea and diarrhea with penicillins - Plan tod/c home on amoxicillin 500 mg BID total ABX course of 7 days - Ampicillin 04/04-04/07, Amoxicillin 04/07-04/09 --- PT recommending SNF placement, CM contacted, pending --- 04/09 Day 6/7 Abx, Continue Amoxicillin --- 04/09 Urinalysis, negative, contaminated Renal cysts - seen on CTAP 04/03 as hyperdensities in bilateral kidneys (most likely proteinaceous or hemorrhagic cysts) - renal US showed complex cysts of the kidneys, no solid lesions - benign cysts vs. remnants of pyelo vs. ? --- Recommend f/u US in 2-3 months as outpatient Elevated troponin - First troponin was 32.1 which jumped to 95.9 --> 97.8 --> 73.2 - Pt denying chest pain, EKG showed NSR - Echo showed EF 60-65% with no wall motion abnormalities with moderate aortic stenosis - Most likely d/t demand ischemia from infectious process Hypokalemia - Repleted, stable, following Hypomagnesium - Repleted, stable HTN - pt currently on metoprolol 50 mg BID - holding hydralazine 100 mg TID, amlodipine 5 mg qAM, and lasix 20 mg daily on admission - BP running soft 90s/50s on 04/04, assume d/t dehydration from infection - BP improved 04/05 - BP elevated 04/06, restart Amlodipine 50 mg qAM w/ now dose @ 1200 - BP elevated 04/07, restarted Lasix 40 mg - BP elevated 04/08, restart home Hydralazine TID --- Continue home antihypertensive regimen, BP 156/66, following Dementia - per family, pt seems more confused than baseline - however, family does endorse a steady decline over the past few months --- Multiple attempts to call patients family unsuccessful, CM notes attentive and supportive and daughter FEN:heart healthy diet Code: Full DVT:Eliquis Dispo:med/surg, PT recommending SNF, pending placement Admission and Anticipated Discharge Date Admission Date: April 03, 2022 Supervising Physician Co-Signing Physician Notes I also saw the patient confirmed segnudo portions of the history and physical examination. I agree with the impression plan as noted the resident documentation. EXAM 152/67, 67, 20, 37 C, 93% room air Respirations nonlabored. Lungs clear. Heart regular rate and rhythm. DATA Hemoglobin 10.4 BMP unremarkable Renal ultrasound dated 04/03/2022 shows no renal calculi or hydronephrosis, mildly atrophic kidneys, complex cyst, no solid renal masses appreciated. Urine culture shows Enterococcus faecium, resistant to ciprofloxacin, intermediate levofloxacin nitrofurantoin, sensitive to all others. IMPRESSION & PLAN UTI with sepsis, resolved Ambulatory dysfunction Continue current antibiotics PT evaluation appreciated, recommend SNF Case management is involved and assisting with placement possibilities Additional per resident documentation Subjective Pt is a 87 yo female with PMH of CKD, GERD, Afib, and neuropathy admitted to the hospital for nausea and vomiting x1 week. She was found to have a urinary tract infection and was started on antibiotics. 04/09: Patient states that she is overall well today. She notes that she is having increasing suprapubic discomfort and increased urinary frequency. Nursing notes normal voids. She denies fevers or chills. No chest pain or dyspnea. Review of Systems Review of Systems: As per HPI Physical Exam Physical Exam: Gen: NAD, AOx2, interactive Resp:Non-labored, no wheezing/rhonchi/rales, CTAB CV:RRR, normal S1/S2, 4/6 systolic murmur at RUSB and LUSB Abd: Soft, non-distended, moderate suprapubic TTP, no rebound or guarding, normoactive bowels, no masses Extr: 2+ dp bilaterally, no edema Skin: No rashes lesions or erythema Results & Data Results & Data ([facility]) Vital Signs (Past 12 Hours) Vital Signs Temp Pulse Resp BP Pulse Ox O2 Del Method 04/09/22 03:06 36.7 C 69 18 136/68 93 Room Air 04/08/22 23:16 36.6 C 65 18 148/57 H 96 Room Air 04/08/22 19:33 36.9 C 77 18 160/61 H 96 Room Air Resident Activity Tracking Resident Involvement: Resident Care Provided Care Provided: Adult Hospital Medicine
[2022-04-09 07:34] LABS: BUN Creatinine Ratio 14.1 (10-20); Creatinine Clr Calc Pharmacy 46.2 ml/min; Est GFR (African American) 94.3 ml/min; Est GFR (Non-African American) 81.4 ml/min; Potassium 4.3 mmol/L (3.5-5.1)
[2022-04-09] MEDS: POTASSIUM CHLORIDE CRTAB 20 MEQ TABCR PO SCH ×2 (07:59→22:08)
[2022-04-09] MEDS: APIXABAN 2.5 MG TAB PO SCH ×2 (07:59→22:08)
[2022-04-09] MEDS: METOPROLOL TARTRATE 50 MG TAB PO SCH ×2 (07:59→22:09)
[2022-04-09] MEDS: amLODIPine BESYLATE 5 MG TAB PO SCH (07:59)
[2022-04-09] MEDS: FUROSEMIDE 20 MG TAB PO SCH (07:59)
[2022-04-09] MEDS: PANTOprazole 40 MG TAB PO SCH (07:59)
[2022-04-09] MEDS: hydrALAZINE TAB 50 MG TAB PO SCH ×3 (08:00→22:07)
[2022-04-09] MEDS: ADVANCED PROBIOTIC 1250 MG CAPSULE PO SCH (08:00)
[2022-04-09] MEDS: predniSONE 1 MG TAB PO SCH (08:00)
[2022-04-09] MEDS: POLYETHYLENE (MIRALAX) 17 GM PACK PO SCH (11:02)
[2022-04-09 13:15] LABS: Appearance Urine Clear (Clear); Bacteria Urine Automated Negative (Negative); Bilirubin Urine Negative (Negative); Blood Urine Negative (Negative); Color Urine Yellow; Epithelial Cell Urine Auto 20-30 /lpf (0-5); Glucose Urine UA Negative (Negative); Ketones Urine Negative (Negative); Leukocyte Esterase Urine Trace (Negative); Nitrite Urine Negative (Negative); Protein Urine Negative (Negative); Specific Gravity Urine 1.009 (1.000-1.030); Urobilinogen Urine Negative (Negative); pH Urine 8.5 (4.5-7.5)
[2022-04-09] MEDS: DONEPEZIL HCL 10 MG TAB PO SCH (22:07)
[2022-04-09] MEDS: GABAPENTIN 600 MG TAB PO SCH (22:08)
[2022-04-10] MEDS: AMOXICILLIN 500 MG CAP PO SCH ×3 (05:39→20:21)
[2022-04-10 06:33] LABS: Hematocrit (blood only) 32.9 % (34.1-44.9); Hemoglobin 10.8 g/dl (12.0-16.0); Mean Corpuscular Hgb Conc 32.8 g/dL (32.0-36.0); Mean Corpuscular Volume 91.4 fL (80.0-100.0); Mean Platelet Volume 9.7 fL (9.4-12.3); Platelet Count 288 K/uL (130-400); RDW Coefficient of Variation 13.6 % (11.5-14.5); RDW Standard Deviation 45.9 fL (36.4-46.3); White Blood Count 8.33 K/ul (4.8-10.8)
[2022-04-10 06:52] LABS: BUN Creatinine Ratio 10.4 (10-20); Calcium 7.8 mg/dl (8.5-10.1); Creatinine Clr Calc Pharmacy 44.1 ml/min; Est GFR (African American) 92.9 ml/min; Est GFR (Non-African American) 80.2 ml/min; Potassium 4.3 mmol/L (3.5-5.1)
[2022-04-10] MEDS: ADVANCED PROBIOTIC 1250 MG CAPSULE PO SCH (08:02)
[2022-04-10] MEDS: FUROSEMIDE 20 MG TAB PO SCH (08:02)
[2022-04-10] MEDS: APIXABAN 2.5 MG TAB PO SCH ×2 (08:03→20:22)
[2022-04-10] MEDS: PANTOprazole 40 MG TAB PO SCH (08:03)
[2022-04-10] MEDS: hydrALAZINE TAB 50 MG TAB PO SCH ×3 (08:03→20:22)
[2022-04-10] MEDS: POTASSIUM CHLORIDE CRTAB 20 MEQ TABCR PO SCH ×2 (08:03→20:23)
[2022-04-10] MEDS: predniSONE 1 MG TAB PO SCH (08:03)
[2022-04-10] MEDS: METOPROLOL TARTRATE 50 MG TAB PO SCH ×2 (08:04→20:23)
[2022-04-10] MEDS: POLYETHYLENE (MIRALAX) 17 GM PACK PO SCH (08:04)
--- NOTE | 2022-04-10 08:04 | Hospitalist Progress Note ---
Date of Service April 10, 2022 Assessment & Plan (1) UTI (urinary tract infection): (2) Hypertension: (3) Dementia: (4) Hypomagnesemia: (5) Acute hypokalemia: (6) Elevated troponin: (7) Renal cyst: Plan Pt is a 87 yo female with PMH of CKD, GERD, Afib, and neuropathy admitted to the hospital for nausea and vomiting x1 week. She was found to have a urinary tract infection and was started on IV antibiotics. Acute UTI w/ hx of recurrent UTI - UA showed 2+ bacteria, trace leuk esterase - Urine Cx: Positive for enterococcus faceum, not sensitive to Cephalosporins, will continue IV Ampicillin inpatient per sensitivities ---Pharmacy recommending continued IV Ampicillin w/transition to PO Amoxicillin 500 mg PO Q8h at discharge - Originally given dose of ceftriaxone in ER with plan to continue this at admission - Urine culture from February showed E. coli and enterococcus susceptible to nitrofurantoin and ampicillin - Nitrofurantoin x 10 days failed outpatient, switched ceftriaxone to ampicillin 1000 mg q8hr on admission - Pt. given probiotic d/t hx of diarrhea w/ penicillin use - No nausea, emesis, or diarrhea at present, ongoing lower abdominal discomfort - Pt given antibiotic d/t hx of nausea and diarrhea with penicillins - Plan tod/c home on amoxicillin 500 mg BID total ABX course of 7 days - Ampicillin 04/04-04/07, Amoxicillin 04/07-04/09 --04/09 Day 67 Abx, Continue Amoxicillin - Urinalysis, negative, contaminated ---04/10 Day 77 Abx, discontinue --- PT recommending SNF placement, CM contacted, pending Renal cysts - seen on CTAP 04/03 as hyperdensities in bilateral kidneys (most likely proteinaceous or hemorrhagic cysts) - renal US showed complex cysts of the kidneys, no solid lesions - benign cysts vs. remnants of pyelo vs. ? --- Recommend f/u US in 2-3 months as outpatient Elevated troponin - First troponin was 32.1 which jumped to 95.9 --> 97.8 --> 73.2 - Pt denying chest pain, EKG showed NSR - Echo showed EF 60-65% with no wall motion abnormalities with moderate aortic stenosis - Most likely d/t demand ischemia from infectious process Hypokalemia - Repleted, stable, following Hypomagnesium - Repleted, stable HTN - pt currently on metoprolol 50 mg BID - holding hydralazine 100 mg TID, amlodipine 5 mg qAM, and lasix 20 mg daily on admission - BP running soft 90s/50s on 04/04, assume d/t dehydration from infection - BP improved 04/05 - BP elevated 04/06, restart Amlodipine 50 mg qAM w/ now dose @ 1200 - BP elevated 04/07, restarted Lasix 40 mg - BP elevated 04/08, restart home Hydralazine TID --- Continue home antihypertensive regimen Dementia - per family, pt seems more confused than baseline - however, family does endorse a steady decline over the past few months --- Multiple attempts to call patients family unsuccessful, CM notes attentive and supportive and daughter Hx of Giant Cell Arteritis - Continue Prednisone 2 mg PO daily Neuropathy - Patient was receiving 600 mg Gabapentin at night --- 04/10 Per Neurology note, patient is to be taking 300 mg Gabapentin at night, adjusted FEN:heart healthy diet Code: Full DVT:Eder Dispo:med/surg, PT recommending SNF, pending placement Admission and Anticipated Discharge Date Admission Date: April 03, 2022 Supervising Physician Co-Signing Physician Notes Patient seen and examined independently of PGY-1 Dr. Owen. Agree with history, exam findings, assessment and plan of care as outlined. In brief, Angy is an 87 year old female with history of CKD, GERD, Afib, neuro gabi admitted with nausea, vomiting x 1 week. A bit sleepy this afternoon, but overall feels well. VS and nursing notes reviewed. Non-toxic appearing. Heart with regular rate and rhythm. Systolic murmur. No edema. Lungs are clear to auscultation. Labs reviewed. 1. Acute urinary tract infection with hx of recurrent UTI. Culture with enterococcus. Continue amoxicillin 500mg TID . 2. Renal cysts. Repeat ultrasound in 2-3 months. 3. HTN. Continue metoprolol 50mg BID, amlodipine 5mg, hydralazine TID, Lasix 20mg daily. 4. Dementia. Not agitated. Continue to re-orient if she is confused. Continue donepezil. She is also on Namenda, but this is not on formulary herefamily will bring this medication in 5. Hx of giant cell arteritis. Continue low dose prednisone, 2mg. Dispo: pending clinical improvement. Paola Travis is a 87 yo female with PMH of CKD, GERD, Afib, Giant Cell Arteritis and neuropathy admitted to the hospital for nausea and vomiting x1 week. She was found to have a urinary tract infection and was started on antibiotics. 04/10: Patient resting comfortably in bed upon arrival. She states she is feeling great today. She noted that she is enjoying 'rehab'. Patient denies any fevers or chills, dysuria or abdominal discomfort, chest pain, or shortness of breath. 04/09: Patient states that she is overall well today. She notes that she is boone ving increasing suprapubic discomfort and increased urinary frequency. Nursing notes normal voids. She denies fevers or chills. No chest pain or dyspnea. Review of Systems Review of Systems: As per HPI Physical Exam Physical Exam: Gen: NAD, AOx2, interactive Resp:Non-labored, no wheezing/rhonchi/rales, CTAB CV:RRR, normal S1/S2, 4/6 systolic murmur at RUSB and LUSB Abd: Soft, non-distended, no TTP, no rebound or guarding, normoactive bowels, no masses Extr: 2+ dp bilaterally, no edema Skin: No rashes lesions or erythema Results & Data Results & Data ([facility]) Vital Signs (Past 12 Hours) Vital Signs Temp Pulse Pulse Resp BP Pulse Ox O2 Del Method 04/10/22 07:30 36.7 C 85 18 144/54 H 94 Room Air 04/10/22 07:11 58 L 04/10/22 03:03 36.8 C 66 18 143/69 H 93 Room Air 04/09/22 23:03 36.7 C 66 18 169/69 H 96 Room Air Resident Activity Tracking Resident Involvement: Resident Care Provided Care Provided: Adult Hospital Medicine
[2022-04-10] MEDS: amLODIPine BESYLATE 5 MG TAB PO SCH (09:12)
[2022-04-10] MEDS: ACETAMINOPHEN 325 MG TAB PO PRN (20:20)
[2022-04-10] MEDS: GABAPENTIN 300 MG CAP PO SCH (20:20)
[2022-04-10] MEDS: MELATONIN 3 MG TAB PO PRN (20:20)
[2022-04-10] MEDS: MEMANTINE HCL 5 MG TAB PO SCH (20:21)
[2022-04-10] MEDS: DONEPEZIL HCL 10 MG TAB PO SCH (20:23)
[2022-04-11] MEDS: AMOXICILLIN 500 MG CAP PO SCH (05:18)
--- NOTE | 2022-04-11 06:59 | Hospitalist Progress Note ---
Date of Service April 11, 2022 Assessment & Plan (1) UTI (urinary tract infection): (2) Hypertension: (3) Dementia: (4) Hypomagnesemia: (5) Acute hypokalemia: (6) Elevated troponin: (7) Renal cyst: Plan Pt is a 87 yo female with PMH of CKD, GERD, Afib, and neuropathy admitted to the hospital for nausea and vomiting x1 week. She was found to have a urinary tract infection and was started on IV antibiotics. Acute UTI w/ hx of recurrent UTI - UA showed 2+ bacteria, trace leuk esterase - Urine Cx: Positive for enterococcus faceum, not sensitive to Cephalosporins, will continue IV Ampicillin inpatient per sensitivities - Originally given dose of ceftriaxone in ER with plan to continue this at admission - Urine culture from February showed E. coli and enterococcus susceptible to nitrofurantoin and ampicillin - Nitrofurantoin x 10 days failed outpatient, switched ceftriaxone to ampicillin 1000 mg q8hr on admission - 04/04-04/07 Ampicillin - 04/07-04/11 Amoxicillin --04/09 Day 11/11 Abx, continue Amoxicillin - Urinalysis, negative, contaminated - 04/10 Day 12/11 Abx, discontinued --- 04/11 Resolved --- PT recommending SNF placement, CM contacted, pending placement to [facility] Renal cysts - Hypodensities in BL kidneys (proteinaceous vs hemorrhagic) evidence on CTAP 04/03, US showed complex cysts of kidneys w/o solid lesions - US follow up outpatient in 2-3 months Chronic Conditions * HTN - continue home Metoprolol 50 mg BID, Amlodipine 50 mg q AM, Hydralazine TID, and Lasix 40 mg * Dementia - per family, pt seems more confused than baseline, however, family does endorse a steady decline over the past few months * Hx of Giant Cell Arteritis - Continue Prednisone 2 mg PO daily * Neuropathy - Patient was receiving 600 mg Gabapentin at night, rer Neurology note, patient is to be taking 300 mg Gabapentin at night, adjusted FEN:heart healthy diet Code: Full DVT:Eder Dispo:med/surg, PT recommending SNF, pending placement CM: Anticipate discharge to [facility] this weekend Admission and Anticipated Discharge Date Admission Date: April 03, 2022 Supervising Physician Co-Signing Physician Notes Patient seen and examined independently of PGY-1 Dr. Owen. Agree with history, exam findings, assessment and plan of care as outlined. In brief, Angy is an 87 year old female with history of CKD, GERD, Afib, neuropathy admitted with nausea, vomiting x 1 week. Sleeping comfortably. Arousable. VS and nursing notes reviewed. Non-toxic appearing. Heart with regular rate and rhythm. Systolic murmur. No edema. Lungs are clear to auscultation. Labs reviewed. 1. Acute urinary tract infection with hx of recurrent UTI. Culture with enterococcus. Continue amoxicillin 500mg TID . 2. Renal cysts. Repeat ultrasound in 2-3 months. 3. HTN. Continue metoprolol 50mg BID, amlodipine 5mg, hydralazine TID, Lasix 20mg daily. 4. Dementia. Not agitated. Continue to re-orient if she is confused. Continue donepezil. Restarted Namenda. 5. Hx of giant cell arteritis. Continue low dose prednisone, 2mg. Dispo: Awaiting placement. Subjective Angy is a 87 yo female with PMH of CKD, GERD, Afib, Giant Cell Arteritis and neuropathy admitted to the hospital for nausea and vomiting x1 week. She was found to have a urinary tract infection and was started on antibiotics. 04/11: Patient resting comfortably in bed watching TV upon arrival. She notes that she is 'as good as she could be'. She denies any pain and is not having any abdominal pain, fevers, chills, or dysuria. She is continuing to enjoy PT. Review of Systems Review of Systems: As per HPI Physical Exam Physical Exam: Gen: NAD, AOx1, interactive Resp:Non-labored, no wheezing/rhonchi/rales, CTAB CV:RRR, normal S1/S2, 4/6 systolic murmur at RUSB and LUSB Abd: Soft, non-distended, no TTP, no rebound or guarding, normoactive bowels, no masses Extr: 2+ dp bilaterally, no edema Skin: No rashes lesions or erythema Results & Data Results & Data ([facility]) Vital Signs (Past 12 Hours) Vital Signs Temp Pulse Resp BP Pulse Ox O2 Del Method 04/11/22 03:30 36.9 C 66 18 126/60 95 Room Air 04/10/22 23:08 36.7 C 62 18 119/59 L 94 Room Air 04/10/22 19:42 36.8 C 73 20 144/62 H 95 Room Air Resident Activity Tracking Resident Involvement: Resident Care Provided Care Provided: Adult Hospital Medicine
[2022-04-11 07:44] LABS: Hematocrit (blood only) 33.1 % (34.1-44.9); Hemoglobin 10.4 g/dl (12.0-16.0); Mean Corpuscular Hemoglobin 29.6 pg (25.0-34.0); Mean Corpuscular Hgb Conc 31.4 g/dL (32.0-36.0); Mean Corpuscular Volume 94.3 fL (80.0-100.0); Platelet Count 314 K/uL (130-400); RDW Coefficient of Variation 13.8 % (11.5-14.5); RDW Standard Deviation 47.6 fL (36.4-46.3); Red Blood Count 3.51 M/uL (3.93-5.22); White Blood Count 8.43 K/ul (4.8-10.8)
[2022-04-11] MEDS: PANTOprazole 40 MG TAB PO SCH (08:11)
[2022-04-11] MEDS: FUROSEMIDE 20 MG TAB PO SCH (08:11)
[2022-04-11] MEDS: hydrALAZINE TAB 50 MG TAB PO SCH ×3 (08:11→19:26)
[2022-04-11] MEDS: APIXABAN 2.5 MG TAB PO SCH ×2 (08:11→19:27)
[2022-04-11] MEDS: POTASSIUM CHLORIDE CRTAB 20 MEQ TABCR PO SCH ×3 (08:12→19:35)
[2022-04-11] MEDS: MEMANTINE HCL 5 MG TAB PO SCH ×2 (08:12→19:27)
[2022-04-11] MEDS: ADVANCED PROBIOTIC 1250 MG CAPSULE PO SCH (08:12)
[2022-04-11] MEDS: predniSONE 1 MG TAB PO SCH (08:12)
[2022-04-11] MEDS: amLODIPine BESYLATE 5 MG TAB PO SCH (08:12)
[2022-04-11] MEDS: METOPROLOL TARTRATE 50 MG TAB PO SCH ×2 (08:12→19:26)
[2022-04-11] MEDS: POLYETHYLENE (MIRALAX) 17 GM PACK PO SCH (08:13)
[2022-04-11 08:36] LABS: BUN Creatinine Ratio 15.1 (10-20); Creatinine Clr Calc Pharmacy 40.5 ml/min; Est GFR (Non-African American) 75.1 ml/min; Potassium 4.5 mmol/L (3.5-5.1)
[2022-04-11] MEDS: ACETAMINOPHEN 325 MG TAB PO PRN ×2 (14:12→19:25)
[2022-04-11] MEDS: GABAPENTIN 300 MG CAP PO SCH (19:25)
[2022-04-11] MEDS: MELATONIN 3 MG TAB PO PRN (19:25)
[2022-04-11] MEDS: DONEPEZIL HCL 10 MG TAB PO SCH (19:26)
[2022-04-12] MEDS: ACETAMINOPHEN 325 MG TAB PO PRN (06:01)
[2022-04-12] MEDS: APIXABAN 2.5 MG TAB PO SCH ×2 (08:03→19:54)
[2022-04-12] MEDS: MEMANTINE HCL 5 MG TAB PO SCH ×2 (08:03→19:52)
[2022-04-12] MEDS: METOPROLOL TARTRATE 50 MG TAB PO SCH ×2 (08:03→19:55)
[2022-04-12] MEDS: POTASSIUM CHLORIDE CRTAB 20 MEQ TABCR PO SCH ×2 (08:03→19:54)
[2022-04-12] MEDS: predniSONE 1 MG TAB PO SCH (08:04)
[2022-04-12] MEDS: ADVANCED PROBIOTIC 1250 MG CAPSULE PO SCH (08:04)
[2022-04-12] MEDS: PANTOprazole 40 MG TAB PO SCH (08:04)
[2022-04-12] MEDS: hydrALAZINE TAB 50 MG TAB PO SCH ×3 (08:04→19:53)
[2022-04-12] MEDS: FUROSEMIDE 20 MG TAB PO SCH (08:05)
[2022-04-12] MEDS: POLYETHYLENE (MIRALAX) 17 GM PACK PO SCH (08:05)
[2022-04-12] MEDS: amLODIPine BESYLATE 5 MG TAB PO SCH (08:05)
--- NOTE | 2022-04-12 08:15 | Hospitalist Progress Note ---
Date of Service April 12, 2022 Assessment & Plan (1) Acute UTI (urinary tract infection): (2) Hypertension: (3) Dementia: (4) Hypomagnesemia: (5) Acute hypokalemia: (6) Elevated troponin: (7) Renal cyst: Plan Pt is a 87 yo female with PMH of CKD, GERD, Afib, and neuropathy admitted to the hospital for nausea and vomiting x1 week. She was found to have a urinary tract infection and was started on IV antibiotics. Acute UTI w/ hx of recurrent UTI - UA showed 2+ bacteria, trace leuk esterase - Urine Cx: Positive for enterococcus faceum, not sensitive to Cephalosporins, will continue IV Ampicillin inpatient per sensitivities - Originally given dose of ceftriaxone in ER with plan to continue this at admission - Urine culture from February showed E. coli and enterococcus susceptible to nitrofurantoin and ampicillin - Nitrofurantoin x 10 days failed outpatient, switched ceftriaxone to ampicillin 1000 mg q8hr on admission - 04/04-04/07 Ampicillin - 04/07-04/11 Amoxicillin --04/09 Day 11/11 Abx, continue Amoxicillin - Urinalysis, negative, contaminated - 04/10 Day 12/11 Abx, discontinued - 04/11 Resolved --- 04/12 Resolved, no abdominal TTP or dysuria Renal cysts -Hypodensities in BL kidneys (proteinaceous vs hemorrhagic) evidence on CTAP 04/03, US showed complex cysts of kidneys w/o solid lesions - US follow up outpatient in 2-3 months Chronic Conditions * HTN- continue home Metoprolol 50 mg BID, Amlodipine 50 mg q AM, Hydralazine TID, and Lasix 40 mg * Dementia- per family, pt seems more confused than baseline, however, family does endorse a steady decline over the past few months * Hx of Giant Cell Arteritis- Continue Prednisone 2 mg PO daily * Neuropathy- Patient was receiving 600 mg Gabapentin at night, rer Neurology note, patient is to be taking 300 mg Gabapentin at night, adjusted FEN:heart healthy diet Code: Full DVT:Eder Dispo:med/surg, PT recommending SNF CM: Anticipate discharge to [facility] this weekend? Admission and Anticipated Discharge Date Admission Date: April 03, 2022 Supervising Physician Co-Signing Physician Notes Patient seen and examined independently of PGY-1 Dr. Owen. Agree with history, exam findings, assessment and plan of care as outlined. In brief, Angy is an 87 year old female with history of CKD, GERD, Afib, neuropathy admitted with nausea, vomiting x 1 week. Sleeping comfortably. Arousable. VS and nursing notes reviewed. Non-toxic appearing. Heart with regular rate and rhythm. Systolic murmur. No edema. Lungs are clear to auscultation. Labs reviewed. 1. Acute urinary tract infection with hx of recurrent UTI. Culture with enterococcus. Completed abx. 2. Renal cysts. Repeat ultrasound in 2-3 months. 3. HTN. Continue metoprolol 50mg BID, amlodipine 5mg, hydralazine TID, Lasix 20mg daily. 4. Dementia. Not agitated. Continue to re-orient if she is confused. Continue donepezil. Restarted Namenda. 5. Hx of giant cell arteritis. Continue low dose prednisone, 2mg. Dispo: Awaiting placement. Subjective Angy is a 87 yo female with PMH of CKD, GERD, Afib, Giant Cell Arteritis and neuropathy admitted to the hospital for nausea and vomiting x1 week. She was found to have a urinary tract infection and was started on antibiotics. 04/12: Patient was resting in bed upon arrival, appeared comfortable. She notes she is feeling well today w/o any pain. She denies any chest pain, dyspnea, headaches, dysuria, or abdominal pain. Review of Systems Review of Systems: As per HPI Physical Exam Physical Exam: Gen: NAD, AOx1, interactive Resp:Non-labored, no wheezing/rhonchi/rales, CTAB CV:RRR, normal S1/S2, 4/6 systolic murmur at RUSB and LUSB Abd: Soft, non-distended, no TTP, no rebound or guarding, normoactive bowels, no masses Extr: 2+ dp bilaterally, no edema Results & Data Results & Data ([facility]) Vital Signs (Past 12 Hours) Vital Signs Temp Pulse Pulse Resp BP Pulse Ox O2 Del Method 04/12/22 07:25 53 L 04/12/22 06:33 36.7 C 57 L 16 159/61 H 96 Room Air 04/12/22 03:35 36.6 C 68 16 144/63 H 94 Room Air 04/11/22 22:15 52 L 04/11/22 23:24 36.5 C 69 18 147/69 H 95 Room Air Resident Activity Tracking Resident Involvement: Resident Care Provided Care Provided: Adult Hospital Medicine
[2022-04-12 08:24] LABS: Hematocrit (blood only) 32.8 % (34.1-44.9); Hemoglobin 10.5 g/dl (12.0-16.0); Mean Corpuscular Hemoglobin 29.4 pg (25.0-34.0); Mean Corpuscular Volume 91.9 fL (80.0-100.0); Mean Platelet Volume 9.9 fL (9.4-12.3); Platelet Count 350 K/uL (130-400); RDW Coefficient of Variation 13.6 % (11.5-14.5); RDW Standard Deviation 46.4 fL (36.4-46.3); Red Blood Count 3.57 M/uL (3.93-5.22)
[2022-04-12 08:47] LABS: BUN Creatinine Ratio 13.8 (10-20); Calcium 8.3 mg/dl (8.5-10.1); Creatinine Clr Calc Pharmacy 36.9 ml/min; Est GFR (African American) 77.9 ml/min; Est GFR (Non-African American) 67.2 ml/min; Potassium 4.3 mmol/L (3.5-5.1)
[2022-04-12] MEDS: DONEPEZIL HCL 10 MG TAB PO SCH (19:53)
[2022-04-12] MEDS: GABAPENTIN 300 MG CAP PO SCH (19:53)
--- NOTE | 2022-04-13 07:21 | Hospitalist Progress Note ---
Date of Service April 13, 2022 Assessment & Plan (1) Acute hypokalemia: (2) Hypomagnesemia: (3) Acute UTI (urinary tract infection): (4) Hypertension: (5) Paroxysmal A-fib: (6) Dementia: (7) GERD (gastroesophageal reflux disease): (8) Renal cyst: (9) Giant cell arteritis: (10) Chronic kidney disease: (11) HTN (hypertension): Plan Pt is a 87 yo female with PMH of CKD, GERD, Afib, and neuropathy admitted to the hospital for nausea and vomiting x1 week. She was found to have a urinary tract infection and was started on IV antibiotics. Acute UTI w/ hx of recurrent UTI - UA showed 2+ bacteria, trace leuk esterase - Urine Cx: Positive for enterococcus faceum, not sensitive to Cephalosporins, will continue IV Ampicillin inpatient per sensitivities - Originally given dose of ceftriaxone in ER with plan to continue this at admission - Urine culture from February showed E. coli and enterococcus susceptible to nitrofurantoin and ampicillin - Nitrofurantoin x 10 days failed outpatient, switched ceftriaxone to ampicillin 1000 mg q8hr on admission - 04/04-04/07 Ampicillin - 04/07-04/11 Amoxicillin --04/09 Day 11/11 Abx, continue Amoxicillin - Urinalysis, negative, contaminated - 04/10 Day 12/11 Abx, discontinued - 04/11 Resolved --- 04/13 Resolved, no abdominal TTP or dysuria Renal cysts -Hypodensities in BL kidneys (proteinaceous vs hemorrhagic) evidence on CTAP 04/03, US showed complex cysts of kidneys w/o solid lesions - US follow up outpatient in 2-3 months Chronic Conditions * HTN- continue home Metoprolol 50 mg BID, Amlodipine 50 mg q AM, Hydralazine TID, and Lasix 40 mg * Dementia- per family, pt seems more confused than baseline, however, family does endorse a steady decline over the past few months * Hx of Giant Cell Arteritis- Continue Prednisone 2 mg PO daily * Neuropathy- Patient was receiving 600 mg Gabapentin at night, rer Neurology note, patient is to be taking 300 mg Gabapentin at night, adjusted FEN:heart healthy diet Code: Full DVT:Eder Dispo:med/surg, PT recommending SNF CM: Anticipate discharge to [facility] 04/14 Admission and Anticipated Discharge Date Admission Date: April 03, 2022 Supervising Physician Co-Signing Physician Notes I personally examined the patient and verified all segundo points of history and exam, discussed case, and agree with decision making with Dr Owen No complaints. Feeling okay overall. Vitals noted, in general she is awake and alert pleasant no distress. Appears to be in baseline mentation. Breathing unlabored no accessory muscle use good effort. Skin shows no rashes no pallor or icterus. 1. Acute urinary tract infection with hx of recurrent UTI. Culture with enterococcus. Completed abx. 2. Renal cysts. Repeat ultrasound in 2-3 months. 3. HTN. Continue metoprolol 50mg BID, amlodipine 5mg, hydralazine TID, Lasix 20mg daily. Blood pressure overall acceptable 4. Dementia. Not agitated. Continue to re-orient if she is confused. Continue donepezil. Restarted Namenda. 5. Hx of giant cell arteritis. Continue low dose prednisone, 2mg. Dispo: Awaiting placement. Stable once bed available Subjective Angy is a 87 yo female with PMH of CKD, GERD, Afib, Giant Cell Arteritis and neuropathy admitted to the hospital for nausea and vomiting x1 week. She was found to have a urinary tract infection and was started on antibiotics. 04/13: Patient sitting in her chair enjoying breakfast upon arrival. She feels well today and denies pain. She is not experiencing any dyspnea, chest pain, dysuria, or abdominal pain. She is looking forward to being discharged. 1330 Attempted to call Glen Thomas and Paige Gordon w/o answer. 04/12: Patient was resting in bed upon arrival, appeared comfortable. She notes she is feeling well today w/o any pain. She denies any chest pain, dyspnea, headaches, dysuria, or abdominal pain. Review of Systems Review of Systems: As per HPI Physical Exam Physical Exam: Gen: NAD, AOx1, interactive Resp:Non-labored, no wheezing/rhonchi/rales, CTAB CV:RRR, normal S1/S2, 4/6 systolic murmur at RUSB and LUSB Abd: Soft, non-distended, no TTP, no rebound or guarding, normoactive bowels, no masses Extr: 2+ dp bilaterally, no edema Results & Data Results & Data ([facility]) Vital Signs (Past 12 Hours) Vital Signs Temp Pulse Pulse Resp BP BP Pulse Ox 04/13/22 03:44 37 C 68 18 128/66 96 04/12/22 22:16 57 L 04/12/22 23:08 36.8 C 56 L 16 118/53 L 95 04/12/22 19:21 36.8 C 56 L 20 135/62 94 O2 Del Method 04/13/22 03:44 Room Air 04/12/22 22:16 04/12/22 23:08 Room Air 04/12/22 19:21 Room Air Resident Activity Tracking Resident Involvement: Resident Care Provided Care Provided: Adult Hospital Medicine
[2022-04-13] MEDS: MEMANTINE HCL 5 MG TAB PO SCH ×2 (08:23→20:08)
[2022-04-13] MEDS: predniSONE 1 MG TAB PO SCH (08:23)
[2022-04-13] MEDS: PANTOprazole 40 MG TAB PO SCH (08:24)
[2022-04-13] MEDS: ADVANCED PROBIOTIC 1250 MG CAPSULE PO SCH (08:24)
[2022-04-13] MEDS: FUROSEMIDE 20 MG TAB PO SCH (08:24)
[2022-04-13] MEDS: APIXABAN 2.5 MG TAB PO SCH ×2 (08:24→20:09)
[2022-04-13] MEDS: POTASSIUM CHLORIDE CRTAB 20 MEQ TABCR PO SCH ×2 (08:24→20:10)
[2022-04-13] MEDS: hydrALAZINE TAB 50 MG TAB PO SCH ×3 (08:24→20:08)
[2022-04-13] MEDS: amLODIPine BESYLATE 5 MG TAB PO SCH (08:24)
[2022-04-13] MEDS: POLYETHYLENE (MIRALAX) 17 GM PACK PO SCH (08:24)
[2022-04-13] MEDS: METOPROLOL TARTRATE 50 MG TAB PO SCH ×2 (08:24→20:08)
--- NOTE | 2022-04-13 19:07 | Billing Data ---
Date of Service April 13, 2022 Coding Level of Care Code 64264 Subseq Hosp Care Lvl 1
[2022-04-13] MEDS: DONEPEZIL HCL 10 MG TAB PO SCH (20:09)
[2022-04-13] MEDS: GABAPENTIN 300 MG CAP PO SCH (20:09)
--- NOTE | 2022-04-14 06:46 | Discharge Summary ---
Date of Service April 14, 2022 Admission HPI Per Admitting Provider Angy Thomas 87-year-old female with past medical history significant for hypertension, hyperlipidemia, paroxysmal A. fib, aortic stenosis, CKD3, neuropathy, recurrent UTIs, dementia, GERD who is presenting today from home with complaints of nausea, vomiting, and abdominal pain. She states for a week she has been nauseous, has vomited once today, and has low abdominal pain and burning with urination. She denies noticing any fever or chills, blood in her urine, or that she is peeing more than usual. She states she often gets UTIs and thought this might be the case. She does not have any other complaints, specifically denies chest pain, shortness of breath, or palpitations. On arrival to the ED, she is low normotensive 106/55, otherwise vital signs are within normal limits, stable. Labs significant for elevated WBC 13.84 with left shift. Potassium low at 2.7, magnesium low at 1.5. Creatinine is 1.21, no baseline labs for reference but does have known CKD stage III. Her bilirubin is 1.4, again no baseline labs for reference. AST, ALT, alk phos all within normal limits. Her troponin is mildly elevated at 32.1. UA does appear somewhat infected with 510 WBCs, trace leukoesterase, 2+ bacteria. CT A/P shows hypodensities in the bilateral kidneys, likely representing proteinaceous or hemorrhagic cyst. There is pneumobilia, thought to be secondary to incompetent sphincter of Oddi. Diverticulosis without diverticulitis. No other acute abnormalities are seen. CXR without any acute chest process. Admission Exam Per Admitting Provider General: awake, alert, no apparent distress Head: Normocephalic, atraumatic ENT: PERRL, EOMI, no pharyngeal exudate, mucous membranes moist Chest: Clear to auscultation, on room air, no adventitious breath sounds Cardiac: Regular rate and rhythm, systolic murmur consistent with aortic stenosis; no JVD, normal peripheral pulses, good capillary refill Abdominal: NABS x 4 quadrants, soft, nontender to palpation, no rebound, guarding or tenderness Extremities: 2+ bilateral peripheral edema; otherwise normal inspection, calfs nontender to palpation Psych: Normal mood and affect Neuro: AAO x 3, strength intact bilaterally and rated 5/5, no motor deficits, speech is clear, no peripheral sensory deficits Skin: no rash or erythema Principal Diagnosis Urinary Tract Infection, Physical Deconditioning Discharge Exam Gen: NAD, AOx1, interactive, pleasant Resp:Non-labored, no wheezing/rhonchi/rales, CTAB CV:RRR, normal S1/S2, 4/6 systolic murmur at RUSB and LUSB Abd: Soft, non-distended, no TTP, no rebound or guarding, normoactive bowels, no masses Extr: 2+ dp bilaterally, no edema Discharge Data Allergies Allergy/AdvReac Type Severity Reaction Status Date / Time adhesive Allergy Intermediate BLISTER Verified 04/06/22 07:43 SKIN latex Allergy Intermediate HIVES AND Verified 04/06/22 07:43 ITCHING sulfamethoxazole Allergy Intermediate HIVES Verified 04/06/22 07:43 trimethoprim Allergy Intermediate HIVES Verified 04/06/22 07:43 nickel Allergy Mild RASH Verified 04/06/22 07:43 nitrofurantoin Allergy Unknown Unverified 04/06/22 07:43 [From Macrobid] lactose AdvReac Intermediate GI UPSET Verified 04/06/22 07:43 methotrexate AdvReac Intermediate SEVERE GI Verified 04/06/22 07:43 UPSET Zjeyrce-WFE-VyH Reductase AdvReac Intermediate MUSCLE Verified 04/06/22 07:43 Inhibitor ACHES [Agxdtya-Dzx-Edz Reductase Inhibitor] amoxicillin [From Augmentin] AdvReac Mild Diarrhea Unverified 04/06/22 07:43 clavulanic acid AdvReac Mild Diarrhea Unverified 04/06/22 07:43 [From Augmentin] Consultations 04/03/22 20:45 ED Decision to Admit Stat Ordered Studies 04/03/22 18:27 CT Abd and Pelvis [CT abd pelvis wo con] Stat 04/04/22 US renal/blad retro comp Routine Laboratory Results WBC 7.00 K/ul (4.8-10.8) 04/12/22 07:33 RBC 3.57 M/uL (3.93-5.22) L 04/12/22 07:33 Hgb 10.5 g/dl (12.0-16.0) L 04/12/22 07:33 Hct 32.8 % (34.1-44.9) L 04/12/22 07:33 MCV 91.9 fL (80.0-100.0) 04/12/22 07:33 MCH 29.4 pg (25.0-34.0) 04/12/22 07:33 MCHC 32.0 g/dL (32.0-36.0) 04/12/22 07:33 RDW Std Deviation 46.4 fL (36.4-46.3) H 04/12/22 07:33 RDW Coeff of Elia 13.6 % (11.5-14.5) 04/12/22 07:33 Plt Count 350 K/uL (130-400) 04/12/22 07:33 MPV 9.9 fL (9.4-12.3) 04/12/22 07:33 Immature Gran % (Auto) 0.4 % 04/05/22 06:02 Neut % (Auto) 73.4 % 04/05/22 06:02 Lymph % (Auto) 13.1 % 04/05/22 06:02 [place] % (Auto) 11.9 % 04/05/22 06:02 Eos % (Auto) 1.1 % 04/05/22 06:02 Baso % (Auto) 0.1 % 04/05/22 06:02 Neut # (Auto) 7.04 K/uL (1.4-6.5) H 04/05/22 06:02 Lymph # (Auto) 1.26 K/uL (1.2-3.4) 04/05/22 06:02 [place] # (Auto) 1.14 K/uL (0.24-0.82) H 04/05/22 06:02 Eos # (Auto) 0.11 K/uL (0-0.50) 04/05/22 06:02 Baso # (Auto) 0.01 K/uL (0-0.2) 04/05/22 06:02 Immature Gran # (Auto) 0.04 K/uL (0.00-0.02) H 04/05/22 06:02 Absolute Nucleated RBC Cancelled 04/07/22 07:56 Nucleated RBC % (auto) Cancelled 04/07/22 07:56 Platelet Estimate Cancelled 04/07/22 07:56 Sodium 138 mmol/L (136-145) 04/12/22 07:33 Potassium 4.3 mmol/L (3.5-5.1) 04/12/22 07:33 Chloride 106 mmol/L (98-107) 04/12/22 07:33 Carbon Dioxide 27 mmol/L (21-32) 04/12/22 07:33 Anion Gap 5 (3-11) 04/12/22 07:33 BUN 11 mg/dl (6-23) 04/12/22 07:33 Creatinine 0.80 mg/dl (0.6-1.2) 04/12/22 07:33 Est Cr Clr Drug Dosing 36.9 ml/min 04/12/22 07:33 Est GFR ( Amer) 77.9 ml/min 04/12/22 07:33 Est GFR (Non-Af Amer) 67.2 ml/min 04/12/22 07:33 BUN/Creatinine Ratio 13.8 (10-20) 04/12/22 07:33 Glucose 85 mg/dl (70-99(Fasting)) 04/12/22 07:33 Calcium 8.3 mg/dl (8.5-10.1) L 04/12/22 07:33 Magnesium 2.5 mg/dl (1.7-2.4) H 04/04/22 03:23 Total Bilirubin 1.4 mg/dl (0.2-1.0) H 04/03/22 18:56 AST 17 U/L (13-39) 04/03/22 18:56 ALT 13 U/L (7-52) 04/03/22 18:56 Alkaline Phosphatase 33 U/L (34-104) L 04/03/22 18:56 Troponin I High Sens 73.2 pg/ml (0-14) H* D 04/04/22 15:27 Total Protein 6.3 gm/dl (6.0-8.3) 04/03/22 18:56 Albumin 3.6 gm/dl (3.4-5.0) 04/03/22 18:56 Globulin 2.7 gm/dl (2.5-4.0) 04/03/22 18:56 Albumin/Globulin Ratio 1.3 (0.9-2) 04/03/22 18:56 TSH 2.607 uIu/ml (0.300-4.500) 04/03/22 18:56 Urine Color Yellow 04/09/22 12:30 Urine Appearance Clear (Clear) 04/09/22 12:30 Urine pH 8.5 (4.5-7.5) H 04/09/22 12:30 Ur Specific [place] 1.009 (1.000-1.030) 04/09/22 12:30 Urine Protein Negative (Negative) 04/09/22 12:30 Urine Glucose (UA) Negative (Negative) 04/09/22 12:30 Urine Ketones Negative (Negative) 04/09/22 12:30 Urine Blood Negative (Negative) 04/09/22 12:30 Urine Nitrite Negative (Negative) 04/09/22 12:30 Urine Bilirubin Negative (Negative) 04/09/22 12:30 Urine Urobilinogen Negative (Negative) 04/09/22 12:30 Ur Leukocyte Esterase Trace (Negative) H 04/09/22 12:30 Urine WBC (Auto) 1-5 /hpf (0-5) 04/09/22 12:30 Urine RBC (Auto) 5-10 /hpf (0-4) H 04/09/22 12:30 U Hyaline Cast (Auto) 1-5 /lpf (0-5) 04/09/22 12:30 U Epithel Cells (Auto) 20-30 /lpf (0-5) H 04/09/22 12:30 Urine Bacteria (Auto) Negative (Negative) 04/09/22 12:30 SARS-CoV-2 (PCR) NEGATIVE (Negative) 04/03/22 18:16 SARS-CoV-2, RNA, NAAT NEGATIVE (NEGATIVE) 04/13/22 08:55 Impressions Abdomen/Pelvis CT 04/03/22 18:27 CT abd pelvis wo con CLINICAL HISTORY: vomiting, abd pain TECHNIQUE: Helical axial images of the abdomen and pelvis were obtained. Automated dose lowering techniques and/or adjustment according to patient size were utilized for this exam. This exam was performed without intravenous contrast. CT DOSE: 351.97 mGy.cm COMPARISON: None available at the time of this dictation. FINDINGS: Lower chest: No acute abnormality Liver: Unremarkable. No focal lesions are seen. Gallbladder and biliary tree: Patient is status post cholecystectomy. Pneumobilia is seen. Physiologic prominence of the common bile duct is noted. Pancreas: Unremarkable, no focal lesions. Spleen: Unremarkable. Adrenals: Nodularity is seen bilaterally. Kidneys and ureters: A few hyperdensities are seen bilaterally compatible with proteinaceous/hemorrhagic cyst, these measure up to 9 mm. Bladder: Unremarkable. Reproductive organs: Unremarkable. Bowel: Diverticulosis is seen without evidence of diverticulitis. Lymph nodes Retroperitoneal: Unremarkable. Pelvic: Unremarkable. Mesenteric: Subcentimeter lymph nodes are noted. Peritoneum: Normal. Vessels: Atherosclerotic calcifications are seen. Abdominal wall: Unremarkable. Bones: Degenerative changes in the visualized spine. IMPRESSION: 1. No acute abnormality is seen. 2. Pneumobilia may be secondary to incompetent sphincter of Jhonatan. 3. Hyperdensities in the bilateral kidneys likely represent proteinaceous or hemorrhagic cysts. If not previously evaluated, ultrasound can be performed. 4. Diverticulosis without diverticulitis. ACT 112: Negative or not required by law. Electronically signed by: Dayday Donaldson M.D. 04/03/2022 7:58 PM Renal Ultrasound 04/04/22 00:00 US renal/blad retro comp HISTORY: 87 years-old Female follow up renal cysts on CT follow-up study in a patient with renal cysts COMPARISON: CT abdomen and pelvis 04/03/2022 TECHNIQUE: Multiple real-time sonographic images of the kidneys and urinary bladder were obtained assessing grayscale appearance and color flow FINDINGS: The right kidney measures 8.8 cm in length and demonstrates no renal calculi or hydronephrosis. Cortical medullary differentiation preserved. 8 mm hypoechoic focus of the superior pole right kidney suggestive of a probable cyst. No solid renal mass lesions identified. The left kidney measures 8.9 cm in length and demonstrates no renal calculi or hydronephrosis. No solid renal mass lesions are identified. Renal sinus cysts of the left kidney measure up to 1.6 cm. 7 mm mildly complex cyst of the interpolar left kidney. IMPRESSION: 1. No renal calculi or hydronephrosis. 2. Mildly atrophic kidneys. 3. Mildly complex cysts of the kidneys. No solid renal mass lesions identified. ACT 112: Negative or not required by law. The above report was generated using voice recognition software. It may contain grammatical, syntax or spelling errors. Electronically signed by: Tucker Lambert M.D. 04/04/2022 9:46 AM Chest X-Ray 04/06/22 23:56 XR chest 1V portable CLINICAL HISTORY: check for pulm edema COMPARISON STUDY: Chest CT March 27, 2021. Chest radiograph April 03, 2022. FINDINGS: Old left scapular and rib fractures are incidentally noted. There is no pneumothorax. Small bilateral pleural effusions with associated bibasilar opacities are noted. Cardiomegaly is noted. Mild pulmonary edema has developed. Patient is rotated. IMPRESSION: Mild interstitial pulmonary edema with small bilateral pleural effusions and bibasilar opacities. ACT 112: Negative or not required by law. Electronically signed by: Dillon Beltran M.D. 04/07/2022 7:47 AM Hospital Course (1) Acute hypokalemia: (2) Hypomagnesemia: (3) Acute UTI (urinary tract infection): (4) Hypertension: (5) Paroxysmal A-fib: (6) Dementia: (7) GERD (gastroesophageal reflux disease): (8) Renal cyst: (9) Giant cell arteritis: (10) Chronic kidney disease: Plan Pt is a 87 yo female with PMH of CKD, GERD, Afib, and neuropathy admitted to the hospital for nausea and vomiting x1 week. She was found to have a urinary tract infection and was started on IV antibiotics. Acute UTI w/ hx of recurrent UTI - UA showed 2+ bacteria, trace leuk esterase - Urine Cx: Positive for enterococcus faceum, not sensitive to Cephalosporins, will continue IV Ampicillin inpatient per sensitivities - Originally given dose of ceftriaxone in ER with plan to continue this at admission - Urine culture from February showed E. coli and enterococcus susceptible to nitrofurantoin and ampicillin - Nitrofurantoin x 10 days failed outpatient, switched ceftriaxone to ampicillin 1000 mg q8hr on admission - 04/04-04/07 Ampicillin - 04/07-04/11 Amoxicillin --04/09 Day 11/11 Abx, continue Amoxicillin - Urinalysis, negative, contaminated - 04/10 Day 12/11 Abx, discontinued - 04/11 Resolved --- 04/14 Resolved, no abdominal TTP or dysuria Renal cysts -Hypodensities in BL kidneys (proteinaceous vs hemorrhagic) evidence on CTAP 04/03, US showed complex cysts of kidneys w/o solid lesions --- US follow up outpatient in 2-3 months Chronic Conditions * HTN- continue home Metoprolol 50 mg BID, Amlodipine 50 mg q AM, Hydralazine TID, and Lasix 40 mg * Dementia- per family, pt at baseline, however, family does endorse a steady decline over the past few months * Hx of Giant Cell Arteritis- Continue Prednisone 2 mg PO daily * Neuropathy- Patient was receiving 600 mg Gabapentin at night, per Neurology note, patient is to be taking 300 mg Gabapentin at night, adjusted FEN:heart healthy diet Code: Full DVT:Eder Dispo:med/surg, PT recommending SNF CM: Anticipate discharge to [facility] [place] 04/14 Total Time Total Time Spent Total Time Spent (In Minutes): <30 Discharge Plan Discharge Items Patient Disposition: Transfer Alf Fac Reason For Visit: UTI Discharge Diagnosis: UTI, physical deconditioning Activity: Per Instructions section Non-emergency contact: Primary Care Provider Call non-emergency contact if: you have any medication questions and your symptoms worsen Follow-up/Referrals: Irene Guajardo [Primary Care Provider] - Diet: Heart Healthy Add Attending Provider Instructions: Pt is a 87 yo female with PMH of CKD, GERD, Afib, and neuropathy admitted to the hospital for nausea and vomiting x1 week. She was found to have a urinary tract infection and was started on IV antibiotics. Acute UTI w/ hx of recurrent UTI - UA showed 2+ bacteria, trace leuk esterase - Urine Cx: Positive for enterococcus faceum, not sensitive to Cephalosporins, will continue IV Ampicillin inpatient per sensitivities - Originally given dose of ceftriaxone in ER with plan to continue this at admission - Urine culture from February showed E. coli and enterococcus susceptible to nitrofurantoin and ampicillin - Nitrofurantoin x 10 days failed outpatient, switched ceftriaxone to ampicillin 1000 mg q8hr on admission - 04/04-04/07 Ampicillin - 04/07-04/11 Amoxicillin --04/09 Day 11/11 Abx, continue Amoxicillin - Urinalysis, negative, contaminated - 04/10 Day 12/11 Abx, discontinued - 04/11 Resolved --- 04/14 Resolved, no abdominal TTP or dysuria Renal cysts -Hypodensities in BL kidneys (proteinaceous vs hemorrhagic) evidence on CTAP 04/03, US showed complex cysts of kidneys w/o solid lesions --- US follow up outpatient in 2-3 months Chronic Conditions * HTN- continue home Metoprolol 50 mg BID, Amlodipine 50 mg q AM, Hydralazine TID, and Lasix 40 mg, BP acceptably controlled * Dementia- per family, returned to baseline, however, family does endorse a steady decline over the past few months * Hx of Giant Cell Arteritis- Continue Prednisone 2 mg PO daily * Neuropathy- Patient was receiving 600 mg Gabapentin at night, per Neurology note, patient is to be taking 300 mg Gabapentin at night, adjusted FEN:heart healthy diet Code: Full DVT:Eliquis Dispo:med/surg, PT recommending SNF CM: Anticipate discharge to [facility] 04/14 Pending Studies at Discharge: No Stand-Alone Forms: [facility] Display Skilled Items Patient informed of condition?: Yes DNR: No Discharge Level of Care: Skilled Communicable Disease: No Discharge Prognosis: Stable Lines: None Urinary Catheter: No Medications and DC Order Prescriptions: Continued donepezil 10 mg tablet 10 mg PO DAILY Qty: 90 3RF conjugated estrogens 0.625 mg/gram cream 0.625 mg vaginal DAILY Qty: 30 3RF Rx Instructions: apply twice weekly. furosemide 20 mg tablet 20 mg PO DAILY gabapentin 300 mg capsule 300 mg PO BID Qty: 60 5RF Rx Instructions: 1 tab po BID x 2 weeks, then lower to 1 tab po at bedtime, then call office in 2 weeks with update. cholecalciferol (vitamin D3) 2,000 unit tablet 2,000 units PO DAILY apixaban 2.5 mg tablet 2.5 mg PO BID metoprolol tartrate 50 mg tablet 50 mg PO BID Qty: 180 hydralazine 100 mg tablet 100 mg PO TID Qty: 60 2RF cyanocobalamin (vitamin B-12) 1,000 mcg Tablet 2,000 mcg PO DAILY Digestive Advantage Prob Gummy 250 million cell Tablet,Chewable 250 cell PO DAILY cyclosporine [Restasis] 0.05 % Dropperette 2 drp OPHTHALMIC (EYE) BID PRN (Reason: Dry Eyes) prednisone 1 mg tablet 2 mg PO DAILY omeprazole 20 mg capsule,delayed release(DR/EC) 20 mg PO QAM amlodipine 5 mg tablet 5 mg PO DAILY memantine 5 mg tablet 5 mg PO BID Rx Instructions: 1 tab po daily x 1 week, then increase to 1 tab po BID. ondansetron HCl 4 mg tablet 4 mg PO Q8H PRN (Reason: nausea and vomiting) Qty: 15 0RF donepezil 10 mg tablet 10 mg PO HS ondansetron HCl 4 mg tablet 4 mg PO Q8 PRN (Reason: Nausea and nausea) amlodipine 5 mg tablet 5 mg PO QAM prednisone 1 mg tablet 2 mg PO QAM hydralazine 100 mg tablet 100 mg PO TID metoprolol tartrate 50 mg tablet 50 mg PO BID gabapentin 300 mg capsule 600 mg PO HS omeprazole 20 mg capsule,delayed release(DR/EC) 20 mg PO QAM furosemide 20 mg tablet 20 mg PO QAM Eliquis 2.5 mg tablet 2.5 mg PO BID Discharge Orders: Discharge Order (Routine); Ordered 04/14/22 Ordered By: Fransisca Owen Admission Data Admit Date/Time: 04/03/22 21:19 Attending Provider: Joaquín Chew Admit Provider: Wander Ramirez Primary Care Provider: Irene Guajardo [facility]ander Ramirez ; [facility] ; Alexis Humphreys at [place] Other Interventions: Discharge Summary Assessment (RN) Last Done: 04/14/22 11:19 Supervising Physician Co-Signing Physician Notes I personally examined the patient and verified all segundo points of history and exam, discussed case, and agree with decision making with Dr Owen No complaints. Feeling okay overall. for SNF today Vitals noted, in general she is awake and alert pleasant no distress. Appears to be in baseline mentation. Breathing unlabored no accessory muscle use good effort. Skin shows no rashes no pallor or icterus. 1. Acute urinary tract infection with hx of recurrent UTI. Culture with enterococcus. Completed abx. 2. Renal cysts. Repeat ultrasound in 2-3 months. 3. HTN. Continue metoprolol 50mg BID, amlodipine 5mg, hydralazine TID, Lasix 20mg daily. Blood pressure overall acceptable 4. Dementia. Not agitated. Continue to re-orient if she is confused. Continue donepezil. Restarted Namenda. 5. Hx of giant cell arteritis. Continue low dose prednisone, 2mg. Dispo: SNF today Resident Activity Tracking Resident Involvement: Resident Care Provided Care Provided: Adult Hospital Medicine
[2022-04-14] MEDS: PANTOprazole 40 MG TAB PO SCH (07:37)
[2022-04-14] MEDS: METOPROLOL TARTRATE 50 MG TAB PO SCH (07:37)
[2022-04-14] MEDS: predniSONE 1 MG TAB PO SCH (07:37)
[2022-04-14] MEDS: POTASSIUM CHLORIDE CRTAB 20 MEQ TABCR PO SCH (07:37)
[2022-04-14] MEDS: ADVANCED PROBIOTIC 1250 MG CAPSULE PO SCH (07:38)
[2022-04-14] MEDS: amLODIPine BESYLATE 5 MG TAB PO SCH (07:38)
[2022-04-14] MEDS: APIXABAN 2.5 MG TAB PO SCH (07:38)
[2022-04-14] MEDS: FUROSEMIDE 20 MG TAB PO SCH (07:38)
[2022-04-14] MEDS: POLYETHYLENE (MIRALAX) 17 GM PACK PO SCH (07:38)
[2022-04-14] MEDS: hydrALAZINE TAB 50 MG TAB PO SCH (07:39)
[2022-04-14] MEDS: MEMANTINE HCL 5 MG TAB PO SCH (07:39)
--- NOTE | 2022-04-14 18:57 | Billing Data ---
Date of Service April 14, 2022 Coding Level of Care Code D/C DAY MANAGEMENT <30 MINS
--- NOTE | 2022-04-17 13:26 | Hospitalist Progress Note ---
Date of Service April 08, 2022 Assessment & Plan (1) Acute hypokalemia: (2) Hypomagnesemia: (3) Acute UTI (urinary tract infection): (4) Hypertension: (5) Paroxysmal A-fib: (6) Dementia: (7) GERD (gastroesophageal reflux disease): (8) Renal cyst: (9) Giant cell arteritis: (10) Chronic kidney disease: Plan Pt is a 87 yo female with PMH of CKD, GERD, Afib, and neuropathy admitted to the hospital for nausea and vomiting x1 week. She was found to have a urinary tract infection and was started on IV antibiotics. Acute UTI w/ hx of recurrent UTI - UA showed 2+ bacteria, trace leuk esterase - Urine Cx: Positive for enterococcus faceum, not sensitive to Cephalosporins, will continue IV Ampicillin inpatient per sensitivities ---Pharmacy recommending continued IV Ampicillin w/transition to PO Amoxicillin 500 mg PO Q8h at discharge - Originally given dose of ceftriaxone in ER with plan to continue this at admission - Urine culture from February showed E. coli and enterococcus susceptible to nitrofurantoin and ampicillin - Nitrofurantoin x 10 days failed outpatient, switched ceftriaxone to ampicillin 1000 mg q8hr on admission - Pt. given probiotic d/t hx of diarrhea w/ penicillin use - No nausea, emesis, or diarrhea at present, ongoing lower abdominal discomfort - Pt given antibiotic d/t hx of nausea and diarrhea with penicillins - Plan tod/c home on amoxicillin 500 mg BID total ABX course of 7 days --- PT recommending SNF placement, CM contacted, known desire from family to take her home --- Contnue antibiotics Renal cysts - seen on CTAP 04/03 as hyperdensities in bilateral kidneys (most likely proteinaceous or hemorrhagic cysts) - renal US showed complex cysts of the kidneys, no solid lesions - benign cysts vs. remnants of pyelo vs. ? --- Recommend f/u US in 2-3 months as outpatient Elevated troponin - First troponin was 32.1 which jumped to 95.9 --> 97.8 --> 73.2 - Pt denying chest pain, EKG showed NSR - Echo showed EF 60-65% with no wall motion abnormalities with moderate aortic stenosis - Most likely d/t demand ischemia from infectious process Hypokalemia - upon admission, 2.7, repleted - K 3.9 this AM 04/07 Hypomagnesium - admission labs showed 1.5, repleted - AM labs showed 2.5 04/04 HTN - pt currently on metoprolol 50 mg BID - holding hydralazine 100 mg TID, amlodipine 5 mg qAM, and lasix 20 mg daily on admission - BP running soft 90s/50s on 04/04, assume d/t dehydration from infection - BP improved 04/05 - BP elevated 04/06, restart Amlodipine 50 mg qAM w/ now dose @ 1200 --- BP elevated 04/07, restarted Lasix 40 mg --- Continued Hydralazine hold Dementia - per family, pt seems more confused than baseline - however, family does endorse a steady decline over the past few months --- Multiple attempts to call patients family unsuccessful, CM notes attentive and supportive and daughter FEN:heart healthy diet, LR at 125 mL/hr Code: Full DVT:SCDs Dispo:med/surg, PT recommending SNF, pending placement Admission and Anticipated Discharge Date Admission Date: April 03, 2022 Supervising Physician Co-Signing Physician Notes I also saw the patient confirmed segundo portions of the history and physical examination. I agree with the impression plan as noted the resident documentation. She is awake and alert upon our exam - moreso than when I saw her yesterday. She is working with physical therapy. EXAM Respirations nonlabored. Lungs clear. Heart regular rate and rhythm. DATA Hemoglobin 10.4 BMP unremarkable Renal ultrasound dated 04/03/2022 shows no renal calculi or hydronephrosis, mildly atrophic kidneys, complex cyst, no solid renal masses appreciated. Urine culture shows Enterococcus faecium, resistant to ciprofloxacin, intermediate levofloxacin nitrofurantoin, sensitive to all others. IMPRESSION & PLAN UTI with sepsis, resolved Ambulatory dysfunction Continue current antibiotics PT evaluation appreciated, recommend SNF Case management is involved and assisting with placement possibilities Additional per resident documentation Subjective Pt is a 87 yo female with PMH of CKD, GERD, Afib, and neuropathy admitted to the hospital for nausea and vomiting x1 week. She was found to have a urinary tract infection and was started on antibiotics. 04/08: Patient resting comfortably in bed upon arrival. She feels overall well and notes that she only has mild suprapubic discomfort. She denies any chest pain, shortness of breath, or dysuria. 04/07: Patient notes that she is 'feeling better than yesterday' but it still feeling overall very weak. Patient comfortable on room air on arrival. Patient denies chest pain, dyspnea, pleuritic pain, dysuria, or headaches at visit today. Notes ongoing suprapubic pain without flank or back pain. PT present at end of visit. 1630 & 1715: Attempted to call patient's family w/o answer. Review of Systems Review of Systems: As per HPI Physical Exam Physical Exam: Gen: NAD, AOx2, interactive Resp:Non-labored, no wheezing/rhonchi/rales, CTAB CV:RRR, normal S1/S2, 4/6 systolic murmur at RUSB and LUSB Abd: Soft, non-distended, suprapubic TTP, no rebound or guarding, normoactive bowels, no masses Extr: 2+ dp bilaterally, no edema Skin: No rashes lesions or erythema Resident Activity Tracking Resident Involvement: Resident Care Provided Care Provided: Adult Hospital Medicine
--- NOTE | 2022-05-28 05:00 | Coding Query ---
SEPSIS To promote full compliance with coding requirements relating to patient care, physician participation is requested in all cases of sales applications engineer uncertainty. Please assist us with the question(s) below: In responding to this query, please exercise your independent professional judgement. The fact that a question is asked does not imply that any particular answer is desired or expected. We appreciate your clarification on this issue. . The medical record reflects the following clinical findings: Pt admitted with UTI. Progress notes 04/03,04/06 mention Sepsis . Please document, if applicable, the diagnosis treated during this Inpatient stay. Thank you . Shelton Stein [facility] ____ ( )Bacteremia (Nonspecific laboratory finding of bacteria in the blood) Specify Organism ( ) Present on Admission ( x) Not present on admission ( ) Unable to clinically determine ( ) Septicemia (Systemic disease associated with the presence of pathogenic microorganisms in the blood): Specify Organism ( ) Present on Admission ( x) Not present on admission ( ) Unable to clinically determine ( x) Sepsis Specify Organism enterococcous Specify Associated Condition/Diagnosis UTI (x ) Present on Admission ( ) Not present on admission ( ) Unable to clinically determine ( ) Severe Sepsis (Sepsis associated with acute organ dysfunction) Specify Organism Specify Associated Condition/Diagnosis ( ) Present on Admission ( x) Not present on admission ( ) Unable to clinically determine ( ) Septic Shock (Severe sepsis with acute circulatory failure, unexplained by other causes) ( ) Present on Admission (x ) Not present on admission ( ) Unable to clinically determine ( ) Other, patient has: MTDD
== END 2022-04-14 12:53 | DRG 872 ==
LOC: ED 18:07 → 2W 21:19 → SUATTDRO 21:19 → MERGE 21:19 → 2W 23:20

== ENCOUNTER 2022-06-05 11:25 | Observation (INO) ==
[2022-06-05 13:03] LABS: Basophils # (auto) 0.03 K/uL (0-0.2); Basophils % (auto) 0.3 %; Eosinophils # (auto) 0.03 K/uL (0-0.50); Eosinophils % (auto) 0.3 %; Hematocrit (blood only) 39.6 % (34.1-44.9); Hemoglobin 12.8 g/dl (12.0-16.0); Immature Granulocytes # (auto) 0.08 K/uL (0.00-0.02); Immature Granulocytes % (auto) 0.7 %; Lymphocytes # (auto) 1.42 K/uL (1.2-3.4); Mean Corpuscular Hemoglobin 30.3 pg (25.0-34.0); Mean Corpuscular Hgb Conc 32.3 g/dL (32.0-36.0); Mean Corpuscular Volume 93.6 fL (80.0-100.0); Mean Platelet Volume 10.6 fL (9.4-12.3); Monocytes # (auto) 0.88 K/uL (0.24-0.82); Neutrophils # (auto) 8.51 K/uL (1.4-6.5); Neutrophils % (auto) 77.7 %; Platelet Count 295 K/uL (130-400); RDW Coefficient of Variation 13.2 % (11.5-14.5); RDW Standard Deviation 45.1 fL (36.4-46.3); Red Blood Count 4.23 M/uL (3.93-5.22); White Blood Count 10.95 K/ul (4.8-10.8)
[2022-06-05 13:13] LABS: Alanine Aminotransferase 20 U/L (7-52); Albumin Globulin Ratio 1.2 (0.9-2); Albumin Level 3.9 gm/dl (3.4-5.0); Alkaline Phosphatase 39 U/L (34-104); Anion Gap 9 (3-11); Aspartate Aminotransferase 23 U/L (13-39); Bilirubin,Total 0.5 mg/dl (0.2-1.0); Blood Urea Nitrogen 23 mg/dl (6-23); Calcium 9.3 mg/dl (8.5-10.1); Carbon Dioxide 28 mmol/L (21-32); Chloride 100 mmol/L (98-107); Est GFR (African American) 47.2 ml/min; Est GFR (Non-African American) 40.8 ml/min; Globulin 3.3 gm/dl (2.5-4.0); Glucose 102 mg/dl (70-99(Fasting)); Sodium 137 mmol/L (136-145); Total Protein 7.2 gm/dl (6.0-8.3)
[2022-06-05] MEDS ORDERED: AMPICILLIN/SULBACTAM SOD 3,000 MG in 0.9 % SODIUM CHLORIDE 100 ML IV STA (13:19)
--- NOTE | 2022-06-05 13:37 | Emergency Department Note ---
Impression & Plan AMS (altered mental status) ED Provider Note INFORMANT: Patient and family ED PROVIDER(S): Yoel Parish MD CHIEF COMPLAINT: Urinary symptoms PLAN: Disposition: Admitted Condition: Good Outpatient prescription management: none Referral: None MEDICAL DECISION MAKING: Patient presented because of confusion and urinary symptoms. She reportedly also had low blood pressure. Thankfully her blood pressure was improved on arrival here. She was hydrated. She did have some confusion. Family did confirm the history. She was found to have a mild leukocytosis and a UTI. Prior record review indicates that she has had Enterococcus as well as Klebsiella and E. coli. ED pharmacist recommended IV Unasyn. This was done after cultures. Further management in the hospital will be necessary. Consultation was made with the [facility] hospitalist service. Discussed with Dr. Odonnell. Patient will be admitted for further management. Triage Nursing notes reviewed and agree them. Vital Signs: reviewed and remarkable for no significant abnormalities Differential diagnosis: Sepsis, UTI, pneumonia, metabolic, electrolyte abnormalities, cardiac sources, intracerebral event, toxicologic, neurologic, as well as other pathologies. Diagnostics interpreted by me: ECG: none Cardiac Monitoring: Cardiac monitoring ordered by me: The patient was placed on continuous cardiac monitoring and observed. It revealed a normal sinus rhythm at 74 beats per minute without ectopy or evidence of dysrhythmia. Imaging studies: Deferred HPI: The patient is a 82 year old female with a history of dementia who presents to the Emergency Room with complaints of urinary symptoms and increased confusion. This started this week and is worsening per the son. The patient also notes the following associated symptoms, swelling and pain of the distal left great toe, also chills. The patient has been prescribed no relieving factors. Current pain is rated as 5/10. Patient was reportedly at her cardiology office and mention the urinary complaints. Her blood pressure was low when she was directed to the ER for further management. History is somewhat limited secondary to patient's confusion. Pt denies LOC, headache, fevers, neck pain, chest pain, breathing difficulties, nausea, vomiting, abdominal pain, back pain, diarrhea, numbness, weakness, lymphadenopathy, rash, or other complaints. ROS: See above HPI for pertinent positives & negatives. Limited secondary to th e patient's confusion and dementia PAST MEDICAL HISTORY:See Below , dementia, UTI PAST SURGICAL HISTORY:See Below, FAMILY HISTORY:See Below SOCIAL HISTORY:See Below, non-smoker HOME MEDICATIONS:See Below ALLERGIES:See Below VITALS:See Below PHYSICAL EXAMINATION: GENERAL: Awake, alert, mild uncomfortable-appearing, in no distress HENT: Normocephalic, atraumatic. Oropharynx unremarkable. EYES: Normal conjunctiva. Sclera non-icteric. NECK: Inspection normal. Non-tender. Supple. No nuchal rigidity. FROM. No masses. RESPIRATORY: Clear to auscultation. No wheezes. No rales. Normal respiratory effort. CARDIAC: Normal rate. Normal rhythm. No murmurs. No rubs. Extremities warm and well perfused. Pulses equal. No JVD. GI: Soft, non-distended. No tenderness to palpation. No rebound or guarding. No masses. RECTAL: Deferred. MUSCULOSKELETAL: Atraumatic. Chest examination reveals no tenderness. The back is symmetrical on inspection without obvious abnormality. There is no CVA tenderness to palpation. No joint edema. There is erythema of the distal left great toe concerning for early paronychia. No definable abscess noted. No foot cellulitis. LOWER EXTREMITIES: Calves are equal size bilaterally and non-tender. No edema. No discoloration. NEURO: Demented sensorium. No focal sensory or motor deficits noted. SKIN: No rash or jaundice noted. Yoel Parish MD Past Med/Surg History Medical History (Updated 06/05/22 @ 16:14 by Paco Sung MD) Acid reflux controlled Acute UTI (urinary tract infection) Aortic stenosis Moderate per 07/2018 ECHO Atrial fibrillation on Eliquis Carotid stenosis Chronic kidney disease baseline creatinine 1.4-1.7 range per nephrology Colitis hx Degeneration, intervertebral disc, thoracic Dementia Diplopia Dry eye syndrome GERD (gastroesophageal reflux disease) Giant cell arteritis hx- on chronic prednisone 2mg twice weekly Giant cell arteritis History of DVT (deep vein thrombosis) HTN (hypertension) Hx of blood clots LLE 15 years ago- no issues since Hx of pancreatitis 5+ years ago Hyperlipidemia Hypertension Low back pain Lung nodules small- under surveillance Myalgia and myositis Neuropathy Paroxysmal A-fib Varicose veins of both lower extremities Surgical History History of appendectomy History of bilateral tubal ligation History of cataract surgery RT/LEFT History of chest tube placement pneumothorax s/p mechanical fall at the gym- chest tube placed History of cholecystectomy History of colonoscopy History of ERCP History of Mohs micrographic surgery for skin cancer BCC (EAR REGION) History of tonsillectomy and adenoidectomy Family History Daughter Breast cancer Denies family history of Ovarian cancer Colorectal cancer Social History Smoking Status: Former smoker Tobacco Type: Cigarettes Second Hand Exposure: No; Hx Alcohol Use: No Hx Substance Use: No Preferred Language: Yakut Communication Ability: Effective Visual Impairment: No Limitations Hearing Ability: Normal Hospital Orderly Required: No Beliefs That Will Affect Care: None marital status: Current Living Situation: Spouse Current Living Situation Comment: Lives with How many Children do You have: 5 Feels Safe at Home: Yes Assistive Devices: Cane and Wheelchair Allergies Allergies Allergy/AdvReac Type Severity Reaction Status Date / Time adhesive Allergy Intermediate BLISTER Verified 06/05/22 16:30 SKIN latex Allergy Intermediate HIVES AND Verified 06/05/22 16:30 ITCHING sulfamethoxazole Allergy Intermediate HIVES Verified 06/05/22 16:30 trimethoprim Allergy Intermediate HIVES Verified 06/05/22 16:30 nickel Allergy Mild RASH Verified 06/05/22 16:30 nitrofurantoin Allergy Unknown Unknown Unverified 06/05/22 16:30 [From Macrobid] lactose AdvReac Intermediate GI UPSET Verified 06/05/22 16:30 methotrexate AdvReac Intermediate SEVERE GI Verified 06/05/22 16:30 UPSET [id number] Reductase AdvReac Intermediate MUSCLE Verified 06/05/22 16:30 Inhibitor ACHES [Jspsunh-Lgx-Tmx Reductase Inhibitor] amoxicillin [From Augmentin] AdvReac Mild Diarrhea Unverified 06/05/22 16:30 clavulanic acid AdvReac Mild Diarrhea Unverified 06/05/22 16:30 [From Augmentin] Home Meds Home Medications Medication Instructions Recorded Confirmed cholecalciferol (vitamin D3) 50 2,000 units PO DAILY 12/27/18 06/05/22 mcg (2,000 unit) tablet Bacillus coagulans 250 million 250 cell PO DAILY 02/17/19 05/11/22 cell chewable tablet (Digestive Advantage Probiotic Gummy) cyanocobalamin (vitamin B-12) 2,000 mcg PO DAILY 02/17/19 05/11/22 1,000 mcg tablet cyclosporine 0.05 % eye drops in a 2 drp ophthalmic (eye) BID PRN Dry 02/17/19 05/11/22 dropperette (Restasis) Eyes memantine 5 mg tablet 5 mg PO BID 10/02/21 06/05/22 amlodipine 5 mg tablet 5 mg PO QAM 04/03/22 06/05/22 apixaban 2.5 mg tablet (Eliquis) 2.5 mg PO BID 04/03/22 06/05/22 donepezil 10 mg tablet 10 mg PO HS 04/03/22 06/05/22 furosemide 20 mg tablet 20 mg PO QAM 04/03/22 06/05/22 gabapentin 300 mg capsule 600 mg PO HS 04/03/22 05/11/22 hydralazine 100 mg tablet 100 mg PO TID 04/03/22 06/05/22 metoprolol tartrate 50 mg tablet 50 mg PO BID 04/03/22 06/05/22 omeprazole 20 mg capsule,delayed 20 mg PO QAM 04/03/22 06/05/22 release ondansetron HCl 4 mg tablet 4 mg PO Q8 PRN Nausea and nausea 04/03/22 06/05/22 prednisone 1 mg tablet 2 mg PO QAM 04/03/22 06/05/22 Previous Rx's Medication Instructions Recorded conjugated estrogens 0.625 mg/gram 0.625 mg vaginal DAILY #30 grams 01/14/22 vaginal cream gabapentin 300 mg capsule 300 mg PO BID #60 caps 03/16/22 Results & Data (ED) Vital Signs Vital Signs - 24 hr 06/05/22 11:56 06/05/22 13:26 06/05/22 15:00 Temperature 36.5 C Temperature Source Temporal Artery Scan Pulse Rate 85 Pulse Rate [Apical] 74 Respiratory Rate 16 15 18 Respiratory Effort / Characteristics Non-Labored Respiratory Depth Normal Blood Pressure 105/62 Blood Pressure [Right Arm] 175/63 H 175/83 H Blood Pressure Mean 76 Blood Pressure Mean [Right Arm] 100 113 Pulse Oximetry 97 98 94 Oxygen Delivery Method Room Air Room Air Sepsis Recent Fever Within 48 Hours No Sepsis New/Unexplained Change in Mental Status No Sepsis Action Taken by Nursing No Action Required Laboratory Data Result diagrams: 06/05/22 12:30 06/05/22 12:30 Lab Results 06/05/22 06/05/22 06/05/22 Range/Units 12:30 12:30 13:57 WBC 10.95 H (4.8-10.8) K/ul RBC 4.23 (3.93-5.22) M/uL Hgb 12.8 (12.0-16.0) g/dl Hct 39.6 (34.1-44.9) % MCV 93.6 (80.0-100.0) fL MCH 30.3 (25.0-34.0) pg MCHC 32.3 (32.0-36.0) g/dL RDW Std Deviation 45.1 (36.4-46.3) fL RDW Coeff of Elia 13.2 (11.5-14.5) % Plt Count 295 (130-400) K/uL MPV 10.6 (9.4-12.3) fL Immature Gran % (Auto) 0.7 % Neut % (Auto) 77.7 % Lymph % (Auto) 13.0 % [place] % (Auto) 8.0 % Eos % (Auto) 0.3 % Baso % (Auto) 0.3 % Neut # (Auto) 8.51 H (1.4-6.5) K/uL Lymph # (Auto) 1.42 (1.2-3.4) K/uL [place] # (Auto) 0.88 H (0.24-0.82) K/uL Eos # (Auto) 0.03 (0-0.50) K/uL Baso # (Auto) 0.03 (0-0.2) K/uL Immature Gran # (Auto) 0.08 H (0.00-0.02) K/uL Sodium 137 (136-145) mmol/L Potassium 4.0 (3.5-5.1) mmol/L Chloride 100 (98-107) mmol/L Carbon Dioxide 28 (21-32) mmol/L Anion Gap 9 (3-11) BUN 23 (6-23) mg/dl Creatinine 1.21 H (0.6-1.2) mg/dl Est Cr Clr Drug Dosing Not Reportable Est GFR ( Amer) 47.2 ml/min Est GFR (Non-Af Amer) 40.8 ml/min BUN/Creatinine Ratio 19.0 (10-20) Glucose 102 H (70-99(Fasting)) mg/dl Lactate 0.7 (0.4-2.0) mmol/L Calcium 9.3 (8.5-10.1) mg/dl Total Bilirubin 0.5 (0.2-1.0) mg/dl AST 23 (13-39) U/L ALT 20 (7-52) U/L Alkaline Phosphatase 39 (34-104) U/L Total Protein 7.2 (6.0-8.3) gm/dl Albumin 3.9 (3.4-5.0) gm/dl Globulin 3.3 (2.5-4.0) gm/dl Albumin/Globulin Ratio 1.2 (0.9-2) Urine Color Urine Appearance (Clear) Urine pH (4.5-7.5) Ur Specific [place] (1.000-1.030) Urine Protein (Negative) Urine Glucose (UA) (Negative) Urine Ketones (Negative) Urine Blood (Negative) Urine Nitrite (Negative) Urine Bilirubin (Negative) Urine Urobilinogen (Negative) Ur Leukocyte Esterase (Negative) Urine WBC (Auto) (0-5) /hpf Urine RBC (Auto) (0-4) /hpf U Hyaline Cast (Auto) (0-5) /lpf U Epithel Cells (Auto) (0-5) /lpf Urine Bacteria (Auto) (Negative) Urine Yeast 06/05/22 Range/Units 14:55 WBC (4.8-10.8) K/ul RBC (3.93-5.22) M/uL Hgb (12.0-16.0) g/dl Hct (34.1-44.9) % MCV (80.0-100.0) fL MCH (25.0-34.0) pg MCHC (32.0-36.0) g/dL RDW Std Deviation (36.4-46.3) fL RDW Coeff of Elia (11.5-14.5) % Plt Count (130-400) K/uL MPV (9.4-12.3) fL Immature Gran % (Auto) % Neut % (Auto) % Lymph % (Auto) % [place] % (Auto) % Eos % (Auto) % Baso % (Auto) % Neut # (Auto) (1.4-6.5) K/uL Lymph # (Auto) (1.2-3.4) K/uL [place] # (Auto) (0.24-0.82) K/uL Eos # (Auto) (0-0.50) K/uL Baso # (Auto) (0-0.2) K/uL Immature Gran # (Auto) (0.00-0.02) K/uL Sodium (136-145) mmol/L Potassium (3.5-5.1) mmol/L Chloride (98-107) mmol/L Carbon Dioxide (21-32) mmol/L Anion Gap (3-11) BUN (6-23) mg/dl Creatinine (0.6-1.2) mg/dl Est Cr Clr Drug Dosing Est GFR ( Amer) ml/min Est GFR (Non-Af Amer) ml/min BUN/Creatinine Ratio (10-20) Glucose (70-99(Fasting)) mg/dl Lactate (0.4-2.0) mmol/L Calcium (8.5-10.1) mg/dl Total Bilirubin (0.2-1.0) mg/dl AST (13-39) U/L ALT (7-52) U/L Alkaline Phosphatase (34-104) U/L Total Protein (6.0-8.3) gm/dl Albumin (3.4-5.0) gm/dl Globulin (2.5-4.0) gm/dl Albumin/Globulin Ratio (0.9-2) Urine Color Yellow Urine Appearance Cloudy A (Clear) Urine pH 6.5 (4.5-7.5) Ur Specific [place] 1.014 (1.000-1.030) Urine Protein Trace H (Negative) Urine Glucose (UA) Negative (Negative) Urine Ketones Trace H (Negative) Urine Blood Negative (Negative) Urine Nitrite Positive A (Negative) Urine Bilirubin Negative (Negative) Urine Urobilinogen Negative (Negative) Ur Leukocyte Esterase Negative (Negative) Urine WBC (Auto) 1-5 (0-5) /hpf Urine RBC (Auto) 0-4 (0-4) /hpf U Hyaline Cast (Auto) 1-5 (0-5) /lpf U Epithel Cells (Auto) 5-10 H (0-5) /lpf Urine Bacteria (Auto) 4+ H (Negative) Urine Yeast Not Reportable Administered Medications Sodium Chloride (Nss 1000ml) 1,000 mls @ 125 mls/hr IV .Q8H ARLETTE Stop: 07/05/22 12:44 Last Admin: 06/05/22 14:32 Dose: 125 mls/hr Documented By: ARS Discontinued Medications Ampicillin Sodium/Sulbactam Sodium 3,000 mg/ Sodium Chloride 108 mls @ 200 mls/hr IV NOW STA; Protocol Stop: 06/05/22 13:51 Last Admin: 06/05/22 14:33 Dose: 200 mls/hr Documented By: ARS Discharge Plan Visit Data Chief Complaint: Urinary Symptoms Stated Complaint: POSSIBLE SEPSIS, UTI ED Provider: Yoel Parish Discharge Problem: AMS (altered mental status) Forms Stand Alone Forms: [facility] [employer] Prescriptions Prescriptions: No Action conjugated estrogens 0.625 mg/gram cream 0.625 mg vaginal DAILY Qty: 30 3RF Rx Instructions: apply twice weekly. gabapentin 300 mg capsule 300 mg PO BID Qty: 60 5RF Rx Instructions: 1 tab po BID x 2 weeks, then lower to 1 tab po at bedtime, then call office in 2 weeks with update. cholecalciferol (vitamin D3) 2,000 unit tablet 2,000 units PO DAILY cyanocobalamin (vitamin B-12) 1,000 mcg Tablet 2,000 mcg PO DAILY Digestive Advantage Prob Gummy 250 million cell Tablet,Chewable 250 cell PO DAILY cyclosporine [Restasis] 0.05 % Dropperette 2 drp OPHTHALMIC (EYE) BID PRN (Reason: Dry Eyes) memantine 5 mg tablet 5 mg PO BID Rx Instructions: 1 tab po daily x 1 week, then increase to 1 tab po BID. donepezil 10 mg tablet 10 mg PO HS ondansetron HCl 4 mg tablet 4 mg PO Q8 PRN (Reason: Nausea and nausea) amlodipine 5 mg tablet 5 mg PO QAM prednisone 1 mg tablet 2 mg PO QAM hydralazine 100 mg tablet 100 mg PO TID metoprolol tartrate 50 mg tablet 50 mg PO BID gabapentin 300 mg capsule 600 mg PO HS omeprazole 20 mg capsule,delayed release(DR/EC) 20 mg PO QAM furosemide 20 mg tablet 20 mg PO QAM Eliquis 2.5 mg tablet 2.5 mg PO BID Referrals Referrals: Irene Guajardo [Primary Care Provider] -
[2022-06-05] MEDS: SODIUM CHLORIDE 0.9% 1000ML 1,000 ML IV SCH ×2 (14:32→23:45)
[2022-06-05 15:31] LABS: Appearance Urine Cloudy (Clear); Bacteria Urine Automated 4+ (Negative); Bilirubin Urine Negative (Negative); Blood Urine Negative (Negative); Color Urine Yellow; Glucose Urine UA Negative (Negative); Ketones Urine Trace (Negative); Leukocyte Esterase Urine Negative (Negative); Nitrite Urine Positive (Negative); Protein Urine Trace (Negative); RBC Urine Automated 0-4 /hpf (0-4); Specific Gravity Urine 1.014 (1.000-1.030); Urobilinogen Urine Negative (Negative); pH Urine 6.5 (4.5-7.5)
--- NOTE | 2022-06-05 16:16 | History & Physical Report ---
Date of Service June 05, 2022 Assessment & Plan (1) Metabolic encephalopathy: Plan: Patient presents with metabolic encephalopathy from infectious source. Patient has a history of enterococcal faecium urinary tract infections but she also has a developing paronychia of her left great toe. Because of her previous sensitivities she was chosen Unasyn by the emergency department and she will be continued on the same. Cultures for blood and urine are pending Patient is a previous history of bilateral proteinaceous or hemorrhagic renal cysts,( CT scan March 28 )she seen Dr. Aldridge in the past past infections of been including Enterococcus, Klebsiella, quinolone resistant E. coli (2) Paroxysmal A-fib: Plan: Metoprolol for rate control Eliquis for anticoagulation (3) GERD without esophagitis: Plan: Patient is on chronic prednisone for giant cell arteritis she will continue continue on omeprazole for GI prophylaxis (4) Hypertension: Plan: Metoprolol, hydralazine, amlodipine and low-dose Lasix, these are higher doses will follow for need to reduce dose (5) Giant cell arteritis: Plan: Patient remains on prednisone 2 mg a day 1 dose of stress dose of hydrocortisone given to emergency department 50 mg Plan DVT prevention is Eliquis History of Present Illness Primary Care Provider: Irene Guajardo 87-year-old female reportedly was at [facility] cardiology office when she appeared to be confused. she looks to be clinically dehydrated with dry mucus membranes. She was witho lower bood pressure at her cardiology appointment but with normal BP in the ER department. The son arrived and does confirm she is not her usual mental state. Is an abnormal urinalysis and also it appears to have ingrown nail and be a possible paronychia of the left great toe. she is pending a COVID test and presentation Allergies Allergy/AdvReac Type Severity Reaction Status Date / Time adhesive Allergy Intermediate BLISTER Verified 06/05/22 16:30 SKIN latex Allergy Intermediate HIVES AND Verified 06/05/22 16:30 ITCHING sulfamethoxazole Allergy Intermediate HIVES Verified 06/05/22 16:30 trimethoprim Allergy Intermediate HIVES Verified 06/05/22 16:30 nickel Allergy Mild RASH Verified 06/05/22 16:30 nitrofurantoin Allergy Unknown Unknown Unverified 06/05/22 16:30 [From Macrobid] lactose AdvReac Intermediate GI UPSET Verified 06/05/22 16:30 methotrexate AdvReac Intermediate SEVERE GI Verified 06/05/22 16:30 UPSET Kffexjp-WLR-KkE Reductase AdvReac Intermediate MUSCLE Verified 06/05/22 16:30 Inhibitor ACHES [Tldmrxj-Tub-Det Reductase Inhibitor] amoxicillin [From Augmentin] AdvReac Mild Diarrhea Unverified 06/05/22 16:30 clavulanic acid AdvReac Mild Diarrhea Unverified 06/05/22 16:30 [From Augmentin] Home Medications Medication Instructions Recorded Confirmed Type cholecalciferol (vitamin D3) 50 2,000 units PO DAILY 12/27/18 06/05/22 History mcg (2,000 unit) tablet Bacillus coagulans 250 million 250 cell PO DAILY 02/17/19 06/05/22 History cell chewable tablet (Digestive Advantage Probiotic Gummy) cyanocobalamin (vitamin B-12) 2,000 mcg PO DAILY 02/17/19 06/05/22 History 1,000 mcg tablet cyclosporine 0.05 % eye drops in a 2 drp ophthalmic (eye) BID PRN Dry 02/17/19 06/05/22 History dropperette (Restasis) Eyes memantine 5 mg tablet 5 mg PO BID 10/02/21 06/05/22 History conjugated estrogens 0.625 mg/gram 0.625 mg vaginal DAILY #30 grams 01/14/22 06/05/22 Rx vaginal cream gabapentin 300 mg capsule 300 mg PO BID #60 caps 03/16/22 05/11/22 Rx amlodipine 5 mg tablet 5 mg PO QAM 04/03/22 06/05/22 History apixaban 2.5 mg tablet (Eliquis) 2.5 mg PO BID 04/03/22 06/05/22 History donepezil 10 mg tablet 10 mg PO HS 04/03/22 06/05/22 History furosemide 20 mg tablet 20 mg PO QAM 04/03/22 06/05/22 History gabapentin 300 mg capsule 600 mg PO HS 04/03/22 05/11/22 History hydralazine 100 mg tablet 100 mg PO TID 04/03/22 06/05/22 History metoprolol tartrate 50 mg tablet 50 mg PO BID 04/03/22 06/05/22 History omeprazole 20 mg capsule,delayed 20 mg PO QAM 04/03/22 06/05/22 History release ondansetron HCl 4 mg tablet 4 mg PO Q8 PRN Nausea and nausea 04/03/22 06/05/22 History prednisone 1 mg tablet 2 mg PO QAM 04/03/22 06/05/22 History Past Med/Surg History Medical History (Updated 06/05/22 @ 16:14 by Paco Sung MD) Acid reflux controlled Acute UTI (urinary tract infection) Aortic stenosis Moderate per 07/2018 ECHO Atrial fibrillation on Eliquis Carotid stenosis Chronic kidney disease baseline creatinine 1.4-1.7 range per nephrology Colitis hx Degeneration, intervertebral disc, thoracic Dementia Diplopia Dry eye syndrome GERD (gastroesophageal reflux disease) Giant cell arteritis hx- on chronic prednisone 2mg twice weekly Giant cell arteritis History of DVT (deep vein thrombosis) HTN (hypertension) Hx of blood clots LLE 15 years ago- no issues since Hx of pancreatitis 5+ years ago Hyperlipidemia Hypertension Low back pain Lung nodules small- under surveillance Myalgia and myositis Neuropathy Paroxysmal A-fib Varicose veins of both lower extremities Surgical History History of appendectomy History of bilateral tubal ligation History of cataract surgery RT/LEFT History of chest tube placement pneumothorax s/p mechanical fall at the gym- chest tube placed History of cholecystectomy History of colonoscopy History of ERCP History of Mohs micrographic surgery for skin cancer BCC (E[facility] REG[facility]) History of tonsillectomy and adenoidectomy Family History Daughter Breast cancer Denies family history of Ovarian cancer Colorectal cancer Social History Smoking Status: Former smoker Tobacco Type: Cigarettes Second Hand Exposure: No; Hx Alcohol Use: No Hx Substance Use: No Preferred Language: [place] Communication Ability: Effective Visual Impairment: No Limitations Hearing Ability: Normal Hvac Service Technician Required: No Beliefs That Will Affect Care: None marital status: Current Living Situation: Spouse Current Living Situation Comment: Lives with How many Children do You have: 5 Feels Safe at Home: Yes Assistive Devices: Cane and Wheelchair Review of Systems Review of Systems: Mild distress and fatigue no headache, no visual changes no speech or swallowing issues dry mouth and thirst no chest pain, pressure or palpitations no shortness of breath, cough or wheezes no abdominal pain, nausea or vomiting,no constipation no dysuria, hematuria or frequency focal left foot pain no back pain, CVA tenderness or radicular pain no bruising, bleeding or rashes no focal signs of weakness or numbness or altered sensation no complaints of anxiety or depression.. Physical Exam Physical Exam: The patient appeared well nourished and normally developed. she is confused and only oriented to person Vital signs as documented. Head exam is normocephalic atraumatic mucus membranes are dry Neck is without JVD, thyromegaly, or carotid bruits. Lungs are clear to auscultation, no focal loss of breath sounds Cardiac exam, Rhythm is regular.. No murmurs, rubs or gallops. Abdominal exam reveals normal bowel sounds, soft non tender, no masses Extremities are nonedematous and both pedal pulses are present left great toe is ingrown, no purulence is expressed Neurologic exam is alert and oriented x 1 no focal loss of strength or sensation Skin is with redness around the great toe Psychologically is with concerns for dementia.. Results & Data Results & Data ([facility]) Vital Signs (Past 12 Hours) Vital Signs Temp Pulse Pulse Resp BP BP Pulse Ox 06/05/22 15:00 74 18 175/83 H 94 06/05/22 13:26 15 175/63 H 98 06/05/22 11:56 97.7 F 85 16 105/62 97 O2 Del Method 06/05/22 15:00 Room Air 06/05/22 13:26 06/05/22 11:56 Room Air PG Care Time/CCT Total # of Minutes Spent Total Time Spent with Patient: Total time spent is greater than 50% in coordination of care (as documented) at patient's floor/unit and/or counseling patient: Coding Level of Care Code 66561 Initial Inpt Care Lvl 3 Diagnoses Metabolic encephalopathy G93.41 Paroxysmal A-fib I48.0 GERD without esophagitis K21.9 Hypertension I10 Giant cell arteritis M31.6
[2022-06-05] MEDS ORDERED: ONDANSETRON 4 MG OD TAB PO PRN (23:08)
[2022-06-05] MEDS ORDERED: ALUMINUM/MAGNESIUM SUSP 30 ML UDC PO PRN (23:08)
[2022-06-05] MEDS ORDERED: ONDANSETRON INJ 2 MG/ML 2 ML VIAL IV PRN (23:08)
[2022-06-05] MEDS ORDERED: HYDROCORTISONE SOD SUCCINATE 100 MG/2 ML VIAL IV STA (23:08)
[2022-06-05] MEDS ORDERED: HYDROCORTISONE SOD 50 MG in SYRINGE 0 ML IV STA (23:35)
[2022-06-05] MEDS ORDERED: Patient's HEIGHT &/or WEIGHT Needed SCH (23:45)
[2022-06-06] MEDS: METOPROLOL TARTRATE 50 MG TAB PO SCH ×3 (00:10→20:33)
[2022-06-06] MEDS: hydrALAZINE TAB 50 MG TAB PO SCH ×4 (00:10→20:33)
[2022-06-06] MEDS: SODIUM CHLORIDE 0.9% 1000ML 1,000 ML IV SCH ×3 (00:11→18:27)
[2022-06-06] MEDS: APIXABAN 2.5 MG TAB PO SCH ×3 (00:11→20:35)
[2022-06-06] MEDS: DONEPEZIL HCL 10 MG TAB PO SCH ×2 (00:11→20:34)
[2022-06-06] MEDS: MEMANTINE HCL 5 MG TAB PO SCH ×3 (00:11→20:34)
[2022-06-06] MEDS: GABAPENTIN 300 MG CAP PO SCH ×2 (01:03→20:35)
[2022-06-06] MEDS: AMPICILLIN/SULBACTAM SOD 3,000 MG in 0.9 % SODIUM CHLORIDE 100 ML IV SCH ×2 (02:11→16:05)
[2022-06-06 06:45] LABS: Hematocrit (blood only) 35.4 % (34.1-44.9); Hemoglobin 11.4 g/dl (12.0-16.0); Mean Corpuscular Hgb Conc 32.2 g/dL (32.0-36.0); Mean Corpuscular Volume 93.2 fL (80.0-100.0); Mean Platelet Volume 10.2 fL (9.4-12.3); Platelet Count 231 K/uL (130-400); RDW Coefficient of Variation 13.4 % (11.5-14.5); RDW Standard Deviation 45.3 fL (36.4-46.3); White Blood Count 6.98 K/ul (4.8-10.8)
[2022-06-06 07:47] LABS: BUN Creatinine Ratio 21.8 (10-20); Calcium 7.4 mg/dl (8.5-10.1); Creatinine Clr Calc Pharmacy 37.9 ml/min; Est GFR (African American) 80.3 ml/min; Est GFR (Non-African American) 69.3 ml/min; Potassium 3.8 mmol/L (3.5-5.1)
[2022-06-06] MEDS: ORDER AWAITING ACTION: Cyclosporine [Restasis] 0.05 % Dropperette SCH ×3 (08:04→23:41)
[2022-06-06] MEDS: PANTOprazole 40 MG TAB PO SCH (08:11)
[2022-06-06] MEDS: CHOLECALCIFEROL 1,000 UNITS 25 MCG TAB PO SCH (08:11)
[2022-06-06] MEDS: CYANOCOBALAMIN (B-12) 500 MCG TABLET PO SCH (08:11)
[2022-06-06] MEDS: amLODIPine BESYLATE 5 MG TAB PO SCH (08:11)
[2022-06-06] MEDS ORDERED: PREMARIN VAG CRM 14 APPLN/30 GM TUBE PV SCH (09:00)
[2022-06-06] MEDS ORDERED: predniSONE 1 MG TAB PO SCH (09:00)
[2022-06-06] MEDS: HYDROCORTISONE SOD 50 MG in SYRINGE 0 ML IV SCH ×2 (09:48→20:33)
--- NOTE | 2022-06-06 15:15 | Hospitalist Progress Note ---
Date of Service June 06, 2022 Assessment & Plan (1) Metabolic encephalopathy: Plan: Much improved. Due to urinary tract infection. Continue treatment and supporti care. (2) Paroxysmal A-fib: Plan: Metoprolol for rate control. Eliquis for anticoagulation. Stable (3) GERD without esophagitis: Plan: continue on omeprazole for GI prophylaxis (4) Hypertension: Plan: Currently on metoprolol, hydralazine, amlodipine and low-dose Lasix. Controlled (5) Giant cell arteritis: Plan: Steroid-dependent. Intravenous hydrocortisone until blood cultures are negative per final report. Then switch back to oral prednisone as usual. (6) Paronychia due to ingrown nail: Plan: This appears to be due to an ingrown toenail on the left first toe. She is on Unasyn. Eventually she will need podiatry treatment (7) Urinary tract infection: Plan: Gram-negative rods isolated. Currently on Unasyn. Will tailor antibiotics according to culture results. Plan DVT prophylaxis: Eliquis Disposition: Anticipate eventual discharge back to personal halfway Admission and Anticipated Discharge Date Admission Date: June 05, 2022 Subjective Alert and oriented. Her primary concern is losing her bed at the personal care facility. Gram-negative rods isolated in the urine. She currently is on intravenous Unasyn, day 2. White blood cell count is downtrending. OT and PT assessments recommended. We will continue with intravenous hydrocortisone for now since she is prednisone dependent until blood cultures are reported as negative. She does have evidence of a paronychia involving the left great toe. She is chronically on Eliquis for paroxysmal atrial fibrillation. Review of Systems Review of Systems: Constitutional-no fever or chills ENT-no blurred vision, no double vision, no epistaxis, no sore throat Respiratory-no cough, no wheezing, no shortness of breath Cardiac-no palpitations, no chest pain, no syncope GI-no nausea, vomiting, diarrhea, melena, hematochezia -no urinary retention, no urinary incontinence, no dysuria, no hematuria Musculoskeletal-no joint pain, no muscle tenderness Skin-no bruising, no rashes, no pruritus Neuro-no isolated weakness, no paresthesia, no weakness Psych-no depression, no anxiety Physical Exam Physical Exam: General-alert and oriented x3, no fevers, no chills HEENT-head atraumatic and normocephalic, pupils equal and reactive to light, extraocular muscles intact Neck-no lymphadenopathy or thyromegaly, trachea midline Chest-clear to auscultation percussion. No rales wheezing or rhonchi Cardiac-regular rate and rhythm, normal S1 and S2 Abdomen-normal bowel sounds, nontender, no hepatosplenomegaly Extremities-no cyanosis, clubbing, or edema Neuro-cranial nerves II through XII intact, motor and sensory function within normal limits, strength symmetrical , no focal deficits Psych-normal affect, normal mood Results & Data Results & Data ([facility]) Vital Signs (Past 12 Hours) Vital Signs Temp Pulse Resp BP Pulse Ox O2 Del Method 06/06/22 15:01 36.7 C 60 16 137/65 95 06/06/22 07:30 36.4 C L 62 16 146/66 H 99 Room Air 06/06/22 06:21 56 L 118/58 L Laboratory Results 06/06/22 06:21 06/06/22 06:21 PG Care Time/CCT Total # of Minutes Spent Total Time Spent with Patient: Total time spent is greater than 50% in coordination of care (as documented) at patient's floor/unit and/or counseling patient: Coding Level of Care Code 67760 Subseq Hosp Care Lvl 3 Diagnoses Metabolic encephalopathy G93.41 Paroxysmal A-fib I48.0 GERD without esophagitis K21.9 Hypertension I10 Giant cell arteritis M31.6 Paronychia due to ingrown nail Urinary tract infection N39.0
[2022-06-06] MEDS: ACETAMINOPHEN 325 MG TAB PO PRN (20:32)
[2022-06-06] MEDS ORDERED: GABAPENTIN 300 MG CAP PO SCH ×3 (21:00)
[2022-06-07] MEDS: AMPICILLIN/SULBACTAM SOD 3,000 MG in 0.9 % SODIUM CHLORIDE 100 ML IV SCH ×4 (02:57→23:06)
[2022-06-07 07:47] LABS: Hematocrit (blood only) 32.7 % (34.1-44.9); Hemoglobin 10.4 g/dl (12.0-16.0); Mean Corpuscular Hemoglobin 30.1 pg (25.0-34.0); Mean Corpuscular Hgb Conc 31.8 g/dL (32.0-36.0); Mean Corpuscular Volume 94.8 fL (80.0-100.0); Mean Platelet Volume 10.2 fL (9.4-12.3); Platelet Count 223 K/uL (130-400); RDW Coefficient of Variation 13.5 % (11.5-14.5); RDW Standard Deviation 46.3 fL (36.4-46.3); Red Blood Count 3.45 M/uL (3.93-5.22); White Blood Count 6.98 K/ul (4.8-10.8)
[2022-06-07 08:13] LABS: BUN Creatinine Ratio 14.7 (10-20); Calcium 6.9 mg/dl (8.5-10.1); Creatinine Clr Calc Pharmacy 39.4 ml/min; Est GFR (African American) 84.2 ml/min; Est GFR (Non-African American) 72.7 ml/min; Potassium 3.9 mmol/L (3.5-5.1)
[2022-06-07] MEDS: hydrALAZINE TAB 50 MG TAB PO SCH ×3 (08:22→21:57)
[2022-06-07] MEDS: PANTOprazole 40 MG TAB PO SCH (08:23)
[2022-06-07] MEDS: amLODIPine BESYLATE 5 MG TAB PO SCH (08:23)
[2022-06-07] MEDS: CHOLECALCIFEROL 1,000 UNITS 25 MCG TAB PO SCH (08:23)
[2022-06-07] MEDS: MEMANTINE HCL 5 MG TAB PO SCH ×2 (08:23→21:38)
[2022-06-07] MEDS: METOPROLOL TARTRATE 50 MG TAB PO SCH ×2 (08:23→21:38)
[2022-06-07] MEDS: FUROSEMIDE 20 MG TAB PO SCH (08:23)
[2022-06-07] MEDS: APIXABAN 2.5 MG TAB PO SCH ×2 (08:23→21:38)
[2022-06-07] MEDS: CYANOCOBALAMIN (B-12) 500 MCG TABLET PO SCH (08:23)
[2022-06-07] MEDS: HYDROCORTISONE SOD 50 MG in SYRINGE 0 ML IV SCH (08:24)
[2022-06-07] MEDS: ORDER AWAITING ACTION: Cyclosporine [Restasis] 0.05 % Dropperette SCH ×3 (08:24→23:06)
[2022-06-07] MEDS: SODIUM CHLORIDE 0.9% 1000ML 1,000 ML IV SCH (08:24)
--- NOTE | 2022-06-07 12:56 | Hospitalist Progress Note ---
Date of Service June 07, 2022 Assessment & Plan (1) Metabolic encephalopathy: Plan: Resolved. Due to urinary tract infection. Continue treatment and supportive care. (2) Paroxysmal A-fib: Plan: Metoprolol for rate control. Eliquis for anticoagulation. Stable (3) GERD without esophagitis: Plan: continue on omeprazole for GI prophylaxis (4) Hypertension: Plan: Currently on metoprolol, hydralazine, amlodipine and low-dose Lasix. Controlled (5) Giant cell arteritis: Plan: Steroid-dependent. Intravenous hydrocortisone given initially and then switch back to oral prednisone therapy today, June 07. (6) Paronychia due to ingrown nail: Plan: This appears to be due to an ingrown toenail on the left first toe. She is on Unasyn. Eventually she will need podiatry treatment (7) Urinary tract infection: Plan: E. coli isolated. Currently on Unasyn, day 3. Plan DVT prophylaxis: Eliquis Disposition: Anticipate eventual discharge back [facility]. Hopefully tomorrow, June 08 Admission and Anticipated Discharge Date Admission Date: June 05, 2022 Subjective Alert and oriented. No acute distress. Blood cultures remain negative. Parenteral steroid replacement therapy has been switched back to her usual oral prednisone. She remains on Unasyn, day 3. E. coli isolated in the urine. Review of Systems Review of Systems: Constitutional-no fever or chills ENT-no blurred vision, no double vision, no epistaxis, no sore throat Respiratory-no cough, no wheezing, no shortness of breath Cardiac-no palpitations, no chest pain, no syncope GI-no nausea, vomiting, diarrhea, melena, hematochezia -no urinary retention, no urinary incontinence, no dysuria, no hematuria Musculoskeletal-no joint pain, no muscle tenderness Skin-no bruising, no rashes, no pruritus Neuro-no isolated weakness, no paresthesia, no weakness Psych-no depression, no anxiety Physical Exam Physical Exam: General-alert and oriented x3, no fevers, no chills HEENT-head atraumatic and normocephalic, pupils equal and reactive to light, extraocular muscles intact Neck-no lymphadenopathy or thyromegaly, trachea midline Chest-clear to auscultation percussion. No rales wheezing or rhonchi Cardiac-regular rate and rhythm, normal S1 and S2 Abdomen-normal bowel sounds, nontender, no hepatosplenomegaly Extremities-no cyanosis, clubbing, or edema Neuro-cranial nerves II through XII intact, motor and sensory function within normal limits, strength symmetrical , no focal deficits Psych-normal affect, normal mood Results & Data Results & [facility] ([facility]) Vital Signs (Past 12 Hours) Vital Signs Temp Pulse Resp BP Pulse Ox O2 Del Method 06/07/22 07:27 36.5 C 55 L 16 154/63 H 96 Room Air Laboratory Results 06/07/22 07:17 06/07/22 07:17 PG Care Time/CCT Total # of Minutes Spent Total Time Spent with Patient: Total time spent is greater than 50% in coordination of care (as documented) at patient's floor/unit and/or counseling patient: Coding Level of Care Code 46165 Subseq Hosp Care Lvl 3 Diagnoses Metabolic encephalopathy G93.41 Paroxysmal A-fib I48.0 GERD without esophagitis K21.9 Hypertension I10 Giant cell arteritis M31.6 Paronychia due to ingrown nail Urinary tract infection N39.0
[2022-06-07] MEDS: ACETAMINOPHEN 325 MG TAB PO PRN (21:37)
[2022-06-07] MEDS: GABAPENTIN 300 MG CAP PO SCH (21:38)
[2022-06-07] MEDS: DONEPEZIL HCL 10 MG TAB PO SCH (21:39)
[2022-06-08] MEDS: AMPICILLIN/SULBACTAM SOD 3,000 MG in 0.9 % SODIUM CHLORIDE 100 ML IV SCH (05:54)
[2022-06-08 07:33] LABS: Hematocrit (blood only) 31.3 % (34.1-44.9); Hemoglobin 10.1 g/dl (12.0-16.0); Mean Corpuscular Hemoglobin 30.7 pg (25.0-34.0); Mean Corpuscular Hgb Conc 32.3 g/dL (32.0-36.0); Mean Corpuscular Volume 95.1 fL (80.0-100.0); Mean Platelet Volume 10.5 fL (9.4-12.3); Platelet Count 202 K/uL (130-400); RDW Coefficient of Variation 13.3 % (11.5-14.5); RDW Standard Deviation 46.5 fL (36.4-46.3); Red Blood Count 3.29 M/uL (3.93-5.22); White Blood Count 5.91 K/ul (4.8-10.8)
[2022-06-08] MEDS: ORDER AWAITING ACTION: Cyclosporine [Restasis] 0.05 % Dropperette SCH (08:01)
[2022-06-08 08:11] LABS: Creatinine Clr Calc Pharmacy 36.9 ml/min; Est GFR (African American) 77.9 ml/min; Est GFR (Non-African American) 67.2 ml/min; Magnesium 1.9 mg/dl (1.7-2.4); Potassium 3.3 mmol/L (3.5-5.1)
[2022-06-08] MEDS: hydrALAZINE TAB 50 MG TAB PO SCH (08:32)
[2022-06-08] MEDS: amLODIPine BESYLATE 5 MG TAB PO SCH (08:32)
[2022-06-08] MEDS: CHOLECALCIFEROL 1,000 UNITS 25 MCG TAB PO SCH (08:33)
[2022-06-08] MEDS: PANTOprazole 40 MG TAB PO SCH (08:33)
[2022-06-08] MEDS: FUROSEMIDE 20 MG TAB PO SCH (08:33)
[2022-06-08] MEDS: CYANOCOBALAMIN (B-12) 500 MCG TABLET PO SCH (08:33)
[2022-06-08] MEDS: METOPROLOL TARTRATE 50 MG TAB PO SCH (08:34)
[2022-06-08] MEDS: MEMANTINE HCL 5 MG TAB PO SCH (08:34)
[2022-06-08] MEDS: APIXABAN 2.5 MG TAB PO SCH (08:34)
[2022-06-08] MEDS ORDERED: predniSONE 1 MG TAB PO SCH (09:00)
--- NOTE | 2022-06-08 10:45 | Discharge Summary ---
Date of Service June 08, 2022 Admission HPI Per Admitting Provider 87-year-old female reportedly was at [facility] cardiology office when she appeared to be confused. she looks to be clinically dehydrated with dry mucus membranes. She was witho lower bood pressure at her cardiology appointment but with normal BP in the ER department. The son arrived and does confirm she is not her usual mental state. Is an abnormal urinalysis and also it appears to have ingrown nail and be a possible paronychia of the left great toe. she is pending a COVID test and presentation Principal Diagnosis Urinary tract infection, paronychia left great toe, metabolic encephalopathy Discharge Exam General-alert and oriented x3, no fevers, no chills HEENT-head atraumatic and normocephalic, pupils equal and reactive to light, extraocular muscles intact Neck-no lymphadenopathy or thyromegaly, trachea midline Chest-clear to auscultation percussion. No rales wheezing or rhonchi Cardiac-regular rate and rhythm, normal S1 and S2 Abdomen-normal bowel sounds, nontender, no hepatosplenomegaly Extremities-no cyanosis, clubbing, or edema. Ingrown toenail with resolving paronychia left great toe Neuro-cranial nerves II through XII intact, motor and sensory function within normal limits, strength symmetrical , no focal deficits Psych-normal affect, normal mood Discharge Data Allergies Allergy/AdvReac Type Severity Reaction Status Date / Time adhesive Allergy Intermediate BLISTER Verified 06/05/22 16:30 SKIN latex Allergy Intermediate HIVES AND Verified 06/05/22 16:30 ITCHING sulfamethoxazole Allergy Intermediate HIVES Verified 06/05/22 16:30 trimethoprim Allergy Intermediate HIVES Verified 06/05/22 16:30 nickel Allergy Mild RASH Verified 06/05/22 16:30 nitrofurantoin Allergy Unknown Unknown Unverified 06/05/22 16:30 [From Macrobid] lactose AdvReac Intermediate GI UPSET Verified 06/05/22 16:30 methotrexate AdvReac Intermediate SEVERE GI Verified 06/05/22 16:30 UPSET [id number]-[id number] Reductase AdvReac Intermediate MUSCLE Verified 06/05/22 16:30 Inhibitor ACHES [Hwexrpi-Ohn-Wqb Reductase Inhibitor] amoxicillin [From Augmentin] AdvReac Mild Diarrhea Unverified 06/05/22 16:30 clavulanic acid AdvReac Mild Diarrhea Unverified 06/05/22 16:30 [From Augmentin] Hospital Course (1) Urinary tract infection: E. coli isolated. Treated while hospitalized with intravenous Unasyn. Will d ischarge on oral cephalexin. (2) Paronychia due to ingrown nail: This appears to be due to an ingrown toenail on the left first toe. Treated while hospitalized with intravenous Unasyn. She will be discharged on oral cephalexin. Eventually she will need podiatry treatment (3) Metabolic encephalopathy: Resolved. Due to urinary tract infection. Continue treatment and supportive care. (4) Giant cell arteritis: Steroid-dependent. Intravenous hydrocortisone given initially and then switch back to oral prednisone therapy on June 07. (5) Hypertension: Currently on metoprolol, hydralazine, amlodipine and low-dose Lasix. Controlled (6) Paroxysmal A-fib: Metoprolol for rate control. Eliquis for anticoagulation. Stable (7) Dementia: Plan DVT prophylaxis: Eliquis Disposition: discharge back to personal snf today, June 08 Total Time Total Time Spent Total Time Spent (In Minutes): 35 minutes Discharge Plan Discharge Items Patient Disposition: Personal Detention Reason For Visit: METABOLIC ENCEPHALOPATHY SECONDARY TO UTI POA Discharge Diagnosis: E. coli UTI, metabolic encephalopathy, ingrown toenail with paronychia left great toe Activity: Resume your previous activity Non-emergency contact: Primary Care Provider Call non-emergency contact if: you have any medication questions Follow-up/Referrals: Irene Guajardo [Primary Care Provider] - Diet: Heart Healthy Addtl Attending Provider Instructions: Take cephalexin antibiotic for 1 week. See case reviewer for eventual removal of ingrown toenail of the left great toe Pending Studies at Discharge: No Stand-Alone Forms: [place], Smoking Cessation Skilled Items Patient informed of condition?: Yes DNR: Yes Discharge Level of Care: Other Communicable Disease: No Discharge Prognosis: Stable Lines: None Urinary Catheter: No Medications and DC Order Prescriptions: New cephalexin 500 mg Capsule 500 mg PO QID Qty: 28 0RF Continued conjugated estrogens 0.625 mg/gram cream 0.625 mg vaginal DAILY Qty: 30 3RF Rx Instructions: apply twice weekly. cholecalciferol (vitamin D3) 2,000 unit tablet 2,000 units PO DAILY cyanocobalamin (vitamin B-12) 1,000 mcg Tablet 2,000 mcg PO DAILY memantine 5 mg tablet 5 mg PO BID Rx Instructions: 1 tab po daily x 1 week, then increase to 1 tab po BID. donepezil 10 mg tablet 10 mg PO HS ondansetron HCl 4 mg tablet 4 mg PO Q8 PRN (Reason: Nausea and nausea) amlodipine 5 mg tablet 5 mg PO QAM prednisone 1 mg tablet 2 mg PO QAM hydralazine 100 mg tablet 100 mg PO TID metoprolol tartrate 50 mg tablet 50 mg PO BID gabapentin 300 mg capsule 300 mg PO HS omeprazole 20 mg capsule,delayed release(DR/EC) 20 mg PO QAM furosemide 20 mg tablet 20 mg PO QAM Eliquis 2.5 mg tablet 2.5 mg PO BID buspirone 5 mg tablet 2.5 mg PO BID Discharge Orders: Discharge Order (Routine); Ordered 06/08/22 Ordered By: Goran Martinez Admission Data Admit Date/Time: 06/05/22 19:50 Attending Provider: Goran Martinez Admit Provider: Paco Sung Primary Care Provider: Irene Guajardo Coding Level of Care Code D/C DAY MANAGEMENT >30 MINS Diagnoses Urinary tract infection N39.0 Paronychia due to ingrown nail Metabolic encephalopathy G93.41 Giant cell arteritis M31.6 Hypertension I10 Paroxysmal A-fib I48.0 Dementia F03.90
[2022-06-08] MEDS ORDERED: POTASSIUM CHLORIDE CRTAB 20 MEQ TABCR PO STA (10:47)
[2022-06-08] MEDS ORDERED: cephALEXin 500 MG CAP PO SCH (13:00)
== END 2022-06-08 13:46 | disposition home or self-care (01) ==
LOC: ED 11:25 → 3E 19:50 → INTOOBSV 19:50 → SUATTDRO 19:50 → 3E 06-06 00:06